=== PATIENT | male | born 1945 | race Caucasian/White ===

== ENCOUNTER 2016-11-28 08:15 | Inpatient (IN) | payer MEDICARE, OTHER ==
[~2016-11-28] VITALS: Ht 177.8 cm; Wt 75.0 kg
[2016-11-28] VITALS (9 sets, daily range): BP systolic 105–144; BP diastolic 64–75; PULSE 78–130; RESP 17–28; TEMP 96.9–98.8; O2SAT 93–98
[~2016-11-28 08:15] MED LIST: ALBU8I INH; DUONI NEB; GABA300C3 PO
[2016-11-28] MEDS ORDERED: SODIUM CHLOR 0.9% 1000 ML INJ 1,000 ML IV SCH (08:46)
--- NOTE | 2016-11-28 08:48 | PD ---
HPI Chief Complaint: Hematemasis, Black Stool, Abd Pain Time Seen by Provider: 08:42 Travel History International Travel<30 days: No Contact w/Intl Traveler<30days: No History of Present Illness HPI 71-year-old male complains of bright red hematemesis and black stool for about 4 days. He reports some lightheadedness as well as shortness of breath. He complains of epigastric abdominal pain. The patient had an endoscopy performed revealing a regular GE junction consistent with reflux esophagitis or early mucosal endoscopic changes consistent with a possible Cazares's esophagitis. Hiatal hernia was found at the GE junction. Active hemorrhagic gastritis was observed. Colonoscopy reveals moderately severe diverticulosis found in the sigmoid colon. Multiple polyps sent. Biopsy results pending. Study was performed by the [facility] in [place] about 3 weeks ago. He denies iron and Pepto-Bismol usage. PFSH Past Medical History Arthritis: No Autoimmune Disease: No Blood Disorders: No Anxiety: No Depression: No Heart Rhythm Problems: No Cancer: Yes (COLON SURGERY 2006) Cardiovascular Problems: Yes (Hypertension is resolved per patient) High Cholesterol: No Chemotherapy: No Chest Pain: No Congestive Heart Failure: Yes COPD: Yes (SMOKING) Cerebrovascular Accident: Yes (CVA "2006" PER PT) Coronary Artery Disease: No Diabetes: No Endocrine: No Gastrointestinal Disorders: Yes (HERNIA REPAIRS X 2 TODAT [phone]) GERD: Yes Genitourinary: Yes Hepatitis: No Hiatal Hernia: No Hypertension: Yes Kidney Stones: No Musculoskeletal: No Neurologic: Yes (TIA 2006, NO RESIDUAL) Psychiatric: No Reproductive: No Respiratory: Yes (copd) Migraines: No Radiation Therapy: No Renal Failure: Yes Seizures: No Sleep Apnea: No Thyroid Disease: No Ulcer: No Past Surgical History Abdominal Surgery: Yes (COLON CANCER SURGERY 2006) Appendectomy: No Body Medical Devices: rods and screws in lower back Cardiac Surgery: No Cholecystectomy: No Ear Surgery: No Endocrine Surgery: No Eye Surgery: No Genitourinary Surgery: Yes (CYST REMOVED OFF LEFT KIDNEY 2008) Gynecologic Surgery: No Oral Surgery: Yes (TEETH PULLED IN PAST) Pacemaker: No Thoracic Surgery: No Other Surgery: Yes Social History Alcohol Use: Yes (occassionally) Tobacco Use: Yes (one half pack per day) Substance Use: No Allergies-Medications (Allergen,Severity, Reaction): Coded Allergies: Penicillin (Verified Allergy, Severe, 04/01/16) Reported Meds & Prescriptions Reported Meds & Active Scripts Active Review of Systems Except as stated in HPI: all other systems reviewed are Neg Physical Exam Narrative GENERAL: 71 yo M, WNWD, speaking full sentences, pleasant SKIN: Warm and dry. HEAD: Atraumatic. Normocephalic. EYES: Pupils equal and round. No scleral icterus. No injection or drainage. ENT: No nasal bleeding or discharge. Mucous membranes pink and moist. NECK: Trachea midline. No JVD. CARDIOVASCULAR: Tachycardia. Regular. RESPIRATORY: Coarse breath sounds bilaterally. No accessory muscle use or tachypnea. GASTROINTESTINAL: Soft. Minimal tenderness palpation in the epigastrium. MUSCULOSKELETAL: Extremities without clubbing, cyanosis, or edema. No obvious deformities. NEUROLOGICAL: Awake and alert. No obvious cranial nerve deficits. Motor grossly within normal limits. Five out of 5 muscle strength in the arms and legs. Normal speech. PSYCHIATRIC: Appropriate mood and affect; insight and judgment normal. Data Data Last Documented VS Vital Signs Date Time Temp Pulse Resp B/P Pulse Ox O2 Delivery O2 Flow Rate FiO2 11/28/16 09:38 98.4 103 18 139/72 94 Nasal Cannula 2 Vital signs reviewed Orders Complete Blood Count With Diff (11/28/16 08:46) Comprehensive Metabolic Panel (11/28/16 08:46) Prothrombin Time / Inr (Pt) (11/28/16 08:46) Act Partial Throm Time (Ptt) (11/28/16 08:46) Alcohol (Ethanol) (11/28/16 08:46) Type And Screen (11/28/16 08:46) Ecg Monitoring (11/28/16 08:46) Iv Access Insert/Monitor (11/28/16 08:46) Oximetry (11/28/16 08:46) Ondansetron Inj (Zofran Inj) (11/28/16 09:00) Pantoprazole Inj (Protonix Inj) (11/28/16 09:00) Sodium Chlor 0.9% 1000 Ml Inj (Ns 1000 M (11/28/16 08:46) Sodium Chloride 0.9% Flush (Ns Flush) (11/28/16 09:00) Lactic Acid (11/28/16 08:46) Admit Order (Ed Use Only) (11/28/16 10:45) Labs Laboratory Tests Test 11/28/16 09:10 White Blood Count 5.0 TH/MM3 Red Blood Count 2.65 MIL/MM3 Hemoglobin 10.0 GM/DL Hematocrit 29.6 % Mean Corpuscular Volume 111.7 FL Mean Corpuscular Hemoglobin 37.7 PG Mean Corpuscular Hemoglobin 33.7 % Concent Red Cell Distribution Width 15.9 % Platelet Count 80 TH/MM3 Mean Platelet Volume 10.0 FL Neutrophils (%) (Auto) 82.6 % Lymphocytes (%) (Auto) 12.2 % Monocytes (%) (Auto) 3.5 % Eosinophils (%) (Auto) 1.1 % Basophils (%) (Auto) 0.6 % Neutrophils # (Auto) 4.1 TH/MM3 Lymphocytes # (Auto) 0.6 TH/MM3 Monocytes # (Auto) 0.2 TH/MM3 Eosinophils # (Auto) 0.1 TH/MM3 Basophils # (Auto) 0.0 TH/MM3 CBC Comment AUTO DIFF Differential Comment AUTO DIFF CONFIRMED Platelet Estimate LOW Platelet Morphology Comment NORMAL Prothrombin Time 13.3 SEC Prothromb Time International 1.2 RATIO Ratio Activated Partial 30.3 SEC Thromboplast Time Sodium Level 136 MEQ/L Potassium Level 3.6 MEQ/L Chloride Level 98 MEQ/L Carbon Dioxide Level 28.1 MEQ/L Anion Gap 10 MEQ/L Blood Urea Nitrogen 4 MG/DL Creatinine 1.36 MG/DL Estimat Glomerular Filtration 52 ML/MIN Rate Random Glucose 118 MG/DL Lactic Acid Level 2.7 mmol/L Calcium Level 7.9 MG/DL Total Bilirubin 1.8 MG/DL Aspartate Amino Transf 58 U/L (AST/SGOT) Alanine Aminotransferase 30 U/L (ALT/SGPT) Alkaline Phosphatase 214 U/L Total Protein 6.1 GM/DL Albumin 2.2 GM/DL Ethyl Alcohol Level LESS THAN 3 MG/DL Blood Type O POSITIVE Antibody Screen NEGATIVE MDM Medical Decision Making Medical Screen Exam Complete: Yes Emergency Medical Condition: Yes Medical Record Reviewed: Yes Differential Diagnosis Constipation, Gastritis, Acute Cholecystitis, Biliary Colic, Pancreatitis, MADRIGAL , Hepatitis, Bowel Obstruction, Cystitis, Mesenteric Ischemia, AAA, Appendicitis , Renal Stone/Hydronephrosis, GERD, perforated viscous Narrative Course CBC & BMP Diagram 11/28/16 09:10 Prior CBC reveal similar WBC/Hgb/PLTs LA 2.7 AST 58 Alk phos 214 Albumin 2.2 T protein 6.1 Patient received a liter of saline along with Protonix and Zofran. At 10:35 AM the pulse is 110. Given his mildly elevated lactic acid, tachycardia and reports of bright red hematemesis and black stool. Case d/w Dr Payan for Family Medicine Residency. Diagnosis Primary Impression: Hematemesis Qualified Code: K92.0 - Hematemesis with nausea Additional Impression: Black stool Admitting Information Admitting Physician Requests: Admit Charles Chamberlain MD November 28, 2016 08:48 Qualified Code: K92.0 - Hematemesis with nausea Additional Impression: Black stool Admitting Information Admitting Physician Requests: Observation Charles Chamberlain MD November 28, 2016 08:48
[2016-11-28] MEDS ORDERED: ONDANSETRON HCL 4 MG/2 ML VIAL IVP ONE (09:00)
[2016-11-28] MEDS ORDERED: SODIUM CHLORIDE 0.9% FLUSH 10 ML FLUSH IVF PRN (09:00)
[2016-11-28] MEDS ORDERED: PANTOPRAZOLE SODIUM 40 MG VIAL IVP ONE (09:00)
[2016-11-28 09:23] LABS: AUTOMATED NEUTROPHIL # 4.1 TH/MM3 (1.8-7.7); BASOPHIL % 0.6 % (0.0-2.0); EOSINOPHIL # 0.1 TH/MM3 (0-0.4); EOSINOPHIL % 1.1 % (0.0-4.0); HEMATOCRIT 29.6 % (39.0-51.0); LYMPH % 12.2 % (9.0-44.0); LYMPHOCYTE # 0.6 TH/MM3 (1.0-4.8); MEAN CELL VOLUME 111.7 FL (80.0-100.0); MEAN CORPUSCULAR HEMOGLOBIN 37.7 PG (27.0-34.0); MEAN CORPUSCULAR HGB CONC 33.7 % (32.0-36.0); MONO % 3.5 % (0.0-8.0); NEUT % 82.6 % (16.0-70.0); PLATELET COUNT 80 TH/MM3 (150-450); RED BLOOD COUNT 2.65 MIL/MM3 (4.50-5.90); RED CELL DISTRIBUTION WIDTH 15.9 % (11.6-17.2)
[2016-11-28 09:26] LABS: HEMO FLAGS AUTO DIFF
[2016-11-28 09:31] LABS: APTT (PATIENT) 30.3 SEC (24.3-30.1); INTERNATIONAL NORMALIZED RATIO 1.2 RATIO; PROTHROMBIN TIME - PATIENT 13.3 SEC (9.8-11.6)
[2016-11-28 09:49] LABS: ANION GAP 10 MEQ/L (5-15)
[2016-11-28 09:53] LABS: ALKALINE PHOSPHATASE 214 U/L (45-117); ALT (GPT) 30 U/L (12-78); AST (GOT) 58 U/L (15-37); BICARBONATE 28.1 MEQ/L (21.0-32.0); BLOOD UREA NITROGEN 4 MG/DL (7-18); CHLORIDE 98 MEQ/L (98-107); GLOMERULAR FILTRATION RATE 52 ML/MIN (>89); POTASSIUM 3.6 MEQ/L (3.5-5.1); SODIUM (NA) 136 MEQ/L (136-145); TOTAL BILIRUBIN ADULT 1.8 MG/DL (0.2-1.0)
[2016-11-28 09:56] LABS: PLATELET ESTIMATE SMEAR LOW (NORMAL); PLATELET MORPHOLOGY NORMAL (NORMAL); SCAN/DIFF AUTO DIFF CONFIRMED
[2016-11-28] MEDS ORDERED: SODIUM CHLORIDE 0.9% FLUSH 10 ML FLUSH IV FLUSH PRN ×2 (11:00)
[2016-11-28] MEDS ORDERED: LORazepam 1 MG TAB PO PRN (11:00)
[2016-11-28] MEDS ORDERED: cloNIDine HCL 0.1 MG TAB PO PRN (11:00)
[2016-11-28] MEDS ORDERED: LORazepam 2 MG TAB PO PRN (11:00)
[2016-11-28] MEDS ORDERED: LORazepam 2 MG/ML VIAL IV PUSH PRN ×4 (11:00)
[2016-11-28] MEDS ORDERED: FLUMAZENIL 0.5 MG/5 ML VIAL IV PUSH PRN (11:00)
[2016-11-28] MEDS ORDERED: ONDANSETRON HCL 4 MG/2 ML VIAL IV PRN (11:00)
--- NOTE | 2016-11-28 11:29 | HHI.HP ---
[facility] Service Family Medicine Primary Care Physician [facility] Admission Diagnosis Hematemasis, Black Stool Diagnoses: International Travel<30 Days: No Contact w/Intl Traveler<30days: No Known Affected Area: No History of Present Illness Mr. Wise is a 71 year old white male with a history of acid reflux and colon cancer presenting with stomach pain, diarrhea, and hematemesis. He is unable to keep down food for the past 3 weeks but can keep down water and ice tea. He has a constant cramping abdominal pain in the epigastric region with an occasional sharp pain that does not radiate. His vomit appears tea colored and had blood in it three times. His diarrhea is black. Eating increases his nausea. He also complains of feeling weak, out of breath, and dizzy. (Tori Haynes MD R1) Review of Systems Constitutional: COMPLAINS OF: Fatigue, Weight loss, Dizziness Eyes: DENIES: Blurred vision, Diplopia Respiratory: COMPLAINS OF: Cough, Shortness of breath Cardiovascular: COMPLAINS OF: Dyspnea on Exertion, Lower Extremity Edema, DENIES: Chest pain Gastrointestinal: COMPLAINS OF: Abdominal pain, Black stools, Diarrhea, Nausea , Vomiting Genitourinary: DENIES: Urinary frequency, Urgency Musculoskeletal: COMPLAINS OF: Back pain Integumentary: DENIES: Pruritus, Rash Hematologic/lymphatic: DENIES: Bruising, Lymphadenopathy Neurologic: DENIES: Headache, Seizures (Tori Haynes MD R1) Past Family Social History Past Medical History COPD GERD Prior HTN Colon Cancer treated with Right hemicolectomy 2009, [facility] Past Surgical History Hernia repair 2012 Right Hemicolectomy 2009 Fused vertebra 2006 Reported Medications Reported Meds & Active Scripts Active (Tori Haynes MD R1) Allergies: Coded Allergies: Penicillin (Verified Allergy, Severe, 04/01/16) Active Ordered Medications Inpatient Medications Albuterol Sulfate (Albuterol Neb) 2.5 mg Q6HR NEB PRN NEB SOB/WHEEZING; Start 11/28/16 at 11:00; Status UNV Albuterol/ Ipratropium (Duoneb Neb) 1 ampule Q4HR NEB PRN NEB SOB/WHEEZING; Start 11/28/16 at 11:00; Status UNV Ciprofloxacin/ Dextrose (Cipro 400 Mg Premix) 200 ml @ 200 mls/hr Q12H IV ; Start 11/28/16 at 11:00; Status UNV Clonidine (Catapres) 0.1 mg Q6H PRN PO SEE LABEL COMMENTS; Start 11/28/16 at 11 :00; Status UNV Flumazenil (Romazicon Inj) 0.2 mg Q1M PRN IV PUSH SEE LABEL COMMENTS; Start 07/05 at 11:00; Status UNV Lorazepam (Ativan Inj) 2 mg Q15M PRN IV PUSH CIWA > 20; Start 11/28/16 at 11:00 ; Status UNV Lorazepam (Ativan) 2 mg Q2H PRN PO CIWA 11-14; Start 11/28/16 at 11:00; Status UNV Multivitamins 10 ml/Folic Acid 1 mg/Sodium Chloride 510.2 ml @ 125 mls/hr Q24H IV ; Start 11/28/16 at 11:00; Stop 12/03/16 at 10:59; Status UNV Ondansetron HCl (Zofran Inj) 4 mg ONCE ONCE IVP Last administered on 09:15; Start 11/28/16 at 09:00; Stop 11/28/16 at 09:01; Status DC Ondansetron HCl 4 mg 4 mg Q6H PRN IV NAUSEA OR VOMITING; Start 11/28/16 at 11: 00; Status UNV Pantoprazole Sodium 40 mg 40 mg ONCE ONCE IVP Last administered on 11/28/16 09:15; Start 11/28/16 at 09:00; Stop 11/28/16 at 09:01; Status DC Pantoprazole Sodium 80 mg/ Sodium Chloride 35 ml @ 420 mls/hr ONCE ONCE IV ; Start 11/28/16 at 12:00; Stop 11/28/16 at 12:04; Status UNV Pantoprazole Sodium/Sodium Chloride (Protonix Inj/NS Inj) 100 ml @ 10 mls/hr Q10H IV ; Start 11/28/16 at 13:00; Status UNV Sodium Chloride (NS Flush) 2 ml UNSCH PRN IV FLUSH FLUSH AFTER USING IV ACCESS ; Start 11/28/16 at 11:00; Status UNV Sodium Chloride 2 ml 2 ml BID IV FLUSH ; Start 11/28/16 at 21:00; Status UNV Thiamine HCl/ Sodium Chloride (Thiamine Inj/NS Inj) 101 ml @ 100 mls/hr Q24H IV ; Start 11/28/16 at 11:00; Stop 12/01/16 at 10:59; Status UNV Family History Mother- CHF Father and Sister: healthy Social History 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 SKIN: No rashes, ecchymoses or lesions. Cool and dry. HEAD: Atraumatic. Normocephalic. No temporal or scalp tenderness. EYES: Pupils equal round and reactive. Extraocular motions intact. No scleral icterus. No injection or drainage. ENT: Nose without bleeding, purulent drainage or septal hematoma. Throat without erythema, tonsillar hypertrophy or exudate. Uvula midline. Airway patent. NECK: Trachea midline. No JVD or lymphadenopathy. Supple, nontender, no meningeal signs. CARDIOVASCULAR: tachycardia with regular rhythm without murmurs, gallops, or rubs. RESPIRATORY: Breath sounds equal bilaterally. wheezes bilateral bases GASTROINTESTINAL: Abdomen soft, nondistended. No palpable masses. No guarding. Epigastric tenderness MUSCULOSKELETAL: Extremities without clubbing, cyanosis, or edema. No joint tenderness, effusion, or edema noted. No calf tenderness. NEUROLOGICAL: Awake and alert. Cranial nerves II through XII intact. Motor and sensory grossly within normal limits. Normal speech. RECTAL: external hemorrhoid, FOBT negative Laboratory Laboratory Tests Test 11/28/16 09:10 White Blood Count 5.0 Red Blood Count 2.65 Hemoglobin 10.0 Hematocrit 29.6 Mean Corpuscular Volume 111.7 Mean Corpuscular Hemoglobin 37.7 Mean Corpuscular Hemoglobin 33.7 Concent Red Cell Distribution Width 15.9 Platelet Count 80 Mean Platelet Volume 10.0 Neutrophils (%) (Auto) 82.6 Lymphocytes (%) (Auto) 12.2 Monocytes (%) (Auto) 3.5 Eosinophils (%) (Auto) 1.1 Basophils (%) (Auto) 0.6 Neutrophils # (Auto) 4.1 Lymphocytes # (Auto) 0.6 Monocytes # (Auto) 0.2 Eosinophils # (Auto) 0.1 Basophils # (Auto) 0.0 CBC Comment AUTO DIFF Differential Comment AUTO DIFF CONFIRMED Platelet Estimate LOW Platelet Morphology Comment NORMAL Prothrombin Time 13.3 Prothromb Time International 1.2 Ratio Activated Partial 30.3 Thromboplast Time Sodium Level 136 Potassium Level 3.6 Chloride Level 98 Carbon Dioxide Level 28.1 Anion Gap 10 Blood Urea Nitrogen 4 Creatinine 1.36 Estimat Glomerular Filtration 52 Rate Random Glucose 118 Lactic Acid Level 2.7 Calcium Level 7.9 Total Bilirubin 1.8 Aspartate Amino Transf 58 (AST/SGOT) Alanine Aminotransferase 30 (ALT/SGPT) Alkaline Phosphatase 214 Total Protein 6.1 Albumin 2.2 Ethyl Alcohol Level LESS THAN 3 Blood Type O POSITIVE Antibody Screen NEGATIVE (Tori Haynes MD R1) Result Diagram: 11/28/16 0910 11/28/16 0910 Septic Shock Reassessment Heart: Regular rate and rhythm Lungs: Other (wheezing) Skin: Warm, Dry Capillary Refill: Brisk (Tori Haynes MD R1) Assessment and Plan Assessment and Plan Mr. Wise is a 71 year old white male with a history of acid reflux and colon cancer presenting with stomach pain, diarrhea, and vomiting. His workup shows a macrocytic anemia. He is being admitted for a possible upper GI bleed due to vomiting with blood and dark stools. Code Status Alternative Code:Do not intubate Discussed Condition With Patient was seen and discussed with Dr. Schuyler Way, MS4, collaborated in history taking, physical exam, and medical decision-making (Tori Haynes MD R1) Attending Attestation Patient seen and examined. Case reviewed and discussed with the resident team. Agree with plan of care as discussed with me and documented in the resident note. pt seen on admission (Zari Salter MD) Problem List: (1) GI bleed Status: Acute Plan: Consult GI Start Protonix Holding DVT prophylaxis due to suspected bleeding Trend H&H Impression: * Patient presents with colonoscopy/endoscopy 3 weeks ago that shows an irregular GE junction consistent with reflux esophagitis, hiatus hernia, diffuse acute active hemorrhagic gastritis, external and internal hemorrhoids, moderately severe diverticulosis, and a single large 20mm pedunculated polyp that was removed. * Hemoccult negative today. * He does also have an approximately 2:1 ratio of AST to AST with alcohol history (2) Hematemesis Status: Acute Plan: Management as above Treat nausea with Zofran IV when necessary (3) Lactic acidemia Status: Acute Plan: Noted to have a lactic acid of 2.7 on admission. Low suspicion that this is related to infection given vital signs stable aside from sinus tachycardia * Monitor vital signs * Recheck lactic acid * Blood cultures drawn (4) ROXY (acute kidney injury) Status: Acute Plan: Patient has creatinine of 1.36 on admission. Baseline creatinine appears to be around 1 Plan: * Status post 1 L bolus in ED * Continue isotonic IV fluids at 100 mL/hour * Monitor BMP (5) COPD (chronic obstructive pulmonary disease) Status: Chronic Plan: Continue Dounebs and albuterol inhaler as needed for wheezing On room air at admission (6) Alcohol use Status: Chronic Plan: Reported last use 3 days ago Plan: * CIWA protocol with rally pack * Monitor for signs of hallucinosis, delirium, treat seizures immediately with Ativan, escalate management as needed (7) Peripheral neuropathy Status: Chronic Plan: Patient denies a history of DM, but is on gabapentin 400mg PO TID * Continue gabapentin * Will check BMP in the morning, if elevated, will begin low-dose supplemental scale insulin with Accu-Cheks (8) Fluids/Electrolytes/Nutrition/Prophylaxis Status: Acute Plan: Fluids: tolerating PO/NS @ 100ml/hr Electrolytes: monitor and replete as needed Nutrition: Clear liquid diet DVT Prophylaxis: Holding pharmacological PPX given GI bleed/SCDs bilateral GI Prophylaxis: Protonix IV 80 mg every 10h (Tori Haynes MD R1) Problem Qualifiers (1) GI bleed: Qualified Code: K29.71 - Gastrointestinal hemorrhage associated with gastritis , unspecified gastritis type (2) Hematemesis: Qualified Code: K92.0 - Hematemesis with nausea (3) COPD (chronic obstructive pulmonary disease): Qualified Code: J44.9 - Chronic obstructive pulmonary disease, unspecified COPD type (4) Peripheral neuropathy: Qualified Code: G62.9 - Peripheral polyneuropathy Tori Haynes MD R1 November 28, 2016 11:29 Zari Salter MD November 29, 2016 13:34
[2016-11-28] MEDS: MULTIVITAMIN INJ 10 ML, FOLIC ACID INJ 1 MG in SODIUM CHLORID 0.9% 500 ML INJ 500 ML IV SCH ×2 (12:00→14:16)
[2016-11-28] MEDS ORDERED: PANTOPRAZOLE INJ 80 MG in SODIUM CHLORIDE 0.9% INJ 35 ML IV ONE (12:00)
--- NOTE | 2016-11-28 12:22 | PD.CONS ---
HPI History of Present Illness This is a 71 year old [gentleman] who came to the ER b/c he was feeling lousy and having black stools with red blood, epigastric pain, nausea, vomiting. The black stools started last week. He admits to having it before but not as bad. The abdominal pain started a week ago, in epgastric area and worsened. NO exacerbating, relieving, or associated factors. It is a dull pain with occasional sharp pain. Yesterday he vomited red blood. He says he knows he vomited blood prior but is unable to describe the appearance. He had a colonoscopy 3 weeks ago at [facility]. EGD --> irr GE junciton c/w reflux, esophagitis, and early mucosal endoscopic changes suggestive Monroy's, hiatal hernia, diffuse acute active hemorrhagic gastritis, mult small shallow ulcerations from bulb through second bulb w/o active bleeding; Colonoscopy ---> fair prep precluding good exam, moderately severe diverticulosis in sigmoid, single large pedunculated polyp in rectum removed by snare cautery, clips applied to edges, small sessile polyp snared. (Lolita Naidu) PFSH Past Medical History COPD left leg numbness hx colon ca Past Surgical History back surgery - 2007 hernia repair with mesh partial colectomy knee surgery 30 years ago (Lolita Naidu) Coded Allergies: Penicillin (Verified Allergy, Severe, 04/01/16) Medications Current Medications Medications (Trade) Dose Ordered Sig/Joanne Route PRN Reason Start Time Stop Time Status Last Admin Dose Admin Sodium Chloride 1,000 ml @ 100 mls/hr Q10H IV 11/28/16 12:00 Pantoprazole Sodium/Sodium Chloride (Protonix Inj/NS Inj) 100 ml @ 10 mls/hr Q10H IV 11/28/16 13:00 Ondansetron HCl 4 mg 4 mg Q6H PRN IV NAUSEA OR VOMITING 11/28/16 11:00 Ciprofloxacin/ Dextrose (Cipro 400 Mg Premix) 200 ml @ 200 mls/hr Q12H IV 11/28/16 13:00 Sodium Chloride (NS Flush) 2 ml UNSCH PRN IV FLUSH FLUSH AFTER USING IV ACCESS 11/28/16 11:00 Sodium Chloride 2 ml 2 ml BID IV FLUSH 11/28/16 21:00 Multivitamins 10 ml/Folic Acid 1 mg/Sodium Chloride 510.2 ml @ 125 mls/hr Q24H IV 11/28/16 12:00 12/03/16 11:59 Thiamine HCl/ Sodium Chloride (Thiamine Inj/NS Inj) 101 ml @ 100 mls/hr Q24H IV 11/28/16 11:00 12/01/16 10:59 Clonidine (Catapres) 0.1 mg Q6H PRN PO SEE LABEL COMMENTS 11/28/16 11:00 Flumazenil (Romazicon Inj) 0.2 mg Q1M PRN IV PUSH SEE LABEL COMMENTS 11/28/16 11:00 Lorazepam (Ativan) 1 mg Q4H PRN PO CIWA 8 - 10 11/28/16 11:00 Lorazepam (Ativan Inj) 1 mg Q4H PRN IV PUSH CIWA 8 - 10 11/28/16 11:00 Lorazepam (Ativan) 2 mg Q2H PRN PO CIWA 11-14 11/28/16 11:00 Lorazepam (Ativan Inj) 2 mg Q2H PRN IV PUSH CIWA 11-14 11/28/16 11:00 Lorazepam (Ativan Inj) 2 mg Q1H PRN IV PUSH CIWA 15-20 11/28/16 11:00 Lorazepam (Ativan Inj) 2 mg Q15M PRN IV PUSH CIWA > 20 11/28/16 11:00 Family History unk Social History drinks ETOH 2 x week, 1-2 drinks at a time <1ppd cigarettes no drugs (Lolita Naidu EMERGENCY MEDICAL TECHNICIAN/DRIVER) Review of Systems Constitutional: COMPLAINS OF: Fatigue, DENIES: Fever Eyes: DENIES: Blurred vision Ears, nose, mouth, throat: DENIES: Hearing loss Respiratory: COMPLAINS OF: Cough, Wheezing, DENIES: Hemoptysis Cardiovascular: DENIES: Chest pain Gastrointestinal: COMPLAINS OF: Abdominal pain, Black stools, Bloody stools, Diarrhea (since his colonoscopy), Nausea, Vomiting, Hematemesis, DENIES: Constipation Genitourinary: DENIES: Hematuria Musculoskeletal: DENIES: Muscle aches Integumentary: DENIES: Jaundice Hematologic/lymphatic: DENIES: Bruising Neurologic: COMPLAINS OF: Abnormal gait (left leg parasthesia) Psychiatric: DENIES: Confusion (Lolita Naidu) GI Exam Vitals I&O Vital Signs Date Time Temp Pulse Resp B/P Pulse Ox O2 Delivery O2 Flow Rate FiO2 11/28/16 11:30 102 18 139/72 98 Room Air 11/28/16 09:38 98.4 103 18 139/72 94 Nasal Cannula 2 11/28/16 09:23 78 18 144/69 11/28/16 08:18 97.9 130 28 105/71 98 Room Air Laboratory Test 11/28/16 09:10 White Blood Count 5.0 TH/MM3 Red Blood Count 2.65 MIL/MM3 Hemoglobin 10.0 GM/DL Hematocrit 29.6 % Mean Corpuscular Volume 111.7 FL Mean Corpuscular Hemoglobin 37.7 PG Mean Corpuscular Hemoglobin 33.7 % Concent Red Cell Distribution Width 15.9 % Platelet Count 80 TH/MM3 Mean Platelet Volume 10.0 FL Neutrophils (%) (Auto) 82.6 % Lymphocytes (%) (Auto) 12.2 % Monocytes (%) (Auto) 3.5 % Eosinophils (%) (Auto) 1.1 % Basophils (%) (Auto) 0.6 % Neutrophils # (Auto) 4.1 TH/MM3 Lymphocytes # (Auto) 0.6 TH/MM3 Monocytes # (Auto) 0.2 TH/MM3 Eosinophils # (Auto) 0.1 TH/MM3 Basophils # (Auto) 0.0 TH/MM3 CBC Comment AUTO DIFF Differential Comment AUTO DIFF CONFIRMED Platelet Estimate LOW Platelet Morphology Comment NORMAL Prothrombin Time 13.3 SEC Prothromb Time International 1.2 RATIO Ratio Activated Partial 30.3 SEC Thromboplast Time Sodium Level 136 MEQ/L Potassium Level 3.6 MEQ/L Chloride Level 98 MEQ/L Carbon Dioxide Level 28.1 MEQ/L Anion Gap 10 MEQ/L Blood Urea Nitrogen 4 MG/DL Creatinine 1.36 MG/DL Estimat Glomerular Filtration 52 ML/MIN Rate Random Glucose 118 MG/DL Lactic Acid Level 2.7 mmol/L Calcium Level 7.9 MG/DL Total Bilirubin 1.8 MG/DL Aspartate Amino Transf 58 U/L (AST/SGOT) Alanine Aminotransferase 30 U/L (ALT/SGPT) Alkaline Phosphatase 214 U/L Total Protein 6.1 GM/DL Albumin 2.2 GM/DL Ethyl Alcohol Level LESS THAN 3 MG/DL Blood Type O POSITIVE Antibody Screen NEGATIVE Physical Examination HEENT: EOMI; normocephalic; atraumatic; no jaundice. CHEST: wheezes, rhonchi, cough CARDIAC: tachy, regular rhythm with no murmur gallop or rubs. ABDOMEN: Soft, nondistended, epigastric TTB; bowel sounds are present in all four quadrants. EXTREMITIES: No clubbing, cyanosis, or edema. SKIN: no rash; no jaundice. TECHNICAL COORDINATOR: No focal deficits; alert and oriented times three. (Lolita Naidu) Assessment and Plan Plan ASSESSMENT - hematemesis, melena, epigastric pain - probable UGIB. For last week black stools, epigastric pain, and for last few days hematemesis. recent EGD showed irr GE junction c/w reflux, esophagitis, early mucosal endoscopy changes sugg of monroy's, hiatal hernia, diffuse acute active hemorrhagic gastritis, mult small shallow ulcerations from bulb through 2nd bulb w/o active bleeding. - hematochezia - could be bleeding from site of rectal polyp removal vs diverticular bleed. pt had recent colonoscopy --> fair prep precluding good exam, moderately severe diverticulosis in sigmoid, single large pedunculated polyp in rectum removed by snare cautery, clips applied to edges, small sessile polyp snared PLAN - EGD - NPO - monitor HH - transfuse prn - Further recommendations to follow based on results above This pt seen by myself and Dr Acevedo and this note is written on her behalf (Lolita Naidu) Lolita Naidu November 28, 2016 12:22 Kim Acevedo MD December 06, 2016 05:58
[2016-11-28] MEDS: SODIUM CHLOR 0.9% 1000 ML INJ 1,000 ML IV SCH ×2 (12:44→21:59)
[2016-11-28] MEDS: THIAMINE INJ 100 MG in SODIUM CHLORIDE 0.9% INJ 100 ML IV SCH (12:45)
[2016-11-28] MEDS: CIPROFLOXACIN 400 MG PREMIX 200 ML IV SCH ×2 (12:48→23:57)
[2016-11-28] MEDS: RESP: ALBUTEROL 2.5 MG/IPRATROPIUM 0.5 MG NEB (PRN) NEB (12:59)
[2016-11-28] MEDS: PANTOPRAZOLE INJ 80 MG in SODIUM CHLORIDE 0.9% INJ 100 ML IV SCH ×2 (13:34→21:59)
[2016-11-28] MEDS ORDERED: PROPOFOL 200 MG/20 ML AMP IV ONE (15:20)
[2016-11-28 16:57] LABS: HEMATOCRIT 27.4 % (39.0-51.0)
[2016-11-28] MEDS: GABAPENTIN 400 MG CAP PO SCH (18:12)
[2016-11-28] MEDS: SODIUM CHLORIDE 0.9% FLUSH 10 ML FLUSH IV FLUSH SCH (21:00)
[2016-11-28] MEDS ORDERED: SODIUM CHLORIDE 0.9% FLUSH 10 ML FLUSH IV FLUSH SCH (21:00)
[2016-11-28 21:42] LABS: LACTIC ACID GHOST NOT REPORTABLE
[2016-11-28 23:37] LABS: REVIEW FLAG FINAL
[2016-11-29] VITALS (10 sets, daily range): BP systolic 109–137; BP diastolic 59–73; PULSE 82–97; RESP 16–18; TEMP 96.3–98.3; O2SAT 89–100
[2016-11-29] MEDS ORDERED: SODIUM CHLOR 0.9% 250 ML INJ 250 ML IV ONE
[2016-11-29 03:54] LABS: AUTOMATED NEUTROPHIL # 1.7 TH/MM3 (1.8-7.7); EOSINOPHIL # 0.1 TH/MM3 (0-0.4); EOSINOPHIL % 3.3 % (0.0-4.0); LYMPH % 25.2 % (9.0-44.0); LYMPHOCYTE # 0.7 TH/MM3 (1.0-4.8); MEAN CELL VOLUME 112.8 FL (80.0-100.0); MEAN CORPUSCULAR HEMOGLOBIN 38.8 PG (27.0-34.0); MEAN CORPUSCULAR HGB CONC 34.4 % (32.0-36.0); MONO % 5.1 % (0.0-8.0); NEUT % 65.4 % (16.0-70.0); PLATELET COUNT 53 TH/MM3 (150-450); RED BLOOD COUNT 1.82 MIL/MM3 (4.50-5.90); RED CELL DISTRIBUTION WIDTH 15.8 % (11.6-17.2); WHITE BLOOD COUNT 2.6 TH/MM3 (4.0-11.0)
[2016-11-29 03:58] LABS: HEMO FLAGS AUTO DIFF
[2016-11-29 04:01] LABS: HEMATOCRIT 20.6 % (39.0-51.0)
[2016-11-29 04:37] LABS: CALCIUM-PROTEIN CORRECTED 8.5 MG/DL (8.5-10.1); POTASSIUM 3.4 MEQ/L (3.5-5.1); TOTAL BILIRUBIN ADULT 1.4 MG/DL (0.2-1.0)
[2016-11-29] MEDS: RESP: ALBUTEROL 2.5 MG/IPRATROPIUM 0.5 MG NEB (PRN) NEB ×2 (04:50→14:59)
[2016-11-29 06:36] LABS: SCAN/DIFF FINAL DIFF MANUAL; STOMATOCYTES 1+ (NORMAL)
[2016-11-29] MEDS: GABAPENTIN 400 MG CAP PO SCH ×3 (07:33→16:17)
[2016-11-29] MEDS: PANTOPRAZOLE INJ 80 MG in SODIUM CHLORIDE 0.9% INJ 100 ML IV SCH ×2 (07:34→20:11)
[2016-11-29] MEDS: SODIUM CHLORIDE 0.9% FLUSH 10 ML FLUSH IV FLUSH SCH ×2 (07:36→20:11)
[2016-11-29] MEDS: SODIUM CHLOR 0.9% 1000 ML INJ 1,000 ML IV SCH ×3 (07:36→20:10)
[2016-11-29] MEDS: THIAMINE INJ 100 MG in SODIUM CHLORIDE 0.9% INJ 100 ML IV SCH (10:17)
[2016-11-29 10:37] LABS: HEMATOCRIT 30.1 % (39.0-51.0)
[2016-11-29 10:41] LABS: REVIEW FLAG FINAL
[2016-11-29] MEDS: CIPROFLOXACIN 400 MG PREMIX 200 ML IV SCH (11:00)
[2016-11-29] MEDS: MULTIVITAMIN INJ 10 ML, FOLIC ACID INJ 1 MG in SODIUM CHLORID 0.9% 500 ML INJ 500 ML IV SCH (11:01)
--- NOTE | 2016-11-29 11:08 | PD.PN.STU ---
Subjective Remarks Patient seen and examined this morning. Vital signs over night showed some tachycardia, but resolved this morning. Currently on 1L of O2 at 94%. Patient transfused one unit of RBC overnight due to drop in Hgb from 10.0 to 7.1, now back to 10.1. EGD done yesterday showed duodenitis, gastritis, esophagitis and stricture. Patient denies any more vomiting. Last bowel movement was yesterday with unknown color or blood. Abdominal pain is improving. Still complaining of cough. Started liquid diet this morning. ROS: Positive: cough, abdominal pain Negative: fever, headache, vomiting, diarrhea Objective Vitals Vital Signs Date Time Temp Pulse Resp B/P Pulse Ox O2 Delivery O2 Flow Rate FiO2 11/29/16 08:00 97.9 88 17 110/73 94 11/29/16 07:37 Nasal Cannula 1.00 11/29/16 04:40 96.3 91 18 116/73 95 11/29/16 04:00 96.5 97 18 118/71 94 11/29/16 01:38 89 11/29/16 00:00 98.0 82 17 109/60 95 11/28/16 20:00 98.7 97 18 117/64 93 11/28/16 19:01 94 11/28/16 16:00 96.9 118 19 136/75 95 11/28/16 15:35 111 16 111/61 96 11/28/16 15:31 109 15 96/54 96 11/28/16 15:26 98.8 112 16 102/60 98 11/28/16 12:01 98 21 11/28/16 12:00 98.8 102 17 143/68 94 11/28/16 11:30 102 18 139/72 98 Room Air I/O 11/28/16 11/28/16 11/28/16 11/29/16 11/29/16 11/29/16 07:00 15:00 23:00 07:00 15:00 23:00 Intake Total 0 ml 1055 ml 1130 ml Output Total 0 ml 400 ml Balance 0 ml 1055 ml 730 ml Intake Oral 0 ml 240 ml 240 ml IV Total 815 ml 710 ml Packed Cells 180 ml Output Urine Total 0 ml 400 ml # Voids 1 # Bowel Movements 0 1 Result Diagram: 11/29/16 1020 11/29/16 0344 Objective Remarks GENERAL: This is a well-nourished, well-developed patient, in no apparent distress. SKIN: No rashes, ecchymoses or lesions. Cool and dry. HEAD: Atraumatic. Normocephalic. No temporal or scalp tenderness. EYES: Pupils equal round and reactive. Extraocular motions intact. No scleral icterus. No injection or drainage. NECK: Trachea midline. No JVD or lymphadenopathy. Supple, nontender, no meningeal signs. CARDIOVASCULAR: regular rate and regular rhythm without murmurs, gallops, or rubs. RESPIRATORY: Breath sounds equal bilaterally. lungs clear to auscultation bilaterally. GASTROINTESTINAL: Abdomen soft, nondistended. No palpable masses. No guarding. non tender MUSCULOSKELETAL: Extremities without clubbing, cyanosis, or edema. No joint tenderness, effusion, or edema noted. No calf tenderness. NEUROLOGICAL: Awake and alert. Cranial nerves II through XII intact. Motor and sensory grossly within normal limits. Normal speech. Medications and IVs Current Medications Medications (Trade) Dose Ordered Sig/Joanne Route Start Time Stop Time Status Last Admin Sodium Chloride 1,000 ml @ 100 mls/hr Q10H IV 11/28/16 12:00 11/29/16 07:36 (Protonix Inj/NS Inj) 100 ml @ 10 mls/hr Q10H IV 11/28/16 13:00 11/29/16 07:34 Ondansetron HCl 4 mg 4 mg Q6H PRN IV 11/28/16 11:00 (Cipro 400 Mg Premix) 200 ml @ 200 mls/hr Q12H IV 11/28/16 13:00 11/28/16 23:57 (NS Flush) 2 ml UNSCH PRN IV FLUSH 11/28/16 11:00 Sodium Chloride 2 ml 2 ml BID IV FLUSH 11/28/16 21:00 11/29/16 07:36 Multivitamins 10 ml/Folic Acid 1 mg/Sodium Chloride 510.2 ml @ 125 mls/hr Q24H IV 11/28/16 12:00 12/03/16 11:59 11/28/16 14:16 (Thiamine Inj/NS Inj) 101 ml @ 100 mls/hr Q24H IV 11/28/16 11:00 12/01/16 10:59 11/29/16 10:17 (Catapres) 0.1 mg Q6H PRN PO 11/28/16 11:00 (Romazicon Inj) 0.2 mg Q1M PRN IV PUSH 11/28/16 11:00 (Ativan) 1 mg Q4H PRN PO 11/28/16 11:00 (Ativan Inj) 1 mg Q4H PRN IV PUSH 11/28/16 11:00 (Ativan) 2 mg Q2H PRN PO 11/28/16 11:00 (Ativan Inj) 2 mg Q2H PRN IV PUSH 11/28/16 11:00 (Ativan Inj) 2 mg Q1H PRN IV PUSH 11/28/16 11:00 (Ativan Inj) 2 mg Q15M PRN IV PUSH 11/28/16 11:00 Gabapentin 400 mg 400 mg TID PO 11/28/16 18:00 11/29/16 07:33 (NS 250 ml Inj) 250 ml @ 15 mls/hr ONCE ONCE IV 11/29/16 00:00 11/29/16 16:39 11/29/16 04:11 A/P Assessment and Plan Possible Upper GI Bleed -Continue following Hgb -Continue Protonix prophylaxis -Holding pharmacological DVT prophylaxis given GI bleed COPD- Chronic -Continue Dounebs and albuterol inhaler as needed for wheezing Katie [address] November 29, 2016 11:07 Zari Salter MD November 29, 2016 12:01
--- NOTE | 2016-11-29 12:14 | HHI.HP ---
[facility] Service Family Medicine Primary Care Physician [facility] Admission Diagnosis Hematemasis, Black Stool Diagnoses: (1) GI bleed Diagnosis: Principal (2) Hematemesis Diagnosis: Principal (3) Lactic acidemia Diagnosis: Principal (4) ROXY (acute kidney injury) Diagnosis: Principal (5) COPD (chronic obstructive pulmonary disease) Diagnosis: Principal (6) Alcohol use Diagnosis: Principal (7) Peripheral neuropathy Diagnosis: Principal (8) Fluids/Electrolytes/Nutrition/Prophylaxis International Travel<30 Days: No Contact w/Intl Traveler<30days: No Known Affected Area: No History of Present Illness Mr. Wise is a 71 year old white male with a history of acid reflux and colon cancer presenting with stomach pain, diarrhea, and hematemesis. He was unable to keep down food for the past 3 weeks but can keep down water and ice tea. He has a constant cramping abdominal pain in the epigastric region with an occasional sharp pain that does not radiate. His vomit appears tea colored and had blood in it three times. His diarrhea is black. Eating increases his nausea. He also complains of feeling weak, out of breath, and dizzy. [facility] and brought his records with him. He had gastritis, esophagitis and multiple other problems at that time. He was admitted and had endoscopy and required one unit of blood to date. He is drinking clear liquids at this time. He does report a history of greater alcohol consumption in the past but still consumes multiple beverages at least 3 times per week. He denies any known history of hepatitis screening or liver problems but is a vague historian to some extent. He does admit to "slightly elevated liver tests" in the past though he is not sure why. Review of Systems Other Constitutional: COMPLAINS OF: Fatigue, Weight loss, Dizziness Eyes: DENIES: Blurred vision, Diplopia Respiratory: COMPLAINS OF: Cough, Shortness of breath Cardiovascular: COMPLAINS OF: Dyspnea on Exertion, Lower Extremity Edema, DENIES: Chest pain Gastrointestinal: COMPLAINS OF: Abdominal pain, Black stools, Diarrhea, Nausea , Vomiting Genitourinary: DENIES: Urinary frequency, Urgency Musculoskeletal: COMPLAINS OF: Back pain Integumentary: DENIES: Pruritus, Rash Hematologic/lymphatic: DENIES: Bruising, Lymphadenopathy Neurologic: DENIES: Headache, Seizures Past Family Social History Past Medical History COPD GERD Prior HTN Colon Cancer treated with Right hemicolectomy 2009, [facility] Past Surgical History Hernia repair 2012 Right Hemicolectomy 2009 Fused vertebra 2007 Allergies: Coded Allergies: Penicillin (Verified Allergy, Severe, 04/01/16) Family History Mother- CHF Father and Sister: healthy Social History 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,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 Smokes about 1 PPD for 55 years Drinks 2-3 vodka sodas 2-3x a week since adulthood, heavier use as a younger man Drug use: denies Lives with girlfriend and two dogs Physical Exam Vital Signs Vital Signs Date Time Temp Pulse Resp B/P Pulse Ox O2 Delivery O2 Flow Rate FiO2 11/29/16 12:00 96.9 85 16 115/61 95 11/29/16 08:00 97.9 88 17 110/73 94 11/29/16 07:37 Nasal Cannula 1.00 11/29/16 04:40 96.3 91 18 116/73 95 11/29/16 04:00 96.5 97 18 118/71 94 11/29/16 01:38 89 11/29/16 00:00 98.0 82 17 109/60 95 11/28/16 20:00 98.7 97 18 117/64 93 11/28/16 19:01 94 11/28/16 16:00 96.9 118 19 136/75 95 11/28/16 15:35 111 16 111/61 96 11/28/16 15:31 109 15 96/54 96 11/28/16 15:26 98.8 112 16 102/60 98 Physical Exam GENERAL: This is a well-nourished, well-developed patient, in no apparent distress. Starting to have his clear liquids this morning. SKIN: No rashes, ecchymoses or lesions. Cool and dry. HEAD: Atraumatic. Normocephalic. EYES: Pupils equal round and reactive. Extraocular motions intact. No scleral icterus. No injection or drainage. ENT: Nose without bleeding, purulent drainage or septal hematoma. Airway patent. NECK: Trachea midline. No JVD or lymphadenopathy. Supple, nontender, no meningeal signs. CARDIOVASCULAR: tachycardia initially but better now with regular rhythm without murmurs, gallops, or rubs. RESPIRATORY: Breath sounds equal bilaterally. wheezes bilateral bases yesterday but clear today GASTROINTESTINAL: Abdomen soft, nondistended. No palpable masses. No guarding. Epigastric tenderness MUSCULOSKELETAL: Extremities without clubbing, cyanosis, or edema. No joint tenderness, effusion, or edema noted. No calf tenderness. NEUROLOGICAL: Awake and alert. Cranial nerves II through XII intact. Motor and sensory grossly within normal limits. Normal speech. RECTAL: external hemorrhoid, FOBT negative in ED Laboratory Laboratory Tests Test 11/28/16 11/28/16 11/28/16 11/28/16 16:31 19:23 22:55 23:47 Hemoglobin 9.4 7.5 Hematocrit 27.4 22.0 Lactic Acid Level 3.4 2.6 Blood Type O POSITIVE Crossmatch Leukocyte-Reduced Red Blood Cells Blood Bank Comment Test 11/29/16 11/29/16 03:44 10:20 White Blood Count 2.6 Red Blood Count 1.82 Hemoglobin 7.1 10.0 Hematocrit 20.6 30.1 Mean Corpuscular Volume 112.8 Mean Corpuscular Hemoglobin 38.8 Mean Corpuscular Hemoglobin 34.4 Concent Red Cell Distribution Width 15.8 Platelet Count 53 Mean Platelet Volume 9.4 Neutrophils (%) (Auto) 65.4 Lymphocytes (%) (Auto) 25.2 Monocytes (%) (Auto) 5.1 Eosinophils (%) (Auto) 3.3 Basophils (%) (Auto) 1.0 Neutrophils # (Auto) 1.7 Lymphocytes # (Auto) 0.7 Monocytes # (Auto) 0.1 Eosinophils # (Auto) 0.1 Basophils # (Auto) 0.0 CBC Comment AUTO DIFF Differential Comment FINAL DIFF MANUAL Stomatocytes 1+ Sodium Level 140 Potassium Level 3.4 Chloride Level 105 Carbon Dioxide Level 28.0 Anion Gap 7 Blood Urea Nitrogen 5 Creatinine 1.21 Estimat Glomerular Filtration 59 Rate Random Glucose 81 Calcium Level 7.1 Protein Corrected Calcium 8.5 Total Bilirubin 1.4 Aspartate Amino Transf 45 (AST/SGOT) Alanine Aminotransferase 22 (ALT/SGPT) Alkaline Phosphatase 151 Total Protein 4.5 Albumin 1.7 Date/Time Procedure Status Source Growth 11/28/16 19:31 Aerobic Blood Culture - Preliminary Resulted Blood Peripheral NO GROWTH IN 1 DAY 11/28/16 19:31 Anaerobic Blood Culture - Preliminary Resulted Blood Peripheral NO GROWTH IN 1 DAY Result Diagram: 11/29/16 1020 11/29/16 0344 Assessment and Plan Assessment and Plan Mr. Wise is a 71 year old white male with a history of acid reflux and colon cancer presenting with stomach pain, diarrhea, and vomiting. His workup shows a macrocytic anemia. He is being admitted for a possible upper GI bleed due to vomiting with blood and dark stools. Problem List: (1) GI bleed Status: Acute Plan: Consulted GI, had endoscopy with inflammation virtually everywhere and stricture Started Protonix Holding DVT prophylaxis due to suspected bleeding Trend H&H, needed transfusion and feels better after that Impression: * Patient presents with colonoscopy/endoscopy 3 weeks ago that shows an irregular GE junction consistent with reflux esophagitis, hiatus hernia, diffuse acute active hemorrhagic gastritis, external and internal hemorrhoids, moderately severe diverticulosis, and a single large 20mm pedunculated polyp that was removed. * Hemoccult negative today. * He does also have an approximately 2:1 ratio of AST to AST with alcohol history * possibly some of his anemia could be production related from alcohol effecting his bone marrow other causes though with history of GI bleed that is most significant source of problems (2) Hematemesis Status: Acute Plan: Management as above Treat nausea with Zofran IV when necessary (3) Lactic acidemia Status: Acute Plan: Noted to have a lactic acid of 2.7 on admission. Low suspicion that this is related to infection given vital signs stable aside from sinus tachycardia * Monitor vital signs * Rechecked lactic acid * Blood cultures drawn * lactic acid can be increased with alcohol use and liver disease so will check his liver and evaluate for hepatitis * advised pt on wisdom of quitting alcohol as it can damage his liver and GI tract (4) ROXY (acute kidney injury) Status: Acute Plan: Patient has creatinine of 1.36 on admission. Baseline creatinine appears to be around 1 Plan: * Status post 1 L bolus in ED * Continue isotonic IV fluids at 100 mL/hour * Monitor BMP (5) COPD (chronic obstructive pulmonary disease) Status: Chronic Plan: Continue Dounebs and albuterol inhaler as needed for wheezing, he did well with this overnight On room air at admission (6) Alcohol use Status: Chronic Plan: Reported last use 3 days ago Plan: * CIWA protocol with rally pack * Monitor for signs of hallucinosis, delirium, treat seizures immediately with Ativan, escalate management as needed (7) Peripheral neuropathy Status: Chronic Plan: Patient denies a history of DM, but is on gabapentin 400mg PO TID * Continue gabapentin * Will check BMP in the morning, if elevated, will begin low-dose supplemental scale insulin with Accu-Cheks * he could have vitamin or alcohol related neuropathy, can continue to assess (8) Fluids/Electrolytes/Nutrition/Prophylaxis Status: Acute Plan: Fluids: tolerating PO/NS @ 100ml/hr, can heplock if taking good po Electrolytes: monitor and replete as needed Nutrition: Clear liquid diet, can advance if tolerated DVT Prophylaxis: Holding pharmacological PPX given GI bleed/SCDs bilateral GI Prophylaxis: Protonix IV 80 mg every 10h Problem Qualifiers (1) GI bleed: Qualified Code: K29.71 - Gastrointestinal hemorrhage associated with gastritis , unspecified gastritis type (2) Hematemesis: Qualified Code: K92.0 - Hematemesis with nausea (3) COPD (chronic obstructive pulmonary disease): Qualified Code: J44.9 - Chronic obstructive pulmonary disease, unspecified COPD type (4) Peripheral neuropathy: Qualified Code: G62.9 - Peripheral polyneuropathy Zari Salter MD November 29, 2016 12:14
[2016-11-29 12:45] LABS: REVIEW FLAG FINAL
[2016-11-29 12:54] LABS: HEMATOCRIT 23.8 % (39.0-51.0)
[2016-11-29 16:06] LABS: HEMATOCRIT 24.9 % (39.0-51.0)
[2016-11-29 16:16] LABS: REVIEW FLAG FINAL
[2016-11-29 22:06] LABS: HEMATOCRIT 23.7 % (39.0-51.0)
[2016-11-29 22:17] LABS: REVIEW FLAG FINAL
--- NOTE | 2016-11-29 22:19 | MR ---
cc: KIM PULIDO MD DATE 11/28/16 DATE OF [address] Javed PROCEDURE Upper endoscopy with biopsy. REASON FOR PROCEDURE Anemia and GI bleed, history of ulcers. CONSENT After the risks, benefits, alternatives, indications and limitations were explained to the patient, he signed informed consent. He was informed about the risks of bleeding, perforation, oversedation, allergic reaction to the medication, missed lesion or failed procedure. PROCEDURE IN DETAIL The patient was placed in the left lateral decubitus and after the patient was fully sedated by Anesthesia, upper endoscope was gently inserted into the oral cavity and, under direct visualization, esophagus was intubated. Then the scope was gently inserted into the stomach, advanced to the duodenum up to the second portion. Then the scope was slowly withdrawn and the mucosa was fully examined including color, texture, anatomy and motility. In the fundus retroflexion was performed. Then the scope was withdrawn and procedure terminated. He tolerated procedure well with no immediate complications. FINDINGS Gastritis in the antrum. A biopsy was performed. Duodenitis in the second portion. A biopsy was performed. Esophagitis in the distal esophagus. A biopsy was performed. Retroflexion revealed hiatal hernia. RECOMMENDATIONS Follow up biopsy. PPI, clear liquid diet. I would like to thank Dr. Javed for referring him to our office for consultation. Further recommendation will depend on the patient's clinical status and the above results. Kim Pulido MD BSB/SA /3:35 PM /10:11 PM
[2016-11-30] VITALS (10 sets, daily range): BP systolic 92–147; BP diastolic 53–70; PULSE 85–105; RESP 16–19; TEMP 96.9–98.7; O2SAT 93–100
[2016-11-30] MEDS: CIPROFLOXACIN 400 MG PREMIX 200 ML IV SCH ×2 (02:25→12:16)
[2016-11-30] MEDS: PANTOPRAZOLE INJ 80 MG in SODIUM CHLORIDE 0.9% INJ 100 ML IV SCH (06:19)
[2016-11-30] MEDS: RESP: ALBUTEROL 2.5 MG/3 ML NEB (PRN) NEB (06:37)
--- NOTE | 2016-11-30 07:36 | HHI.FPPN ---
Subjective Remarks Patient was seen and examined this morning. He has had no bloody stools or hematemesis. Eating and voiding without difficulty with clear liquid diet, requests diet advancement. Hemoglobin stable. No reported fevers, chills, nausea , vomiting, diarrhea, shortness of breath, chest pain, abdominal pain. He was made aware of the downtrending hemoglobin and denies any visible bleeding. ( Tori Haynes MD R1) Objective Vitals Vital Signs Date Time Temp Pulse Resp B/P Pulse Ox O2 Delivery O2 Flow Rate FiO2 11/30/16 06:39 98 Nasal Cannula 2.00 11/30/16 04:00 97.9 87 16 118/67 100 11/30/16 00:00 97.2 85 16 116/53 97 11/29/16 20:00 97.1 94 18 137/71 100 11/29/16 19:50 90 11/29/16 16:00 98.3 92 18 110/59 95 11/29/16 15:01 91 Nasal Cannula 1.00 11/29/16 12:00 96.9 85 16 115/61 95 11/29/16 08:00 97.9 88 17 110/73 94 11/29/16 07:37 Nasal Cannula 1.00 I/O 11/29/16 11/29/16 11/29/16 11/30/16 11/30/16 11/30/16 07:00 15:00 23:00 07:00 15:00 23:00 Intake Total 1130 ml 1828 ml 1488 ml 837 ml Output Total 400 ml 500 ml 450 ml 700 ml Balance 730 ml 1328 ml 1038 ml 137 ml Intake Oral 240 ml 1390 ml 480 ml 240 ml IV Total 710 ml 438 ml 1008 ml 597 ml Packed Cells 180 ml Output Urine Total 400 ml 500 ml 450 ml 700 ml # Bowel Movements 4 1 0 (Tori Haynes MD R1) Result Diagram: 11/29/16 2135 11/29/16 0344 Objective Remarks GENERAL: This is a well-nourished, well-developed patient sitting on the bed. He requests diet advancement SKIN: No rashes, ecchymoses or lesions. Cool and dry. HEAD: Atraumatic. Normocephalic. No temporal or scalp tenderness. EYES: Pupils equal round and reactive. Extraocular motions intact. No scleral icterus. No injection or drainage. ENT: Nose without bleeding, purulent drainage or septal hematoma. Throat without erythema, tonsillar hypertrophy or exudate. Uvula midline. Airway patent. NECK: Trachea midline. No JVD or lymphadenopathy. Supple, nontender, no meningeal signs. CARDIOVASCULAR: Regular rate and regular rhythm without murmurs, gallops, or rubs. RESPIRATORY: Breath sounds equal bilaterally. No wheezes today GASTROINTESTINAL: Abdomen soft, nondistended. No palpable masses. No guarding. No epigastric tenderness today MUSCULOSKELETAL: Extremities without clubbing, cyanosis, or edema. No joint tenderness, effusion, or edema noted. No calf tenderness. NEUROLOGICAL: Awake and alert. Cranial nerves II through XII intact. Motor and sensory grossly within normal limits. Normal speech. Procedures EGD 11/28 Medications and IVs Inpatient Medications Albuterol Sulfate (Albuterol Neb) 2.5 mg Q6HR NEB PRN NEB SOB/WHEEZING Last administered on 11/30/16 06:37; Start 11/28/16 at 11:00 Albuterol/ Ipratropium (Duoneb Neb) 1 ampule Q4HR NEB PRN NEB SOB/WHEEZING Last administered on 11/29/16 14:59; Start 11/28/16 at 11:00 Ciprofloxacin/ Dextrose (Cipro 400 Mg Premix) 200 ml @ 200 mls/hr Q12H IV Last administered on 11/30/16 12:16; Start 11/28/16 at 13:00 Clonidine (Catapres) 0.1 mg Q6H PRN PO SEE LABEL COMMENTS; Start 11/28/16 at 11 :00 Flumazenil (Romazicon Inj) 0.2 mg Q1M PRN IV PUSH SEE LABEL COMMENTS; Start 07/05 at 11:00 Gabapentin (Neurontin) 900 mg TID PO Last administered on 11/30/16 12:16; Start 11/30/16 at 09:00 Gabapentin 400 mg 400 mg TID PO Last administered on 11/30/16 07:56; Start 07/05 at 18:00; Stop 11/30/16 at 08:06; Status DC Lorazepam (Ativan Inj) 2 mg Q15M PRN IV PUSH CIWA > 20; Start 11/28/16 at 11:00 Lorazepam (Ativan) 2 mg Q2H PRN PO CIWA -14; Start 11/28/16 at 11:00 Multivitamins 10 ml/Folic Acid 1 mg/Sodium Chloride 510.2 ml @ 125 mls/hr Q24H IV Last administered on 11/30/16 11:12; Start 11/28/16 at 12:00; Stop at 11:59 Ondansetron HCl (Zofran Inj) 4 mg ONCE ONCE IVP Last administered on 09:15; Start 11/28/16 at 09:00; Stop 11/28/16 at 09:01; Status DC Ondansetron HCl 4 mg 4 mg Q6H PRN IV NAUSEA OR VOMITING; Start 11/28/16 at 11: 00 Pantoprazole Sodium 40 mg 40 mg ONCE ONCE IVP Last administered on 11/28/16 09:15; Start 11/28/16 at 09:00; Stop 11/28/16 at 09:01; Status DC Pantoprazole Sodium 80 mg/ Sodium Chloride 35 ml @ 420 mls/hr ONCE ONCE IV ; Start 11/28/16 at 12:00; Stop 11/28/16 at 12:00; Status DC Pantoprazole Sodium/Sodium Chloride (Protonix Inj/NS Inj) 100 ml @ 10 mls/hr Q10H IV Last administered on 11/30/16 06:19; Start 11/28/16 at 13:00 Sodium Chloride (NS 250 ml Inj) 250 ml @ 15 mls/hr ONCE ONCE IV Last administered on 11/29/16 04:11; Start 11/29/16 at 00:00; Stop 11/29/16 at 16:39 ; Status DC Sodium Chloride (NS Flush) 2 ml UNSCH PRN IV FLUSH FLUSH AFTER USING IV ACCESS ; Start 11/28/16 at 11:00 Sodium Chloride 2 ml 2 ml BID IV FLUSH Last administered on 11/30/16 07:58; Start 11/28/16 at 21:00 Thiamine HCl/ Sodium Chloride (Thiamine Inj/NS Inj) 101 ml @ 100 mls/hr Q24H IV Last administered on 11/30/16 11:12; Start 11/28/16 at 11:00; Stop at 10:59 (Tori Haynes MD R1) Urinary Catheter: No (Tori Haynes MD R1) Vascular Central Line Catheter: No (Tori Haynes MD R1) A/P Assessment and Plan Mr. Wise is a 71 year old white male with a history of acid reflux and colon cancer presenting with stomach pain, diarrhea, and vomiting. His workup shows a macrocytic anemia. He was admitted for a possible upper GI bleed due to vomiting with blood and dark stools. Repeat EGD stable. Hemoglobin continued to downtrend this hospital stay, status post Discharge Planning Unclear. Pending stabilization of blood counts. Further workup pending. ( Tori Haynes MD R1) Attending Attestation Patient seen and examined. Case reviewed and discussed with the resident team. Agree with plan of care as discussed with me and documented in the resident note. (Zari Salter MD) Problem List: (1) GI bleed Status: Acute Plan: Plan: * Stools are becoming more formed and did not have evidence of blood visually. Patient has not had hematemesis. * Continue to monitor H&H, this afternoon and every 6 hours overnight * Will transfuse for hemoglobin less than 7 * Status-post 1 unit PRBC on 11/28, 1 unit ready in blood bank * Continue Protonix IV 40mg PO BID * Repeat Hemoccult * Spoke with Dr. Acevedo 11/30 about downtrending hemoglobin, recommended hemolysis workup, consult hematology, abdominal imaging. Continuing downtrend may warrant imaging work-up of abdomen, which has not yet been performed. Given bump in creatinine today, will monitor creatinine and hold off on CT abdomen unless symptomatic. * Pending labs 11/30 PM: H&H trending, repeat Hemoccult, B12, folate, reticulocyte count, LDH, haptoglobin, ESR, CRP, direct Mary, peripheral blood smear Hospital course: * Patient presents with colonoscopy/endoscopy 3 weeks ago that shows an irregular GE junction consistent with reflux esophagitis, hiatus hernia, diffuse acute active hemorrhagic gastritis, external and internal hemorrhoids, moderately severe diverticulosis, and a single large 20mm pedunculated polyp that was removed. * Hemoccult negative on admission * He does also have an approximately 2:1 ratio of AST to AST with alcohol history * possibly some of his anemia could be production related from alcohol effecting his bone marrow other causes though with history of GI bleed that is most significant source of problems * Consulted GI, had endoscopy with inflammation virtually everywhere and stricture * needed transfusion 11/28 x 1 unit PRBC * Started Protonix gtt, transitioned to IV BID * Holding DVT prophylaxis due to suspected bleeding * Trend H&H * Hemolysis work-up and hematology consult initiated 11/30 * The patient was placed on ciprofloxacin at admission, DC'd 11/30 (2) Hematemesis Status: Resolved Plan: Resolved. Management as above Treat nausea with Zofran IV when necessary (3) Lactic acidemia Status: Acute Plan: Noted to have a lactic acid of 2.7 on admission. Low suspicion that this is related to infection given vital signs stable aside from sinus tachycardia * Monitor vital signs * Rechecked lactic acid * Blood cultures drawn, negative * Lactic acid can be increased with alcohol use and liver disease so will check his liver and evaluate for hepatitis * Advised pt on wisdom of quitting alcohol as it can damage his liver and GI tract (4) ROXY (acute kidney injury) Status: Resolved Plan: Patient has creatinine of 1.36 on admission. Baseline creatinine appears to be around 1. Increasing creatinine to 1.37 after normalization yesterday Plan: * Status post 1 L bolus in ED * Continue isotonic IV fluids at 100 mL/hour * Encouraged by mouth hydration * Monitor BMP (5) COPD (chronic obstructive pulmonary disease) Status: Chronic Plan: Continue Dounebs and albuterol inhaler as needed for wheezing, he did well with this overnight On room air at admission (6) Alcohol use Status: Chronic Plan: Reported last use 3 days prior to admission Plan: * CIWA protocol with rally pack * Monitor for signs of hallucinosis, delirium, treat seizures immediately with Ativan, escalate management as needed (7) Peripheral neuropathy Status: Chronic Plan: Patient denies a history of DM, but is on gabapentin 900mg PO TID * Continue gabapentin * he could have vitamin or alcohol related neuropathy, can continue to assess (8) Fluids/Electrolytes/Nutrition/Prophylaxis Status: Acute Plan: Fluids: tolerating PO/NS @ 100ml/hr, heplock after ROXY resolves or if patient refuses IVF Electrolytes: monitor and replete as needed Nutrition: Clear liquid diet, can advance if tolerated DVT Prophylaxis: Holding pharmacological PPX given GI bleed/SCDs bilateral GI Prophylaxis: Protonix IV 40 mg every 12hr (Tori Haynes MD R1) Problem Qualifiers (1) GI bleed: Qualified Code: K29.71 - Gastrointestinal hemorrhage associated with gastritis , unspecified gastritis type (2) Hematemesis: Qualified Code: K92.0 - Hematemesis with nausea (3) COPD (chronic obstructive pulmonary disease): Qualified Code: J44.9 - Chronic obstructive pulmonary disease, unspecified COPD type (4) Peripheral neuropathy: Qualified Code: G62.9 - Peripheral polyneuropathy Tori Haynes MD R1 November 30, 2016 07:36 Zari Salter MD December 04, 2016 13:00
[2016-11-30] MEDS: GABAPENTIN 400 MG CAP PO SCH (07:56)
[2016-11-30] MEDS: SODIUM CHLORIDE 0.9% FLUSH 10 ML FLUSH IV FLUSH SCH ×2 (07:58→19:52)
[2016-11-30] MEDS: GABAPENTIN 300 MG CAP PO SCH ×3 (08:13→16:45)
[2016-11-30 10:16] LABS: HEMATOCRIT 23.2 % (39.0-51.0); MEAN CELL VOLUME 110.6 FL (80.0-100.0); MEAN CORPUSCULAR HEMOGLOBIN 36.5 PG (27.0-34.0); PLATELET COUNT 63 TH/MM3 (150-450); RED CELL DISTRIBUTION WIDTH 20.4 % (11.6-17.2); WHITE BLOOD COUNT 4.3 TH/MM3 (4.0-11.0)
[2016-11-30 10:17] LABS: REVIEW FLAG FINAL
[2016-11-30 10:33] LABS: BICARBONATE 24.5 MEQ/L (21.0-32.0)
[2016-11-30 10:54] LABS: CALCIUM-PROTEIN CORRECTED 8.2 MG/DL (8.5-10.1)
[2016-11-30 11:00] LABS: POTASSIUM 2.8 MEQ/L (3.5-5.1)
[2016-11-30] MEDS: MULTIVITAMIN INJ 10 ML, FOLIC ACID INJ 1 MG in SODIUM CHLORID 0.9% 500 ML INJ 500 ML IV SCH (11:12)
[2016-11-30] MEDS: THIAMINE INJ 100 MG in SODIUM CHLORIDE 0.9% INJ 100 ML IV SCH (11:12)
[2016-11-30] MEDS: SODIUM CHLOR 0.9% 1000 ML INJ 1,000 ML IV SCH (12:17)
[2016-11-30] MEDS ORDERED: POTASSIUM CHLORIDE 10 MEQ CONTROLLED RELEASE TAB PO ONE ×2 (13:15→21:15)
[2016-11-30] MEDS: PANTOPRAZOLE SODIUM 40 MG VIAL IV PUSH SCH ×2 (13:15→19:52)
[2016-11-30 14:11] LABS: HEMATOCRIT 24.1 % (39.0-51.0)
[2016-11-30 14:12] LABS: RETIC % 1.5 % (0.4-3.0)
[2016-11-30 14:14] LABS: REVIEW FLAG FINAL
[2016-11-30 14:29] LABS: REVIEW FLAG FINAL
[2016-11-30 14:38] LABS: WESTERGREN SEDIMENTATION RATE 31 mm/hr (0-20)
[2016-11-30] MEDS: RESP: ALBUTEROL 2.5 MG/IPRATROPIUM 0.5 MG NEB (PRN) NEB (16:30)
[2016-11-30 20:29] LABS: HEMATOCRIT 25.5 % (39.0-51.0)
[2016-11-30 20:30] LABS: REVIEW FLAG FINAL
[2016-12-01] VITALS (10 sets, daily range): BP systolic 104–156; BP diastolic 55–80; PULSE 75–104; RESP 16–21; TEMP 97.2–99.1; O2SAT 92–100
[2016-12-01 02:36] LABS: AUTOMATED NEUTROPHIL # 3.5 TH/MM3 (1.8-7.7); BASOPHIL % 0.3 % (0.0-2.0); EOSINOPHIL # 0.2 TH/MM3 (0-0.4); EOSINOPHIL % 3.6 % (0.0-4.0); HEMATOCRIT 22.5 % (39.0-51.0); LYMPH % 12.6 % (9.0-44.0); LYMPHOCYTE # 0.6 TH/MM3 (1.0-4.8); MEAN CELL VOLUME 108.8 FL (80.0-100.0); MEAN CORPUSCULAR HEMOGLOBIN 37.9 PG (27.0-34.0); MEAN CORPUSCULAR HGB CONC 34.8 % (32.0-36.0); MONO % 6.6 % (0.0-8.0); NEUT % 76.9 % (16.0-70.0); PLATELET COUNT 68 TH/MM3 (150-450); RED BLOOD COUNT 2.07 MIL/MM3 (4.50-5.90); RED CELL DISTRIBUTION WIDTH 20.4 % (11.6-17.2); WHITE BLOOD COUNT 4.5 TH/MM3 (4.0-11.0)
[2016-12-01 02:37] LABS: HEMO FLAGS DIFF FINAL
[2016-12-01 02:46] LABS: INTERNATIONAL NORMALIZED RATIO 1.3 RATIO; PROTHROMBIN TIME - PATIENT 15.1 SEC (9.8-11.6)
[2016-12-01 02:53] LABS: BICARBONATE 25.5 MEQ/L (21.0-32.0); CALCIUM-PROTEIN CORRECTED 8.7 MG/DL (8.5-10.1); POTASSIUM 3.7 MEQ/L (3.5-5.1); TOTAL BILIRUBIN ADULT 0.9 MG/DL (0.2-1.0)
--- NOTE | 2016-12-01 05:23 | MB ---
cc: PARAS MADDEN DATE OF CONSULTATION 11/30/2016 REASON FOR CONSULTATION I am asked to see the patient because of anemia but he in fact has pancytopenia with his most recent CBC and platelet count dated 11/30/2016; hemoglobin 7.6, white count 4300 and platelet count 63,000. On 11/29 his white count was 2600. PATIENT PROFILE The patient is a 71-year white male. He is single. He was once and . 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 He has two daughters. He was born in [place] and has lived in [place] since 1951. He is retired. 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 He has smoked one pack of cigarettes per day for 55 years and continues to smoke in spite of the fact that he is short of breath, coughs and knows that he has emphysema. Alcohol intake consists of two drinks three days per week; he has very clear about this being a precise number. There has been no heavy alcohol intake since 2001. HISTORY OF PRESENT ILLNESS I am asked to see the patient because of his anemia. He presented to the emergency room on 11/29/2015 complaining of hematemesis and a black stool. He had upper endoscopy and colonoscopy within the past month at the [facility]; I believe the date was November 03. The colonoscopy showed diverticular disease and he had a 2-cm polyp which was removed; he is unaware of the path report. The endoscopy showed gastritis. He underwent upper endoscopy again on 11/29/[address] Acevedo showing gastritis in the antrum; a biopsy was performed. He has duodenum in the second portion; again a biopsy was performed. He has esophagitis in the distal esophagus and a biopsy was performed. The patient is unaware that he has had thrombocytopenia or low white count. In looking over his platelet count, it is been low since July of 2012 when it was 127,000 and therefore the thrombocytopenia is not new. He has had low white counts since 03/2016 when the white count was 3016. His hemoglobin prior to March of 2016 was robust. PAST SURGICAL HISTORY 1. Fusion of lumbosacral spine. 2. Removal of cyst of the kidney which was benign. 3. In approximately 2007 the patient states that he had a colon cancer resected at the [facility]. He did not require any adjuvant treatment. 4. Fracture of the left patella. 5. Repair of ligaments around the right knee. PAST MEDICAL HISTORY 1. COPD. 2. Gastritis. 3. Diverticular disease. 4. Osteoarthritis. 5. Radicular pain down left leg with what sounds like spinal stenosis. MEDICATIONS Prior to admission unclear. He tells me he is on about 10 medicines; he does not know the names. 1. He takes Neurontin 1200 mg three times a day. 3. He is very unclear as to what other medications he is taking. ALLERGIES PENICILLIN. FAMILY HISTORY Father at 67 of the lung problem. Mother at age 82 of congestive heart failure. The patient has a sister who is living. REVIEW OF SYSTEMS HEENT: Vision is fine. Hearing is fine. He is missing upper teeth. CARDIOVASCULAR: No chest pain, palpitations, orthopnea, or PND. RESPIRATORY: Short of breath with minimal activity. He has a cough. He denies any hemoptysis. GI: History of a gastritis, diverticular disease and possibly melena and a hematemesis within the past several weeks. : No dysuria or frequency. MUSCULOSKELETAL: No bone pain. NEUROLOGIC: No weakness. PSYCHIATRIC: He denies depression. MUSCULOSKELETAL: He does have problems with pain with radicular pain down the left leg for which he takes Neurontin. LABORATORY DATA Tests include a cmp notable for alk phos of 151, ALT 22, AST is 45, total albumin is low at 1.7 and LDH is 128. B12 is 1402, folic acid is 6.3, AST 45, ALT 22. Current hemoglobin 8.5, hematocrit 25. Sed rate 31, haptoglobin is 56, absolute retic count is 32. IMAGING STUDIES A gallbladder ultrasound on 04/02 - the liver shows increased echotexture suggesting fatty infiltration without focal lesion or ductal hyperplasia. There is some soft tissue within a slightly dilated common bile duct measuring 8 mm. The patient had a CAT scan of the abdomen and pelvis on 04/02/2016 showing a fatty liver previous abdominal hernia repair, infrarenal abdominal aortic aneurysm with a significant mural thrombus in the right posterior aorta. There were no masses identified. Chest x-ray on 04/01/2016 is normal. PHYSICAL EXAMINATION GENERAL: A gentleman appearing much older than his stated age. He is disheveled, unshaven. He is coughing with audible rhonchi. VITAL SIGNS: Blood pressure is 130/70, respiratory rate is 18, pulse 88 afebrile. O2 sat 93% on room air. HEENT: Head is normocephalic. Sclerae and conjunctivae are normal. Oropharynx - no upper teeth. LYMPHATICS: No adenopathy. HEART: Regular rhythm. LUNGS: Reveal diffuse rhonchi with slight wheezes. ABDOMEN: Soft. There is no enlargement of the liver or spleen. EXTREMITIES: Trace edema. MUSCULOSKELETAL: Slight lower back pain, tenderness. Neurologic: No weakness. Cognition and affect normal. SKIN: Unremarkable. ASSESSMENT The patient is a 71-year-old male who presented with pancytopenia with a hemoglobin of 7.1, white count 2600, platelets 53,000. The neutrophil count was slightly low at 1700, MCV is markedly elevated at 112 and today CBC and platelet count reveals an MCV of 110. The patient does not have B12 or folic acid deficiency. The B12 was 1402, folate is 6.3. His low albumin indicates he is not in good health. I do not see any evidence of hemolysis. The elevated MCV is not associated with B12 deficiency or folic acid deficiency with a B12 level being 1402 and the folic acid level being 6.3. There is no splenomegaly. The most likely explanations for the macrocytic anemia are (1) alcohol and (2) myelodysplasia. RECOMMENDATIONS I have strongly recommended that he have a bone marrow aspirate and biopsy. He has declined. He does not want to do this. He is worried about his back and the fact the test might be hurtful. I told him that it could be done with minimal discomfort or even if necessary could be done by the radiologist, although I would prefer doing it myself. I again offered him the opportunity of having a bone marrow explaining that the workup would not progress further without the bone marrow looking for myelodysplasia. He again declined. Under these circumstances I do not have anything further to offer him. I would recommend that he returned to the [facility] and if the problem continues, which I suspect it will, he should see a loan documents closer and again reconsider a bone marrow aspirate and biopsy. MD MARGOTH Jimenez/VICENTE /9:10 PM /5:03 AM THAD
[2016-12-01] MEDS: SODIUM CHLORIDE 0.9% FLUSH 10 ML FLUSH IV FLUSH SCH ×2 (08:07→20:43)
[2016-12-01] MEDS: GABAPENTIN 300 MG CAP PO SCH ×3 (08:10→18:02)
[2016-12-01] MEDS: POTASSIUM CHLORIDE 20 MEQ CONTROLLED RELEASE TAB PO SCH (08:10)
[2016-12-01] MEDS: PANTOPRAZOLE SODIUM 40 MG VIAL IV PUSH SCH ×2 (08:11→20:43)
[2016-12-01] MEDS: RESP: ALBUTEROL 2.5 MG/IPRATROPIUM 0.5 MG NEB (PRN) NEB (09:02)
[2016-12-01] MEDS: SODIUM CHLOR 0.9% 1000 ML INJ 1,000 ML IV SCH ×2 (10:00)
--- NOTE | 2016-12-01 10:23 | HHI.FPPN ---
Subjective Remarks Patient states he is feeling "good" today. He states he would like to go home if possible. He still remains short of breath and perhaps is a little more dyspneic than yesterday. Denies chest pain, nausea, vomiting, fever, chills. ( Romeo Boothe MD R2) Objective Vitals Vital Signs Date Time Temp Pulse Resp B/P Pulse Ox O2 Delivery O2 Flow Rate FiO2 12/01/16 09:20 92 Nasal Cannula 3.00 12/01/16 08:00 97.2 104 21 156/74 93 12/01/16 04:00 99.1 85 19 104/55 93 12/01/16 00:00 98.0 75 19 130/80 95 11/30/16 20:00 98.3 92 18 147/70 99 11/30/16 19:36 103 11/30/16 16:30 93 21 11/30/16 16:00 97.8 86 19 128/66 94 11/30/16 13:00 108/68 11/30/16 12:00 98.7 105 18 92/61 95 I/O 11/30/16 11/30/16 11/30/16 12/01/16 12/01/16 12/01/16 07:00 15:00 23:00 07:00 15:00 23:00 Intake Total 837 ml 860 ml 963 ml 1094 ml Output Total 700 ml 650 ml 300 ml 750 ml Balance 137 ml 210 ml 663 ml 344 ml Intake Oral 240 ml 240 ml 240 ml 240 ml IV Total 597 ml 620 ml 723 ml 854 ml Output Urine Total 700 ml 650 ml 300 ml 750 ml # Bowel Movements 0 2 1 1 (Romeo Boothe MD R2) Result Diagram: 12/01/16 0206 12/01/16 020 Objective Remarks GENERAL: This is a well-nourished, well-developed patient sitting on the bed. SKIN: No rashes, ecchymoses or lesions. Cool and dry. HEAD: Atraumatic. Normocephalic. No temporal or scalp tenderness. EYES: Pupils equal round and reactive. Extraocular motions intact. No scleral icterus. No injection or drainage. ENT: Nose without bleeding, purulent drainage or septal hematoma. Throat without erythema, tonsillar hypertrophy or exudate. Uvula midline. Airway patent. NECK: Trachea midline. No JVD or lymphadenopathy. Supple, nontender, no meningeal signs. CARDIOVASCULAR: Regular rate and regular rhythm without murmurs, gallops, or rubs. RESPIRATORY: Diffuse wheezes bilaterally. GASTROINTESTINAL: Abdomen soft, nondistended. No palpable masses. No guarding. No epigastric tenderness MUSCULOSKELETAL: Extremities without clubbing, cyanosis, or edema. No joint tenderness, effusion, or edema noted. No calf tenderness. NEUROLOGICAL: Awake and alert. Cranial nerves II through XII intact. Motor and sensory grossly within normal limits. Normal speech. Procedures EGD 11/28 (Romeo Boothe MD R2) A/P Assessment and Plan Mr. Wise is a 71 year old white male with a history of acid reflux and colon cancer presenting with stomach pain, diarrhea, and vomiting. His workup shows a macrocytic anemia. He was admitted for a possible upper GI bleed due to vomiting with blood and dark stools. Repeat EGD stable. Hemoglobin continued to downtrend this hospital stay. Found to be pancytopenic, hematology consulted and recommended bone marrow biopsy. Patient is refusing bone marrow biopsy. Discharge Planning Likely tomorrow pending stabilization of hemoglobin. Will require outpatient follow-up at the [facility] with a pacu rn. PT recommends home with no PT. (Romeo Boothe MD R2) Attending Attestation Patient seen and examined. Case reviewed and discussed with the resident team. Agree with plan of care as discussed with me and documented in the resident note. (Zari Salter MD) Problem List: (1) GI bleed Status: Acute Plan: GI consult Hematology consult Hemoglobin decreased to 7.8 this morning. Continues to downtrend. Transfuse 1 unit packed red blood cells. Case discussed with GI on 11/30. Recommended hematology consult. And possibly abdominal imaging. EGD 11/28: Stridorous, duodenitis, esophagitis. Awaiting biopsy results. Hematology plan: See below for pancytopenia Continue Protonix 40 mg by mouth twice a day Holding DVT prophylaxis due to suspected bleed. Lab work reviewed and in the EMR: B12, folate, reticulocyte count, LDH, haptoglobin, ESR, CRP, direct Mary, peripheral blood smear (2) Pancytopenia Status: Acute Plan: Hematology consult The most likely explanation for the macrocytic anemia is either 1.) alcohol and/ or 2.)myelodysplasia A bone marrow biopsy was strongly recommended, however the patient adamantly refused. Given refusal, hematology has signed off. It is recommended he follows with a pacu rn at the [facility]. (3) Lactic acidemia Status: Acute Plan: Noted to have a lactic acid of 2.7 on admission. Low suspicion that this is related to infection given vital signs stable aside from sinus tachycardia (4) COPD (chronic obstructive pulmonary disease) Status: Chronic Plan: Continue Dounebs and albuterol inhaler as needed for wheezing Oxygen walk test as the patient appears to be dyspneic on exam. (5) Alcohol use Status: Chronic Plan: CIWA protocol with rally pack Monitor for signs of hallucinosis, delirium, treat seizures immediately with Ativan, escalate management as needed Patient strongly encouraged to stop/decrease alcohol intake. (6) Peripheral neuropathy Status: Chronic Plan: Patient denies a history of DM, but is on gabapentin 900mg PO TID * Continue gabapentin * he could have vitamin or alcohol related neuropathy, can continue to assess (7) Fluids/Electrolytes/Nutrition/Prophylaxis Status: Acute Plan: Fluids: tolerating PO Electrolytes: monitor and replete as needed Nutrition: Clear liquid diet, can advance if tolerated DVT Prophylaxis: Holding pharmacological PPX given GI bleed/SCDs bilateral GI Prophylaxis: Protonix 40 mg every 12hr (8) Hematemesis Status: Resolved Plan: Resolved. Management as above Treat nausea with Zofran IV when necessary (9) ROXY (acute kidney injury) Status: Resolved Plan: Resolved. (Romeo Boothe MD R2) Problem Qualifiers (1) GI bleed: Qualified Code: K29.71 - Gastrointestinal hemorrhage associated with gastritis , unspecified gastritis type (2) COPD (chronic obstructive pulmonary disease): Qualified Code: J44.9 - Chronic obstructive pulmonary disease, unspecified COPD type (3) Peripheral neuropathy: Qualified Code: G62.9 - Peripheral polyneuropathy (4) Hematemesis: Qualified Code: K92.0 - Hematemesis with nausea Romeo Boothe MD R2 December 01, 2016 10:23 Zari Salter MD December 04, 2016 13:02 (8) Fluids/Electrolytes/Nutrition/Prophylaxis Status: Acute Plan: Fluids: tolerating PO/NS @ 100ml/hr, heplock after ROXY resolves or if patient refuses IVF Electrolytes: monitor and replete as needed Nutrition: Clear liquid diet, can advance if tolerated DVT Prophylaxis: Holding pharmacological PPX given GI bleed/SCDs bilateral GI Prophylaxis: Protonix IV 40 mg every 12hr Problem Qualifiers (1) GI bleed: Qualified Code: K29.71 - Gastrointestinal hemorrhage associated with gastritis , unspecified gastritis type (2) Hematemesis: Qualified Code: K92.0 - Hematemesis with nausea (3) COPD (chronic obstructive pulmonary disease): Qualified Code: J44.9 - Chronic obstructive pulmonary disease, unspecified COPD type (4) Peripheral neuropathy: Qualified Code: G62.9 - Peripheral polyneuropathy Romeo Boothe MD R2 December 01, 2016 10:23
--- NOTE | 2016-12-01 10:29 | PD.PN.STU ---
Subjective Remarks Patient seen and examined. Case reviewed and discussed with the resident team. Agree with plan of care as discussed with me and documented in the resident note. Patient seen and examined today. Vital signs HR 104, BP 156/74, Pulse Ox 92% on 3L. Denies any vomiting or diarrhea, no blood in stools, abdominal pain. Eating okay. Short of breath but otherwise feeling okay. Patient states this is baseline. Waiting for nebulizer treatment. Patient declined bone marrow biopsy offered by Hematology. Patient desires to go home. Objective Vitals Vital Signs Date Time Temp Pulse Resp B/P Pulse Ox O2 Delivery O2 Flow Rate FiO2 12/01/16 09:20 92 Nasal Cannula 3.00 12/01/16 08:00 97.2 104 21 156/74 93 12/01/16 04:00 99.1 85 19 104/55 93 12/01/16 00:00 98.0 75 19 130/80 95 11/30/16 20:00 98.3 92 18 147/70 99 11/30/16 19:36 103 11/30/16 16:30 93 21 11/30/16 16:00 97.8 86 19 128/66 94 11/30/16 13:00 108/68 11/30/16 12:00 98.7 105 18 92/61 95 I/O 11/30/16 11/30/16 11/30/16 12/01/16 12/01/16 12/01/16 07:00 15:00 23:00 07:00 15:00 23:00 Intake Total 837 ml 860 ml 963 ml 1094 ml Output Total 700 ml 650 ml 300 ml 750 ml Balance 137 ml 210 ml 663 ml 344 ml Intake Oral 240 ml 240 ml 240 ml 240 ml IV Total 597 ml 620 ml 723 ml 854 ml Output Urine Total 700 ml 650 ml 300 ml 750 ml # Bowel Movements 0 2 1 1 Result Diagram: 12/01/16 0206 12/01/16 0206 Objective Remarks GENERAL: This is a well-nourished, well-developed patient sitting on the bed. SKIN: No rashes, ecchymoses or lesions. Cool and dry. HEAD: Atraumatic. Normocephalic. No temporal or scalp tenderness. EYES: Pupils equal round and reactive. Extraocular motions intact. No scleral icterus. No injection or drainage. ENT: Nose without bleeding, purulent drainage or septal hematoma. Throat without erythema, tonsillar hypertrophy or exudate. Uvula midline. Airway patent. NECK: Trachea midline. No JVD or lymphadenopathy. Supple, nontender, no meningeal signs. CARDIOVASCULAR: tachycardic, regular rhythm without murmurs, gallops, or rubs. RESPIRATORY: Using accessory muscles, Breath sounds equal bilaterally. Wheezing at bilateral bases GASTROINTESTINAL: Abdomen soft, nondistended. No palpable masses. No guarding. No epigastric tenderness today MUSCULOSKELETAL: Extremities without clubbing, cyanosis, or edema. No joint tenderness, effusion, or edema noted. No calf tenderness. NEUROLOGICAL: Awake and alert. Cranial nerves II through XII intact. Motor and sensory grossly within normal limits. Normal speech. Medications and IVs Current Medications Medications (Trade) Dose Ordered Sig/Joanne Route Start Time Stop Time Status Last Admin (NS 1000 ml Inj) 1,000 ml @ 100 mls/hr Q10H IV 11/28/16 12:00 12/01/16 00:00 (Zofran Inj) 4 mg Q6H PRN IV 11/28/16 11:00 (NS Flush) 2 ml UNSCH PRN IV FLUSH 11/28/16 11:00 Sodium Chloride 2 ml 2 ml BID IV FLUSH 11/28/16 21:00 11/30/16 19:52 Multivitamins 10 ml/Folic Acid 1 mg/Sodium Chloride 510.2 ml @ 125 mls/hr Q24H IV 11/28/16 12:00 12/03/16 11:59 11/30/16 11:12 (Thiamine Inj/NS Inj) 101 ml @ 100 mls/hr Q24H IV 11/28/16 11:00 12/01/16 10:59 11/30/16 11:12 (Catapres) 0.1 mg Q6H PRN PO 11/28/16 11:00 (Romazicon Inj) 0.2 mg Q1M PRN IV PUSH 11/28/16 11:00 (Ativan) 1 mg Q4H PRN PO 11/28/16 11:00 (Ativan Inj) 1 mg Q4H PRN IV PUSH 11/28/16 11:00 (Ativan) 2 mg Q2H PRN PO 11/28/16 11:00 (Ativan Inj) 2 mg Q2H PRN IV PUSH 11/28/16 11:00 (Ativan Inj) 2 mg Q1H PRN IV PUSH 11/28/16 11:00 (Ativan Inj) 2 mg Q15M PRN IV PUSH 11/28/16 11:00 (Neurontin) 900 mg TID PO 11/30/16 09:00 12/01/16 08:10 (KCl) 20 meq DAILY PO 12/01/16 09:00 12/01/16 08:10 (Protonix Inj) 40 mg Q12HR IV PUSH 11/30/16 13:15 12/01/16 08:11 A/P Assessment and Plan Possible Upper GI Bleed -Recent Hbg 7.8, transfuse with 1 unit RBC -Continue Protonix prophylaxis 40mg PO BID -Holding pharmacological DVT prophylaxis given GI bleed -Possible discharge today with follow up at [facility] for outpatient work up with bone marrow biopsy -Recommended patient stop all alcohol use at this time COPD- Chronic -Continue Dounebs and albuterol inhaler as needed for wheezing Discharge Planning Possibly home today after 1 unit of RBCs [address] M3 December 01, 2016 10:29 Zari Salter MD December 04, 2016 13:01
[2016-12-01] MEDS ORDERED: FUROSEMIDE 20 MG/2 ML VIAL IV ONE (10:30)
[2016-12-01] MEDS ORDERED: diphenhydrAMINE HCL 25 MG CAP PO PRN (10:30)
[2016-12-01] MEDS ORDERED: SODIUM CHLOR 0.9% 250 ML INJ 250 ML IV ONE (10:30)
[2016-12-01] MEDS ORDERED: ACETAMINOPHEN 325 MG TAB PO PRN (10:30)
[2016-12-01] MEDS ORDERED: THIAMINE HCL 100 MG TAB PO ONE (10:45)
[2016-12-01] MEDS ORDERED: MULTIVITAMIN TAB PO ONE (10:45)
[2016-12-01] MEDS ORDERED: FOLIC ACID 1 MG TAB PO ONE (10:45)
--- NOTE | 2016-12-01 16:09 | HHI.GIFU ---
Subjective Remarks Resting in bed, receiving transfusion. No obvious GI bleeding today. Tolerating diet. No n/v. No abdominal pain. Objective Vitals I&O Vital Signs Date Time Temp Pulse Resp B/P Pulse Ox O2 Delivery O2 Flow Rate FiO2 12/01/16 14:28 98.4 80 16 123/62 100 12/01/16 14:04 98.2 85 16 137/72 97 12/01/16 12:00 97.4 87 18 137/64 96 12/01/16 09:26 Nasal Cannula 3.00 12/01/16 09:20 92 Nasal Cannula 3.00 12/01/16 08:30 Room Air 12/01/16 08:00 97.2 104 21 156/74 93 12/01/16 04:00 99.1 85 19 104/55 93 12/01/16 00:00 98.0 75 19 130/80 95 11/30/16 20:00 98.3 92 18 147/70 99 11/30/16 19:36 103 11/30/16 16:30 93 21 I/O 11/30/16 11/30/16 11/30/16 12/01/16 12/01/16 12/01/16 07:00 15:00 23:00 07:00 15:00 23:00 Intake Total 837 ml 860 ml 963 ml 1094 ml Output Total 700 ml 650 ml 300 ml 750 ml Balance 137 ml 210 ml 663 ml 344 ml Intake Oral 240 ml 240 ml 240 ml 240 ml IV Total 597 ml 620 ml 723 ml 854 ml Output Urine Total 700 ml 650 ml 300 ml 750 ml # Bowel Movements 0 2 1 1 Laboratory Laboratory Tests Test 11/30/16 12/01/16 12/01/16 19:26 02:06 11:36 Hemoglobin 8.5 7.8 Hematocrit 25.5 22.5 Potassium Level 3.1 3.7 White Blood Count 4.5 Red Blood Count 2.07 Mean Corpuscular Volume 108.8 Mean Corpuscular Hemoglobin 37.9 Mean Corpuscular Hemoglobin 34.8 Concent Red Cell Distribution Width 20.4 Platelet Count 68 Mean Platelet Volume 9.6 Neutrophils (%) (Auto) 76.9 Lymphocytes (%) (Auto) 12.6 Monocytes (%) (Auto) 6.6 Eosinophils (%) (Auto) 3.6 Basophils (%) (Auto) 0.3 Neutrophils # (Auto) 3.5 Lymphocytes # (Auto) 0.6 Monocytes # (Auto) 0.3 Eosinophils # (Auto) 0.2 Basophils # (Auto) 0.0 CBC Comment DIFF FINAL Differential Comment Prothrombin Time 15.1 Prothromb Time International 1.3 Ratio Sodium Level 141 Chloride Level 109 Carbon Dioxide Level 25.5 Anion Gap 7 Blood Urea Nitrogen 6 Creatinine 1.12 Estimat Glomerular Filtration 65 Rate Random Glucose 89 Calcium Level 7.1 Protein Corrected Calcium 8.7 Total Bilirubin 0.9 Aspartate Amino Transf 48 (AST/SGOT) Alanine Aminotransferase 26 (ALT/SGPT) Alkaline Phosphatase 139 Total Protein 4.3 Albumin 1.6 Blood Type O POSITIVE Antibody Screen NEGATIVE Crossmatch Leukocyte-Reduced Red Blood Cells Blood Bank Comment Date/Time Procedure Status Source Growth 11/30/16 13:25 Stool Occult Blood (AKIL) - Final Complete Stool Stool HEMOCCULT NEGATIVE 11/28/16 19:31 Aerobic Blood Culture - Preliminary Resulted Blood Peripheral NO GROWTH IN 3 DAYS 11/28/16 19:31 Anaerobic Blood Culture - Preliminary Resulted Blood Peripheral NO GROWTH IN 3 DAYS Physical Exam HEENT: Normocephalic; atraumatic; no jaundice. CHEST: Resp even/unlabored, 2L via n/c. Course breath sounds CARDIAC: RRR ABDOMEN: Soft, nondistended, nontender; no hepatosplenomegaly; bowel sounds are present in all four quadrants. EXTREMITIES: No clubbing, cyanosis, or edema. SKIN: Normal; no rash; no jaundice. 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 Assessment and Plan Plan ASSESSMENT - Upper GI Bleeding with hematemesis, melena. S/P EGD (11/28/16)---> gastritis antrum, duodenitis in 2nd portion of the duodenum, esophagitis in distal esophagus. Pathology pending. No further active bleeding, but H/H ---> 7.8/ 22.5 today. Getting 2 units of PRBC today. - Hematochezia. Pt had recent had colonoscopy 3 weeks ago at [facility]. EGD -- > irr [facility] c/w reflux, esophagitis, and early mucosal endoscopic changes suggestive Cazares's, hiatal hernia, diffuse acute active hemorrhagic gastritis, mult small shallow ulcerations from bulb through second bulb w/o active bleeding; Colonoscopy ---> fair prep precluding good exam, moderately severe diverticulosis in sigmoid, single large pedunculated polyp in rectum removed by snare cautery, clips applied to edges, small sessile polyp snared. No active lower gi bleeding. Had a regular bowel movement today, formed without any bleeding. - Epigastric pain. Improved. PLAN - CARLY - Await pathology - Cont. PPI - Monitor HH - Transfuse as necessary - Supportive care - Further recommendations to follow based on results of above - Pt seen and examined by Dr. Ibarra and myself and this note is written on his behalf Melonie Schreiber December 01, 2016 16:09
[2016-12-01 21:58] LABS: REVIEW FLAG FINAL
[2016-12-02] VITALS: BP 165/80; PULSE 95; RESP 18; TEMP 96.2; O2SAT 97
[2016-12-02 04:00] VITALS: BP 108/65; PULSE 85; RESP 20; TEMP 97.6; O2SAT 95
[2016-12-02 06:22] LABS: AUTOMATED NEUTROPHIL # 5.2 TH/MM3 (1.8-7.7); BASOPHIL % 0.4 % (0.0-2.0); EOSINOPHIL # 0.3 TH/MM3 (0-0.4); EOSINOPHIL % 4.1 % (0.0-4.0); HEMATOCRIT 27.2 % (39.0-51.0); LYMPH % 10.8 % (9.0-44.0); LYMPHOCYTE # 0.7 TH/MM3 (1.0-4.8); MEAN CELL VOLUME 105.6 FL (80.0-100.0); MEAN CORPUSCULAR HEMOGLOBIN 35.9 PG (27.0-34.0); MONO % 8.9 % (0.0-8.0); NEUT % 75.8 % (16.0-70.0); PLATELET COUNT 100 TH/MM3 (150-450); RED BLOOD COUNT 2.57 MIL/MM3 (4.50-5.90); WHITE BLOOD COUNT 6.9 TH/MM3 (4.0-11.0)
[2016-12-02 06:39] LABS: POTASSIUM 4.1 MEQ/L (3.5-5.1)
[2016-12-02 06:40] LABS: HEMO FLAGS AUTO DIFF
[2016-12-02 07:07] LABS: CALCIUM-PROTEIN CORRECTED 8.9 MG/DL (8.5-10.1); TOTAL BILIRUBIN ADULT 1.1 MG/DL (0.2-1.0)
[2016-12-02] MEDS: SODIUM CHLORIDE 0.9% FLUSH 10 ML FLUSH IV FLUSH SCH (07:53)
[2016-12-02] MEDS: POTASSIUM CHLORIDE 20 MEQ CONTROLLED RELEASE TAB PO SCH (07:53)
[2016-12-02] MEDS: GABAPENTIN 300 MG CAP PO SCH ×2 (07:53→11:56)
[2016-12-02] MEDS: PANTOPRAZOLE SODIUM 40 MG VIAL IV PUSH SCH (07:53)
[2016-12-02 08:00] VITALS: BP 120/71; PULSE 90; RESP 18; TEMP 98.3; O2SAT 94
--- NOTE | 2016-12-02 08:20 | PD.PN.STU ---
Subjective Remarks Patient seen and examined today. VS stable. Feeling good since blood transfusion. Patient desires to go home. Eating well. Denies abdominal pain, nausea/vomiting, diarrhea, chest pain, fever or chills. Reports some shortness of breath, currently at his baseline. Currently 95% on nasal canula. Objective Vitals Vital Signs Date Time Temp Pulse Resp B/P Pulse Ox O2 Delivery O2 Flow Rate FiO2 12/02/16 04:00 97.6 85 20 108/65 95 12/02/16 00:00 96.2 95 18 165/80 97 12/01/16 21:40 98 Nasal Cannula 12/01/16 20:00 98.0 77 19 141/73 98 12/01/16 16:00 98.6 83 17 133/70 96 12/01/16 14:28 98.4 80 16 123/62 100 12/01/16 14:04 98.2 85 16 137/72 97 12/01/16 12:00 97.4 87 18 137/64 96 12/01/16 09:26 Nasal Cannula 3.00 12/01/16 09:20 92 Nasal Cannula 3.00 12/01/16 08:30 Room Air I/O 12/01/16 12/01/16 12/01/16 12/02/16 12/02/16 12/02/16 06:59 14:59 22:59 06:59 14:59 22:59 Intake Total 1094 ml 2320 ml 240 ml 360 ml Output Total 750 ml 300 ml 400 ml 300 ml Balance 344 ml 2020 ml -160 ml 60 ml Intake Oral 240 ml 1320 ml 240 ml 360 ml IV Total 854 ml 700 ml 0 ml Packed Cells 300 ml Output Urine Total 750 ml 300 ml 400 ml 300 ml # Voids 2 # Bowel Movements 1 1 0 2 Result Diagram: 12/02/1622 12/02/16521 Objective Remarks GENERAL: This is a well-nourished, well-developed patient sitting on the bed in no acute distress SKIN: No rashes, ecchymoses or lesions. Cool and dry. HEAD: Atraumatic. Normocephalic. No temporal or scalp tenderness. EYES: Pupils equal round and reactive. Extraocular motions intact. No scleral icterus. No injection or drainage. ENT: Nose without bleeding, purulent drainage or septal hematoma. Throat without erythema, tonsillar hypertrophy or exudate. Uvula midline. Airway patent. NECK: Trachea midline. No JVD or lymphadenopathy. Supple, nontender, no meningeal signs. CARDIOVASCULAR: Regular rate and regular rhythm without murmurs, gallops, or rubs. RESPIRATORY:No accessory muscle use. Breath sounds equal bilaterally. No wheezes today GASTROINTESTINAL: Abdomen soft, nondistended. No palpable masses. No guarding. No epigastric tenderness today MUSCULOSKELETAL: Extremities without clubbing, cyanosis, or edema. No joint tenderness, effusion, or edema noted. No calf tenderness. NEUROLOGICAL: Awake and alert. Cranial nerves II through XII intact. Motor and sensory grossly within normal limits. Normal speech. Procedures EGD 11/28 Medications and IVs Current Medications Medications (Trade) Dose Ordered Sig/Joanne Route Start Time Stop Time Status Last Admin (Zofran Inj) 4 mg Q6H PRN IV 11/28/16 11:00 (NS Flush) 2 ml UNSCH PRN IV FLUSH 11/28/16 11:00 (NS Flush) 2 ml BID IV FLUSH 11/28/16 21:00 12/02/16 07:53 (Catapres) 0.1 mg Q6H PRN PO 11/28/16 11:00 (Romazicon Inj) 0.2 mg Q1M PRN IV PUSH 11/28/16 11:00 (Ativan) 1 mg Q4H PRN PO 11/28/16 11:00 (Ativan Inj) 1 mg Q4H PRN IV PUSH 11/28/16 11:00 (Ativan) 2 mg Q2H PRN PO 11/28/16 11:00 (Ativan Inj) 2 mg Q2H PRN IV PUSH 11/28/16 11:00 (Ativan Inj) 2 mg Q1H PRN IV PUSH 11/28/16 11:00 (Ativan Inj) 2 mg Q15M PRN IV PUSH 11/28/16 11:00 (Neurontin) 900 mg TID PO 11/30/16 09:00 12/02/16 07:53 (KCl) 20 meq DAILY PO 12/01/16 09:00 12/02/16 07:53 (Protonix Inj) 40 mg Q12HR IV PUSH 11/30/16 13:15 12/02/16 07:53 A/P Assessment and Plan Possible Upper GI Bleed -Yesterday Hbg 7.8, transfused with 1 unit RBC, Hgb 9.1 and 9.3 since transfusion -Continue Protonix prophylaxis 40mg PO BID -Holding pharmacological DVT prophylaxis given GI bleed -Possible discharge today with follow up as outpatient at [facility] with hematology -Recommended patient stop all alcohol use at this time COPD- Chronic -Walk test to assess need for home oxygen -Continue Dounebs and albuterol inhaler as needed for wheezing -Recommend patient quit smoking Discharge Planning Discharge to home today after walk test [address] M3 December 02, 2016 08:20
--- NOTE | 2016-12-02 08:36 | HHI.FPPN ---
Subjective Remarks Patient states he feels good this morning. Would like to go home. Denies chest pain, nausea, vomiting, fever, chills. He understands he is going for an oxygen walk test to determine if he needs oxygen at home. (Romeo Boothe MD R2) Objective Vitals Vital Signs Date Time Temp Pulse Resp B/P Pulse Ox O2 Delivery O2 Flow Rate FiO2 12/02/16 08:00 98.3 90 18 120/71 94 12/02/16 04:00 97.6 85 20 108/65 95 12/02/16 00:00 96.2 95 18 165/80 97 12/01/16 21:40 98 Nasal Cannula 12/01/16 20:00 98.0 77 19 141/73 98 12/01/16 16:00 98.6 83 17 133/70 96 12/01/16 14:28 98.4 80 16 123/62 100 12/01/16 14:04 98.2 85 16 137/72 97 12/01/16 12:00 97.4 87 18 137/64 96 12/01/16 09:26 Nasal Cannula 3.00 12/01/16 09:20 92 Nasal Cannula 3.00 I/O 12/01/16 12/01/16 12/01/16 12/02/16 12/02/16 12/02/16 07:00 15:00 23:00 07:00 15:00 23:00 Intake Total 1094 ml 2320 ml 240 ml 360 ml Output Total 750 ml 300 ml 400 ml 300 ml Balance 344 ml 2020 ml -160 ml 60 ml Intake Oral 240 ml 1320 ml 240 ml 360 ml IV Total 854 ml 700 ml 0 ml Packed Cells 300 ml Output Urine Total 750 ml 300 ml 400 ml 300 ml # Voids 2 # Bowel Movements 1 1 0 2 (Romeo Boothe MD R2) Result Diagram: 12/02/1652112/02/16521 Objective Remarks GENERAL: This is a well-nourished, well-developed patient sitting on the bed. SKIN: No rashes, ecchymoses or lesions. Cool and dry. HEAD: Atraumatic. Normocephalic. No temporal or scalp tenderness. EYES: Pupils equal round and reactive. Extraocular motions intact. No scleral icterus. No injection or drainage. ENT: Nose without bleeding, purulent drainage or septal hematoma. Throat without erythema, tonsillar hypertrophy or exudate. Uvula midline. Airway patent. NECK: Trachea midline. No JVD or lymphadenopathy. Supple, nontender, no meningeal signs. CARDIOVASCULAR: Regular rate and regular rhythm without murmurs, gallops, or rubs. RESPIRATORY: Diffuse wheezes bilaterally. GASTROINTESTINAL: Abdomen soft, nondistended. No palpable masses. No guarding. No epigastric tenderness MUSCULOSKELETAL: Extremities without clubbing, cyanosis, or edema. No joint tenderness, effusion, or edema noted. No calf tenderness. NEUROLOGICAL: Awake and alert. Cranial nerves II through XII intact. Motor and sensory grossly within normal limits. Normal speech. Procedures EGD 11/28 (Romeo Boothe MD R2) A/P Assessment and Plan Mr. Wise is a 71 year old white male with a history of acid reflux and colon cancer presenting with stomach pain, diarrhea, and vomiting. His workup shows a macrocytic anemia. He was admitted for a possible upper GI bleed due to vomiting with blood and dark stools. Repeat EGD stable. Hemoglobin continued to downtrend this hospital stay. Found to be pancytopenic, hematology consulted and recommended bone marrow biopsy. Patient is refusing bone marrow biopsy. Discharge Planning Today pending oxygen walk test. [facility] shaper. PT recommends home with no PT. (Romeo Boothe MD R2) Attending Attestation Patient seen and examined. Case reviewed and discussed with the resident team. Agree with plan of care as discussed with me and documented in the resident note. (Zari Salter MD) Problem List: (1) GI bleed Status: Acute Plan: GI consult Hematology consult Hemoglobin improved this morning status post blood transfusion. EGD 11/28: Stridorous, duodenitis, esophagitis. Awaiting biopsy results. Hematology plan: See below for pancytopenia Continue Protonix 40 mg by mouth twice a day Holding DVT prophylaxis due to suspected bleed. Lab work reviewed and in the EMR: B12, folate, reticulocyte count, LDH, haptoglobin, ESR, CRP, direct Mary, peripheral blood smear (2) Pancytopenia Status: Acute Plan: Hematology consult The most likely explanation for the macrocytic anemia is either 1.) alcohol and/ or 2.)myelodysplasia A bone marrow biopsy was strongly recommended, however the patient adamantly refused. Given refusal, hematology has signed off. It is recommended he follows with a fiber heel piece shaper at the [facility]. (3) Lactic acidemia Status: Acute Plan: Noted to have a lactic acid of 2.7 on admission. Low suspicion that this is related to infection given vital signs stable aside from sinus tachycardia (4) COPD (chronic obstructive pulmonary disease) Status: Chronic Plan: Continue Dounebs and albuterol inhaler as needed for wheezing Oxygen walk test as the patient appears to be dyspneic with diffuse wheezes on exam. (5) Alcohol use Status: Chronic Plan: CIWA protocol with rally pack Monitor for signs of hallucinosis, delirium, treat seizures immediately with Ativan, escalate management as needed Patient strongly encouraged to stop/decrease alcohol intake. (6) Peripheral neuropathy Status: Chronic Plan: Patient denies a history of DM, but is on gabapentin 900mg PO TID * Continue gabapentin * he could have vitamin or alcohol related neuropathy, can continue to assess (7) Fluids/Electrolytes/Nutrition/Prophylaxis Status: Acute Plan: Fluids: tolerating PO Electrolytes: monitor and replete as needed Nutrition: Clear liquid diet, can advance if tolerated DVT Prophylaxis: Holding pharmacological PPX given GI bleed/SCDs bilateral GI Prophylaxis: Protonix 40 mg every 12hr (8) Hematemesis Status: Resolved Plan: Resolved. Management as above Treat nausea with Zofran IV when necessary (9) ROXY (acute kidney injury) Status: Resolved Plan: Resolved. (Romeo Boothe MD R2) Problem Qualifiers (1) GI bleed: Qualified Code: K29.71 - Gastrointestinal hemorrhage associated with gastritis , unspecified gastritis type (2) COPD (chronic obstructive pulmonary disease): Qualified Code: J44.9 - Chronic obstructive pulmonary disease, unspecified COPD type (3) Peripheral neuropathy: Qualified Code: G62.9 - Peripheral polyneuropathy (4) Hematemesis: Qualified Code: K92.0 - Hematemesis with nausea Romeo Boothe MD R2 December 02, 2016 08:35 Zari Salter MD December 04, 2016 13:02
--- NOTE | 2016-12-02 08:38 | HHI.DCPOC ---
Discharge Care Plan Diagnosis: (1) GI bleed (2) Pancytopenia (3) COPD (chronic obstructive pulmonary disease) Goals to Promote Your Health * To prevent worsening of your condition and complications * To maintain your health at the optimal level Directions to Meet Your Goals Take your medications as prescribed Follow your dietary instruction Follow activity as directed Keep your appointments as scheduled Take your immunizations and boosters as scheduled If your symptoms worsen call your PCP, if no PCP go to Urgent Care Center or Emergency Room Smoking is Dangerous to Your Health. Avoid second hand smoke Call the 24-hour hour crisis hotline for domestic abuse at Romeo Boothe MD R2 December 02, 2016 08:38
[2016-12-02 08:43] LABS: PLATELET ESTIMATE SMEAR LOW (NORMAL); PLATELET MORPHOLOGY NORMAL (NORMAL); SCAN/DIFF AUTO DIFF CONFIRMED
[2016-12-02] MEDS ORDERED: IPRASOL NEB (08:43)
[2016-12-02 09:12] VITALS: O2SAT 93
[2016-12-02] MEDS: RESP: ALBUTEROL 2.5 MG/3 ML NEB (PRN) NEB (09:16)
[2016-12-02] MEDS ORDERED: OXYGENTANK NAS.CANULA (09:47)
[2016-12-02 12:00] VITALS: BP 129/67; PULSE 99; RESP 19; TEMP 96.7; O2SAT 92
--- NOTE | 2016-12-02 13:56 | HHI.GIFU ---
Subjective Remarks Resting in bed. States he is going home today. No n/v. No abdominal pain. No bleeding. Objective Vitals I&O Vital Signs Date Time Temp Pulse Resp B/P Pulse Ox O2 Delivery O2 Flow Rate FiO2 12/02/16 12:00 96.7 99 19 129/67 92 12/02/16 09:12 93 Nasal Cannula 3.00 12/02/16 08:00 98.3 90 18 120/71 94 12/02/16 08:00 3.00 12/02/16 04:00 97.6 85 20 108/65 95 12/02/16 00:00 96.2 95 18 165/80 97 12/01/16 21:40 98 Nasal Cannula 12/01/16 20:00 98.0 77 19 141/73 98 12/01/16 16:00 98.6 83 17 133/70 96 12/01/16 14:28 98.4 80 16 123/62 100 12/01/16 14:04 98.2 85 16 137/72 97 I/O 12/01/16 12/01/16 12/01/16 12/02/16 12/02/16 12/02/16 07:00 15:00 23:00 07:00 15:00 23:00 Intake Total 1094 ml 2320 ml 240 ml 360 ml Output Total 750 ml 300 ml 400 ml 300 ml Balance 344 ml 2020 ml -160 ml 60 ml Intake Oral 240 ml 1320 ml 240 ml 360 ml IV Total 854 ml 700 ml 0 ml Packed Cells 300 ml Output Urine Total 750 ml 300 ml 400 ml 300 ml # Voids 2 # Bowel Movements 1 1 0 2 Laboratory Laboratory Tests Test 12/01/16 12/02/16 21:08 05:22 Hemoglobin 9.1 9.3 Hematocrit 27.0 27.2 White Blood Count 6.9 Red Blood Count 2.57 Mean Corpuscular Volume 105.6 Mean Corpuscular Hemoglobin 35.9 Mean Corpuscular Hemoglobin 34.0 Concent Red Cell Distribution Width 23.0 Platelet Count 100 Mean Platelet Volume 9.0 Neutrophils (%) (Auto) 75.8 Lymphocytes (%) (Auto) 10.8 Monocytes (%) (Auto) 8.9 Eosinophils (%) (Auto) 4.1 Basophils (%) (Auto) 0.4 Neutrophils # (Auto) 5.2 Lymphocytes # (Auto) 0.7 Monocytes # (Auto) 0.6 Eosinophils # (Auto) 0.3 Basophils # (Auto) 0.0 CBC Comment AUTO DIFF Differential Comment AUTO DIFF CONFIRMED Platelet Estimate LOW Platelet Morphology Comment NORMAL Sodium Level 139 Potassium Level 4.1 Chloride Level 107 Carbon Dioxide Level 25.0 Anion Gap 7 Blood Urea Nitrogen 8 Creatinine 1.05 Estimat Glomerular Filtration 70 Rate Random Glucose 77 Calcium Level 7.4 Protein Corrected Calcium 8.9 Total Bilirubin 1.1 Aspartate Amino Transf 43 (AST/SGOT) Alanine Aminotransferase 26 (ALT/SGPT) Alkaline Phosphatase 147 Total Protein 4.5 Albumin 1.5 Date/Time Procedure Status Source Growth 11/30/16 13:25 Stool Occult Blood (AKIL) - Final Complete Stool Stool HEMOCCULT NEGATIVE 11/28/16 19:31 Aerobic Blood Culture - Preliminary Resulted Blood Peripheral NO GROWTH IN 4 DAYS 11/28/16 19:31 Anaerobic Blood Culture - Preliminary Resulted Blood Peripheral NO GROWTH IN 4 DAYS Physical Exam HEENT: Normocephalic; atraumatic; no jaundice. CHEST: Resp even/unlabored, 2L via n/c. CARDIAC: RRR ABDOMEN: Soft, nondistended, nontender; no hepatosplenomegaly; bowel sounds are present in all four quadrants. EXTREMITIES: No clubbing, cyanosis, or edema. SKIN: Normal; no rash; no jaundice. 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 Assessment and Plan Plan ASSESSMENT - Upper GI Bleeding with hematemesis, melena. S/P EGD (11/28/16)---> gastritis antrum, duodenitis in 2nd portion of the duodenum, esophagitis in distal esophagus. Pathology pending. No further active bleeding. S/P 2 units PRBC. HH 9.3/27.2. No further bleeding. - Hematochezia. Pt had recent had colonoscopy 3 weeks ago at [facility]. EGD -- > irr GE junciton c/w reflux, esophagitis, and early mucosal endoscopic changes suggestive Cazares's, hiatal hernia, diffuse acute active hemorrhagic gastritis, mult small shallow ulcerations from bulb through second bulb w/o active bleeding; Colonoscopy ---> fair prep precluding good exam, moderately severe diverticulosis in sigmoid, single large pedunculated polyp in rectum removed by snare cautery, clips applied to edges, small sessile polyp snared. No further episodes. - Epigastric pain. Improved. - Anemia, secondary to acute blood loss. S/P 2 units PRBC. HH stable. PLAN - CARLY - Await pathology - Cont. PPI - FU NERY 2 weeks - GI will sign off, please reconsult as needed - Pt seen and examined by Dr. Ibarra and myself and this note is written on his behalf Melonie Schreiber December 02, 2016 13:56
--- NOTE | 2016-12-02 20:37 | HHI.DS ---
Discharge Summary Admission Date November 28, 2016 at 10:47 Discharge Date: December 02, 2016 Admitting Diagnosis Hematemasis, Black Stool (1) GI bleed Diagnosis: Principal Plan: GI consult Hematology consult Hemoglobin improved this morning status post blood transfusion. EGD 11/28: Stridorous, duodenitis, esophagitis. Awaiting biopsy results. Hematology plan: See below for pancytopenia Continue Protonix 40 mg by mouth twice a day Holding DVT prophylaxis due to suspected bleed. Lab work reviewed and in the EMR: B12, folate, reticulocyte count, LDH, haptoglobin, ESR, CRP, direct Mary, peripheral blood smear (2) Pancytopenia Diagnosis: Principal Plan: Hematology consult The most likely explanation for the macrocytic anemia is either 1.) alcohol and/ or 2.)myelodysplasia A bone marrow biopsy was strongly recommended, however the patient adamantly refused. Given refusal, hematology has signed off. It is recommended he follows with a out of school hours care worker at the [facility]. (3) Lactic acidemia Diagnosis: Secondary Plan: Noted to have a lactic acid of 2.7 on admission. Low suspicion that this is related to infection given vital signs stable aside from sinus tachycardia (4) COPD (chronic obstructive pulmonary disease) Diagnosis: Secondary Plan: Continue Dounebs and albuterol inhaler as needed for wheezing Oxygen walk test as the patient appears to be dyspneic with diffuse wheezes on exam. (5) Alcohol use Diagnosis: Secondary Plan: [facility] protocol with rally pack Monitor for signs of hallucinosis, delirium, treat seizures immediately with Ativan, escalate management as needed Patient strongly encouraged to stop/decrease alcohol intake. (6) Peripheral neuropathy Diagnosis: Secondary Plan: Patient denies a history of DM, but is on gabapentin 900mg PO TID * Continue gabapentin * he could have vitamin or alcohol related neuropathy, can continue to assess (7) Fluids/Electrolytes/Nutrition/Prophylaxis Diagnosis: Secondary Plan: Fluids: tolerating PO Electrolytes: monitor and replete as needed Nutrition: Clear liquid diet, can advance if tolerated DVT Prophylaxis: Holding pharmacological PPX given GI bleed/SCDs bilateral GI Prophylaxis: Protonix 40 mg every 12hr (8) Hematemesis Diagnosis: Secondary Plan: Resolved. Management as above Treat nausea with Zofran IV when necessary (9) ROXY (acute kidney injury) Diagnosis: Secondary Plan: Resolved. Consultants Gastroenterology Hematology Procedures EGD 11/28 Brief History Mr. Wise is a 71 year old white male with a history of acid reflux and colon cancer presenting with stomach pain, diarrhea, and hematemesis. He was unable to keep down food for the past 3 weeks but can keep down water and ice tea. He has a constant cramping abdominal pain in the epigastric region with an occasional sharp pain that does not radiate. His vomit appears tea colored and had blood in it three times. His diarrhea is black. Eating increases his nausea. He also complains of feeling weak, out of breath, and dizzy. [facility] and brought his [facility] with him. He had gastritis, esophagitis and multiple other problems at that time. He was admitted and had endoscopy and required one unit of blood to date. He is drinking clear liquids at this time. He does report a history of greater alcohol consumption in the past but still consumes multiple beverages at least 3 times per week. He denies any known history of hepatitis screening or liver problems but is a vague historian to some extent. He does admit to "slightly elevated liver tests" in the past though he is not sure why. CBC/BMP: 12/02/16 0522 12/02/16 0522 Significant Findings Laboratory Tests Test 11/29/16 11/30/16 11/30/16 11/30/16 21:35 09:44 13:45 19:26 Hemoglobin 8.1 GM/DL 7.6 GM/DL 8.2 GM/DL 8.5 GM/DL (13.0-17.0) (13.0-17.0) (13.0-17.0) (13.0-17.0) Hematocrit 23.7 % 23.2 % 24.1 % 25.5 % (39.0-51.0) (39.0-51.0) (39.0-51.0) (39.0-51.0) Red Blood Count 2.10 MIL/MM3 (4.50-5.90) Mean Corpuscular Volume 110.6 FL (80.0-100.0) Mean Corpuscular Hemoglobin 36.5 PG (27.0-34.0) Red Cell Distribution Width 20.4 % (11.6-17.2) Platelet Count 63 TH/MM3 (150-450) Potassium Level 2.8 MEQ/L 3.1 MEQ/L (3.5-5.1) (3.5-5.1) Blood Urea Nitrogen 5 MG/DL (7-18) Creatinine 1.37 MG/DL (0.60-1.30) Estimat Glomerular Filtration 52 ML/MIN (>89) Rate Calcium Level 6.9 MG/DL (8.5-10.1) Protein Corrected Calcium 8.2 MG/DL (8.5-10.1) Total Protein 4.6 GM/DL (6.4-8.2) Erythrocyte Sedimentation Rate 31 mm/hr (0-20) C-Reactive Protein 3.90 MG/DL (0.00-0.30) Vitamin B12 Level 1402 PG/ML (193-986) Test 12/01/16 12/01/16 12/02/16 02:06 21:08 05:22 Red Blood Count 2.07 MIL/MM3 2.57 MIL/MM3 (4.50-5.90) (4.50-5.90) Hemoglobin 7.8 GM/DL 9.1 GM/DL 9.3 GM/DL (13.0-17.0) (13.0-17.0) (13.0-17.0) Hematocrit 22.5 % 27.0 % 27.2 % (39.0-51.0) (39.0-51.0) (39.0-51.0) Mean Corpuscular Volume 108.8 FL 105.6 FL (80.0-100.0) (80.0-100.0) Mean Corpuscular Hemoglobin 37.9 PG 35.9 PG (27.0-34.0) (27.0-34.0) Red Cell Distribution Width 20.4 % 23.0 % (11.6-17.2) (11.6-17.2) Platelet Count 68 TH/MM3 100 TH/MM3 (150-450) (150-450) Neutrophils (%) (Auto) 76.9 % 75.8 % (16.0-70.0) (16.0-70.0) Lymphocytes # (Auto) 0.6 TH/MM3 0.7 TH/MM3 (1.0-4.8) (1.0-4.8) Prothrombin Time 15.1 SEC (9.8-11.6) Chloride Level 109 MEQ/L (98-107) Blood Urea Nitrogen 6 MG/DL (7-18) Estimat Glomerular Filtration 65 ML/MIN (>89) 70 ML/MIN (>89) Rate Calcium Level 7.1 MG/DL 7.4 MG/DL (8.5-10.1) (8.5-10.1) Aspartate Amino Transf 48 U/L (15-37) 43 U/L (15-37) (AST/SGOT) Alkaline Phosphatase 139 U/L 147 U/L (45-117) (45-117) Total Protein 4.3 GM/DL 4.5 GM/DL (6.4-8.2) (6.4-8.2) Albumin 1.6 GM/DL 1.5 GM/DL (3.4-5.0) (3.4-5.0) Monocytes (%) (Auto) 8.9 % (0.0-8.0) Eosinophils (%) (Auto) 4.1 % (0.0-4.0) Platelet Estimate LOW (NORMAL) Total Bilirubin 1.1 MG/DL (0.2-1.0) PE at Discharge GENERAL: This is a well-nourished, well-developed patient sitting on the bed. SKIN: No rashes, ecchymoses or lesions. Cool and dry. HEAD: Atraumatic. Normocephalic. No temporal or scalp tenderness. EYES: Pupils equal round and reactive. Extraocular motions intact. No scleral icterus. No injection or drainage. ENT: Nose without bleeding, purulent drainage or septal hematoma. Throat without erythema, tonsillar hypertrophy or exudate. Uvula midline. Airway patent. NECK: Trachea midline. No JVD or lymphadenopathy. Supple, nontender, no meningeal signs. CARDIOVASCULAR: Regular rate and regular rhythm without murmurs, gallops, or rubs. RESPIRATORY: Diffuse wheezes bilaterally. GASTROINTESTINAL: Abdomen soft, nondistended. No palpable masses. No guarding. No epigastric tenderness MUSCULOSKELETAL: Extremities without clubbing, cyanosis, or edema. No joint tenderness, effusion, or edema noted. No calf tenderness. NEUROLOGICAL: Awake and alert. Cranial nerves II through XII intact. Motor and sensory grossly within normal limits. Normal speech. Hospital Course Patient to have pancytopenia. For his anemia, GI was consulted and performed an EGD on 11/28. Biopsies were taken. Hematology was consulted and recommended a bone marrow biopsy. The differential diagnosis for his pancytopenia was either alcohol or myelodysplasia. The patient refused a bone marrow biopsy. It was recommended he follow with a out of school hours care worker at the [facility]. He did require oxygen for COPD. He performed an oxygen walk test and he required oxygen for home. He was counseled extensively on the need to quit alcohol and tobacco. Pt Condition on Discharge: Stable Discharge Disposition: Discharge Home Discharge Instructions DIET: Follow Instructions for: As Tolerated, No Restrictions Activities you can perform: Regular-No Restrictions, See Additionl Instruction Other Activity Instructions: Per PT Follow up Referrals: Gastroenterology - 12/16/16 with Kim Acevedo MD Hematology - 12/09/16 with Jelani Arcos MD PCP Follow-up - 1 Week @ [facility] New Orders: CBC NO DIFF - 3-5 Days New Medications: Oxygen tank (Oxygen tank) 1 Ea Tank 2 LITER LYNETTE.CANULA CONTINUOUS Oxygen Concentrator Portable Gaseous 2 L/min via Nasal Cannula Continuous For 99 months HYPOXEMIA PREVENTION #3 CYLINDER Ipratropium-Albuterol Neb (Duoneb) 0.5-2.5 Mg/3 Ml Neb 1 AMPULE NEB Q4HR NEB PRN SOB/WHEEZING #1 Romeo Love MD R2 December 02, 2016 20:37
== END 2016-12-02 16:03 | disposition home or self-care (01) | DRG 378 ==
LOC: NEPC 08:15 → NEDA 10:47 → OBSVTOIN 10:47 → N07B 12:46
PROVIDERS: ADMIT Family Medicine; ATTEND Family Medicine
PROC: 0DB68ZX Excision of Stomach, Via Natural or Artificial Opening Endoscopic, Diagnostic (ICD-10-PCS; 2016-11-28)
PROC: 0DB38ZX Excision of Lower Esophagus, Via Natural or Artificial Opening Endoscopic, Diagnostic (ICD-10-PCS; 2016-11-28)
PROC: 0DB98ZX Excision of Duodenum, Via Natural or Artificial Opening Endoscopic, Diagnostic (ICD-10-PCS; principal; 2016-11-28 14:50)
PROC: 30233N1 Transfusion of Nonautologous Red Blood Cells into Peripheral Vein, Percutaneous Approach (ICD-10-PCS; 2016-11-29)
DX: K29.71 Gastritis, unspecified, with bleeding (principal); N17.9 Acute kidney failure, unspecified; E87.2 Acidosis; D61.818 Other pancytopenia; K20.9 Esophagitis, unspecified; K29.81 Duodenitis with bleeding; K57.90 Diverticulosis of intestine, part unspecified, without perforation or abscess without bleeding; G62.9 Polyneuropathy, unspecified; J44.9 Chronic obstructive pulmonary disease, unspecified; K21.9 Gastro-esophageal reflux disease without esophagitis; Z85.038 Personal history of other malignant neoplasm of large intestine; F17.210 Nicotine dependence, cigarettes, uncomplicated; K44.9 Diaphragmatic hernia without obstruction or gangrene; E11.9 Type 2 diabetes mellitus without complications; Z79.84 Long term (current) use of oral hypoglycemic drugs
CPT/HCPCS: 36430; 80048; 80053; 80307; 82272; 82607; 82746; 82948; 83010; 83605; 83615; 83690; 84132; 84155; 85007; 85014; 85018; 85025; 85027; 85044; 85060; 85610; 85652; 85730; 86140; 86850; 86880; 86900; 86901; 86920; 87040; 88305; 88312; 94620; 94640; 94664; 96374; 96375; C9113; J0744; J1940; J2405; J3411; J7030; J7040; J7050; J7613; P9016

== ENCOUNTER 2017-02-04 10:21 | Inpatient (IN) | payer MEDICARE, OTHER ==
[~2017-02-04] VITALS: Ht 177.8 cm; Wt 87.5 kg
[~2017-02-04 10:21] MED LIST changes: -ALBU8I INH; -DUONI NEB; -GABA300C3 PO; +IPRASOL NEB; +OXYGENTANK NAS.CANULA
[2017-02-04 10:30] VITALS: BP 158/70; PULSE 97; RESP 20; TEMP 98.2
[2017-02-04] MEDS ORDERED: GABA400C5 PO (10:39)
[2017-02-04] MEDS ORDERED: ALLE10TA PO (10:39)
[2017-02-04] MEDS ORDERED: PANT40TA3 PO (10:39)
[2017-02-04] MEDS ORDERED: METH500T3 PO (10:39)
[2017-02-04] MEDS ORDERED: RESP: BUDESONIDE 0.5 MG/2 ML NEB NEB ONE (11:30)
[2017-02-04] MEDS ORDERED: SODIUM CHLORIDE 0.9% FLUSH 10 ML FLUSH IVF PRN (11:30)
[2017-02-04] MEDS: RESP: ALBUTEROL 2.5 MG/IPRATROPIUM 0.5 MG NEB (SCH) INH ×2 (11:34→11:35)
[2017-02-04 11:35] VITALS: O2SAT 96
--- NOTE | 2017-02-04 11:42 | PD ---
HPI Chief Complaint: Abdominal Pain Time Seen by Provider: 11:00 Travel History International Travel<30 days: No Contact w/Intl Traveler<30days: No Traveled to known affect area: No History of Present Illness HPI Patient is a 9-year-old male presenting to emergency for evaluation of abdominal pain and black tar-like stools for the last 5 days. He also reports nausea and dry heaves. He denies any fever, chills, chest pain or shortness of breath. He states that he had a blood transfusion 5 weeks ago due to the same issue. He states the abdominal pain is diffuse, and rates it a 4 out of 10. He states that his bowel movements are runny. He has no other complaints at this time. 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) Coronary Artery Disease: No Diabetes: No Endocrine: No Gastrointestinal Disorders: Yes (GI bleed) GERD: Yes Hepatitis: No Hiatal Hernia: Yes Hypertension: Yes Immune Disorder: No Kidney Stones: No Musculoskeletal: Yes (NECK AND LEFT KNEE) Neurologic: Yes (TIA 2006, NO RESIDUAL) Psychiatric: No Reproductive: No Migraines: No Radiation Therapy: No Renal Failure: No Seizures: No Sickle Cell Disease: No Sleep Apnea: No Thyroid Disease: No Ulcer: Yes Past Surgical History Abdominal Surgery: Yes (HERNIA X2, ) AICD: No Appendectomy: No Arteriovenous Shunt: No Body Medical Devices: rods and screws in lower back Cardiac Surgery: No Cholecystectomy: No Ear Surgery: No Endocrine Surgery: No Eye Surgery: Yes (LEFT EYE CATARAX ) Genitourinary Surgery: No Gynecologic Surgery: No Insulin Pump: No Joint Replacement: No Oral Surgery: No Pacemaker: No Thoracic Surgery: No Other Surgery: Yes Social History Alcohol Use: Yes (occassionally) Tobacco Use: Yes (one half pack per day) Substance Use: No Allergies-Medications (Allergen,Severity, Reaction): Coded Allergies: Penicillin (Verified Allergy, Severe, 02/04/17) Reported Meds & Prescriptions Reported Meds & Active Scripts Active Oxygen tank (Oxygen) 1 Ea Tank 2 Liter LYNETTE.CANULA CONTINUOUS Oxygen Concentrator Portable Gaseous 2 L/min via Nasal Cannula Continuous For 99 months Duoneb (Ipratropium-Albuterol Neb) 0.5-2.5 Mg/3 Ml Neb 1 Ampule NEB Q4HR NEB PRN Reported Allergy Relief (Loratadine) 10 Mg Tab 10 Mg PO DAILY Pantoprazole (Pantoprazole Sodium) 40 Mg Tab 40 Mg PO DAILY Methocarbamol 500 Mg Tab 500 Mg PO QID Gabapentin 400 Mg Cap 400 Cap PO HS Review of Systems Except as stated in HPI: all other systems reviewed are Neg General / Constitutional: No: Fever, Chills Eyes: No: Blurred Vision HENT: No: Headaches Cardiovascular: No: Chest Pain or Discomfort Respiratory: No: Cough, Shortness of Breath Gastrointestinal: Positive: Nausea, Vomiting, Abdominal Pain, Changes in Bowel Habits Genitourinary: No: Dysuria Musculoskeletal: No: Myalgias Neurologic: Positive: Weakness, No: Dizziness, Syncope Physical Exam Narrative GENERAL: Well-developed, well-nourished, alert elderly gentleman. Resting comfortably in no acute distress. SKIN: Warm and dry. HEAD: Atraumatic. Normocephalic. EYES: Pupils equal and round. No scleral icterus. No injection or drainage. ENT: No nasal bleeding or discharge. Mucous membranes pink and moist. NECK: Trachea midline. No JVD. CARDIOVASCULAR: Regular rate and rhythm. RESPIRATORY: No accessory muscle use. Scattered Expiratory wheezing with coarse breath sounds in bases. GASTROINTESTINAL: Abdomen soft, mildly tender diffusely, mildly distended. Hepatic and splenic margins not palpable. Positive bowel sounds, no rebound, no guarding. MUSCULOSKELETAL: Extremities without clubbing, cyanosis, or edema. No obvious deformities. NEUROLOGICAL: Awake and alert. No obvious cranial nerve deficits. Motor grossly within normal limits. Five out of 5 muscle strength in the arms and legs. Normal speech. PSYCHIATRIC: Appropriate mood and affect; insight and judgment normal. Data Data Last Documented VS Vital Signs Date Time Temp Pulse Resp B/P Pulse Ox O2 Delivery O2 Flow Rate FiO2 02/04/17 14:05 100 Room Air 02/04/17 11:35 2.00 02/04/17 10:30 98.2 97 20 158/70 Orders Complete Blood Count With Diff (02/04/17 11:16) Comprehensive Metabolic Panel (02/04/17 11:16) Prothrombin Time / Inr (Pt) (02/04/17 11:16) Act Partial Throm Time (Ptt) (02/04/17 11:16) Type And Screen (02/04/17 11:16) Ecg Monitoring (02/04/17 11:16) Iv Access Insert/Monitor (02/04/17 11:16) Oximetry (02/04/17 11:16) Sodium Chloride 0.9% Flush (Ns Flush) (02/04/17 11:30) Electrocardiogram (02/04/17 11:16) Albuterol-Ipratropium Neb (Duoneb Neb) (02/04/17 11:30) Budesonide Neb (Pulmicort Respule Neb) (02/04/17 11:30) Chest, Single Ap (02/04/17 ) Ct Abd/Pel W Iv Contrast(Rout) (02/04/17 ) Iohexol 350 Inj (Omnipaque 350 Inj) (02/04/17 13:39) Diet Npo (02/04/17 Dinner) Admit Order (Ed Use Only) (02/04/17 14:37) Labs Laboratory Tests Test 02/04/17 11:20 White Blood Count 7.4 TH/MM3 Red Blood Count 3.48 MIL/MM3 Hemoglobin 11.3 GM/DL Hematocrit 34.1 % Mean Corpuscular Volume 97.8 FL Mean Corpuscular Hemoglobin 32.6 PG Mean Corpuscular Hemoglobin 33.3 % Concent Red Cell Distribution Width 21.7 % Platelet Count 197 TH/MM3 Mean Platelet Volume 8.8 FL Neutrophils (%) (Auto) 79.9 % Lymphocytes (%) (Auto) 10.8 % Monocytes (%) (Auto) 7.5 % Eosinophils (%) (Auto) 0.6 % Basophils (%) (Auto) 1.2 % Neutrophils # (Auto) 5.9 TH/MM3 Lymphocytes # (Auto) 0.8 TH/MM3 Monocytes # (Auto) 0.6 TH/MM3 Eosinophils # (Auto) 0.0 TH/MM3 Basophils # (Auto) 0.1 TH/MM3 CBC Comment DIFF FINAL Differential Comment Prothrombin Time 12.7 SEC Prothromb Time International 1.1 RATIO Ratio Activated Partial 30.2 SEC Thromboplast Time Sodium Level 129 MEQ/L Potassium Level 4.0 MEQ/L Chloride Level 93 MEQ/L Carbon Dioxide Level 29.5 MEQ/L Anion Gap 7 MEQ/L Blood Urea Nitrogen 6 MG/DL Creatinine 1.27 MG/DL Estimat Glomerular Filtration 56 ML/MIN Rate Random Glucose 95 MG/DL Calcium Level 8.1 MG/DL Total Bilirubin 2.1 MG/DL Aspartate Amino Transf 47 U/L (AST/SGOT) Alanine Aminotransferase 34 U/L (ALT/SGPT) Alkaline Phosphatase 235 U/L Total Protein 6.5 GM/DL Albumin 1.9 GM/DL Blood Type O POSITIVE Antibody Screen NEGATIVE MDM Medical Decision Making Medical Screen Exam Complete: Yes Emergency Medical Condition: Yes Interpretation(s) Vital Signs Date Time Temp Pulse Resp B/P Pulse Ox O2 Delivery O2 Flow Rate FiO2 02/04/17 10:30 98.2 97 20 158/70 Nasal Cannula 2 Differential Diagnosis GI bleed versus anemia versus metabolic abnormality versus COPD versus COPD exacerbation versus other Narrative Course Patient is a 72-year-old male presenting for evaluation for possible GI bleed. Patient has a history of the same requiring blood transfusion 5 weeks ago. Labs and imaging ordered and pending. Patient is resting comfortably. Vital signs are stable. Hemoccult is positive for occult blood. CBC is stable hemoglobin is improved from prior. 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 It extends posterior to the IVC where the hypodense collection measures 2.4 x 3 cm. Is exhibiting some mass effect from the IVC increased from the previous study. Could be a slow contained leak. This was discussed with Dr. Levin, cardiothoracic surgeon. Dr. Levin came to the emergency department to evaluate patient. Patient is going to the operating room. Patient was admitted to the resident's under Dr. Almanza. Orders placed. Patient remained hemodynamically stable in the emergency department. EKG shows sinus rhythm with a rate of 97. HemaPrompt Point of Care Fecal Specimen Occult Blood: Positive Diagnosis Primary Impression: AAA (abdominal aortic aneurysm) Qualified Code: I71.4 - Abdominal aortic aneurysm (AAA) without rupture Admitting Information Admitting Physician Requests: Admit Condition: Stable Carola Philip [facility] Feb 04, 2017 11:42
[2017-02-04 11:55] LABS: AUTOMATED NEUTROPHIL # 5.9 TH/MM3 (1.8-7.7); BASOPHIL # 0.1 TH/MM3 (0-0.2); BASOPHIL % 1.2 % (0.0-2.0); EOSINOPHIL % 0.6 % (0.0-4.0); HEMATOCRIT 34.1 % (39.0-51.0); HEMO FLAGS DIFF FINAL; LYMPH % 10.8 % (9.0-44.0); LYMPHOCYTE # 0.8 TH/MM3 (1.0-4.8); MEAN CELL VOLUME 97.8 FL (80.0-100.0); MEAN CORPUSCULAR HEMOGLOBIN 32.6 PG (27.0-34.0); MEAN CORPUSCULAR HGB CONC 33.3 % (32.0-36.0); MONO % 7.5 % (0.0-8.0); NEUT % 79.9 % (16.0-70.0); PLATELET COUNT 197 TH/MM3 (150-450); RED BLOOD COUNT 3.48 MIL/MM3 (4.50-5.90); RED CELL DISTRIBUTION WIDTH 21.7 % (11.6-17.2); WHITE BLOOD COUNT 7.4 TH/MM3 (4.0-11.0)
[2017-02-04 12:14] LABS: APTT (PATIENT) 30.2 SEC (24.3-30.1); INTERNATIONAL NORMALIZED RATIO 1.1 RATIO; PROTHROMBIN TIME - PATIENT 12.7 SEC (9.8-11.6)
[2017-02-04 12:19] LABS: ANION GAP 7 MEQ/L (5-15); AST (GOT) 47 U/L (15-37); BICARBONATE 29.5 MEQ/L (21.0-32.0); BLOOD UREA NITROGEN 6 MG/DL (7-18); CHLORIDE 93 MEQ/L (98-107); GLOMERULAR FILTRATION RATE 56 ML/MIN (>89); SODIUM (NA) 129 MEQ/L (136-145)
[2017-02-04 12:20] LABS: ALT (GPT) 34 U/L (12-78)
[2017-02-04 12:22] LABS: ALKALINE PHOSPHATASE 235 U/L (45-117); TOTAL BILIRUBIN ADULT 2.1 MG/DL (0.2-1.0)
--- NOTE | 2017-02-04 12:36 | RADRPT ---
EXAM DATE/TIME: 02/04/2017 11:22 [facility] COMPARISON: CHEST SINGLE AP, April 01, 2016, 23:18. INDICATIONS : Short of breath with wheezing. MEDICAL HISTORY : Asthma SURGICAL HISTORY : None. ENCOUNTER: Initial ACUITY: 1 day PAIN SCORE: 0/10 LOCATION: Left chest FINDINGS: A single view of the chest demonstrates the lungs to be symmetrically aerated without evidence of mas s, infiltrate or effusion. The cardiomediastinal contours are unremarkable. Osseous structures are intact. Old healed right-sided rib fractures CONCLUSION: Normal examination. Regis Hassan MD on February 04, 2017 at 12:32 Board Certified Radiologist. This report was verified electronically.
[2017-02-04] MEDS ORDERED: IOHEXOL 350 MG/ML 10 ML VIAL (for RAD DIAG) IV ONE (13:39)
[2017-02-04 14:05] VITALS: O2SAT 100
--- NOTE | 2017-02-04 14:06 | RADRPT ---
EXAM DATE/TIME: 02/04/2017 13:35 [facility] COMPARISON: March 2016, use for comparison. INDICATIONS : Abdominal pain. IV CONTRAST: 90 cc Omnipaque 350 (iohexol) IV ORAL CONTRAST: No oral contrast ingested. RADIATION DOSE: 9.96 CTDIvol (mGy) MEDICAL HISTORY : Cardiovascular disease. Hypertension. Chronic obstructive pulmonary disease. C olon cancer. SURGICAL HISTORY : Hernia repair x 2 ENCOUNTER: Initial ACUITY: 1 day PAIN SCALE: 5/10 LOCATION: Bilateral lower quadrant TECHNIQUE: Volumetric scanning of the abdomen and pelvis was performed. Using automated exposure control and adjustment of the mA and/or kV according to patient size, radiation dose was kept as low as reasonably achievable to obtain optimal diagnostic quality images. DICOM format image data is av ailable electronically for review and comparison. FINDINGS: CT scan of the abdomen and pelvis performed with IV and oral contrast. There is a hypodense collecti on posterior to the IVC originating near a possible contained pseudo aneurysm of the mid abdominal ao rta. It has been present since at least 2013 and is very similar to the March 2016 exam. There is slightly more mass effect on the IVC than it was in 2013 or 2015. There is no evidence of leak or extravasation. The patient has a very low density liver consistent with fatty infiltration. There is a large amount of free fluid throughout abdomen. The adrenals glands are unremarkable. The kidneys are unremarkable except for a small cyst in the le ft kidney and a stone in the right kidney. Spleen and pancreas are unremarkable. There is no eviden ce of bowel obstruction. Patient has had multiple previous hernia surgeries. Mild atelectasis both lung bases. 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 It extends posterior to the IVC where the hypodense collection measures 2.4 x 3.0 cm across. It does exhibit some mass effect from the IVC increased from the previous studies. Could be a slow contained leak. At only 72 year's old the patient is probably a candidate for sten ting of that area. Large amount of ascites throughout the abdomen with a very fatty liver. Portal vein is patent. Regis Hassan MD on February 04, 2017 at 13:53 Board Certified Radiologist. This report was verified electronically.
--- NOTE | 2017-02-04 14:48 | HHI.HP ---
[facility] Service Family Medicine Primary Care Physician [facility] Admission Diagnosis ABD PAIN Diagnoses: (1) Pseudoaneurysm of aorta Diagnosis: Principal International Travel<30 Days: No Contact w/Intl Traveler<30days: No Known Affected Area: No History of Present Illness Patient presents to ED complaining of gradually worsening abdominal pain x2 weeks; severe pain for past 4 days. He admits to black stool for the past "couple of weeks." He admits to nausea this morning but denies vomiting. He endorses a chronic cough but denies sputum production and blood. Patient has also experienced dizziness over the past few weeks. He admits to falls and loosing consciousness on multiple occasions. His most recent syncopal episode was one week ago. As per girlfriend, he was "out" for approximately 1 minute. Patient does not remember passing out. EMS was called but patient felt fine upon EMS arrival and refused evaluation. Of note, patient was hospitalized with abdominal pain, diarrhea and hematemesis in November 2016. As per discharge summary, patient was found to have pancytopenia. For his anemia, GI was consulted and performed an EGD on 11/28. Biopsies were taken, showing evidence of minimal acute duodenitis, mild chronic gastritis ( Helicobacter negative), and squamocolumnar mucosa with severe chronic, focally acute inflammation. Patient required blood transfusion during visit. Hematology was consulted and recommended a bone marrow biopsy, which patient refused. The differential diagnosis for his pancytopenia was either alcohol or myelodysplasia. It was recommended he follow with a rn hemo dialysis at the [place]. He did require oxygen for COPD. He performed an oxygen walk test and he required oxygen for home. He was counseled extensively on the need to quit alcohol and tobacco. (Minnie Gutierrez MD R1) Review of Systems ROS Limitations: Clinical Condition (Patient interview was brief because patient was taken to OR for emergency surgery.) Constitutional: COMPLAINS OF: Fatigue Respiratory: COMPLAINS OF: Cough, Shortness of breath, DENIES: Sputum production Cardiovascular: COMPLAINS OF: Syncope, DENIES: Chest pain Gastrointestinal: COMPLAINS OF: Abdominal pain, Black stools, Nausea, DENIES: Vomiting (Minnie Gutierrez MD R1) Past Family Social History Past Medical History As per H&P on 11/28/16: COPD GERD Prior HTN Colon Cancer treated with right hemicolectomy 2008, [facility] Past Surgical History As per H&P on 11/28/16: Hernia repair 2012 Right Hemicolectomy 2009 Fused vertebra 2006 Reported Medications Unable to obtain information at this time. (Minnie Gutierrez MD R1) Allergies: Coded Allergies: Penicillin (Verified Allergy, Severe, 02/04/17) Active Ordered Medications Current Medications Medications (Trade) Dose Ordered Sig/Joanne Route Start Time Stop Time Status Last Admin (NS 1000 ml Inj) 1,000 ml @ 120 mls/hr Q8H20M IV 02/04/17 16:00 (NS Flush) 2 ml UNSCH PRN IV FLUSH 02/04/17 15:15 (NS Flush) 2 ml BID IV FLUSH 02/04/17 21:00 (Tylenol) 650 mg Q4H PRN PO 02/04/17 15:15 (Zofran Inj) 4 mg Q6H PRN IVP 02/04/17 15:15 (Narcan Inj) 0.4 mg UNSCH PRN IV 02/04/17 15:15 (Lian-Colace) 1 tab BID PO 02/04/17 21:00 (Milk Of Magnesia Liq) 30 ml Q12H PRN PO 02/04/17 15:15 (Senokot) 17.2 mg Q12H PRN PO 02/04/17 15:15 (Dulcolax Supp) 10 mg DAILY PRN RECTAL 02/04/17 15:15 (Lactulose Liq) 30 ml DAILY PRN PO 02/04/17 15:15 Family History As per H&P on 11/28/16: Mother- CHF Father and Sister: Healthy Social History As per H&P on 11/28/16: 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,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 SKIN: No rashes, ecchymoses or lesions. Cool and dry. HEAD: Atraumatic. Normocephalic. No temporal or scalp tenderness. EYES: Pupils equal round. Extraocular motions intact. No scleral icterus. No injection or drainage. ENT: Nose without bleeding or purulent drainage. Airway patent. NECK: Trachea midline. No JVD. CARDIOVASCULAR: Regular rate and rhythm without murmurs, gallops, or rubs. RESPIRATORY: Diffuse wheezes in anterior lung montes. Breath sounds equal bilaterally. GASTROINTESTINAL: Abdomen soft, non-tender, nondistended. Abdominal hernia, midline, noted on Valsalva. No guarding. MUSCULOSKELETAL: Extremities without clubbing, cyanosis, or edema. No joint tenderness, effusion, or edema noted. No calf tenderness. NEUROLOGICAL: Awake and alert. Cranial nerves II through XII intact. Motor and sensory grossly within normal limits. Five out of 5 muscle strength in all muscle groups. Normal speech. Laboratory Laboratory Tests Test 02/04/17 11:20 White Blood Count 7.4 Red Blood Count 3.48 Hemoglobin 11.3 Hematocrit 34.1 Mean Corpuscular Volume 97.8 Mean Corpuscular Hemoglobin 32.6 Mean Corpuscular Hemoglobin 33.3 Concent Red Cell Distribution Width 21.7 Platelet Count 197 Mean Platelet Volume 8.8 Neutrophils (%) (Auto) 79.9 Lymphocytes (%) (Auto) 10.8 Monocytes (%) (Auto) 7.5 Eosinophils (%) (Auto) 0.6 Basophils (%) (Auto) 1.2 Neutrophils # (Auto) 5.9 Lymphocytes # (Auto) 0.8 Monocytes # (Auto) 0.6 Eosinophils # (Auto) 0.0 Basophils # (Auto) 0.1 CBC Comment DIFF FINAL Differential Comment Prothrombin Time 12.7 Prothromb Time International 1.1 Ratio Activated Partial 30.2 Thromboplast Time Sodium Level 129 Potassium Level 4.0 Chloride Level 93 Carbon Dioxide Level 29.5 Anion Gap 7 Blood Urea Nitrogen 6 Creatinine 1.27 Estimat Glomerular Filtration 56 Rate Random Glucose 95 Calcium Level 8.1 Total Bilirubin 2.1 Aspartate Amino Transf 47 (AST/SGOT) Alanine Aminotransferase 34 (ALT/SGPT) Alkaline Phosphatase 235 Total Protein 6.5 Albumin 1.9 Blood Type O POSITIVE Antibody Screen NEGATIVE (Minnie Gutierrez MD R1) Result Diagram: 02/04/17 1120 02/04/17 1120 Imaging Last Impressions Chest X-Ray 02/04/17 0000 Signed Impressions: Service Date/Time: Saturday, February 04, 2017 11:22 - CONCLUSION: Normal examination. Regis Hassan MD Abdomen/Pelvis CT 02/04/17 0000 Signed Impressions: Service Date/Time: Saturday, February 04, 2017 13:35 - CONCLUSION: Again there is a possible contained old pseudo aneurysm of the mid right side of the abdominal aorta below the renal vessels. It extends posterior to the IVC where the hypodense collection measures 2.4 x 3.0 cm across. It does exhibit some mass effect from the IVC increased from the previous studies. Could be a slow contained leak. At only 72 year's old the patient is probably a candidate for stenting of that area. Large amount of ascites throughout the abdomen with a very fatty liver. Portal vein is patent. Regis Hassan MD (Minnie Gutierrez MD R1) Assessment and Plan Assessment and Plan Patient presents to ED complaining of gradually worsening abdominal pain x2 weeks; severe pain for past 4 days. He admits to black stool for the past "couple of weeks." He also describes multiple syncopal episodes. 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 Vacular surgery was consulted and patient was taken for emergency surgery to OR. Code Status Full Code Discussed Condition With Dr. Elizabeth Duran, Attending Dr. Tori Haynes, PGY-2 (Minnie Gutierrez MD R1) Attending Attestation THIS CASE WAS DISCUSSED WITH THE RESIDENT PHYSICIANS. I HAVE REVIEWED THE RECORD AND AGREE WITH THE ABOVE NOTE AND PLAN OF CARE WAS DISCUSSED. I HAVE AUTHORIZED THE ORDER FOR ADMISSION TO AN IN-PATIENT STATUS. (Elizabeth Duran MD) Problem List: (1) Pseudoaneurysm of aorta Status: Acute Plan: Imaging with evidence of pseudoaneurysm of the distal abdominal aorta. Dr. Thompson, Vascular Surgery, was consulted. Patient was taken to OR for emergency surgery. As per Dr. Thompson, patient will be admitted to CVICU post- op. Patient anemic at admission (H/H 11.3/34.1). (2) Syncope Status: Acute Plan: Etiology: unclear; possibly associated with abdominal aortic aneurysm. Consider further work-up post-operatively. (3) COPD (chronic obstructive pulmonary disease) Status: Chronic Plan: At baseline, patient is on oxygen at home. Monitor respiratory status post-op. (4) Fluid, Electrolyte, Nutrition, and Prophylaxis Status: Acute Plan: Fluid: * Will start Sodium Chloride 1,000 ml at 120 mls/hr post-op. Electrolyte: * Will monitor and replete as necessary. * Na 129L at admission. Nutrition: * NPO DVT Prophylaxis: * SCDs * No chemical prophylaxis due to active bleeding GI Prophylaxis: * Consider adding post-op. (Minnie Gutierrez MD R1) Physician Certification 2 Midnight Certification Type: Admission for Inpatient Services Order for Inpatient Services The services are ordered in accordance with Medicare regulations or non- Medicare payer requirements, as applicable. In the case of services not specified as inpatient-only, they are appropriately provided as inpatient services in accordance with the 2-midnight benchmark. Estimated LOS (days): 7 days is the estimated time the patient will need to remain in the hospital, assuming treatment plan goals are met and no additional complications. Post-Hospital Plan: Not yet determined (Minnie Gutierrez MD R1) 2 Midnight Certification Type: Admission for Inpatient Services Post-Hospital Plan: Not yet determined (Elizabeth Duran MD) Minnie Gutierrez MD R1 Feb 04, 2017 14:48 Elizabeth Duran MD Feb 05, 2017 13:27
--- NOTE | 2017-02-04 14:54 | PD ---
Physical Exam Narrative Patient was seen and examined with my assistant front office manager. Data Data Last Documented VS Vital Signs Date Time Temp Pulse Resp B/P Pulse Ox O2 Delivery O2 Flow Rate FiO2 02/04/17 14:05 100 Room Air 02/04/17 11:35 2.00 02/04/17 10:30 98.2 97 20 158/70 Orders Complete Blood Count With Diff (02/04/17 11:16) Comprehensive Metabolic Panel (02/04/17 11:16) Prothrombin Time / Inr (Pt) (02/04/17 11:16) Act Partial Throm Time (Ptt) (02/04/17 11:16) Type And Screen (02/04/17 11:16) Ecg Monitoring (02/04/17 11:16) Iv Access Insert/Monitor (02/04/17 11:16) Oximetry (02/04/17 11:16) Sodium Chloride 0.9% Flush (Ns Flush) (02/04/17 11:30) Electrocardiogram (02/04/17 11:16) Albuterol-Ipratropium Neb (Duoneb Neb) (02/04/17 11:30) Budesonide Neb (Pulmicort Respule Neb) (02/04/17 11:30) Chest, Single Ap (02/04/17 ) Ct Abd/Pel W Iv Contrast(Rout) (02/04/17 ) Iohexol 350 Inj (Omnipaque 350 Inj) (02/04/17 13:39) Diet Npo (02/04/17 Dinner) Admit Order (Ed Use Only) (02/04/17 14:37) Labs Laboratory Tests Test 02/04/17 11:20 White Blood Count 7.4 TH/MM3 Red Blood Count 3.48 MIL/MM3 Hemoglobin 11.3 GM/DL Hematocrit 34.1 % Mean Corpuscular Volume 97.8 FL Mean Corpuscular Hemoglobin 32.6 PG Mean Corpuscular Hemoglobin 33.3 % Concent Red Cell Distribution Width 21.7 % Platelet Count 197 TH/MM3 Mean Platelet Volume 8.8 FL Neutrophils (%) (Auto) 79.9 % Lymphocytes (%) (Auto) 10.8 % Monocytes (%) (Auto) 7.5 % Eosinophils (%) (Auto) 0.6 % Basophils (%) (Auto) 1.2 % Neutrophils # (Auto) 5.9 TH/MM3 Lymphocytes # (Auto) 0.8 TH/MM3 Monocytes # (Auto) 0.6 TH/MM3 Eosinophils # (Auto) 0.0 TH/MM3 Basophils # (Auto) 0.1 TH/MM3 CBC Comment DIFF FINAL Differential Comment Prothrombin Time 12.7 SEC Prothromb Time International 1.1 RATIO Ratio Activated Partial 30.2 SEC Thromboplast Time Sodium Level 129 MEQ/L Potassium Level 4.0 MEQ/L Chloride Level 93 MEQ/L Carbon Dioxide Level 29.5 MEQ/L Anion Gap 7 MEQ/L Blood Urea Nitrogen 6 MG/DL Creatinine 1.27 MG/DL Estimat Glomerular Filtration 56 ML/MIN Rate Random Glucose 95 MG/DL Calcium Level 8.1 MG/DL Total Bilirubin 2.1 MG/DL Aspartate Amino Transf 47 U/L (AST/SGOT) Alanine Aminotransferase 34 U/L (ALT/SGPT) Alkaline Phosphatase 235 U/L Total Protein 6.5 GM/DL Albumin 1.9 GM/DL Blood Type O POSITIVE Antibody Screen NEGATIVE MDM Supervised Visit with OCTAVIO: Yes Lamont Hernandez MD Feb 04, 2017 14:54
[2017-02-04] MEDS ORDERED: PROTAMINE SULFATE 50 MG/5 ML VIAL ONE (14:56)
[2017-02-04] MEDS ORDERED: LACTULOSE SYRUP 20 GM/30 ML CUP PO PRN (15:15)
[2017-02-04] MEDS ORDERED: BISACODYL 10 MG SUPP RECTAL PRN ×2 (15:15→18:15)
[2017-02-04] MEDS ORDERED: MAGNESIUM HYDROXIDE SUSP 30 ML CUP PO PRN (15:15)
[2017-02-04] MEDS ORDERED: ACETAMINOPHEN 325 MG TAB PO PRN (15:15)
[2017-02-04] MEDS ORDERED: SODIUM CHLORIDE 0.9% FLUSH 10 ML FLUSH IV FLUSH PRN (15:15)
[2017-02-04] MEDS ORDERED: NALOXONE HCL 0.4 MG/ML AMP IV PRN (15:15)
[2017-02-04] MEDS ORDERED: ONDANSETRON HCL 4 MG/2 ML VIAL IVP PRN (15:15)
[2017-02-04] MEDS ORDERED: SENNOSIDES 8.6 MG TAB PO PRN (15:15)
[2017-02-04] MEDS ORDERED: SODIUM CHLOR 0.9% 1000 ML INJ 1,000 ML IV SCH (16:00)
--- NOTE | 2017-02-04 16:00 | PD.VS.CON ---
History of Present Illness Chief Complaint: periumbilical pain for about 5 days. Consult Requested by: ER History of Present Illness Pleasant 72 year old gentleman with hx of COPD on home O2 and smoking, claudication and CVA who presents with a hx of vague mid abdominal pain for about 5 days. Hx of some black tarry stools as well. otherwise no chest pain and normal amount of shortness of breath for him. Past/Family/Social History Past Medical History Allergies-Medications (Allergen,Severity, Reaction): Coded Allergies: Penicillin (Verified Allergy, Severe, 02/04/17) Reported Meds & Prescriptions Reported Meds & Active Scripts Active Oxygen tank (Oxygen) 1 Ea Tank 2 Liter LYNETTE.CANULA CONTINUOUS Oxygen Concentrator Portable Gaseous 2 L/min via Nasal Cannula Continuous For 99 months Duoneb (Ipratropium-Albuterol Neb) 0.5-2.5 Mg/3 Ml Neb 1 Ampule NEB Q4HR NEB PRN Reported Allergy Relief (Loratadine) 10 Mg Tab 10 Mg PO DAILY Pantoprazole (Pantoprazole Sodium) 40 Mg Tab 40 Mg PO DAILY Methocarbamol 500 Mg Tab 500 Mg PO QID Gabapentin 400 Mg Cap 400 Cap PO HS Home Medications Active Scripts Oxygen tank 1 Ea Tank #3 Liter Lynette.canula Continuous Oxygen Concentrator Portable Gaseous 2 L/min via Nasal Cannula Continuous For 99 months Prov:Romeo Boothe MD R2 12/02/16 Ipratropium-Albuterol Neb (Duoneb)0.5-2.5 Mg/3 Ml Neb1 Ampule NEB Q4HR NEB PRN ( SOB/WHEEZING) #1 BOX Prov:Romeo Boothe MD R2 12/02/16 Reported Medications Loratadine (Allergy Relief)10 Mg Tab10 Mg PO DAILY 02/04/17 Pantoprazole 40 Mg Tab40 Mg PO DAILY #30 TAB Ref 0 02/04/17 Methocarbamol 500 Mg [id number] Mg PO QID #120 TAB Ref 0 02/04/17 Gabapentin 400 Mg [id number] Cap PO HS #30 CAP Ref 0 02/04/17 Coded Allergies: Penicillin (Verified Allergy, Severe, 02/04/17) Review of Systems Respiratory: COMPLAINS OF: Apneas, Cough, Snoring, Wheezing, Hemoptysis, Sputum production, Shortness of breath Musculoskeletal: COMPLAINS OF: Joint pain, Muscle aches, Stiffness, Joint Swelling, Back pain (abdominal pain), Neck pain Physical Exam Vitals/I&O Date Time Temp Pulse Resp B/P Pulse Ox O2 Delivery O2 Flow Rate FiO2 02/04/17 14:05 100 Room Air 02/04/17 11:35 96 Nasal Cannula 2.00 02/04/17 10:30 98.2 97 20 158/70 Nasal Cannula 2 Neuro: A&Ox3 Neck: no carotid bruits Heart: regular rate Lungs: Decreased at the base. Abdomen: soft but tender to right of the umbilicus Vascular: palpable femoral pulses bilaterally signals of his PT bilaterally. Laboratory Tests Test 02/04/17 11:20 White Blood Count 7.4 Red Blood Count 3.48 Hemoglobin 11.3 Hematocrit 34.1 Mean Corpuscular Volume 97.8 Mean Corpuscular Hemoglobin 32.6 Mean Corpuscular Hemoglobin 33.3 Concent Red Cell Distribution Width 21.7 Platelet Count 197 Mean Platelet Volume 8.8 Neutrophils (%) (Auto) 79.9 Lymphocytes (%) (Auto) 10.8 Monocytes (%) (Auto) 7.5 Eosinophils (%) (Auto) 0.6 Basophils (%) (Auto) 1.2 Neutrophils # (Auto) 5.9 Lymphocytes # (Auto) 0.8 Monocytes # (Auto) 0.6 Eosinophils # (Auto) 0.0 Basophils # (Auto) 0.1 CBC Comment DIFF FINAL Differential Comment Prothrombin Time 12.7 Prothromb Time International 1.1 Ratio Activated Partial 30.2 Thromboplast Time Sodium Level 129 Potassium Level 4.0 Chloride Level 93 Carbon Dioxide Level 29.5 Anion Gap 7 Blood Urea Nitrogen 6 Creatinine 1.27 Estimat Glomerular Filtration 56 Rate Random Glucose 95 Calcium Level 8.1 Total Bilirubin 2.1 Aspartate Amino Transf 47 (AST/SGOT) Alanine Aminotransferase 34 (ALT/SGPT) Alkaline Phosphatase 235 Total Protein 6.5 Albumin 1.9 Blood Type O POSITIVE Antibody Screen NEGATIVE Last 48 hours Impressions Chest X-Ray 02/04/17 0000 Signed Impressions: Service Date/Time: Saturday, February 04, 2017 11:22 - CONCLUSION: Normal examination. Regis Hassan MD Abdomen/Pelvis CT 02/04/17 0000 Signed Impressions: Service Date/Time: Saturday, February 04, 2017 13:35 - CONCLUSION: Again there is a possible contained old pseudo aneurysm of the mid right side of the abdominal aorta below the renal vessels. It extends posterior to the IVC where the hypodense collection measures 2.4 x 3.0 cm across. It does exhibit some mass effect from the IVC increased from the previous studies. Could be a slow contained leak. At only 72 year's old the patient is probably a candidate for stenting of that area. Large amount of ascites throughout the abdomen with a very fatty liver. Portal vein is patent. Regis Hassan MD Assessment and Plan Assessment: (1) Pseudoaneurysm of aorta Status: Acute Plan 72 year old male with contained 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 Plan for endovascular repair. Post op will be admitted to CVICU. Patient and girlfriend at bedside to go over risk and benefits of the procedure. Jarad Thompson DO, FACS Research Professor Of Biostatistics of Vascular Surgery MACO/Jarad Martin DO Feb 04, 2017 16:00
[2017-02-04] MEDS ORDERED: VANCOMYCIN HCL 1000 MG VIAL ONE (16:04)
[2017-02-04] MEDS: HEPARIN SODIUM - IV 10,000 UNITS/10 ML VIAL ONE ×2 (16:07→16:22)
[2017-02-04] MEDS ORDERED: *morphine SULFATE 8 MG/ML PERIprocedure ONLY ONE (18:01)
[2017-02-04] MEDS ORDERED: fentaNYL CITRATE 250 MCG/5 ML AMP ONE (18:03)
--- NOTE | 2017-02-04 18:07 | HHI.PR ---
Immediate Post Op Note Procedure Date: Feb 04, 2017 Pre Op Diagnosis: (1) Pseudoaneurysm of aorta Post Op Diagnosis: (1) Pseudoaneurysm of aorta Surgeon: Jarad Thompson Floor Scraper(s): Gerson Naidu Procedure: Endovascular stent graft repair Findings: Ruptured Pseduoaneurysm Additional Information: NA Complications: none Specimen(s) removed: NA Estimated blood loss: 1500 cc Anesthesia: General Drains: None Fluids: 1500cc IVF Tourniquet time (min at mmHg) NA Patient to: PACU Patient Condition: Good Implant/Devices: Other Date/Time of Procedure: Other Jarad Thompson DO Feb 04, 2017 18:07
--- NOTE | 2017-02-04 18:12 | PD.VS.PN ---
Subjective POD #: 0 Procedure(s): EVAR Subjective/Hospital Course without complaints Objective Vascular: Strong pedal signals bilaterally. bilateral groins with dressings intact Laboratory Laboratory Tests Test 02/04/17 11:20 White Blood Count 7.4 Red Blood Count 3.48 Hemoglobin 11.3 Hematocrit 34.1 Mean Corpuscular Volume 97.8 Mean Corpuscular Hemoglobin 32.6 Mean Corpuscular Hemoglobin 33.3 Concent Red Cell Distribution Width 21.7 Platelet Count 197 Mean Platelet Volume 8.8 Neutrophils (%) (Auto) 79.9 Lymphocytes (%) (Auto) 10.8 Monocytes (%) (Auto) 7.5 Eosinophils (%) (Auto) 0.6 Basophils (%) (Auto) 1.2 Neutrophils # (Auto) 5.9 Lymphocytes # (Auto) 0.8 Monocytes # (Auto) 0.6 Eosinophils # (Auto) 0.0 Basophils # (Auto) 0.1 CBC Comment DIFF FINAL Differential Comment Prothrombin Time 12.7 Prothromb Time International 1.1 Ratio Activated Partial 30.2 Thromboplast Time Sodium Level 129 Potassium Level 4.0 Chloride Level 93 Carbon Dioxide Level 29.5 Anion Gap 7 Blood Urea Nitrogen 6 Creatinine 1.27 Estimat Glomerular Filtration 56 Rate Random Glucose 95 Calcium Level 8.1 Total Bilirubin 2.1 Aspartate Amino Transf 47 (AST/SGOT) Alanine Aminotransferase 34 (ALT/SGPT) Alkaline Phosphatase 235 Total Protein 6.5 Albumin 1.9 Blood Type O POSITIVE Antibody Screen NEGATIVE Imaging Last 48 hours Impressions Chest X-Ray 02/04/17 0000 Signed Impressions: Service Date/Time: Saturday, February 04, 2017 11:22 - CONCLUSION: Normal examination. Regis Hassan MD Abdomen/Pelvis CT 02/04/17 0000 Signed Impressions: Service Date/Time: Saturday, February 04, 2017 13:35 - CONCLUSION: Again there is a possible contained old pseudo aneurysm of the mid right side of the abdominal aorta below the renal vessels. It extends posterior to the IVC where the hypodense collection measures 2.4 x 3.0 cm across. It does exhibit some mass effect from the IVC increased from the previous studies. Could be a slow contained leak. At only 72 year's old the patient is probably a candidate for stenting of that area. Large amount of ascites throughout the abdomen with a very fatty liver. Portal vein is patent. Regis Hassan MD Assessment and Plan Assessment: (1) Pseudoaneurysm of aorta Status: Acute Plan 72 year old male with contained 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 Status post EVAR. plan to go to ICU mainly for pulmonary support. Chronometer Repairer consulted. Jarad Thompson DO, FACS Scientist Propagator of Vascular Surgery MACO/Jarad Martin DO Feb 04, 2017 18:12
[2017-02-04] MEDS ORDERED: RESP: ALBUTEROL 2.5 MG/3 ML NEB (PRN) NEB ×2 (18:15→20:15)
[2017-02-04] MEDS ORDERED: DEXTROSE 50% IN WATER 50 ML VIAL(D50) IV PUSH PRN (18:15)
[2017-02-04] MEDS ORDERED: ONDANSETRON HCL 4 MG/2 ML VIAL IV PUSH PRN (18:15)
[2017-02-04] MEDS ORDERED: Post-op Orders (for Pharmacy) MISC OTHER ONE (18:15)
[2017-02-04] MEDS ORDERED: GLUCAGON 1 MG/ML VIAL OTHER PRN ×2 (18:15→19:45)
[2017-02-04] MEDS ORDERED: POTASSIUM CHLOR 20 MEQ PREMIX 100 ML IV PRN (18:15)
[2017-02-04] MEDS ORDERED: HYDROmorphone HCL PF 1 MG/ML VIAL IV PUSH PRN (18:15)
[2017-02-04] MEDS ORDERED: oxyCODONE/ACETAMINOPHEN 10 MG/325 MG TAB PO PRN (18:15)
[2017-02-04] MEDS ORDERED: ACETAMINOPHEN 650 MG SUPP RECTAL PRN (18:15)
[2017-02-04] MEDS ORDERED: DO NOT ADM ANY ANTICOAGULANT DRUGS PRN (18:45)
--- NOTE | 2017-02-04 18:59 | PD.CONS ---
[facility] Service Critical Care Medicine Consult Requested By Dr. Thompson Reason for Consult Critical care management following endovascular repair of ruptured aortic pseudoaneurysm Primary Care Physician [facility] History of Present Illness Patient is very groggy status post anesthesia so not able to provide complete history. History was obtained through discussion with Dr. Levin, FABIO, and the information and patient was able to provide. 72-year-old male with past medical history of COPD on 2 L home oxygen , hypertension, TIA in 2005, colorectal cancer, GERD, CKD stage III, ongoing tobacco abuse who presented to [facility] emergency department earlier today with a 5 day history of gradually worsening diffuse abdominal pain for 2 weeks. He has also had melena stools for a couple of weeks. He denied vomiting. CT abdomen and pelvis was obtained which demonstrated pseudoaneurysm from the right abdominal aorta, infrarenal, with mass effect on the IVC. It was felt that this represented a slow contained leak. Vascular surgery was consulted and he has now undergone endovascular aortic repair per Dr. Thompson. He received 1500 of crystalloid intraoperatively. EBL was 200. Urine output was 125. He has had 45 mls of urine in the last 30 minutes. He has dopplerable DP and posterior tibial artery pulses. Critical care medicine is consulted to follow patient post procedure given his multiple medical comorbidities. Review of Systems ROS Limitations: Clinical Condition Gastrointestinal: COMPLAINS OF: Abdominal pain ("sore") Past Family Social History Allergies: Coded Allergies: Penicillin (Verified Allergy, Severe, 02/04/17) Past Medical History Allergic rhinitis GERD Gastritis Duodenitis Esophagitis COPD on 2 L home O2 Hyperlipidemia CKD stage III TIA in 2006 History of hypertension Colorectal cancer Peripheral neuropathy Diverticulosis Past Surgical History Multiple ventral hernia repair 08/02/12 ([facility]io C[facility] Wilson) Lumbar fusion 2006 Right hemicolectomy 2009 Left cataract surgery EGD 11/28/16 - gastritis antrum, duodenitis in 2nd portion of the duodenum, esophagitis in distal esophagus. Colonoscopy [facility]. fair prep precluding good exam, moderately severe diverticulosis in sigmoid, single large pedunculated polyp in rectum removed by snare cautery, clips applied to edges, small sessile polyp snared. Reported Medications Gabapentin 400 mg by mouth daily at bedtime DuoNeb every 4 hours Methocarbamol 500 mg 4 times a day Protonix 40 mg by mouth daily Loratadine 10 mg by mouth daily Family History Father of emphysema at age 68 Mother of CHF at age 82 Social History He smoked a pack of cigarettes per day for over 55 years. 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 SKIN: Warm and dry. HEAD: Atraumatic. Normocephalic. EYES: Pupils equal and round, 2 mm reactive. No scleral icterus. No injection or drainage. ENT: No nasal bleeding or discharge. Mucous membranes pink and moist. NECK: Trachea midline. No JVD. CARDIOVASCULAR: Regular rate and rhythm, sinus rhythm on the monitor. No murmurs rubs or gallops. RESPIRATORY: Breathing comfortably with no accessory muscle use. Clear to auscultation. Breath sounds equal bilaterally. GASTROINTESTINAL: Abdomen soft, very mildly distended. He states it feels "sore ". Bowel sounds are present. Dressing in place bilateral groin with no hematoma. MUSCULOSKELETAL: Extremities without clubbing, cyanosis, or edema. Feet are warm. 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 NEUROLOGICAL: Awakens to voice, oriented, answers questions appropriately. Speech is slightly slurred nurse states this started after receiving morphine 4 mg IV. He follows commands with all extremities without apparent focal deficit.. No obvious cranial nerve deficits. Laboratory Laboratory Tests Test 02/04/17 11:20 White Blood Count 7.4 Red Blood Count 3.48 Hemoglobin 11.3 Hematocrit 34.1 Mean Corpuscular Volume 97.8 Mean Corpuscular Hemoglobin 32.6 Mean Corpuscular Hemoglobin 33.3 Concent Red Cell Distribution Width 21.7 Platelet Count 197 Mean Platelet Volume 8.8 Neutrophils (%) (Auto) 79.9 Lymphocytes (%) (Auto) 10.8 Monocytes (%) (Auto) 7.5 Eosinophils (%) (Auto) 0.6 Basophils (%) (Auto) 1.2 Neutrophils # (Auto) 5.9 Lymphocytes # (Auto) 0.8 Monocytes # (Auto) 0.6 Eosinophils # (Auto) 0.0 Basophils # (Auto) 0.1 CBC Comment DIFF FINAL Differential Comment Prothrombin Time 12.7 Prothromb Time International 1.1 Ratio Activated Partial 30.2 Thromboplast Time Sodium Level 129 Potassium Level 4.0 Chloride Level 93 Carbon Dioxide Level 29.5 Anion Gap 7 Blood Urea Nitrogen 6 Creatinine 1.27 Estimat Glomerular Filtration 56 Rate Random Glucose 95 Calcium Level 8.1 Total Bilirubin 2.1 Aspartate Amino Transf 47 (AST/SGOT) Alanine Aminotransferase 34 (ALT/SGPT) Alkaline Phosphatase 235 Total Protein 6.5 Albumin 1.9 Blood Type O POSITIVE Antibody Screen NEGATIVE Result Diagram: 02/04/17 1120 02/04/17 1120 Assessment and Plan Assessment and Plan NEURO: History of TIA in 2005 Oxycodone as needed for pain. Dilaudid as needed for breakthrough pain. RESP: COPD with chronic hypoxemia Tobacco abuse Nasal cannula wean as tolerated DuoNeb every 6 hours. Albuterol every 2 hours as needed CV: Hypertension (not on meds) Hyperlipidemia (not on meds) Ruptured aortic pseudoaneurysm, infrarenal, now status post endovascular aortic repair on 02/04 (Dr. Levin) Check lipid panel GI: Esophagitis Gastritis Duodenitis Ascites on CT abd/pelvis Nothing by mouth. Cancel NG tube per discussion with Dr. Thompson FEN/RENAL: Chronic kidney disease stage III Silva in place. Monitor postoperative urine output closely. Monitor creatinine. Replace electrolytes as indicated per vascular surgery electrolyte replacement protocol. 0.9 NaCl@150 mL per hour was ordered postoperatively by Dr. Levin. Will monitor and back off as appropriate. ID: Perioperative vancomycin per Dr. Thompson HEME: Chronic anemia Follow-up CBC ENDO: No history of diabetes. We'll use low-dose insulin sliding scale with bedside glucose every 6 hours as indicated. . PROPH: Pharmacologic DVT prophylaxis when appropriate per Dr. Levin. Protonix 40 g IV daily for stress ulcer prophylaxis and history of GERD ACCESS: Right radial art line in place 02/04 #1. Discussed [address] Dr. Levin. Level III consult Patricia López MD Feb 04, 2017 18:59
[2017-02-04] MEDS: SODIUM CHLOR 0.9% 1000 ML INJ 1,000 ML IV SCH (19:00)
--- NOTE | 2017-02-04 19:08 | RADRPT ---
EXAM DATE/TIME: 02/04/2017 18:44 [place] COMPARISON: CHEST SINGLE AP, February 04, 2017, 11:22. INDICATIONS : Status post AAA. MEDICAL HISTORY : Asthma. SURGICAL HISTORY : Abdominal aortic aneurysm repair. ENCOUNTER: Subsequent ACUITY: 1 day PAIN SCORE: Non-responsive. LOCATION: Bilateral chest FINDINGS: A single view of the chest demonstrates the lungs to be symmetrically aerated without evidence of mas s, infiltrate or effusion. The cardiomediastinal contours are unremarkable. Osseous structures are intact. CONCLUSION: No acute disease. Nestor Cooley MD on February 04, 2017 at 19:06 Board Certified Radiologist. This report was verified electronically.
[2017-02-04] MEDS: INSULIN ASPART SUPPLEMENTAL SCALE SQ SCH (19:30)
[2017-02-04] MEDS ORDERED: DEXTROSE 50% IN WATER 50 ML VIAL(D50) IV PRN (19:45)
[2017-02-04 20:00] VITALS: BP_SYST 101; BP_SYST 128; BP_DIAS 60; BP_DIAS 73; PULSE 88; PULSE 94; RESP 18; TEMP 96.1; O2SAT 97
[2017-02-04] MEDS: SODIUM CHLORIDE 0.9% FLUSH 10 ML FLUSH IV FLUSH SCH (21:00)
[2017-02-04] MEDS: PANTOPRAZOLE SOD 40 MG DELAYED RELEASE TAB PO SCH (21:00)
[2017-02-04] MEDS: DOCUSATE SODIUM 50 MG/SENNA 8.6 MG TAB PO SCH (21:00)
[2017-02-04 21:14] LABS: AUTOMATED NEUTROPHIL # 3.5 TH/MM3 (1.8-7.7); BASOPHIL % 0.8 % (0.0-2.0); HEMATOCRIT 25.6 % (39.0-51.0); HEMO FLAGS DIFF FINAL; LYMPH % 16.8 % (9.0-44.0); LYMPHOCYTE # 0.8 TH/MM3 (1.0-4.8); MEAN CELL VOLUME 97.9 FL (80.0-100.0); MEAN CORPUSCULAR HEMOGLOBIN 32.6 PG (27.0-34.0); MEAN CORPUSCULAR HGB CONC 33.2 % (32.0-36.0); MONO % 7.1 % (0.0-8.0); NEUT % 74.3 % (16.0-70.0); PLATELET COUNT 124 TH/MM3 (150-450); RED BLOOD COUNT 2.61 MIL/MM3 (4.50-5.90); RED CELL DISTRIBUTION WIDTH 21.6 % (11.6-17.2); WHITE BLOOD COUNT 4.7 TH/MM3 (4.0-11.0)
[2017-02-04 21:29] LABS: BICARBONATE 26.1 MEQ/L (21.0-32.0); MAGNESIUM 1.4 MG/DL (1.5-2.5)
[2017-02-04 21:54] LABS: CALCIUM-PROTEIN CORRECTED 8.1 MG/DL (8.5-10.1)
[2017-02-04 22:12] VITALS: O2SAT 96
[2017-02-04] MEDS: RESP: ALBUTEROL 2.5 MG/IPRATROPIUM 0.5 MG NEB (SCH) NEB (22:12)
[2017-02-04] MEDS: PANTOPRAZOLE SODIUM 40 MG VIAL IV PUSH SCH (22:15)
[2017-02-04 23:20] VITALS: PULSE 86
[2017-02-05] VITALS (16 sets, daily range): BP systolic 115–164; BP diastolic 22–97; PULSE 83–98; RESP 16–24; TEMP 97.6–98.2; O2SAT 95–98
[2017-02-05] MEDS ORDERED: INSULIN NovoLIN REGULAR SUPPLEMENTAL SCALE SQ SCH
[2017-02-05 00:03] LABS: BLOOD GAS BASE EXCESS -0.2 mmol/L (-2-2); BLOOD GAS CARBOXYHEMOGLOBIN 2.5 % (0-4); BLOOD GAS HCO3 24 mmol/L (22-26); BLOOD GAS O2 HGB SATURATION 94 % (90-100); BLOOD GAS PCO2 39 mmHg (38-42); BLOOD GAS PO2 89 mmHg (61-120); BLOOD GAS TOTAL HGB 8.3 G/DL (12.0-16.0); TEMP CORR TO 98.6
[2017-02-05 00:04] LABS: CRITICAL VALUE NO; DRAW SITE ART LINE; LITER FLOW 2 L/M; OXYGEN DEVICE NASAL CANNULA; STAT NO
[2017-02-05] MEDS ORDERED: SODIUM CHLOR 0.9% 250 ML INJ 250 ML IV ONE ×2 (00:30→05:00)
[2017-02-05] MEDS ORDERED: MAGNESIUM SULFATE 1 GM PREMIX 100 ML IV ONE (00:30)
[2017-02-05] MEDS: SODIUM CHLOR 0.9% 1000 ML INJ 1,000 ML IV SCH ×4 (02:45→20:09)
[2017-02-05] MEDS: RESP: ALBUTEROL 2.5 MG/IPRATROPIUM 0.5 MG NEB (SCH) NEB ×3 (03:18→18:54)
[2017-02-05] MEDS ORDERED: ALBUMIN HUMAN 25% 25 GM/100 ML BAGP IV ONE ×2 (04:00→09:00)
[2017-02-05] MEDS: VANCOMYCIN INJ 1,000 MG in SODIUM CHLOR 0.9% 250 ML INJ 250 ML IV SCH ×2 (04:00→15:52)
[2017-02-05 05:44] LABS: AUTOMATED NEUTROPHIL # 4.3 TH/MM3 (1.8-7.7); BASOPHIL % 0.9 % (0.0-2.0); EOSINOPHIL # 0.1 TH/MM3 (0-0.4); HEMATOCRIT 23.8 % (39.0-51.0); HEMO FLAGS DIFF FINAL; LYMPHOCYTE # 0.5 TH/MM3 (1.0-4.8); MEAN CELL VOLUME 97.5 FL (80.0-100.0); MEAN CORPUSCULAR HEMOGLOBIN 32.5 PG (27.0-34.0); MEAN CORPUSCULAR HGB CONC 33.3 % (32.0-36.0); NEUT % 82.1 % (16.0-70.0); PLATELET COUNT 114 TH/MM3 (150-450); RED BLOOD COUNT 2.44 MIL/MM3 (4.50-5.90); RED CELL DISTRIBUTION WIDTH 21.2 % (11.6-17.2); WHITE BLOOD COUNT 5.2 TH/MM3 (4.0-11.0)
[2017-02-05] MEDS: INSULIN ASPART SUPPLEMENTAL SCALE SQ SCH ×4 (06:00→18:00)
[2017-02-05 06:58] LABS: BICARBONATE 23.8 MEQ/L (21.0-32.0); CALCIUM-PROTEIN CORRECTED 8.4 MG/DL (8.5-10.1); POTASSIUM 3.8 MEQ/L (3.5-5.1); TOTAL BILIRUBIN ADULT 1.5 MG/DL (0.2-1.0)
--- NOTE | 2017-02-05 07:13 | HHI.CCPN ---
Subjective Remarks/Hospital Course Patient is very groggy status post anesthesia so not able to provide complete history. History was obtained through discussion with Dr. Levin, FABIO, and the information and patient was able to provide. 72-year-old male with past medical history of COPD on 2 L home oxygen , hypertension, TIA in 2005, colorectal cancer, GERD, CKD stage III, ongoing tobacco abuse who presented to [facility] emergency department earlier today with a 5 day history of gradually worsening diffuse abdominal pain for 2 weeks. He has also had melena stools for a couple of weeks. He denied vomiting. CT abdomen and pelvis was obtained which demonstrated pseudoaneurysm from the right abdominal aorta, infrarenal, with mass effect on the IVC. It was felt that this represented a slow contained leak. Vascular surgery was consulted and he has now undergone endovascular aortic repair per Dr. Thompson. He received 1500 of crystalloid intraoperatively. EBL was 200. Urine output was 125. He has had 45 mls of urine in the last 30 minutes. He has dopplerable DP and posterior tibial artery pulses. Critical care medicine is consulted to follow patient post procedure given his multiple medical comorbidities. Subjective 02/05: Received approximate 500 cc normal saline boluses overnight. Remains nothing by mouth. Currently hypertensive. Pain somewhat controlled with Dilaudid. Some upper chest congestion with positive nonproductive cough noted. Objective Vital Signs Date Time Temp Pulse Resp B/P Pulse Ox O2 Delivery O2 Flow Rate FiO2 02/05/17 04:00 97.7 87 18 118/76 96 123/87 02/05/17 03:18 Nasal Cannula 2.00 Intake and Output 02/04/17 02/04/17 02/04/17 07:59 15:59 23:59 Intake Total 300 ml Balance 300 ml Result Diagram: 02/05/17 0525 02/05/17 0525 Other Results Laboratory Tests Test 02/04/17 23:49 Blood Gas Puncture Site ART LINE Blood Gas Patient Temperature 98.6 Blood Gas HCO3 24 mmol/L (22-26) Blood Gas Base Excess -0.2 mmol/L (-2-2) Blood Gas Oxygen Saturation 94 % (90-100) Arterial Blood pH 7.41 (7.380-7.420) Arterial Blood Partial 39 mmHg (38-42) Pressure CO2 Arterial Blood Partial 89 mmHg Pressure O2 (61-120) Arterial Blood Oxygen Content 11.0 Vol % (12.0-20.0) Arterial Blood 2.5 % (0-4) Carboxyhemoglobin Arterial Blood Methemoglobin 1.0 % (0-2) Blood Gas Hemoglobin 8.3 G/DL (12.0-16.0) Oxygen Delivery Device NASAL CANNULA Blood Gas Liter Flow 2 L/M Imaging Last Impressions Chest X-Ray 02/04/17 1813 Signed Impressions: Service Date/Time: Saturday, February 04, 2017 18:44 - CONCLUSION: No acute disease. Nestor Cooley MD Abdomen/Pelvis CT 02/04/17 0000 Signed Impressions: Service Date/Time: Saturday, February 04, 2017 13:35 - CONCLUSION: Again there is a possible contained old pseudo aneurysm of the mid right side of the abdominal aorta below the renal vessels. It extends posterior to the IVC where the hypodense collection measures 2.4 x 3.0 cm across. It does exhibit some mass effect from the IVC increased from the previous studies. Could be a slow contained leak. At only 72 year's old the patient is probably a candidate for stenting of that area. Large amount of ascites throughout the abdomen with a very fatty liver. Portal vein is patent. Regis Hassan MD Objective Remarks GENERAL: 72-year-old male, resting in bed head of bed at 30 nasal cannula in no acute distress SKIN: Warm and dry. No rash HEAD: Atraumatic. Normocephalic. EYES: Pupils equal and round, 2- 3mm reactive. No scleral icterus. No injection or drainage. ENT: No nasal bleeding or discharge. Mucous membranes pink and moist. Oropharynx without erythema NECK: Trachea midline. No JVD. CARDIOVASCULAR: RRR. S1, S2. No S4. Without murmur RESPIRATORY: Transmitted upper airway sounds that clear with cough. Essentially clear to auscultation bilaterally without wheezes, rales or rhonchi GASTROINTESTINAL: Abdomen soft, as a distention. No guarding or rigidity Bowel sounds are very hypoactive but present. Clean dressings in place bilateral inguinal region with no hematoma. MUSCULOSKELETAL: Extremities with trace woody bilateral edema appreciated under SCDs. Well perfused. Dorsalis pedis, persistent postoperative bilaterally NEUROLOGICAL: Awake and alert. Cranial nerves II through XII grossly intact. Strength equal and symmetric. Normal sensation. A/P Assessment and Plan NEURO/PSYCH: History of TIA in 2006 with left upper extremity paresthesias resolved History of lumbosacral fusion with persistent left lower extremity paresthesias below the knee EtOH use Allergic rhinitis Currently on oxycodone/acetaminophen 5/325 -10/325 mg 1 tablet by mouth every 4 hours when necessary pain 1 through 10 Dilaudid 1 mg IV every hour as needed for breakthrough pain. Currently holding gabapentin 400 mg by mouth at bedtime for underlying peripheral neuropathy. Resume when clinically indicated Holding Methocarbamol 500 mg by mouth 4 times a day for muscle spasms Holding loratadine 10 mg by mouth daily for allergic rhinitis. Resume when clinically indicated RESP: COPD with chronic hypoxemia Tobaccoism - 55 pack years 3 L nasal oxygen home dependence Nasal cannula to maintain saturations greater than equal to 92% Incentive spirometry while awake Ipratropium/albuterol 0.5/2.5 mg/3 mL one ventilation every 6 hours. Albuterol nebulizers every 2 hours as needed A.m. chest x-ray ordered CV: Hypertension (not on meds) Hyperlipidemia (not on meds) Ruptured aortic pseudoaneurysm, infrarenal, now status post endovascular aortic repair on 02/04 (Dr. Ceballos) Postoperative management per vascular surgery Blood pressure management will initiate labetalol Cholesterol 93. HDL greater than LDL. BNP 297 GI: History of esophagitis History of hemorrhagic Gastritis History of Duodenitis Ascites with steatosis on CT abd/pelvis Diverticulosis History of colon cancer status post right hemicolectomy History of rectal polyps Hypoalbuminemia Elevated total bilirubin Hiatal hernia Nothing by mouth. On pantoprazole 40 mg by mouth daily at home. Currently on IV one by mouth Docusate sodium/senna 1 tablet by mouth twice a day for bowel regimen CT abdomen/pelvis also revealed moderate ascites with steatosis. FEN/RENAL: Chronic kidney disease stage II Hypo-magnesium Hyponatremia Hypocalcemia Silva in place. Monitor postoperative urine output closely. FeNa 0.3 Replace electrolytes as indicated per vascular surgery electrolyte replacement protocol. 0.9 NaCl@150 mL per hour was ordered postoperatively by Dr. Flores. Will give 2 additional grams of magnesium. Recheck this afternoon. ID: Perioperative vancomycin 1 g IV every 12 hours [address] Gorman HEME: Chronic normocytic anemia Follow-up CBC. Hemoglobin currently 7.9. 11.5 on admission Transfused towards goals per vascular surgery ENDO: No history of diabetes. Continue low-dose not be log insulin sliding scale with bedside glucose every 6 hours as indicated/low regimen. . TSH/cortisol ordered overnight. Follow up results PROPH: GI - pantoprazole 40 mg IV daily DVT - pharmacological prophylaxis when okay with vascular surgery ACCESS: Right radial arterial line placed 02/04 #2. Level II follow-up Tani Molina MD Feb 05, 2017 07:13
[2017-02-05] MEDS ORDERED: LABETALOL HCL 100 MG/20 ML VIAL IV PUSH PRN (07:30)
[2017-02-05] MEDS ORDERED: SODIUM CHLORID 0.9% 500 ML INJ 500 ML IV ONE ×2 (09:00→18:00)
[2017-02-05] MEDS: oxyCODONE/ACETAMINOPHEN 5 MG/325 MG TAB PO PRN ×2 (09:38→20:42)
[2017-02-05] MEDS: DOCUSATE SODIUM 50 MG/SENNA 8.6 MG TAB PO SCH ×2 (09:38→20:41)
[2017-02-05] MEDS: SODIUM CHLORIDE 0.9% FLUSH 10 ML FLUSH IV FLUSH SCH ×2 (09:38→20:48)
[2017-02-05] MEDS: MAGNESIUM SULFATE 1 GM PREMIX 100 ML IV SCH ×2 (09:43→12:00)
--- NOTE | 2017-02-05 11:39 | MP ---
cc: NICOLAS THOMPSON DATE OF SURGERY 02/04/[address] Nicolas Thompson DO PREOPERATIVE DIAGNOSIS History of ruptured pseudoaneurysm of abdominal aorta. POSTOPERATIVE DIAGNOSIS History of ruptured pseudoaneurysm of abdominal aorta. PROCEDURE Placement of an Endologix aortic stent graft. The main body was 2590. The iliacs were 16 diameter x 30 length. We used an aortic extension of 9.5 cm infrarenal. It was a 28 mm. SURGEON Nicolas Thompson DO MUD ANALYSIS WELL LOGGING OPERATOR Gerson Naidu IV FLUIDS 1500 cc of Crystalloid ESTIMATED BLOOD LOSS About 200 cc URINE OUTPUT 125 cc COMPLICATIONS None DISPOSITION To CVICU PROCEDURE This is a 72-year-old a gentleman who has had a history of diffuse abdominal pain that had been worsening with the findings of a ruptured infrarenal aortic pseudoaneurysm. After informed consent, we did give the patient perioperative IV antibiotics in the way of vancomycin. The patient was placed under general endotracheal anesthesia and was prepped from the nipples to the knees. I used ultrasound for access for the bilateral groins. In the left groin, I got access with a micropuncture catheter and I exchanged for a 6-[place]atorial [place] sheath. On the right, I got access with micropuncture in the right common femoral artery and exchanged for two Angio-Seal devices over a Connor wire. I then exchanged the main body of the device which I believe was a 16-Equatorial [place] sheath on the right. Once I got my main body sheath in, I then advanced a snare into the distal abdominal aorta. I then advanced my main body device with the snare wire medially. Once I advanced the snare wire medially, I snared it with a 6-Equatorial [place] snare from the left side. I then pulled my snare down through the left groin and then exchanged for an Omni flush catheter. Before doing that, I did advanced my main body and then pulled both limbs of the main body and then deployed it over the bifurcation of the distal abdominal aorta. Once I fully deployed the device, the Omni flush catheter into the abdominal aorta and shot an aortogram, there still appeared to be either dulling or blush after placement of the main body and as the patient had a history of propensity for an aorta, I did a come up to the level of the renals with a 28 mm extension device. It should be noted, at the end, there was no dulling or blush and the aneurysm was indeed excluded. There was good blood flow of red blood through both iliac arteries with hypogastrics maintained in the external iliacs. It should be noted, I did heparinized the patient before deploying any sheaths to an ACT of greater than 300. At the end of the case, I exchanged for a 6-[place]atorial [place] Angio-Seal on the left and had one additional Perclose on the right for some oozing at my entry sites. It should be noted at the end, there was no bleeding. I did reverse the patient with 40 of protamine. The patient a good signals in the pedal distribution before the case started. We placed two dressings over the groins and the patient was taken to the ICU at the end of the case. DO SARA Akins/MIGUEL ÁNGEL /5:34 PM /11:21 AM
[2017-02-05] MEDS: THIAMINE INJ 100 MG in SODIUM CHLORIDE 0.9% INJ 100 ML IV SCH (11:59)
--- NOTE | 2017-02-05 12:54 | PD.VS.PN ---
Subjective Procedure(s): EVAR Subjective/Hospital Course without complaints Objective Vascular: Signals bilateral DP and PT with soft groins with dressings. Laboratory Laboratory Tests Test 02/04/17 02/04/17 02/05/17 02/05/17 20:52 23:49 05:25 06:00 White Blood Count 4.7 5.2 Red Blood Count 2.61 2.44 Hemoglobin 8.5 7.9 Hematocrit 25.6 23.8 Mean Corpuscular Volume 97.9 97.5 Mean Corpuscular Hemoglobin 32.6 32.5 Mean Corpuscular Hemoglobin 33.2 33.3 Concent Red Cell Distribution Width 21.6 21.2 Platelet Count 124 114 Mean Platelet Volume 8.6 8.2 Neutrophils (%) (Auto) 74.3 82.1 Lymphocytes (%) (Auto) 16.8 10.0 Monocytes (%) (Auto) 7.1 6.0 Eosinophils (%) (Auto) 1.0 1.0 Basophils (%) (Auto) 0.8 0.9 Neutrophils # (Auto) 3.5 4.3 Lymphocytes # (Auto) 0.8 0.5 Monocytes # (Auto) 0.3 0.3 Eosinophils # (Auto) 0.0 0.1 Basophils # (Auto) 0.0 0.0 CBC Comment DIFF FINAL DIFF FINAL Differential Comment Sodium Level 134 133 Potassium Level 4.0 3.8 Chloride Level 99 99 Carbon Dioxide Level 26.1 23.8 Anion Gap 9 10 Blood Urea Nitrogen 7 7 Creatinine 1.03 1.18 Estimat Glomerular Filtration 71 61 Rate Random Glucose 110 114 Calcium Level 6.8 7.2 Protein Corrected Calcium 8.1 8.4 Phosphorus Level 3.4 Magnesium Level 1.4 1.7 Total Protein 4.6 4.9 Blood Gas Puncture Site ART LINE Blood Gas Patient Temperature 98.6 Blood Gas HCO3 24 Blood Gas Base Excess -0.2 Blood Gas Oxygen Saturation 94 Arterial Blood pH 7.41 Arterial Blood Partial 39 Pressure CO2 Arterial Blood Partial 89 Pressure O2 Arterial Blood Oxygen Content 11.0 Arterial Blood 2.5 Carboxyhemoglobin Arterial Blood Methemoglobin 1.0 Blood Gas Hemoglobin 8.3 Oxygen Delivery Device NASAL CANNULA Blood Gas Liter Flow 2 Total Bilirubin 1.5 Aspartate Amino Transf 36 (AST/SGOT) Alanine Aminotransferase 23 (ALT/SGPT) Alkaline Phosphatase 154 Total Creatine Kinase 31 B-Type Natriuretic Peptide 297 Albumin 1.9 Triglycerides Level 50 Cholesterol Level 93 LDL Cholesterol 40 HDL Cholesterol 43.0 Cholesterol/HDL Ratio 2.16 Thyroid Stimulating Hormone 4.330 3rd Gen Urine Eosinophils RARE Urine Osmolality 440 Urine Random Creatinine 109.1 Urine Random Sodium 35 Random Cortisol 12.1 Test 02/05/17 12:13 Blood Type O POSITIVE Crossmatch Leukocyte-Reduced Red Blood Cells Blood Bank Comment Imaging Last 48 hours Impressions Chest X-Ray 02/04/17 1813 Signed Impressions: Service Date/Time: Saturday, February 04, 2017 18:44 - CONCLUSION: No acute disease. Nestor Cooley MD Chest X-Ray 02/04/17 0000 Signed Impressions: Service Date/Time: Saturday, February 04, 2017 11:22 - CONCLUSION: Normal examination. Regis Hassan MD Abdomen/Pelvis CT 02/04/17 0000 Signed Impressions: Service Date/Time: Saturday, February 04, 2017 13:35 - CONCLUSION: Again there is a possible contained old pseudo aneurysm of the mid right side of the abdominal aorta below the renal vessels. It extends posterior to the IVC where the hypodense collection measures 2.4 x 3.0 cm across. It does exhibit some mass effect from the IVC increased from the previous studies. Could be a slow contained leak. At only 72 year's old the patient is probably a candidate for stenting of that area. Large amount of ascites throughout the abdomen with a very fatty liver. Portal vein is patent. Regis Hassan MD Assessment and Plan Assessment: (1) Pseudoaneurysm of aorta Status: Acute Plan 72 year old male with contained 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 Status post EVAR. Will give clears, may have ileus. Otherwise, will continue gentle hydration with pulmonary status. Jarad Thompson DO, FACS Supervisor [facility] MACO/Jarad Martin DO Feb 05, 2017 12:54
--- NOTE | 2017-02-05 14:11 | ECHRPT ---
Indication: SHORTNESS OF BREATH CONCLUSIONS Technically difficult echocardiogram Normal left ventricular size. The left ventricular systolic function is grossly normal on limited imaging, estimated ejection frac tion in the range of 55-60%. The pericardium is bright and thickened. There is a small to moderate pericardial effusion present anteriorly. The measurements on the anter ior side were up to 10-15mm. There may be clot with the pericardial effusion. Minor respiratory variation on tricuspid inflows, with more prominent respiratory variation on kisha l inflows. No diastolic collapse of the RV is noted. Not felt to be hemodynamic compromise at this time, although does have some respiratory variation on inflows, clinical correlation necessary. Discussed with critical care team BP: 129 / 75 HR: 89 Rhythm: Sinus MEASUREMENTS (Male / Female) Normal Values Technical Quality:Technically difficult study 2D ECHO LV Diastolic Diameter PLAX 3.4 cm 4.2 - 5.9 / 3.9 - 5.3 cm LV Systolic Diameter PLAX 2.6 cm IVS Diastolic Thickness 1.0 cm 0.6 - 1.0 / 0.6 - 0.9 cm LVPW Diastolic Thickness 0.8 cm 0.6 - 1.0 / 0.6 - 0.9 cm LV Relative Wall Thickness 0.5 LVOT Diameter 2.4 cm Aortic Root Diameter 3.2 cm LA Systolic Diameter LX 2.6 cm 3.0 - 4.0 / 2.7 - 3.8 cm M-MODE AV Cusp Separation MM 1.7 cm DOPPLER AV Peak Velocity 163.0 cm/s AV Peak Gradient 10.6 mmHg AV Mean Gradient 6.0 mmHg AV Velocity Time Integral 32.8 cm LVOT Peak Velocity 83.5 cm/s LVOT Peak Gradient 2.8 mmHg LVOT Velocity Time Integral 21.7 cm LVOT Cardiac Index 4729.3 cm/minm AV Area Cont Eq vti 3.0 cm AV Area Cont Eq pk 2.3 cm Mitral E Point Velocity 63.4 cm/s Mitral A Point Velocity 108.0 cm/s Mitral E to A Ratio 0.6 LV E' Lateral Velocity 10.2 cm/s Mitral E to LV E' Lateral Ratio 6.2 TR Peak Velocity 337.0 cm/s TR Peak Gradient 45.4 mmHg FINDINGS LEFT VENTRICLE Normal left ventricular size. The left ventricular systolic function is grossly normal on limited imaging. The left ventricular systolic function is normal with an estimated ejection fraction in the range of 55-60%. RIGHT VENTRICLE Normal right ventricular size and systolic function. No diastolic collapse of the RV is noted. LEFT ATRIUM The left atrial size is normal. RIGHT ATRIUM The right atrium is not well visualized. ATRIAL SEPTUM The interatrial septum not well visualized. AORTA The aortic root and proximal ascending aorta are not well visualized. MITRAL VALVE Grossly normal. No significant mitral regurgitation or stenosis noted. There is some respiratory variation on inflows. AORTIC VALVE Grossly normal. No aortic stenosis. No aortic regurgitation. TRICUSPID VALVE Grossly normal. Mild TR noted. Minor respiratory variation on inflows. PULMONARY VALVE The pulmonary valve is not well visualized. PERICARDIUM There is a small to moderate pericardial effusion present anteriorly. The measurements on the anter ior side were up to 15-20 mm. There may be clot with the pericardial effusion. The pericardium is bright and thickened. Ankur Chamberlain DO (Electronically Signed) Final Date:05 February 2017 14:09
--- NOTE | 2017-02-05 16:08 | HHI.FPPN ---
Problem Problem List: (1) Pseudoaneurysm of aorta (2) COPD (chronic obstructive pulmonary disease) (3) Syncope (4) Black stool (5) Fluid, Electrolyte, Nutrition, and Prophylaxis Subjective Subjective 72-year-old male with past medical history of COPD on 2 L home oxygen, hypertension, TIA in 2005, colorectal cancer, GERD, CKD stage III, ongoing tobacco abuse with a 5 day history of gradually worsening diffuse abdominal pain for 2 weeks. He has also had melena stools for a couple of weeks. He denied vomiting. CT abdomen and pelvis was obtained which demonstrated pseudoaneurysm from the right abdominal aorta, infrarenal, with mass effect on the IVC. It was felt that this represented a slow contained leak. He has endovascular aortic repair per Dr. Thompson. He reports that he is pain free at this time and that he wants to eat some food. He is passing flatus but no BM at the time of exam. He denies CP and denies worsening of his baseline SOB. He denies fevers/chills and just reports feeling better. 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 Nestor Cooley MD Laboratory Tests - Abnormals Test 02/04/17 02/04/17 02/05/17 02/05/17 20:52 23:49 05:25 06:00 Red Blood Count 2.61 MIL/MM3 2.44 MIL/MM3 Hemoglobin 8.5 GM/DL 7.9 GM/DL Hematocrit 25.6 % 23.8 % Red Cell Distribution Width 21.6 % 21.2 % Platelet Count 124 TH/MM3 114 TH/MM3 Neutrophils (%) (Auto) 74.3 % 82.1 % Lymphocytes # (Auto) 0.8 TH/MM3 0.5 TH/MM3 Sodium Level 134 MEQ/L 133 MEQ/L Estimat Glomerular Filtration 71 ML/MIN 61 ML/MIN Rate Random Glucose 110 MG/DL 114 MG/DL Calcium Level 6.8 MG/DL 7.2 MG/DL Protein Corrected Calcium 8.1 MG/DL 8.4 MG/DL Magnesium Level 1.4 MG/DL Total Protein 4.6 GM/DL 4.9 GM/DL Arterial Blood Oxygen Content 11.0 Vol % Blood Gas Hemoglobin 8.3 G/DL Total Bilirubin 1.5 MG/DL Alkaline Phosphatase 154 U/L Total Creatine Kinase 31 U/L B-Type Natriuretic Peptide 297 PG/ML Albumin 1.9 GM/DL Cholesterol Level 93 MG/DL Thyroid Stimulating Hormone 4.330 uIU/ML 3rd Gen Urine Eosinophils RARE /HPF Vital Signs 02/04/17 02/04/17 02/04/17 02/04/17 17:54 18:00 18:30 19:00 Temp 97.3 98.2 Pulse 88 90 90 91 Resp 16 16 16 16 B/P 108/62 112/62 104/60 123/69 Pulse Ox 99 98 98 98 O2 Delivery Nasal Cannula Nasal Cannula Nasal Cannula Nasal Cannula O2 Flow Rate 2 2 2 2 02/04/17 02/04/17 02/04/17 02/04/17 19:15 19:30 20:00 20:00 Temp 96.1 Pulse 90 90 88 94 Resp 16 16 18 B/P 104/65 118/64 101/73 128/60 Pulse Ox 99 99 97 O2 Delivery Nasal Cannula Nasal Cannula O2 Flow Rate 2 2 02/04/17 02/04/17 02/05/17 02/05/17 22:12 23:20 00:00 03:18 Temp 97.6 Pulse 86 86 Resp 18 B/P 115/69 139/59 Pulse Ox 96 97 98 O2 Delivery Nasal Cannula Nasal Cannula O2 Flow Rate 2.00 2.00 02/05/17 02/05/17 02/05/17 02/05/17 03:20 04:00 07:00 07:04 Temp 97.7 97.8 Pulse 83 87 93 93 Resp 18 16 B/P 118/76 133/79 123/87 158/65 Pulse Ox 96 02/05/17 02/05/17 02/05/17 02/05/17 09:09 10:38 11:00 11:00 Temp 97.8 Pulse 95 90 Resp 16 16 B/P 127/77 146/97 Pulse Ox 95 O2 Delivery Nasal Cannula O2 Flow Rate 2.00 02/05/17 02/05/17 02/05/17 02/05/17 11:04 13:45 14:00 15:00 Temp 97.8 97.7 98.0 Pulse 95 93 84 93 Resp 16 16 16 B/P 127/77 129/79 118/22 146/97 125/51 142/52 Pulse Ox 97 97 02/05/17 15:04 Temp 98.0 Pulse 98 Resp 18 B/P 125/79 164/66 INTAKE & OUTPUT 02/05/17 07:00 Intake Total 2205 ml Output Total 300 ml Balance 1905 ml Physical exam O. CONSTITUTIONAL/GEN: normally nourished, in NAD. EYES: conjunctiva normal, PERRLA, EOMI. ENT: Mouth and pharynx normal. NECK: thyroid midline, carotids symmetrical. LUNGS: clear A-P, respiratory effort is normal. CARDIOVASCULAR: RR without murmur or gallop. No significant edema. GI/ABD: soft without masses, without organomegaly, good bowel sounds througout : no CVA tenderness NEURO: No focal deficits. SKIN: color normal, no rashes noted. HEME/LYMPH: no bruising, petechia or significant adenopathy PSYCH/MENTAL STATUS: Alert and oriented x 3. Assessment Assessment: (1) Pseudoaneurysm of aorta Plan: s/p endovascular repair and patients symptom of abdominal pain has improved. He is noted to have post op Hemoglobin of 7.9 and is being transfused 2 UNITS PRBCs. He is doing well post-op and will be closely monitored. (2) COPD (chronic obstructive pulmonary disease) Plan: This appears to be stable - CXR reviewed and patient requiring only his home NC oxygen to maintain sats. (3) Syncope Plan: This is possible related to the pseudoaneurysm of the aorta but with his risk factors we need to continue to consider that his syncopal episodes might be related to another underlying medical issue. For now he appears to be stable and is being closely monitored in the CVICU. (4) Black stool Plan: This is really unclear -- on last admission patient had EGD but not a colonoscopy -- last colonoscopy was a few months ago and he is not certain the black stools were present then. Workup from last admission reviewed. Assessment 72 year old male s/p EVAR and doing well. Routine post-op care with caution on hydration due to his underlying pulmonary disease. Consider re-eval for syncope if symptoms return and monitor closely for signs of bleeding with the report of black melena stools and drop in hemoglobin today. The reported blood loss on the op note is fairly low so I am a little suspicious there may be another source of bleeding from the gut. PLAN PLAN As above Elizabeth Duran MD Feb 05, 2017 16:08
--- NOTE | 2017-02-05 19:11 | EKG ---
Date Performed: 02/04/2017 Time Performed: 14:51:04 PTAGE: 72 years EKG: Sinus rhythm LOW QRS VOLTAGE IN PRECORDIAL LEADS BORDERLINE ECG PREVIOUS TRACING : 04/01/2016 22.25 Compared to prior tracing no significant change DOCTOR: Yamileth Bedner Interpretating Date/Time 02/05/2017 19:09:42
[2017-02-05 19:37] LABS: HEMATOCRIT 29.8 % (39.0-51.0); MEAN CELL VOLUME 93.8 FL (80.0-100.0); MEAN CORPUSCULAR HEMOGLOBIN 32.2 PG (27.0-34.0); MEAN CORPUSCULAR HGB CONC 34.4 % (32.0-36.0); PLATELET COUNT 107 TH/MM3 (150-450); RED BLOOD COUNT 3.18 MIL/MM3 (4.50-5.90); RED CELL DISTRIBUTION WIDTH 21.3 % (11.6-17.2); REVIEW FLAG FINAL; WHITE BLOOD COUNT 5.2 TH/MM3 (4.0-11.0)
[2017-02-05] MEDS: PANTOPRAZOLE SOD 40 MG DELAYED RELEASE TAB PO SCH (20:41)
[2017-02-05] MEDS: PANTOPRAZOLE SODIUM 40 MG VIAL IV PUSH SCH (20:48)
[2017-02-06] VITALS (13 sets, daily range): BP systolic 127–151; BP diastolic 69–88; PULSE 83–108; RESP 16–20; TEMP 97.9–98.7; O2SAT 94–99
[2017-02-06] MEDS: INSULIN ASPART SUPPLEMENTAL SCALE SQ SCH ×4 (00:20→20:57)
[2017-02-06] MEDS: RESP: ALBUTEROL 2.5 MG/IPRATROPIUM 0.5 MG NEB (SCH) NEB ×3 (00:59→12:37)
[2017-02-06] MEDS: SODIUM CHLOR 0.9% 1000 ML INJ 1,000 ML IV SCH ×4 (02:54→16:30)
[2017-02-06 06:19] LABS: AUTOMATED NEUTROPHIL # 3.8 TH/MM3 (1.8-7.7); BASOPHIL % 0.7 % (0.0-2.0); EOSINOPHIL # 0.1 TH/MM3 (0-0.4); EOSINOPHIL % 2.8 % (0.0-4.0); HEMATOCRIT 30.1 % (39.0-51.0); HEMO FLAGS DIFF FINAL; LYMPH % 10.9 % (9.0-44.0); LYMPHOCYTE # 0.5 TH/MM3 (1.0-4.8); MEAN CELL VOLUME 94.7 FL (80.0-100.0); MEAN CORPUSCULAR HEMOGLOBIN 31.4 PG (27.0-34.0); MEAN CORPUSCULAR HGB CONC 33.2 % (32.0-36.0); MONO % 7.8 % (0.0-8.0); NEUT % 77.8 % (16.0-70.0); PLATELET COUNT 107 TH/MM3 (150-450); RED BLOOD COUNT 3.18 MIL/MM3 (4.50-5.90); RED CELL DISTRIBUTION WIDTH 21.3 % (11.6-17.2); WHITE BLOOD COUNT 4.8 TH/MM3 (4.0-11.0)
--- NOTE | 2017-02-06 06:32 | RADRPT ---
EXAM DATE/TIME: 02/06/2017 04:25 [place] COMPARISON: CHEST SINGLE AP, February 04, 2017, 18:44. INDICATIONS : Post AAA, COPD MEDICAL HISTORY : Asthma SURGICAL HISTORY : Abdominal aortic aneurysm repair. ENCOUNTER: Subsequent ACUITY: 2 days PAIN SCORE: 9/10 LOCATION: Bilateral chest FINDINGS: The cardiac silhouette is enlarged in transverse diameter. There is subsegmental atelectasis in the both bases. A small right sided effusion is present. This is new when compared with the prior exam. CONCLUSION: 1. Bibasilar atelectasis and small right 8effusion new when compared to the prior study Alfredo Spivey MD on February 06, 2017 at 6:30 Board Certified Radiologist. This report was verified electronically.
[2017-02-06 06:38] LABS: ALT (GPT) 40 U/L (12-78); ANION GAP 8 MEQ/L (5-15); AST (GOT) 64 U/L (15-37); BICARBONATE 24.3 MEQ/L (21.0-32.0); BLOOD UREA NITROGEN 6 MG/DL (7-18); CHLORIDE 104 MEQ/L (98-107); GLOMERULAR FILTRATION RATE 71 ML/MIN (>89); MAGNESIUM 1.8 MG/DL (1.5-2.5); POTASSIUM 3.6 MEQ/L (3.5-5.1); SODIUM (NA) 136 MEQ/L (136-145)
[2017-02-06 06:41] LABS: ALKALINE PHOSPHATASE 141 U/L (45-117); TOTAL BILIRUBIN ADULT 2.1 MG/DL (0.2-1.0)
--- NOTE | 2017-02-06 08:10 | HHI.CCPN ---
Subjective Remarks/Hospital Course Patient is very groggy status post anesthesia so not able to provide complete history. History was obtained through discussion with Dr. Levin, [facility], and the information and patient was able to provide. 72-year-old male with past medical history of COPD on 2 L home oxygen , hypertension, TIA in 2006, colorectal cancer, GERD, CKD stage III, ongoing tobacco abuse who presented to [facility] emergency department earlier today with a 5 day history of gradually worsening diffuse abdominal pain for 2 weeks. He has also had melena stools for a couple of weeks. He denied vomiting. CT abdomen and pelvis was obtained which demonstrated pseudoaneurysm from the right abdominal aorta, infrarenal, with mass effect on the IVC. It was felt that this represented a slow contained leak. Vascular surgery was consulted and he has now undergone endovascular aortic repair per Dr. Thompson. He received 1500 of crystalloid intraoperatively. EBL was 200. Urine output was 125. He has had 45 mls of urine in the last 30 minutes. He has dopplerable DP and posterior tibial artery pulses. Critical care medicine is consulted to follow patient post procedure given his multiple medical comorbidities. 02/05: Received approximate 500 cc normal saline boluses overnight. Remains nothing by mouth. Currently hypertensive. Pain somewhat controlled with Dilaudid. Some upper chest congestion with positive nonproductive cough noted. Subjective 02/06: Urine output 275 cc overnight. Creatinine within normal limits. Noted echocardiogram revealed EF 5560%. [id number] pericardial effusion 10-15 mm anteriorly with no RV diastolic collapse. Pericardium is bright on echocardiogram. Currently on 2-3 L nasal cannula. Pain controlled with oral medications Objective Vital Signs Date Time Temp Pulse Resp B/P Pulse Ox O2 Delivery O2 Flow Rate FiO2 02/06/17 07:00 98.3 85 16 128/69 98 02/05/17 19:00 Nasal Cannula 2.00 Intake and Output 02/05/17 02/05/17 02/05/17 07:59 15:59 23:59 Intake Total 1905 ml 3576 ml Output Total 300 ml 255 ml Balance 1605 ml 3321 ml Result Diagram: 02/06/17 0557 02/06/17 0557 Imaging Last Impressions Chest X-Ray 02/06/17 0600 Signed Impressions: Service Date/Time: Monday, February 06, 2017 04:25 - CONCLUSION: 1. 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 It extends posterior to the IVC where the hypodense collection measures 2.4 x 3.0 cm across. It does exhibit some mass effect from the IVC increased from the previous studies. Could be a slow contained leak. At only 72 year's old the patient is probably a candidate for stenting of that area. Large amount of ascites throughout the abdomen with a very fatty liver. Portal vein is patent. Regis Hassan MD Objective Remarks GENERAL: 72-year-old male, resting in bed head of bed at 30 currently on nasal cannula in no acute distress SKIN: Warm and dry. No rash HEAD: Atraumatic. Normocephalic. EYES: Pupils equal and round, 2- 3mm reactive. No scleral icterus. No injection or drainage. ENT: No nasal bleeding or discharge. Mucous membranes pink and moist. Oropharynx without erythema NECK: Trachea midline. No JVD. CARDIOVASCULAR: RRR. S1, S2. No S4. Without murmur RESPIRATORY: Transmitted upper airway sounds that clear with cough. Essentially clear to auscultation bilaterally without wheezes, rales or rhonchi GASTROINTESTINAL: Abdomen soft, as a distention. No guarding or rigidity Bowel sounds are very hypoactive but present. Clean dressings in place bilateral inguinal region with no hematoma. MUSCULOSKELETAL: Extremities with trace woody bilateral edema appreciated under SCDs. Well perfused. Dorsalis pedis, persistent postoperative bilaterally NEUROLOGICAL: Awake and alert. Cranial nerves II through XII grossly intact. Strength equal and symmetric. Decreased sensation lower extremity/baseline secondary to sciatica A/P Assessment and Plan NEURO/PSYCH: History of TIA in 2006 with left upper extremity paresthesias resolved History of lumbosacral fusion with persistent left lower extremity paresthesias below the knee EtOH use Allergic rhinitis Currently on oxycodone/acetaminophen 5/325 -10/325 mg 1 tablet by mouth every 4 hours when necessary pain 1 through 10 Dilaudid 1 mg IV every hour as needed for breakthrough pain. Currently holding gabapentin 400 mg by mouth at bedtime for underlying peripheral neuropathy. Resume when clinically indicated Holding Methocarbamol 500 mg by mouth 4 times a day for muscle spasms Holding loratadine 10 mg by mouth daily for allergic rhinitis. Resume when clinically indicated RESP: COPD with chronic hypoxemia Tobaccoism - 55 pack years 3 L nasal oxygen home dependence Nasal cannula to maintain saturations greater than equal to 92% Incentive spirometry while awake Ipratropium/albuterol 0.5/2.5 mg/3 mL one ventilation every 6 hours. Albuterol nebulizers every 2 hours as needed A.m. chest x-ray revealed right lower lobe effusion, bilateral lower lobe atelectasis CV: Hypertension (not on meds) Hyperlipidemia (not on meds) Ruptured aortic pseudoaneurysm, infrarenal, now status post endovascular aortic repair on 02/04 (Dr. Thompson) Postoperative management per vascular surgery Blood pressure management will initiate labetalol 10 mg nightly hours as needed Cholesterol 93. HDL greater than LDL. BNP 297 GI: History of esophagitis History of hemorrhagic Gastritis History of Duodenitis Ascites with steatosis on CT abd/pelvis Diverticulosis History of colon cancer status post right hemicolectomy History of rectal polyps Hypoalbuminemia Elevated total bilirubin Hiatal hernia Clear liquid diet On pantoprazole 40 mg by mouth daily at home. Currently on IV one by mouth Docusate sodium/senna 1 tablet by mouth twice a day for bowel regimen CT abdomen/pelvis also revealed moderate ascites likely not heme products with hepatic steatosis. FEN/RENAL: Chronic kidney disease stage II Hypo-magnesium Hyponatremia Hypocalcemia Silva in place. Monitor postoperative urine output closely. FeNa 0.3 Replace electrolytes as indicated per vascular surgery electrolyte replacement protocol. 0.9 NaCl@150 mL per hour was ordered postoperatively by Dr. Flores. Will give 2 additional grams of magnesium. And 30 mEq KCl 1 Recheck laboratories in AM ID: Perioperative vancomycin 1 g IV every 12 hours [address] Gorman HEME: Chronic normocytic anemia Follow-up CBC. Transfused towards goals per vascular surgery should 1 unit PRBCs yesterday ENDO: Elevated TSH No history of diabetes. Continue low-dose not be log insulin sliding scale with bedside glucose every 6 hours as indicated/low regimen. . TSH 4.33. Cortisol nondescript PROPH: GI - pantoprazole 40 mg IV daily DVT - pharmacological prophylaxis when okay with vascular surgery ACCESS: Right radial arterial line placed 02/04 -02/05 Level II follow-up Tani Molina MD Feb 06, 2017 08:10
[2017-02-06] MEDS ORDERED: POTASSIUM CHLORIDE 10 MEQ CONTROLLED RELEASE TAB PO ONE (08:15)
[2017-02-06] MEDS ORDERED: ALBUMIN HUMAN 25% 25 GM/100 ML BAGP IV ONE (08:15)
[2017-02-06] MEDS: THIAMINE INJ 100 MG in SODIUM CHLORIDE 0.9% INJ 100 ML IV SCH (09:04)
[2017-02-06] MEDS: MAGNESIUM SULFATE 1 GM PREMIX 100 ML IV SCH ×2 (09:05→10:59)
[2017-02-06] MEDS: DOCUSATE SODIUM 50 MG/SENNA 8.6 MG TAB PO SCH ×2 (09:05→20:48)
[2017-02-06] MEDS: SODIUM CHLORIDE 0.9% FLUSH 10 ML FLUSH IV FLUSH SCH ×2 (09:06→20:50)
--- NOTE | 2017-02-06 10:49 | HHI.FPPN ---
Subjective Remarks Patient was seen and examined this morning. He is s/p 2 units PRBCs yesterday and reportedly feels "great" since administration. He denies fevers, chills, N/ V. No chest pain or SOB. He tolerated clear liquids yesterday and this morning. He had a bowel movement this morning. He has some discomfort at surgical incision skin sites. (Tori Haynes MD R1) Objective Vitals Vital Signs Date Time Temp Pulse Resp B/P Pulse Ox O2 Delivery O2 Flow Rate FiO2 02/06/17 07:00 98.3 85 16 128/69 98 02/06/17 07:00 92 02/06/17 03:00 83 02/06/17 03:00 98.5 86 20 137/71 95 02/06/17 00:00 98.1 86 18 139/77 95 02/05/17 23:44 84 02/05/17 21:45 18 02/05/17 20:00 98.2 94 24 136/75 98 Arterial Line 02/05/17 19:00 Nasal Cannula 2.00 02/05/17 19:00 94 02/05/17 15:04 98.0 98 18 125/79 164/66 02/05/17 15:00 93 02/05/17 14:00 98.0 84 16 118/22 97 142/52 02/05/17 13:45 97.7 93 16 129/79 97 125/51 02/05/17 11:04 97.8 95 16 127/77 146/97 02/05/17 11:00 90 02/05/17 11:00 97.8 95 16 127/77 146/97 I/O 02/05/17 02/05/17 02/05/17 02/06/17 02/06/17 02/06/17 07:00 15:00 23:00 07:00 15:00 23:00 Intake Total 1905 ml 3576 ml 2208 ml Output Total 300 ml 255 ml 270 ml Balance 1605 ml 3321 ml 1938 ml Intake Oral 0 ml 250 ml 480 ml IV Total 1905 ml 2076 ml 1728 ml Albumin 250 ml Packed Cells 1000 ml Output Urine Total 300 ml 255 ml 270 ml # Bowel Movements 0 0 (Tori Haynes MD R1) Result Diagram: 02/06/17 0557 02/06/17 0557 Imaging Last Impressions Chest X-Ray 02/06/17 0600 Signed Impressions: Service Date/Time: Monday, February 06, 2017 04:25 - CONCLUSION: 1. 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 It extends posterior to the IVC where the hypodense collection measures 2.4 x 3.0 cm across. It does exhibit some mass effect from the IVC increased from the previous studies. Could be a slow contained leak. At only 72 year's old the patient is probably a candidate for stenting of that area. Large amount of ascites throughout the abdomen with a very fatty liver. Portal vein is patent. Regis Hassan MD Objective Remarks GENERAL: well nourished male in no apparent distress. SKIN: Warm and dry. Incision sites at bilateral groin with clear dressings, with sites showing no erythema, discharge or bleeding. HEAD: Atraumatic. Normocephalic. EYES: Pupils equal and round. No scleral icterus. No injection or drainage. ENT: No nasal bleeding or discharge. Mucous membranes pink and moist. NECK: Trachea midline. CARDIOVASCULAR: Regular rate and rhythm. No JVD. Pulses 2+ bilaterally in extremities. Brisk cap refill. RESPIRATORY: No accessory muscle use. Rhonchi noted in upper montes. Breath sounds equal bilaterally. GASTROINTESTINAL: Abdomen soft, non-tender, nondistended. Normal bowel sounds. Hepatic and splenic margins not palpable. MUSCULOSKELETAL: Extremities without clubbing, cyanosis, or edema. No obvious deformities. NEUROLOGICAL: Awake and alert. No obvious cranial nerve deficits. Motor grossly within normal limits. Normal speech. PSYCHIATRIC: Appropriate mood and affect; insight and judgment normal Medications and IVs Inpatient Medications Acetaminophen (Tylenol Supp) 650 mg Q6H PRN RECTAL TEMPERATURE > 101 F; Start 02/04/17 at 18:15 Acetaminophen (Tylenol) 650 mg Q4H PRN PO TEMP > 100.4; Start 02/04/17 at 15:15 Albumin Human (Albumin 25% Inj) 25 gm ONCE ONCE IV Last administered on 09:04; Start 02/06/17 at 08:15; Stop 02/06/17 at 08:24; Status DC Albumin Human 25 gm 25 gm ONCE ONCE IV Last administered on 02/05/17 09:39; Start 02/05/17 at 09:00; Stop 02/05/17 at 09:35; Status DC Albuterol Sulfate (Albuterol Neb) 2.5 mg Q2HR NEB PRN NEB WHEEZING; Start 02/04 at 20:15 Albuterol Sulfate 2.5 mg 2.5 mg Q6HR NEB PRN NEB WHEEZING; Start 02/04/17 at 18 :15; Stop 02/04/17 at 19:37; Status DC Albuterol/ Ipratropium (Duoneb Neb) 1 ampule Q15M INH Last administered on 02/04 11:35; Start 02/04/17 at 11:30; Stop 02/04/17 at 12:01; Status DC Albuterol/ Ipratropium 1 ampule 1 ampule Q6HR NEB NEB Last administered on 05:14; Start 02/04/17 at 22:00 Bisacodyl (Dulcolax Supp) 10 mg DAILY PRN RECTAL CONSTIPATION; Start 02/04/17 at 18:15 Budesonide (Pulmicort Respule Neb) 0.5 mg ONCE ONCE NEB ; Start 02/04/17 at 11: 30; Stop 02/04/17 at 11:35; Status DC Dextrose (D50w (Vial) Inj) 50 ml UNSCH PRN IV HYPOGLYCEMIA-SEE COMMENTS; Start 02/04/17 at 19:45 Glucagon (Glucagon Inj) 1 mg UNSCH PRN OTHER HYPOGLYCEMIA-SEE COMMENTS; Start 02/04/17 at 19:45 Hydromorphone HCl (Dilaudid Pf Inj) 0.5 mg Q1H PRN IV PUSH Pain 1-4; if unable to take PO; Start 02/04/17 at 18:15 Insulin Aspart (NovoLOG SUPPLEMENTAL SCALE) 1 ACHS SQ ; Start 02/06/17 at 11:00 Insulin Human Regular (NovoLIN R SUPPLEMENTAL SCALE) 1 Q6HR SQ ; Start 02/05/17 at 00:00; Stop 02/05/17 at 00:00; Status DC Labetalol HCl 10 mg 10 mg Q1HR PRN IV PUSH SBP>150, DBP>90, HR>65; Start at 07:30 Lactulose 30 ml 30 ml DAILY PRN PO SEVERE CONSITIPATION; Start 02/04/17 at 15: 15 Magnesium Hydroxide (Milk Of Magngianni Liq) 30 ml Q12H PRN PO MILD - MODERATE CONSTIPATION; Start 02/04/17 at 15:15 Magnesium Sulfate/ Dextrose (Magnesium Sulfate 1 Gm Premix) 100 ml @ 100 mls/ hr Q1H IV Last administered on 02/06/17 09:05; Start 02/06/17 at 08:15; Stop 02/06/17 at 10:14; Status DC Miscellaneous Information ALL NURSING DEPARTME... UNSCH PRN .XX SEE LABEL COMMENTS; Start 02/04/17 at 18:45; Stop 02/05/17 at 18:44; Status DC Miscellaneous Information (Post-op Orders (for Pharmacy)) STAT ONCE OTHER ; Start 02/04/17 at 18:15; Stop 02/04/17 at 18:49; Status DC Naloxone HCl (Narcan Inj) 0.4 mg UNSCH PRN IV SEE LABEL COMMENTS; Start at 15:15 Ondansetron HCl (Zofran Inj) 4 mg Q6H PRN IVP NAUSEA OR VOMITING; Start at 15:15; Stop 02/04/17 at 18:50; Status DC Ondansetron HCl 4 mg 4 mg Q6H PRN IV PUSH SEVERE NAUSEA AND/OR VOMITING; Start 02/04/17 at 18:15 Oxycodone/ Acetaminophen (Percocet 5-325 Mg) 1 tab Q4H PRN PO PAIN SCALE 1 TO 5 Last administered on 02/05/17 20:42; Start 02/04/17 at 18:15 Oxycodone/ Acetaminophen (Percocet 10-325 Mg) 1 tab Q4H PRN PO PAIN SCALE 6 TO 10; Start 02/04/17 at 18:15 Pantoprazole Sodium (Protonix Inj) 40 mg HS IV PUSH Last administered on 22:15; Start 02/04/17 at 21:00 Pantoprazole Sodium (Protonix) 40 mg HS PO Last administered on 02/05/17 20:41 ; Start 02/04/17 at 21:00 Potassium Chloride 30 meq 30 meq ONCE ONCE PO Last administered on 02/06/17 09:05; Start 02/06/17 at 08:15; Stop 02/06/17 at 08:24; Status DC Potassium Chloride (KCl 20 Meq Premix Inj) 100 ml @ 50 mls/hr Q2H PRN IV POTASSIUM LESS THAN 4; Start 02/04/17 at 18:15 Senna/Docusate Sodium (Lian-Colace) 1 tab BID PO Last administered on 09:05; Start 02/04/17 at 21:00 Sennosides (Senokot) 17.2 mg Q12H PRN PO MODERATE - SEVERE CONSTIPATION; Start 02/04/17 at 15:15 Sodium Chloride (NS 1000 ml Inj) 1,000 ml @ 150 mls/hr Q6H40M IV Last administered on 02/06/17 09:09; Start 02/04/17 at 18:13; Stop 02/07/17 at 07:00 Sodium Chloride (NS 250 ml Inj) 250 ml @ 250 mls/hr BOLUS ONCE IV Last administered on 02/05/17 06:54; Start 02/05/17 at 05:00; Stop 02/05/17 at 05:59 ; Status DC Sodium Chloride (NS 500 ml Inj) 500 ml @ 500 mls/hr BOLUS ONCE IV Last administered on 02/05/17 18:36; Start 02/05/17 at 18:00; Stop 02/05/17 at 18:59 ; Status DC Sodium Chloride (NS Flush) 2 ml BID IV FLUSH Last administered on 02/06/17 09: 06; Start 02/04/17 at 21:00 Thiamine HCl/ Sodium Chloride (Thiamine Inj/NS Inj) 101 ml @ 101 mls/hr DAILY IV Last administered on 02/06/17 09:04; Start 02/05/17 at 09:00 Vancomycin HCl/ Sodium Chloride (Vancomycin Inj/ NS 250 ml Inj) 250 ml @ 250 mls/hr Q12H IV Last administered on 02/05/17 15:52; Start 02/05/17 at 04:00; Stop 02/05/17 at 16:59; Status DC (Tori Haynes MD R1) Urinary Catheter: No (Tori Haynes MD R1) Vascular Central Line Catheter: No (Tori Haynes MD R1) A/P Assessment and Plan 72-year-old male with hypertension and COPD who presented with gradually worsening abdominal pain for 2 weeks with acute worsening over 4 days prior to admission with multiple syncopal episodes. 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 He was taken for endovascular procedure AAA repair from the ED on 02/04. Discharge Planning Possibly in 2-3 days to home, pending clearance from vascular surgery (Tori Haynes MD R1) Attending Attestation The exam, history, and the medical decision-making described in the above note were completed with the assistance of the resident physician. I reviewed and agree with the findings presented. I attest that I had a [id number] encounter with the patient on the same day, and personally performed an assessment and exam of the patient. Patient doing well post-op and states all his symptoms seem to have resolved with the surgery. He has not been very mobile as of yet so will see how he does with PT getting up and out of bed and assess to see if any of the syncopal symptoms return. Close monitoring for signs of GI bleed and H/H. (Elizabeth Duran MD) Problem List: (1) Pseudoaneurysm of aorta Status: Acute Plan: Patient presented with severe abdominal pain and was noted to have possible pseudoaneurysm on CT of the distal aorta. He was taken to the OR and noted to have a leaking aneurysm which was repaired on 02/04. He is POD #2. He has been stable aside from gradually decreasing H/H which was corrected on . * Continue close cardiovascular monitoring * Monitor H/H, recheck this afternoon * Monitor for new symptoms * Transfer to [facility] today Hospital course: * Imaging with evidence of pseudoaneurysm of the distal abdominal aorta. * Dr. Thompson, Vascular Surgery, was consulted. Patient was taken to OR 02/04 for endovascular repair. * Admitted to CVICU postoperatively, transfer to [facility] plan for 02/06 * Patient anemic at admission (H/H 11.3/34.1). Serial H&H's postoperatively with H/H 7.9/23.8 on 02/05, with 2 unit PRBC administered per vascular surgery. Post infusion H&H 10.3/29.8 with stable recheck (2) GI bleed Status: Acute Plan: Patient reported black stools on admission and is noted to have a history of colon cancer. He was admitted November 2016 for hematemesis and black stools with GI workup at that time including EGD on 11/28 showing esophagitis, gastritis and duodenitis. It also showed evidence of Cazares's esophagus and diffuse acute active bleeding. He did receive 2 units PRBCs at that time. Per reports, he had colonoscopy 3 weeks prior to that admission which showed moderately severe diverticulosis in the sigmoid colon with large pedunculated polyp and small sessile polyp which were both removed. He has had no active bleeding this admission * Hemoccult is pending once patient has a bowel movement * Will monitor H&H as above (3) Syncope Status: Acute Plan: Etiology: unclear; possibly associated with abdominal aortic aneurysm. Consider further work-up post-operatively. (4) COPD (chronic obstructive pulmonary disease) Status: Chronic Plan: At baseline, patient is on oxygen at home. Monitor respiratory status post-op. * We'll start duo nebs every 4 hours when necessary * Consider nicotine patch this hospital stay though will hold at this time given recent endovascular procedure and risks of vasoconstriction (5) Fluid, Electrolyte, Nutrition, and Prophylaxis Status: Acute Plan: Fluid: * Will start NS at 120 cc/hr post-op. Electrolyte: * Will monitor and replete as necessary. * Na 129L at admission. which has normalized Nutrition: * Regular diet today DVT Prophylaxis: * SCDs * Hold chemical prophylaxis due to recent endovascular procedure GI Prophylaxis: * Will restart Protonix 40 mg daily Restart home dose gabapentin 400 mg at bedtime. Patient does not appear to be a diabetic and blood sugars have been within normal limits (Tori Haynes MD R1) Tori Haynes MD R1 Feb 06, 2017 10:49 Elizabeth Duran MD Feb 06, 2017 11:52
[2017-02-06] MEDS ORDERED: PANTOPRAZOLE SOD 40 MG DELAYED RELEASE TAB PO SCH (11:00)
[2017-02-06 14:25] LABS: HEMATOCRIT 29.8 % (39.0-51.0); REVIEW FLAG FINAL
--- NOTE | 2017-02-06 14:48 | PD.VS.PN ---
Subjective POD #: 2 Procedure(s): EVAR Subjective/Hospital Course without complaints Objective Neuro: A&Ox3 Vascular: strong signals DP and PT bilateral. Bilateral groins soft without ecchymosis. Laboratory Laboratory Tests Test 02/05/17 02/06/17 02/06/17 18:00 05:57 14:08 White Blood Count 5.2 4.8 Red Blood Count 3.18 3.18 Hemoglobin 10.3 10.0 10.2 Hematocrit 29.8 30.1 29.8 Mean Corpuscular Volume 93.8 94.7 Mean Corpuscular Hemoglobin 32.2 31.4 Mean Corpuscular Hemoglobin 34.4 33.2 Concent Red Cell Distribution Width 21.3 21.3 Platelet Count 107 107 Mean Platelet Volume 9.2 8.5 Neutrophils (%) (Auto) 77.8 Lymphocytes (%) (Auto) 10.9 Monocytes (%) (Auto) 7.8 Eosinophils (%) (Auto) 2.8 Basophils (%) (Auto) 0.7 Neutrophils # (Auto) 3.8 Lymphocytes # (Auto) 0.5 Monocytes # (Auto) 0.4 Eosinophils # (Auto) 0.1 Basophils # (Auto) 0.0 CBC Comment DIFF FINAL Differential Comment Sodium Level 136 Potassium Level 3.6 Chloride Level 104 Carbon Dioxide Level 24.3 Anion Gap 8 Blood Urea Nitrogen 6 Creatinine 1.03 Estimat Glomerular Filtration 71 Rate Random Glucose 83 Calcium Level 7.5 Phosphorus Level 3.0 Magnesium Level 1.8 Total Bilirubin 2.1 Aspartate Amino Transf 64 (AST/SGOT) Alanine Aminotransferase 40 (ALT/SGPT) Alkaline Phosphatase 141 Total Protein 5.0 Albumin 1.9 Imaging Last 48 hours Impressions Chest X-Ray 02/06/17 0600 Signed Impressions: Service Date/Time: Monday, February 06, 2017 04:25 - CONCLUSION: 1. Bibasilar atelectasis and small right 8effusion new when compared to the prior study Alfredo Spivey MD Chest X-Ray 02/04/17 1813 Signed Impressions: Service Date/Time: Saturday, February 04, 2017 18:44 - CONCLUSION: No acute disease. Nestor Cooley MD Assessment and Plan Assessment: (1) Pseudoaneurysm of aorta Status: Acute Plan 72 year old male with contained 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 Status post EVAR. Tolerated clears, will advance diet. Swating UO status post calzada removal. Otherwise, Creatinine improved. Can downgrade. Jarad Thompson DO, FACS [employer] Setter Supervisor of Vascular Surgery /Jarad Martin DO Feb 06, 2017 14:48
[2017-02-06] MEDS: GABAPENTIN 400 MG CAP PO SCH (20:48)
[2017-02-06] MEDS: oxyCODONE/ACETAMINOPHEN 5 MG/325 MG TAB PO PRN (20:49)
[2017-02-06] MEDS: PANTOPRAZOLE SOD 40 MG DELAYED RELEASE TAB PO SCH (20:49)
[2017-02-06] MEDS: PANTOPRAZOLE SODIUM 40 MG VIAL IV PUSH SCH (20:50)
[2017-02-06] MEDS ORDERED: SODIUM CHLORID 0.9% 500 ML INJ 500 ML IV ONE (23:15)
[2017-02-07] VITALS (28 sets, daily range): BP systolic 129–158; BP diastolic 74–88; PULSE 69–116; RESP 14–20; TEMP 98.1–98.5; O2SAT 95–99
[2017-02-07] MEDS: SODIUM CHLOR 0.9% 1000 ML INJ 1,000 ML IV SCH ×2 (00:08→06:48)
[2017-02-07] MEDS: RESP: ALBUTEROL 2.5 MG/IPRATROPIUM 0.5 MG NEB (SCH) NEB ×5 (00:22→20:57)
[2017-02-07 05:34] LABS: BASOPHIL % 0.6 % (0.0-2.0); EOSINOPHIL # 0.1 TH/MM3 (0-0.4); EOSINOPHIL % 2.1 % (0.0-4.0); HEMATOCRIT 28.6 % (39.0-51.0); HEMO FLAGS DIFF FINAL; LYMPH % 9.9 % (9.0-44.0); LYMPHOCYTE # 0.6 TH/MM3 (1.0-4.8); MEAN CELL VOLUME 95.8 FL (80.0-100.0); MEAN CORPUSCULAR HEMOGLOBIN 31.6 PG (27.0-34.0); MONO % 7.4 % (0.0-8.0); PLATELET COUNT 112 TH/MM3 (150-450); RED BLOOD COUNT 2.99 MIL/MM3 (4.50-5.90); RED CELL DISTRIBUTION WIDTH 21.2 % (11.6-17.2); WHITE BLOOD COUNT 6.2 TH/MM3 (4.0-11.0)
[2017-02-07 05:54] LABS: ANION GAP 8 MEQ/L (5-15); AST (GOT) 39 U/L (15-37); BICARBONATE 21.9 MEQ/L (21.0-32.0); BLOOD UREA NITROGEN 5 MG/DL (7-18); CHLORIDE 106 MEQ/L (98-107); GLOMERULAR FILTRATION RATE 67 ML/MIN (>89); POTASSIUM 4.1 MEQ/L (3.5-5.1); SODIUM (NA) 136 MEQ/L (136-145)
[2017-02-07 05:55] LABS: ALT (GPT) 34 U/L (12-78)
[2017-02-07 05:57] LABS: ALKALINE PHOSPHATASE 134 U/L (45-117); TOTAL BILIRUBIN ADULT 1.8 MG/DL (0.2-1.0)
[2017-02-07] MEDS: INSULIN ASPART SUPPLEMENTAL SCALE SQ SCH ×4 (07:00→21:00)
[2017-02-07] MEDS: DOCUSATE SODIUM 50 MG/SENNA 8.6 MG TAB PO SCH ×2 (08:04→21:43)
[2017-02-07] MEDS: PANTOPRAZOLE SOD 40 MG DELAYED RELEASE TAB PO SCH (08:04)
[2017-02-07] MEDS: THIAMINE INJ 100 MG in SODIUM CHLORIDE 0.9% INJ 100 ML IV SCH (08:05)
[2017-02-07] MEDS: SODIUM CHLORIDE 0.9% FLUSH 10 ML FLUSH IV FLUSH SCH ×2 (08:05→21:53)
--- NOTE | 2017-02-07 10:43 | HHI.FPPN ---
Subjective Remarks Patient was seen and examined this morning. He denies fevers, chills, chest pain , headache, n/v. He slept better last night due to fewer interruptions. He notes shortness of breath at baseline and states he uses Symbicort at home which keeps wheezing controlled. He has not had a bowel movement since the surgery but is passing flatus. He is tolerating diet without any problems. He denies abdominal pain or discomfort and states his abdomen is always tense due to his abdominal mesh. He has no pain at surgical sites. He has not gotten out of bed yet this morning but was moved from bed to chair yesterday. (Tori Haynes MD R1) Objective Vitals Vital Signs Date Time Temp Pulse Resp B/P Pulse Ox O2 Delivery O2 Flow Rate FiO2 02/07/17 10:20 100 02/07/17 10:03 97 Nasal Cannula 3.00 02/07/17 09:00 102 02/07/17 08:16 98.1 92 16 158/88 95 02/07/17 08:00 104 02/07/17 07:00 92 02/07/17 06:00 88 02/07/17 05:00 98 02/07/17 04:00 92 02/07/17 03:00 98.1 92 14 129/74 97 02/07/17 03:00 93 02/07/17 02:00 90 02/07/17 01:00 92 02/07/17 00:00 94 02/06/17 23:00 98.3 95 18 127/73 98 02/06/17 23:00 89 02/06/17 22:00 94 02/06/17 21:00 100 02/06/17 20:00 108 02/06/17 19:00 95 02/06/17 19:00 98.7 100 20 148/87 99 02/06/17 15:27 97.9 90 18 139/87 96 02/06/17 15:13 96 02/06/17 11:44 87 02/06/17 11:00 98.3 87 16 151/88 95 I/O 02/06/17 02/06/17 02/06/17 02/07/17 02/07/17 02/07/17 06:59 14:59 22:59 06:59 14:59 22:59 Intake Total 2208 ml 1530 ml 2230 ml Output Total 270 ml 100 ml 225 ml Balance 1938 ml 1430 ml 2005 ml Intake Oral 480 ml 240 ml 480 ml IV Total 1728 ml 1290 ml 1750 ml Output Urine Total 270 ml 100 ml 225 ml Bladder Scan Volume Amount 711 ml # Bowel Movements 0 0 ([place]Tori Kenyon DUMONT R1) Result Diagram: 02/07/17 0450 02/07/17 0450 Imaging Last Impressions Chest X-Ray 02/06/17 0600 Signed Impressions: Service Date/Time: Monday, February 06, 2017 04:25 - CONCLUSION: 1. 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 It extends posterior to the IVC where the hypodense collection measures 2.4 x 3.0 cm across. It does exhibit some mass effect from the IVC increased from the previous studies. Could be a slow contained leak. At only 72 year's old the patient is probably a candidate for stenting of that area. Large amount of ascites throughout the abdomen with a very fatty liver. Portal vein is patent. Regis Hassan MD Objective Remarks GENERAL: well nourished male in no apparent distress. Wearing nasal cannula. SKIN: Warm and dry. Incision sites at bilateral groin with gauze dressings, with sites showing no erythema, discharge or bleeding. HEAD: Atraumatic. Normocephalic. EYES: Pupils equal and round. No scleral icterus. No injection or drainage. ENT: No nasal bleeding or discharge. Mucous membranes pink and moist. NECK: Trachea midline. CARDIOVASCULAR: Regular rate and rhythm. No JVD. Pulses 2+ bilaterally in extremities. Brisk cap refill. RESPIRATORY: No accessory muscle use. Diffuse expiratory wheezing noted without stethoscope. Breath sounds equal bilaterally including at lung bases. GASTROINTESTINAL: Abdomen is tense, nontender. Mass is palpated through abdominal wall. Bladder is not obviously palpable. Normal bowel sounds. Hepatic and splenic margins not palpable. MUSCULOSKELETAL: Extremities without clubbing, cyanosis, or edema. No obvious deformities. No calf tenderness. NEUROLOGICAL: Awake and alert. No obvious cranial nerve deficits. Motor grossly within normal limits. Normal speech. PSYCHIATRIC: Appropriate mood and affect; insight and judgment normal Medications and IVs Inpatient Medications Acetaminophen (Tylenol Supp) 650 mg Q6H PRN RECTAL TEMPERATURE > 101 F; Start 02/04/17 at 18:15 Acetaminophen (Tylenol) 650 mg Q4H PRN PO TEMP > 100.4; Start 02/04/17 at 15:15 Albumin Human (Albumin 25% Inj) 25 gm ONCE ONCE IV Last administered on 09:04; Start 02/06/17 at 08:15; Stop 02/06/17 at 08:24; Status DC Albumin Human 25 gm 25 gm ONCE ONCE IV Last administered on 02/05/17 04:40; Start 02/05/17 at 04:00; Stop 02/05/17 at 04:01; Status DC Albuterol Sulfate (Albuterol Neb) 2.5 mg Q2HR NEB PRN NEB WHEEZING; Start 02/04 at 20:15; Stop 02/06/17 at 10:54; Status DC Albuterol Sulfate 2.5 mg 2.5 mg Q6HR NEB PRN NEB WHEEZING; Start 02/04/17 at 18 :15; Stop 02/04/17 at 19:37; Status DC Albuterol/ Ipratropium (Duoneb Neb) 1 ampule Q6HR NEB NEB Last administered on 02/07/17 10:03; Start 02/04/17 at 22:00 Albuterol/ Ipratropium 1 ampule 1 ampule Q4HR NEB PRN NEB SOB/WHEEZING; Start 02/06/17 at 11:00 Bisacodyl (Dulcolax Supp) 10 mg DAILY PRN RECTAL CONSTIPATION; Start 02/04/17 at 18:15 Budesonide (Pulmicort Respule Neb) 0.5 mg ONCE ONCE NEB ; Start 02/04/17 at 11: 30; Stop 02/04/17 at 11:35; Status DC Dextrose (D50w (Vial) Inj) 50 ml UNSCH PRN IV HYPOGLYCEMIA-SEE COMMENTS; Start 02/04/17 at 19:45 Gabapentin (Neurontin) 400 mg HS PO Last administered on 02/06/17 20:48; Start 02/06/17 at 21:00 Glucagon (Glucagon Inj) 1 mg UNSCH PRN OTHER HYPOGLYCEMIA-SEE COMMENTS; Start 02/04/17 at 19:45 Hydromorphone HCl (Dilaudid Pf Inj) 0.5 mg Q1H PRN IV PUSH Pain 1-4; if unable to take PO; Start 02/04/17 at 18:15 Insulin Aspart (NovoLOG SUPPLEMENTAL SCALE) 1 ACHS SQ ; Start 02/06/17 at 11:00 Insulin Human Regular (NovoLIN R SUPPLEMENTAL SCALE) 1 Q6HR SQ ; Start 02/05/17 at 00:00; Stop 02/05/17 at 00:00; Status DC Labetalol HCl 10 mg 10 mg Q1HR PRN IV PUSH SBP>150, DBP>90, HR>65; Start at 07:30 Lactulose 30 ml 30 ml DAILY PRN PO SEVERE CONSITIPATION; Start 02/04/17 at 15: 15 Magnesium Hydroxide (Milk Of Magnesia Liq) 30 ml Q12H PRN PO MILD - MODERATE CONSTIPATION; Start 02/04/17 at 15:15 Magnesium Sulfate/ Dextrose (Magnesium Sulfate 1 Gm Premix) 100 ml @ 100 mls/ hr Q1H IV Last administered on 02/06/17t 10:59; Start 02/06/17 at 08:15; Stop 02/06/17 at 10:14; Status DC Miscellaneous Information ALL NURSING DEPARTME... UNSCH PRN .XX SEE LABEL COMMENTS; Start 02/04/17 at 18:45; Stop 02/05/17 at 18:44; Status DC Miscellaneous Information (Post-op Orders (for Pharmacy)) STAT ONCE OTHER ; Start 02/04/17 at 18:15; Stop 02/04/17 at 18:49; Status DC Naloxone HCl (Narcan Inj) 0.4 mg UNSCH PRN IV SEE LABEL COMMENTS; Start at 15:15 Ondansetron HCl (Zofran Inj) 4 mg Q6H PRN IVP NAUSEA OR VOMITING; Start at 15:15; Stop 02/04/17 at 18:50; Status DC Ondansetron HCl 4 mg 4 mg Q6H PRN IV PUSH SEVERE NAUSEA AND/OR VOMITING; Start 02/04/17 at 18:15 Oxycodone/ Acetaminophen (Percocet 5-325 Mg) 1 tab Q4H PRN PO PAIN SCALE 1 TO 5 Last administered on 02/06/17 20:49; Start 02/04/17 at 18:15 Oxycodone/ Acetaminophen (Percocet 10-325 Mg) 1 tab Q4H PRN PO PAIN SCALE 6 TO 10; Start 02/04/17 at 18:15 Pantoprazole Sodium (Protonix Inj) 40 mg HS IV PUSH Last administered on 22:15; Start 02/04/17 at 21:00 Pantoprazole Sodium (Protonix) 40 mg DAILY PO Last administered on 02/06/17 10 :59; Start 02/06/17 at 11:00; Stop 02/07/17 at 07:17; Status DC Potassium Chloride 30 meq 30 meq ONCE ONCE PO Last administered on 02/06/17 09:05; Start 02/06/17 at 08:15; Stop 02/06/17 at 08:24; Status DC Potassium Chloride (KCl 20 Meq Premix Inj) 100 ml @ 50 mls/hr Q2H PRN IV POTASSIUM LESS THAN 4; Start 02/04/17 at 18:15 Senna/Docusate Sodium (Lian-Colace) 1 tab BID PO Last administered on 08:04; Start 02/04/17 at 21:00 Sennosides (Senokot) 17.2 mg Q12H PRN PO MODERATE - SEVERE CONSTIPATION; Start 02/04/17 at 15:15 Sodium Chloride (NS 1000 ml Inj) 1,000 ml @ 150 mls/hr Q6H40M IV Last administered on 02/06/17 11:00; Start 02/04/17 at 18:13; Stop 02/07/17 at 07:00 ; Status DC Sodium Chloride (NS 250 ml Inj) 250 ml @ 250 mls/hr BOLUS ONCE IV Last administered on 02/05/17 06:54; Start 02/05/17 at 05:00; Stop 02/05/17 at 05:59 ; Status DC Sodium Chloride (NS 500 ml Inj) 500 ml @ 500 mls/hr BOLUS ONCE IV Last administered on 02/06/17 23:30; Start 02/06/17 at 23:15; Stop 02/07/17 at 00:14 ; Status DC Sodium Chloride (NS Flush) 2 ml BID IV FLUSH Last administered on 02/07/17 08: 05; Start 02/04/17 at 21:00 Thiamine HCl/ Sodium Chloride (Thiamine Inj/NS Inj) 101 ml @ 101 mls/hr DAILY IV Last administered on 02/07/17 08:05; Start 02/05/17 at 09:00 Vancomycin HCl/ Sodium Chloride (Vancomycin Inj/ NS 250 ml Inj) 250 ml @ 250 mls/hr Q12H IV Last administered on 02/05/17 15:52; Start 02/05/17 at 04:00; Stop 02/05/17 at 16:59; Status DC (Tori Haynes MD R1) Urinary Catheter: Yes Assessment to: Continue Silva insert reason: Measure Accurate Output Date of Insertion: Feb 06, 2017 (Tori Haynes MD R1) Vascular Central Line Catheter: No (Tori Haynes MD R1) A/P Assessment and Plan 72-year-old male with hypertension and COPD who presented with gradually worsening abdominal pain for 2 weeks with acute worsening over 4 days prior to admission with multiple syncopal episodes. 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 He was taken for endovascular procedure AAA repair from the ED on 02/04. Discharge Planning Unclear. Patient is postoperative from endovascular procedure on 02/04/17. Pending clearance from vascular surgery, critical care. He is currently having low urine output postoperatively. (Tori Haynes MD R1) Attending Attestation Patient seen and examined. Case reviewed and discussed with the resident team. Agree with plan of care as discussed with me and documented in the resident note. (Elizabeth Duran MD) Problem List: (1) Pseudoaneurysm of aorta Status: Acute Plan: Patient presented with severe abdominal pain and was noted to have possible pseudoaneurysm on CT of the distal aorta. He was taken to the OR and noted to have a leaking aneurysm which was repaired on 02/04. He is POD #3. He has been stable aside from decreasing H/H which was corrected on 02/05. * Continue close cardiovascular monitoring * Monitor H/H, recheck at 1pm today * Monitor for new symptoms of hemodynamic compromise Hospital course: * Imaging with evidence of pseudoaneurysm of the distal abdominal aorta. * Dr. Thompson, Vascular Surgery, was consulted. Patient was taken to OR 02/04 for endovascular repair. * Admitted to CVICU postoperatively, transferred to [facility] 02/06 * Patient anemic at admission (H/H 11.3/34.1). Serial H&H's postoperatively with H/H 7.9/23.8 on 02/05, with 2 unit PRBC administered per vascular surgery. Post infusion H&H 10.3/29.8 with stable recheck. Was 9.5 on 02/07/17 (2) Low urine output Status: Acute Plan: Bladder scan showing greater than 700 mL urine last night. Silva was placed with less than 200 mL output. Total urine output since yesterday around 7 PM is approximately 400 mL. This is not at goal. Labs showing no evidence of a ROXY bur GFR is mildly reduced. Urine is dark in color today. Ddx includes pre-renal (dehydration/hypovolemia, sepsis) vs renal (ATN 2/2 meds ) vs post renal (less likely). Goal urine output would be approximately 93 mL per hour based on patient's weight (goal UOP 1ml/kg/hr) Plan: * Obtain UA * BNP repeat (on admission was 297) * Patient is getting NS @ 100cc/hr but will hold this given he may be fluid overloaded * Avoid nephrotoxic medications * Consider Lasix 40mg IVP if BNP elevated. Consider Renal US and nephrology consult if low UOP persists today (3) GI bleed Status: Acute Plan: Patient reported black stools on admission and is noted to have a history of colon cancer. He was admitted November 2016 for hematemesis and black stools with GI workup at that time including EGD on 11/28 showing esophagitis, gastritis and duodenitis. It also showed evidence of Cazares's esophagus and diffuse acute active bleeding. He did receive 2 units PRBCs at that time. Per reports, he had colonoscopy 3 weeks prior to that admission which showed moderately severe diverticulosis in the sigmoid colon with large pedunculated polyp and small sessile polyp which were both removed. He has had no active bleeding this admission * Hemoccult is pending once patient has a bowel movement * Will monitor H&H as above (4) Pericardial effusion Status: Acute Plan: 2-D echo was performed and read 02/05 notable for EF 55-60%, small to moderate pericardial effusion with possible clot, and also noted right and thickened pericardium. He is also noted to have minor respiratory variation on tricuspid inflows and more prominent respiratory variation on mitral inflows. Patient has not had any new episodes of dizziness and shortness of breath at baseline due to oxygen dependent COPD but notes syncopal episodes prior to admission * Consider cardiology consultation for recommendations on abnormal echo findings * BNP pending (5) Syncope Status: Acute Plan: Etiology: unclear; possibly associated with abdominal aortic aneurysm. (6) COPD (chronic obstructive pulmonary disease) Status: Chronic Plan: At baseline, patient is on oxygen at home. Monitor respiratory status post-op. * Duonebs q4hr when necessary * Symbicort restarted 02/06/17 * Consider nicotine patch this hospital stay though will hold at this time given recent endovascular procedure and risks of vasoconstriction (7) Fluid, Electrolyte, Nutrition, and Prophylaxis Status: Acute Plan: Fluid: * Hold fluids at this time given lung exam suggestive of fluid overload, BNP pending Electrolyte: * Will monitor and replete as necessary. Nutrition: * Regular diet today DVT Prophylaxis: * SCDs * Hold chemical prophylaxis due to recent endovascular procedure GI Prophylaxis: * Protonix 40 mg PO daily Restarted home dose gabapentin 400 mg at bedtime. Patient does not appear to be a diabetic and blood sugars have been within normal limits (Tori Haynes MD R1) Tori Haynes MD R1 Feb 07, 2017 10:43 Elizabeth Duran MD Feb 07, 2017 14:44
[2017-02-07] MEDS ORDERED: FUROSEMIDE 40 MG/4 ML VIAL IV PUSH ONE (11:30)
--- NOTE | 2017-02-07 11:31 | PD.VS.PN ---
Subjective Procedure(s): EVAR Subjective/Hospital Course without complaints Objective Vitals/I&O Date Time Temp Pulse Resp B/P Pulse Ox O2 Delivery O2 Flow Rate FiO2 02/07/17 10:20 100 02/07/17 10:03 97 Nasal Cannula 3.00 02/07/17 09:00 102 02/07/17 08:16 98.1 92 16 158/88 95 02/07/17 08:00 104 02/07/17 07:00 92 02/07/17 06:00 88 02/07/17 05:00 98 02/07/17 04:00 92 02/07/17 03:00 98.1 92 14 129/74 97 02/07/17 03:00 93 02/07/17 02:00 90 02/07/17 01:00 92 02/07/17 00:00 94 02/06/17 23:00 98.3 95 18 127/73 98 02/06/17 23:00 89 02/06/17 22:00 94 02/06/17 21:00 100 02/06/17 20:00 108 02/06/17 19:00 95 02/06/17 19:00 98.7 100 20 148/87 99 02/06/17 15:27 97.9 90 18 139/87 96 02/06/17 15:13 96 02/06/17 11:44 87 02/07/17 02/07/17 02/07/17 07:00 15:00 23:00 Intake Total 2230 ml Output Total 225 ml Balance 2005 ml Pulses: bilateral groins are soft with dry dressings. feet are warm. Laboratory Laboratory Tests Test 02/06/17 02/07/17 14:08 04:50 Hemoglobin 10.2 9.5 Hematocrit 29.8 28.6 White Blood Count 6.2 Red Blood Count 2.99 Mean Corpuscular Volume 95.8 Mean Corpuscular Hemoglobin 31.6 Mean Corpuscular Hemoglobin 33.0 Concent Red Cell Distribution Width 21.2 Platelet Count 112 Mean Platelet Volume 8.5 Neutrophils (%) (Auto) 80.0 Lymphocytes (%) (Auto) 9.9 Monocytes (%) (Auto) 7.4 Eosinophils (%) (Auto) 2.1 Basophils (%) (Auto) 0.6 Neutrophils # (Auto) 5.0 Lymphocytes # (Auto) 0.6 Monocytes # (Auto) 0.5 Eosinophils # (Auto) 0.1 Basophils # (Auto) 0.0 CBC Comment DIFF FINAL Differential Comment Sodium Level 136 Potassium Level 4.1 Chloride Level 106 Carbon Dioxide Level 21.9 Anion Gap 8 Blood Urea Nitrogen 5 Creatinine 1.09 Estimat Glomerular Filtration 67 Rate Random Glucose 85 Calcium Level 7.5 Total Bilirubin 1.8 Aspartate Amino Transf 39 (AST/SGOT) Alanine Aminotransferase 34 (ALT/SGPT) Alkaline Phosphatase 134 B-Type Natriuretic Peptide 644 Total Protein 4.6 Albumin 1.8 Assessment and Plan Assessment: (1) Pseudoaneurysm of aorta Status: Acute Plan 72 year old male with contained 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 Status post EVAR. Can remove calzada even if marginal UO. Otherwise, patient should be ambulating and possible discharge early next week. Jarad Thompson DO, FACS [facility] Attendant of Vascular Surgery MACO/Jarad Martin DO Feb 07, 2017 11:31
[2017-02-07] MEDS: BUDESONIDE-FORMOTEROL 160/4.5 MCG INHALER INH SCH (13:00)
[2017-02-07 13:37] LABS: HEMATOCRIT 26.5 % (39.0-51.0); REVIEW FLAG FINAL
--- NOTE | 2017-02-07 14:08 | MB ---
cc: LUIS RESENDIZ MD DATE OF CONSULTATION: 02/07/2017. REASON FOR CONSULTATION: Elevated BNP suggestive of heart failure. HISTORY OF PRESENT ILLNESS: Mr. Wise is a 72-year-old man who does have a history of end-stage COPD on home oxygen and TIA who presented with abdominal pain. He is status post EVAR by Dr. Thompson and was noted to have some wheezing and an elevated BNP. Cardiology was subsequently requested for assistance with his care. The patient does report some shortness of breath. He denies any prior cardiac problems. He notes he did have a history of hypertension but as of late his blood pressure was good and thus he has not been on any blood pressure medications PAST MEDICAL HISTORY: His past medical history is significant for: 1. Colon cancer status post right hemicolectomy. 2. Gastroesophageal reflux disease (GERD). 3. COPD. 4. Hypertension. PAST SURGICAL HISTORY: His surgical history includes: 1. The hemicolectomy. 2. Hernia repair. 3. Back fusion. SOCIAL HISTORY: The patient does smoke and was a prior heavy drinker. REVIEW OF SYSTEMS: Except for what is mentioned in the history of present illness, all twelve systems are negative. PHYSICAL EXAMINATION: VITAL SIGNS: On examination the vital signs are 98.1, 97, 18, 147/80. GENERAL: In general, he is an overweight man who is in no apparent distress. NECK: His neck is free from jugular venous distention. LUNGS: The lungs have bilateral wheezing throughout. CARDIOVASCULAR: On cardiovascular examination, he has a normal S1-S2. I do not appreciate any murmurs or rubs. ABDOMEN: The abdomen is soft. EXTREMITIES: The extremities are free from edema. LAB VALUES: His lab values are significant for: Hemoglobin of 9.5. His creatinine is 1.09. His BNP is 644. IMAGING STUDIES: Echocardiogram from 02/05/17 shows an ejection fraction of 55%. There is a small pericardial effusion. IMPRESSIONS: 1. Elevated BNP - the patient has had a weight gain from 85 kg to 94 kg over the last couple of days. He is now wheezing. I do agree that this likely represents some fluid overload and I also agree with the Lasix. His blood pressure is also a bit high. Given his prior history and in light of the new heart failure, I am going to place him on some beta blockade as well. 2. Hypertension - as above. 3. Smoking - the patient was counselled to quit. 4. Status post EVAR - the patient had a contained ruptured pseudoaneurysm of the distal abdominal aorta and is now status post EVAR and being managed by Dr. Thompson. Farheen Lam/NICHOLAS /1:17 PM /1:58 PM
[2017-02-07 16:00] LABS: BLOOD, URINE SMALL (NEG); GLUCOSE,URINE NEG (NEG); KETONE, URINE NEG (NEG); MUCUS URINE FEW /lpf (OCC); NITRITE,URINE NEG (NEG); SQUAMOUS EPITHELIAL CELL URINE <1 /hpf (0-5); URINE COLOR LIGHT-YELLOW (YELLW/STRAW)
[2017-02-07 16:01] LABS: COMMENT (UR) CATH-CULT NOT IND; CULTURE IF INDICATED CATH CULTURE NOT IND
[2017-02-07] MEDS: FUROSEMIDE 40 MG TAB PO SCH (17:17)
[2017-02-07] MEDS: POTASSIUM CHLORIDE 20 MEQ CONTROLLED RELEASE TAB PO SCH ×2 (17:24→21:42)
[2017-02-07 19:52] LABS: HEMATOCRIT 34.5 % (39.0-51.0); REVIEW FLAG FINAL
[2017-02-07] MEDS: METOPROLOL TARTRATE 25 MG TAB PO SCH (21:43)
[2017-02-07] MEDS: GABAPENTIN 400 MG CAP PO SCH (21:43)
[2017-02-08] VITALS (26 sets, daily range): BP systolic 121–141; BP diastolic 73–83; PULSE 66–82; RESP 18–20; TEMP 98.2–99; O2SAT 93–100
[2017-02-08] MEDS: RESP: ALBUTEROL 2.5 MG/IPRATROPIUM 0.5 MG NEB (PRN) NEB
[2017-02-08 01:04] LABS: AUTOMATED NEUTROPHIL # 5.3 TH/MM3 (1.8-7.7); BASOPHIL % 0.7 % (0.0-2.0); EOSINOPHIL # 0.2 TH/MM3 (0-0.4); EOSINOPHIL % 2.9 % (0.0-4.0); HEMATOCRIT 29.8 % (39.0-51.0); HEMO FLAGS DIFF FINAL; LYMPH % 9.5 % (9.0-44.0); LYMPHOCYTE # 0.6 TH/MM3 (1.0-4.8); MEAN CELL VOLUME 95.3 FL (80.0-100.0); MEAN CORPUSCULAR HEMOGLOBIN 32.3 PG (27.0-34.0); MEAN CORPUSCULAR HGB CONC 33.8 % (32.0-36.0); MONO % 7.9 % (0.0-8.0); PLATELET COUNT 113 TH/MM3 (150-450); RED BLOOD COUNT 3.13 MIL/MM3 (4.50-5.90); RED CELL DISTRIBUTION WIDTH 21.3 % (11.6-17.2); WHITE BLOOD COUNT 6.7 TH/MM3 (4.0-11.0)
[2017-02-08 01:18] LABS: ALT (GPT) 32 U/L (12-78); ANION GAP 8 MEQ/L (5-15); AST (GOT) 37 U/L (15-37); BICARBONATE 25.9 MEQ/L (21.0-32.0); BLOOD UREA NITROGEN 5 MG/DL (7-18); CHLORIDE 103 MEQ/L (98-107); GLOMERULAR FILTRATION RATE 57 ML/MIN (>89); SODIUM (NA) 137 MEQ/L (136-145)
[2017-02-08 01:20] LABS: ALKALINE PHOSPHATASE 141 U/L (45-117); TOTAL BILIRUBIN ADULT 1.8 MG/DL (0.2-1.0)
[2017-02-08] MEDS: RESP: ALBUTEROL 2.5 MG/IPRATROPIUM 0.5 MG NEB (SCH) NEB ×3 (03:39→15:14)
[2017-02-08] MEDS: oxyCODONE/ACETAMINOPHEN 5 MG/325 MG TAB PO PRN ×4 (03:52→20:48)
[2017-02-08] MEDS: INSULIN ASPART SUPPLEMENTAL SCALE SQ SCH ×4 (06:05→21:00)
[2017-02-08] MEDS: FUROSEMIDE 40 MG TAB PO SCH ×2 (07:44→16:56)
[2017-02-08] MEDS: POTASSIUM CHLORIDE 20 MEQ CONTROLLED RELEASE TAB PO SCH ×2 (07:44→20:48)
[2017-02-08] MEDS: SODIUM CHLORIDE 0.9% FLUSH 10 ML FLUSH IV FLUSH SCH ×2 (07:45→20:49)
[2017-02-08] MEDS: BUDESONIDE-FORMOTEROL 160/4.5 MCG INHALER INH SCH (07:45)
[2017-02-08] MEDS: DOCUSATE SODIUM 50 MG/SENNA 8.6 MG TAB PO SCH ×2 (07:45→20:49)
[2017-02-08] MEDS: THIAMINE INJ 100 MG in SODIUM CHLORIDE 0.9% INJ 100 ML IV SCH (07:45)
[2017-02-08] MEDS: METOPROLOL TARTRATE 25 MG TAB PO SCH ×2 (07:45→20:48)
--- NOTE | 2017-02-08 09:16 | HHI.FPPN ---
Subjective Remarks Patient was seen and examined this morning. He denies fevers, chills, chest pain , headache, n/v. He notes shortness of breath at baseline and states he uses Symbicort at home which typically keeps wheezing controlled. He had a bowel movement this morning which was reported by the nurse as liquid and green without any black specks or red streaks.. He is tolerating diet without any problems. He denies abdominal pain or discomfort and states his abdomen is always tense due to his abdominal mesh. He has no pain at surgical sites. Patient states that he continues to have some difficulty sleeping at night. Patient also reports new onset scrotal swelling this morning. Swelling is not painful, warm to touch or throbbing in nature. Swelling is reported as contained to the scrotum, no surrounding tissues. Objective Vitals Vital Signs Date Time Temp Pulse Resp B/P Pulse Ox O2 Delivery O2 Flow Rate FiO2 02/08/17 08:00 82 02/08/17 08:00 98.6 78 18 138/75 96 02/08/17 07:51 99 Nasal Cannula 2.00 02/08/17 06:56 20 02/08/17 06:00 74 02/08/17 05:00 74 02/08/17 04:00 76 02/08/17 03:00 73 02/08/17 03:00 99.0 77 20 141/82 93 02/08/17 02:00 72 02/08/17 01:00 76 02/08/17 00:00 72 02/07/17 23:00 69 02/07/17 23:00 98.5 74 20 147/84 99 02/07/17 22:00 88 02/07/17 21:00 90 02/07/17 20:00 98 02/07/17 19:00 98.4 88 16 157/82 96 02/07/17 19:00 116 02/07/17 18:20 98 02/07/17 17:00 104 02/07/17 16:06 104 02/07/17 15:54 98.1 96 18 150/80 96 02/07/17 15:53 97 02/07/17 15:05 98 Nasal Cannula 3.00 02/07/17 14:17 94 02/07/17 13:18 99 02/07/17 12:00 97 02/07/17 11:00 90 02/07/17 11:00 98.1 97 18 147/80 97 02/07/17 10:20 100 02/07/17 10:03 97 Nasal Cannula 3.00 I/O 02/07/17 02/07/17 02/07/17 02/08/17 02/08/17 02/08/17 07:00 15:00 23:00 07:00 15:00 23:00 Intake Total 2230 ml 2720 ml 682 ml Output Total 225 ml 700 ml 1765 ml Balance 2005 ml 2020 ml -1083 ml Intake Oral 480 ml 720 ml 682 ml IV Total 1750 ml 1750 ml TPN/PPN 250 ml Output Urine Total 225 ml 700 ml 1765 ml Bladder Scan Volume Amount 711 ml # Bowel Movements 0 1 Result Diagram: 02/08/17 0053 02/08/17 0053 Imaging Last Impressions Chest X-Ray 02/06/17 0600 Signed Impressions: Service Date/Time: Monday, February 06, 2017 04:25 - CONCLUSION: 1. 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 It extends posterior to the IVC where the hypodense collection measures 2.4 x 3.0 cm across. It does exhibit some mass effect from the IVC increased from the previous studies. Could be a slow contained leak. At only 72 year's old the patient is probably a candidate for stenting of that area. Large amount of ascites throughout the abdomen with a very fatty liver. Portal vein is patent. Regis Hassan MD Objective Remarks GENERAL: well nourished male in no apparent distress. Wearing nasal cannula. SKIN: Warm and dry. Incision sites at bilateral groin with gauze dressings, with sites showing no erythema, discharge or bleeding. HEAD: Atraumatic. Normocephalic. EYES: Pupils equal and round. No scleral icterus. No injection or drainage. ENT: No nasal bleeding or discharge. Mucous membranes pink and moist. NECK: Trachea midline. CARDIOVASCULAR: Regular rate and rhythm. No JVD. Pulses 2+ bilaterally in extremities. Brisk cap refill. RESPIRATORY: No accessory muscle use. Diffuse expiratory wheezing noted without stethoscope. Breath sounds equal bilaterally including at lung bases. GASTROINTESTINAL: Abdomen is tense, nontender. Mass is palpated through abdominal wall. Bladder is not obviously palpable. Normal bowel sounds. Hepatic and splenic margins not palpable. MUSCULOSKELETAL: Extremities without clubbing, cyanosis, or edema. No obvious deformities. No calf tenderness. GENITALIA: Scrotum has diffuse edema. Nontender. Not warm to touch. No infiltration into penis or inguinal region. NEUROLOGICAL: Awake and alert. No obvious cranial nerve deficits. Motor grossly within normal limits. Normal speech. PSYCHIATRIC: Appropriate mood and affect; insight and judgment normal Medications and IVs Current Medications Medications (Trade) Dose Ordered Sig/Joanne Route Start Time Stop Time Status Last Admin (NS Flush) 2 ml UNSCH PRN IV FLUSH 02/04/17 15:15 (NS Flush) 2 ml BID IV FLUSH 02/04/17 21:00 02/08/17 07:45 (Tylenol) 650 mg Q4H PRN PO 02/04/17 15:15 (Narcan Inj) 0.4 mg UNSCH PRN IV 02/04/17 15:15 (Lian-Colace) 1 tab BID PO 02/04/17 21:00 02/07/17 21:43 (Milk Of Magnesia Liq) 30 ml Q12H PRN PO 02/04/17 15:15 (Senokot) 17.2 mg Q12H PRN PO 02/04/17 15:15 (Lactulose Liq) 30 ml DAILY PRN PO 02/04/17 15:15 Ondansetron HCl 4 mg 4 mg Q6H PRN IV PUSH 02/04/17 18:15 (KCl 20 Meq Premix Inj) 100 ml @ 50 mls/hr Q2H PRN IV 02/04/17 18:15 (Dulcolax Supp) 10 mg DAILY PRN RECTAL 02/04/17 18:15 (Tylenol Supp) 650 mg Q6H PRN RECTAL 02/04/17 18:15 (Protonix) 40 mg HS PO 02/04/17 21:00 02/07/17 08:04 (Dilaudid Pf Inj) 0.5 mg Q1H PRN IV PUSH 02/04/17 18:15 (Percocet 5-325 Mg) 1 tab Q4H PRN PO 02/04/17 18:15 02/08/17 03:52 (Percocet 10-325 Mg) 1 tab Q4H PRN PO 02/04/17 18:15 (D50w (Vial) Inj) 50 ml UNSCH PRN IV 02/04/17 19:45 (Glucagon Inj) 1 mg UNSCH PRN OTHER 02/04/17 19:45 Labetalol HCl 10 mg 10 mg Q1HR PRN IV PUSH 02/05/17 07:30 (Thiamine Inj/NS Inj) 101 ml @ 101 mls/hr DAILY IV 02/05/17 09:00 02/08/17 07:45 (NovoLOG SUPPLEMENTAL SCALE) 1 ACHS SQ 02/06/17 11:00 (Neurontin) 400 mg HS PO 02/06/17 21:00 02/07/17 21:43 (Symbicort 160-4.5 Inh) 2 puff DAILY INH 02/07/17 10:30 02/08/17 07:45 (Lopressor) 25 mg Q12HR PO 02/07/17 21:00 02/08/17 07:45 (Lasix) 40 mg BID@09,18 PO 02/07/17 18:00 02/08/17 07:44 (KCl) 20 meq Q12HR PO 02/07/17 13:30 02/08/17 07:44 Date of Insertion: Feb 06, 2017 A/P Assessment and Plan 72-year-old male with hypertension and COPD who presented with gradually worsening abdominal pain for 2 weeks with acute worsening over 4 days prior to admission with multiple syncopal episodes. 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 He was taken for endovascular procedure AAA repair from the ED on 02/04. Discharge Planning Patient is postoperative from endovascular procedure on 02/04/17. Anticipate discharge once cleared by vascular surgery once urine output within normal range and BNP downtrending. Problem List: (1) Pseudoaneurysm of aorta Status: Acute Plan: Patient presented with severe abdominal pain and was noted to have possible pseudoaneurysm on CT of the distal aorta. He was taken to the OR and noted to have a leaking aneurysm which was repaired on 02/04. He is POD #4. He has been stable aside from decreasing H/H which was corrected on 02/05. * Continue close cardiovascular monitoring * Monitor H/H * Monitor for new symptoms of hemodynamic compromise Hospital course: * Imaging with evidence of pseudoaneurysm of the distal abdominal aorta. * Dr. Thompson, Vascular Surgery, was consulted. Patient was taken to OR 02/04 for endovascular repair. * Admitted to CVICU postoperatively, transferred to [facility] 02/06 * Patient anemic at admission (H/H 11.3/34.1). Serial H&H's postoperatively with H/H 7.9/23.8 on 02/05, with 2 unit PRBC administered per vascular surgery. Post infusion H&H 10.3/29.8 with stable recheck. Was 9.5 on 02/07/17 (2) Low urine output Status: Acute Plan: Bladder scan showing greater than 700 mL urine 02/06. Silva was placed with less than 200 mL output. Silva has been discontinued and urine output has greatly improved over night. Following lasix. Reported 2465 urine output since yesterday. Urine is dark in color today. Ddx includes pre-renal (dehydration/hypovolemia, sepsis) vs renal (ATN 2/2 meds ) vs post renal (less likely). Goal urine output would be approximately 93 mL per hour based on patient's weight (goal UOP 1ml/kg/hr), curently 102 ml/hr, surpassed goal Plan: * Resolved * UA negative * Avoid nephrotoxic medications * On lasix 40 mg BID (3) GI bleed Status: Acute Plan: Patient reported black stools on admission and is noted to have a history of colon cancer. He was admitted November 2016 for hematemesis and black stools with GI workup at that time including EGD on 11/28 showing esophagitis, gastritis and duodenitis. It also showed evidence of Cazares's esophagus and diffuse acute active bleeding. He did receive 2 units PRBCs at that time. Per reports, he had colonoscopy 3 weeks prior to that admission which showed moderately severe diverticulosis in the sigmoid colon with large pedunculated polyp and small sessile polyp which were both removed. He has had no active bleeding this admission * Last BM this morning described as loose and green, no red streaks/black specks * Hemoccult is negative * Will continue to monitor H&H (4) Pericardial effusion Status: Acute Plan: 2-D echo was performed and read 02/05 notable for EF 55-60%, small to moderate pericardial effusion with possible clot, and also noted right and thickened pericardium. He is also noted to have minor respiratory variation on tricuspid inflows and more prominent respiratory variation on mitral inflows. Patient has not had any new episodes of dizziness and shortness of breath at baseline due to oxygen dependent COPD but notes syncopal episodes prior to admission * Cardiology consulted, awaiting recommendations * BNP 644 (02/07) (5) Syncope Status: Acute Plan: Etiology: unclear; possibly associated with abdominal aortic aneurysm. (6) COPD (chronic obstructive pulmonary disease) Status: Chronic Plan: At baseline, patient is on oxygen at home. Monitor respiratory status post-op. * Duonebs q4hr when necessary * Symbicort restarted 02/06/17 * Consider nicotine patch this hospital stay though will hold at this time given recent endovascular procedure and risks of vasoconstriction (7) Scrotal swelling Status: Acute Plan: Scrotal swelling noted this morning. Nontender, no sign of infection, relegated to scrotal tissues. * Likely 2/2 fluid overload * Will continue to monitor for change (8) Fluid, Electrolyte, Nutrition, and Prophylaxis Status: Acute Plan: Fluid: * Hold fluids at this time given lung exam suggestive of fluid overload Electrolyte: * Will monitor and replete as necessary. Nutrition: * Regular diet today DVT Prophylaxis: * SCDs * Hold chemical prophylaxis due to recent endovascular procedure GI Prophylaxis: * Protonix 40 mg PO daily Restarted home dose gabapentin 400 mg at bedtime. Patient does not appear to be a diabetic and blood sugars have been within normal limits Denis Payton MD R1 Feb 08, 2017 09:16 Denis Payton MD R1 Feb 08, 2017 09:16
--- NOTE | 2017-02-08 10:00 | PD.VS.PN ---
Subjective Procedure(s): EVAR Subjective/Hospital Course wants more salt in his food. Objective Vitals/I&O Date Time Temp Pulse Resp B/P Pulse Ox O2 Delivery O2 Flow Rate FiO2 02/08/17 08:00 82 02/08/17 08:00 98.6 78 18 138/75 96 02/08/17 07:51 99 Nasal Cannula 2.00 02/08/17 06:56 20 02/08/17 06:00 74 02/08/17 05:00 74 02/08/17 04:00 76 02/08/17 03:00 73 02/08/17 03:00 99.0 77 20 141/82 93 02/08/17 02:00 72 02/08/17 01:00 76 02/08/17 00:00 72 02/07/17 23:00 69 02/07/17 23:00 98.5 74 20 147/84 99 02/07/17 22:00 88 02/07/17 21:00 90 02/07/17 20:00 98 02/07/17 19:00 98.4 88 16 157/82 96 02/07/17 19:00 116 02/07/17 18:20 98 02/07/17 17:00 104 02/07/17 16:06 104 02/07/17 15:54 98.1 96 18 150/80 96 02/07/17 15:53 97 02/07/17 15:05 98 Nasal Cannula 3.00 02/07/17 14:17 94 02/07/17 13:18 99 02/07/17 12:00 97 02/07/17 11:00 90 02/07/17 11:00 98.1 97 18 147/80 97 02/07/17 10:20 100 02/07/17 10:03 97 Nasal Cannula 3.00 02/08/17 02/08/17 02/08/17 07:00 15:00 23:00 Intake Total 682 ml Output Total 1765 ml Balance -1083 ml Pulses: feet warm. groins with dry dressings. Laboratory Laboratory Tests Test 02/07/17 02/07/17 02/07/17 02/08/17 13:00 15:30 19:24 00:53 Hemoglobin 9.2 11.4 10.1 Hematocrit 26.5 34.5 29.8 Urine Color LIGHT-YELLOW Urine Turbidity CLEAR Urine pH 5.0 Urine Specific Criders 1.005 Urine Protein NEG Urine Glucose (UA) NEG Urine Ketones NEG Urine Occult Blood SMALL Urine Nitrite NEG Urine Bilirubin NEG Urine Urobilinogen LESS THAN 2.0 Urine Leukocyte Esterase NEG Urine RBC 7 Urine WBC 5 Urine Squamous Epithelial <1 Cells Urine Mucus FEW Microscopic Urinalysis Comment CATH-CULT NOT IND White Blood Count 6.7 Red Blood Count 3.13 Mean Corpuscular Volume 95.3 Mean Corpuscular Hemoglobin 32.3 Mean Corpuscular Hemoglobin 33.8 Concent Red Cell Distribution Width 21.3 Platelet Count 113 Mean Platelet Volume 8.7 Neutrophils (%) (Auto) 79.0 Lymphocytes (%) (Auto) 9.5 Monocytes (%) (Auto) 7.9 Eosinophils (%) (Auto) 2.9 Basophils (%) (Auto) 0.7 Neutrophils # (Auto) 5.3 Lymphocytes # (Auto) 0.6 Monocytes # (Auto) 0.5 Eosinophils # (Auto) 0.2 Basophils # (Auto) 0.0 CBC Comment DIFF FINAL Differential Comment Sodium Level 137 Potassium Level 4.0 Chloride Level 103 Carbon Dioxide Level 25.9 Anion Gap 8 Blood Urea Nitrogen 5 Creatinine 1.26 Estimat Glomerular Filtration 57 Rate Random Glucose 82 Calcium Level 7.5 Total Bilirubin 1.8 Aspartate Amino Transf 37 (AST/SGOT) Alanine Aminotransferase 32 (ALT/SGPT) Alkaline Phosphatase 141 Total Protein 5.0 Albumin 1.8 Date/Time Procedure Status Source Growth 02/08/17 04:15 Stool Occult Blood (AKIL) - Final Complete Stool Stool HEMOCCULT NEGATIVE Assessment and Plan Assessment: (1) Pseudoaneurysm of aorta Status: Acute Plan 72 year old male with contained 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 Status post EVAR with percutaneous access. Plan for discharge from my standpoint once pre-existing conditions are medically stable. Jarad Thompson DO, FACS [employer] V[employer] MACO/Jarad Martin DO Feb 08, 2017 10:00
--- NOTE | 2017-02-08 11:43 | PD.CARD.PN ---
Subjective Subjective Remarks breathing better, not at baseline Objective Medications Current Medications Medications (Trade) Dose Ordered Sig/Joanne Route Start Time Stop Time Status Last Admin (NS Flush) 2 ml UNSCH PRN IV FLUSH 02/04/17 15:15 (NS Flush) 2 ml BID IV FLUSH 02/04/17 21:00 02/08/17 07:45 (Tylenol) 650 mg Q4H PRN PO 02/04/17 15:15 (Narcan Inj) 0.4 mg UNSCH PRN IV 02/04/17 15:15 (Lian-Colace) 1 tab BID PO 02/04/17 21:00 02/07/17 21:43 (Milk Of Magnesia Liq) 30 ml Q12H PRN PO 02/04/17 15:15 (Senokot) 17.2 mg Q12H PRN PO 02/04/17 15:15 (Lactulose Liq) 30 ml DAILY PRN PO 02/04/17 15:15 Ondansetron HCl 4 mg 4 mg Q6H PRN IV PUSH 02/04/17 18:15 (KCl 20 Meq Premix Inj) 100 ml @ 50 mls/hr Q2H PRN IV 02/04/17 18:15 (Dulcolax Supp) 10 mg DAILY PRN RECTAL 02/04/17 18:15 (Tylenol Supp) 650 mg Q6H PRN RECTAL 02/04/17 18:15 (Protonix) 40 mg HS PO 02/04/17 21:00 02/07/17 08:04 (Dilaudid Pf Inj) 0.5 mg Q1H PRN IV PUSH 02/04/17 18:15 (Percocet 5-325 Mg) 1 tab Q4H PRN PO 02/04/17 18:15 02/08/17 10:34 (Percocet 10-325 Mg) 1 tab Q4H PRN PO 02/04/17 18:15 (D50w (Vial) Inj) 50 ml UNSCH PRN IV 02/04/17 19:45 (Glucagon Inj) 1 mg UNSCH PRN OTHER 02/04/17 19:45 Labetalol HCl 10 mg 10 mg Q1HR PRN IV PUSH 02/05/17 07:30 (Thiamine Inj/NS Inj) 101 ml @ 101 mls/hr DAILY IV 02/05/17 09:00 02/08/17 07:45 (NovoLOG SUPPLEMENTAL SCALE) 1 ACHS SQ 02/06/17 11:00 (Neurontin) 400 mg HS PO 02/06/17 21:00 02/07/17 21:43 (Symbicort 160-4.5 Inh) 2 puff DAILY INH 02/07/17 10:30 02/08/17 07:45 (Lopressor) 25 mg Q12HR PO 02/07/17 21:00 02/08/17 07:45 (Lasix) 40 mg BID@09,18 PO 02/07/17 18:00 02/08/17 07:44 (KCl) 20 meq Q12HR PO 02/07/17 13:30 02/08/17 07:44 Vital Signs / I&O Vital Signs Date Time Temp Pulse Resp B/P Pulse Ox O2 Delivery O2 Flow Rate FiO2 02/08/17 11:08 16 02/08/17 11:00 70 02/08/17 10:00 68 02/08/17 09:00 78 02/08/17 08:00 82 02/08/17 08:00 98.6 78 18 138/75 96 02/08/17 07:51 99 Nasal Cannula 2.00 02/08/17 07:00 76 02/08/17 06:00 74 02/08/17 05:00 74 02/08/17 04:00 76 02/08/17 03:00 73 02/08/17 03:00 99.0 77 20 141/82 93 02/08/17 02:00 72 02/08/17 01:00 76 02/08/17 00:00 72 02/07/17 23:00 69 02/07/17 23:00 98.5 74 20 147/84 99 02/07/17 22:00 88 02/07/17 21:00 90 02/07/17 20:00 98 02/07/17 19:00 98.4 88 16 157/82 96 02/07/17 19:00 116 02/07/17 18:20 98 02/07/17 17:00 104 02/07/17 16:06 104 02/07/17 15:54 98.1 96 18 150/80 96 02/07/17 15:53 97 02/07/17 15:05 98 Nasal Cannula 3.00 02/07/17 14:17 94 02/07/17 13:18 99 02/07/17 12:00 97 I/O 02/07/17 02/07/17 02/07/17 02/08/17 02/08/17 02/08/17 07:00 15:00 23:00 07:00 15:00 23:00 Intake Total 2230 ml 2720 ml 682 ml Output Total 225 ml 700 ml 1765 ml Balance 2005 ml 2020 ml -1083 ml Intake Oral 480 ml 720 ml 682 ml IV Total 1750 ml 1750 ml TPN/PPN 250 ml Output Urine Total 225 ml 700 ml 1765 ml Bladder Scan Volume Amount 711 ml # Bowel Movements 0 1 Physical Exam GENERAL: Well developed, well nourished. No acute distress. HEENT: Jugular venous pressure is normal. CHEST: Lungs wheeze to auscultation bilaterally. Unlabored respiratory effort. CARDIAC: Regular rate and rhythm without S3, S4, or murmur. ABDOMEN: Soft, nontender, no hepatosplenomegaly. Bowel sounds present. EXTREMITIES: No clubbing, cyanosis, or edema. Laboratory Laboratory Tests Test 02/07/17 02/07/17 02/07/17 02/08/17 13:00 15:30 19:24 00:53 Hemoglobin 9.2 GM/DL 11.4 GM/DL 10.1 GM/DL Hematocrit 26.5 % 34.5 % 29.8 % Urine Color LIGHT-YELLOW Urine Turbidity CLEAR Urine pH 5.0 Urine Specific [place] 1.005 Urine Protein NEG mg/dL Urine Glucose (UA) NEG mg/dL Urine Ketones NEG mg/dL Urine Occult Blood SMALL Urine Nitrite NEG Urine Bilirubin NEG Urine Urobilinogen LESS THAN 2.0 MG/DL Urine Leukocyte Esterase NEG Urine RBC 7 /hpf Urine WBC 5 /hpf Urine Squamous Epithelial <1 /hpf Cells Urine Mucus FEW /lpf Microscopic Urinalysis Comment CATH-CULT NOT IND White Blood Count 6.7 TH/MM3 Red Blood Count 3.13 MIL/MM3 Mean Corpuscular Volume 95.3 FL Mean Corpuscular Hemoglobin 32.3 PG Mean Corpuscular Hemoglobin 33.8 % Concent Red Cell Distribution Width 21.3 % Platelet Count 113 TH/MM3 Mean Platelet Volume 8.7 FL Neutrophils (%) (Auto) 79.0 % Lymphocytes (%) (Auto) 9.5 % Monocytes (%) (Auto) 7.9 % Eosinophils (%) (Auto) 2.9 % Basophils (%) (Auto) 0.7 % Neutrophils # (Auto) 5.3 TH/MM3 Lymphocytes # (Auto) 0.6 TH/MM3 Monocytes # (Auto) 0.5 TH/MM3 Eosinophils # (Auto) 0.2 TH/MM3 Basophils # (Auto) 0.0 TH/MM3 CBC Comment DIFF FINAL Differential Comment Sodium Level 137 MEQ/L Potassium Level 4.0 MEQ/L Chloride Level 103 MEQ/L Carbon Dioxide Level 25.9 MEQ/L Anion Gap 8 MEQ/L Blood Urea Nitrogen 5 MG/DL Creatinine 1.26 MG/DL Estimat Glomerular Filtration 57 ML/MIN Rate Random Glucose 82 MG/DL Calcium Level 7.5 MG/DL Total Bilirubin 1.8 MG/DL Aspartate Amino Transf 37 U/L (AST/SGOT) Alanine Aminotransferase 32 U/L (ALT/SGPT) Alkaline Phosphatase 141 U/L Total Protein 5.0 GM/DL Albumin 1.8 GM/DL Assessment and Plan Assessment and Plan 1. Acute diastolic CHF- -continue fluid and sodium restriction -back to IV lasix, potassium and BB 2. Hypertension - as above. 3. Smoking - the patient was counselled to quit. 4. Status post EVAR - the patient had a contained ruptured pseudoaneurysm of the distal abdominal aorta and is now status post EVAR and being managed by Dr. Thompson. 5> COPD- per primary team Yamileth Bender MD Feb 08, 2017 11:43
[2017-02-08] MEDS: PANTOPRAZOLE SOD 40 MG DELAYED RELEASE TAB PO SCH (20:48)
[2017-02-08] MEDS: GABAPENTIN 400 MG CAP PO SCH (20:48)
[2017-02-09] VITALS (23 sets, daily range): BP systolic 129–145; BP diastolic 73–98; PULSE 60–84; RESP 16–20; TEMP 97.5–98.4; O2SAT 92–99
[2017-02-09] MEDS: TEMAZEPAM 15 MG CAP PO PRN ×2 (01:03→20:56)
[2017-02-09] MEDS: RESP: ALBUTEROL 2.5 MG/IPRATROPIUM 0.5 MG NEB (PRN) NEB (01:06)
[2017-02-09] MEDS: oxyCODONE/ACETAMINOPHEN 5 MG/325 MG TAB PO PRN (03:36)
[2017-02-09 05:02] LABS: AUTOMATED NEUTROPHIL # 3.9 TH/MM3 (1.8-7.7); BASOPHIL # 0.1 TH/MM3 (0-0.2); BASOPHIL % 1.2 % (0.0-2.0); EOSINOPHIL # 0.4 TH/MM3 (0-0.4); EOSINOPHIL % 6.8 % (0.0-4.0); HEMATOCRIT 31.4 % (39.0-51.0); HEMO FLAGS DIFF FINAL; LYMPH % 12.8 % (9.0-44.0); LYMPHOCYTE # 0.7 TH/MM3 (1.0-4.8); MEAN CELL VOLUME 97.1 FL (80.0-100.0); MEAN CORPUSCULAR HEMOGLOBIN 32.1 PG (27.0-34.0); MONO % 9.5 % (0.0-8.0); NEUT % 69.7 % (16.0-70.0); PLATELET COUNT 133 TH/MM3 (150-450); RED BLOOD COUNT 3.24 MIL/MM3 (4.50-5.90); RED CELL DISTRIBUTION WIDTH 20.8 % (11.6-17.2); WHITE BLOOD COUNT 5.6 TH/MM3 (4.0-11.0)
[2017-02-09 05:27] LABS: ANION GAP 8 MEQ/L (5-15); AST (GOT) 31 U/L (15-37); BICARBONATE 25.7 MEQ/L (21.0-32.0); BLOOD UREA NITROGEN 7 MG/DL (7-18); CHLORIDE 101 MEQ/L (98-107); GLOMERULAR FILTRATION RATE 53 ML/MIN (>89); POTASSIUM 3.7 MEQ/L (3.5-5.1); SODIUM (NA) 135 MEQ/L (136-145)
[2017-02-09 05:30] LABS: ALKALINE PHOSPHATASE 148 U/L (45-117); ALT (GPT) 29 U/L (12-78); TOTAL BILIRUBIN ADULT 1.5 MG/DL (0.2-1.0)
[2017-02-09] MEDS: INSULIN ASPART SUPPLEMENTAL SCALE SQ SCH ×4 (07:00→19:47)
[2017-02-09] MEDS ORDERED: predniSONE 20 MG TAB PO ONE (09:15)
[2017-02-09] MEDS: SODIUM CHLORIDE 0.9% FLUSH 10 ML FLUSH IV FLUSH SCH ×2 (09:20→20:56)
[2017-02-09] MEDS: POTASSIUM CHLORIDE 20 MEQ CONTROLLED RELEASE TAB PO SCH ×2 (09:20→20:55)
[2017-02-09] MEDS: METOPROLOL TARTRATE 25 MG TAB PO SCH ×2 (09:20→20:56)
[2017-02-09] MEDS: DOCUSATE SODIUM 50 MG/SENNA 8.6 MG TAB PO SCH ×2 (09:21→20:56)
[2017-02-09] MEDS: FUROSEMIDE 40 MG/4 ML VIAL IV PUSH SCH ×2 (09:21→18:02)
[2017-02-09] MEDS: THIAMINE INJ 100 MG in SODIUM CHLORIDE 0.9% INJ 100 ML IV SCH (09:22)
[2017-02-09] MEDS ORDERED: RESP: ALBUTEROL 2.5 MG/3 ML NEB (PRN) INH (10:00)
[2017-02-09] MEDS: BUDESONIDE-FORMOTEROL 160/4.5 MCG INHALER INH SCH (11:48)
--- NOTE | 2017-02-09 11:59 | PD.VS.PN ---
Subjective POD #: 5 Procedure(s): EVAR Subjective/Hospital Course Pt w/o complaints sitting up in bed (Sarahi Dye) Objective Vitals/I&O Date Time Temp Pulse Resp B/P Pulse Ox O2 Delivery O2 Flow Rate FiO2 02/09/17 11:00 65 02/09/17 11:00 97.7 66 20 144/79 96 02/09/17 10:00 67 02/09/17 09:00 74 02/09/17 08:00 97.5 79 20 134/94 99 02/09/17 08:00 64 02/09/17 07:32 92 Nasal Cannula 2.00 02/09/17 06:00 62 02/09/17 05:00 60 02/09/17 04:00 62 02/09/17 04:00 98.1 67 18 129/81 97 02/09/17 03:00 66 02/09/17 02:00 84 02/09/17 01:07 98 Nasal Cannula 2.00 02/09/17 01:00 66 02/09/17 00:00 68 02/09/17 00:00 98.1 68 16 130/79 98 02/08/17 23:00 68 02/08/17 22:00 66 02/08/17 21:00 68 02/08/17 20:00 98.2 70 20 122/73 99 02/08/17 20:00 68 02/08/17 19:00 68 02/08/17 18:00 82 02/08/17 17:00 70 02/08/17 16:06 20 02/08/17 16:00 72 02/08/17 16:00 98.4 69 19 121/83 99 02/08/17 15:16 96 Nasal Cannula 2.00 02/08/17 15:00 70 02/08/17 14:00 74 02/08/17 13:00 66 02/08/17 12:00 68 02/08/17 12:00 98.6 66 19 138/83 100 02/09/17 02/09/17 02/09/17 07:00 15:00 23:00 Intake Total 1181 ml Output Total 1100 ml Balance 81 ml Exam: GENERAL: A&OX3,NAD SKIN: Warm and dry bilat groin wounds intact c/d w/o R/D/S GASTROINTESTINAL: S/NT MUSCULOSKELETAL: No cyanosis, or edema. - back/abdominal pain Laboratory Laboratory Tests Test 02/09/17 04:34 White Blood Count 5.6 Red Blood Count 3.24 Hemoglobin 10.4 Hematocrit 31.4 Mean Corpuscular Volume 97.1 Mean Corpuscular Hemoglobin 32.1 Mean Corpuscular Hemoglobin 33.0 Concent Red Cell Distribution Width 20.8 Platelet Count 133 Mean Platelet Volume 8.1 Neutrophils (%) (Auto) 69.7 Lymphocytes (%) (Auto) 12.8 Monocytes (%) (Auto) 9.5 Eosinophils (%) (Auto) 6.8 Basophils (%) (Auto) 1.2 Neutrophils # (Auto) 3.9 Lymphocytes # (Auto) 0.7 Monocytes # (Auto) 0.5 Eosinophils # (Auto) 0.4 Basophils # (Auto) 0.1 CBC Comment DIFF FINAL Differential Comment Sodium Level 135 Potassium Level 3.7 Chloride Level 101 Carbon Dioxide Level 25.7 Anion Gap 8 Blood Urea Nitrogen 7 Creatinine 1.33 Estimat Glomerular Filtration 53 Rate Random Glucose 71 Calcium Level 7.8 Total Bilirubin 1.5 Aspartate Amino Transf 31 (AST/SGOT) Alanine Aminotransferase 29 (ALT/SGPT) Alkaline Phosphatase 148 B-Type Natriuretic Peptide 403 Total Protein 5.2 Albumin 1.8 Date/Time Procedure Status Source Growth 02/08/17 04:15 Stool Occult Blood (AKIL) - Final Complete Stool Stool HEMOCCULT NEGATIVE (Sarahi Dye) Assessment and Plan Assessment: (1) Pseudoaneurysm of aorta Status: Acute Plan 72 year old male with 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 Status post EVAR with percutaneous access. Plan Arranged for post op follow up Appointment time/date was given to patient Will repeat CTA (post EVAR) in 1m for surveillance Sarahi HANDY [facility]/PostedIn [phone] Discharge Planning Pt clear for D/C from a vascular standpoint Will see patient in our OPC for follow up (Sarahi Dye) Plan I agree with above A/P. Jarad Thompson DO, FACS (Jarad Thompson DO) Sarahi Dye Feb 09, 2017 11:59 Jarad Thompson DO Feb 09, 2017 13:27
--- NOTE | 2017-02-09 14:57 | HHI.FPPN ---
Subjective Remarks Patient was seen and examined this morning. He denies fevers, chills, chest pain , headache, n/v. He notes shortness of breath at baseline. No bowel movement since yesterday, was expecting to have one soon. He is tolerating diet without any problems. He denies abdominal pain or discomfort. He has limited pain at surgical sites, notes it is in fact unchanged since yesterday although yesterday he said he had no pain. Patient states that he slept well last night after receiving Restoril. Patient reports scrotal swelling is now showing some bruising. Swelling is not painful, warm to touch or throbbing in nature. Swelling is reported as contained to the scrotum, no surrounding tissues. ( Denis Payton MD R1) Objective Vitals Vital Signs Date Time Temp Pulse Resp B/P Pulse Ox O2 Delivery O2 Flow Rate FiO2 02/09/17 14:00 72 02/09/17 13:00 66 02/09/17 12:00 64 02/09/17 11:00 65 02/09/17 11:00 97.7 66 20 144/79 96 02/09/17 10:00 67 02/09/17 09:00 74 02/09/17 08:00 97.5 79 20 134/94 99 02/09/17 08:00 64 02/09/17 07:32 92 Nasal Cannula 2.00 02/09/17 06:00 62 02/09/17 05:00 60 02/09/17 04:00 62 02/09/17 04:00 98.1 67 18 129/81 97 02/09/17 03:00 66 02/09/17 02:00 84 02/09/17 01:07 98 Nasal Cannula 2.00 02/09/17 01:00 66 02/09/17 00:00 68 02/09/17 00:00 98.1 68 16 130/79 98 02/08/17 23:00 68 02/08/17 22:00 66 02/08/17 21:00 68 02/08/17 20:00 98.2 70 20 122/73 99 02/08/17 20:00 68 02/08/17 19:00 68 02/08/17 18:00 82 02/08/17 17:00 70 02/08/17 16:06 20 02/08/17 16:00 72 02/08/17 16:00 98.4 69 19 121/83 99 02/08/17 15:16 96 Nasal Cannula 2.00 02/08/17 15:00 70 I/O 02/08/17 02/08/17 02/08/17 02/09/17 02/09/17 02/09/17 06:59 14:59 22:59 06:59 14:59 22:59 Intake Total 682 ml 1000 ml 1181 ml Output Total 1765 ml 1050 ml 1100 ml Balance -1083 ml -50 ml 81 ml Intake Oral 682 ml 880 ml 1181 ml IV Total 120 ml Output Urine Total 1765 ml 1050 ml 1100 ml # Bowel Movements 1 0 (Denis Payton MD R1) Result Diagram: 02/09/1743302/09/17433 Objective Remarks GENERAL: well nourished male in no apparent distress. Wearing nasal cannula. SKIN: Warm and dry. Incision sites at bilateral groin with gauze dressings, with sites showing no erythema, discharge or bleeding. HEAD: Atraumatic. Normocephalic. EYES: Pupils equal and round. No scleral icterus. No injection or drainage. ENT: No nasal bleeding or discharge. Mucous membranes pink and moist. NECK: Trachea midline. CARDIOVASCULAR: Regular rate and rhythm. No JVD. Pulses 2+ bilaterally in extremities. Brisk cap refill. RESPIRATORY: No accessory muscle use. Diffuse expiratory wheezing noted without stethoscope. Breath sounds equal bilaterally including at lung bases. GASTROINTESTINAL: Abdomen is tense, nontender. Mass is palpated through abdominal wall. Bladder is not obviously palpable. Normal bowel sounds. Hepatic and splenic margins not palpable. MUSCULOSKELETAL: Extremities without clubbing, cyanosis, or edema. No obvious deformities. No calf tenderness. GENITALIA: Scrotum diffusely swollen. Bruising at the base. Nontender. Not warm to touch. No infiltration into penis or inguinal region. NEUROLOGICAL: Awake and alert. No obvious cranial nerve deficits. Motor grossly within normal limits. Normal speech. PSYCHIATRIC: Appropriate mood and affect; insight and judgment normal Medications and IVs Current Medications Medications (Trade) Dose Ordered Sig/Joanne Route Start Time Stop Time Status Last Admin (NS Flush) 2 ml UNSCH PRN IV FLUSH 02/04/17 15:15 (NS Flush) 2 ml BID IV FLUSH 02/04/17 21:00 02/09/17 09:20 (Tylenol) 650 mg Q4H PRN PO 02/04/17 15:15 (Narcan Inj) 0.4 mg UNSCH PRN IV 02/04/17 15:15 (Lian-Colace) 1 tab BID PO 02/04/17 21:00 02/09/17 09:21 (Milk Of Magnesia Liq) 30 ml Q12H PRN PO 02/04/17 15:15 (Senokot) 17.2 mg Q12H PRN PO 02/04/17 15:15 (Lactulose Liq) 30 ml DAILY PRN PO 02/04/17 15:15 Ondansetron HCl 4 mg 4 mg Q6H PRN IV PUSH 02/04/17 18:15 (KCl 20 Meq Premix Inj) 100 ml @ 50 mls/hr Q2H PRN IV 02/04/17 18:15 (Dulcolax Supp) 10 mg DAILY PRN RECTAL 02/04/17 18:15 (Tylenol Supp) 650 mg Q6H PRN RECTAL 02/04/17 18:15 (Protonix) 40 mg HS PO 02/04/17 21:00 02/08/17 20:48 (Dilaudid Pf Inj) 0.5 mg Q1H PRN IV PUSH 02/04/17 18:15 (Percocet 5-325 Mg) 1 tab Q4H PRN PO 02/04/17 18:15 02/09/17 03:36 (Percocet 10-325 Mg) 1 tab Q4H PRN PO 02/04/17 18:15 (D50w (Vial) Inj) 50 ml UNSCH PRN IV 02/04/17 19:45 (Glucagon Inj) 1 mg UNSCH PRN OTHER 02/04/17 19:45 Labetalol HCl 10 mg 10 mg Q1HR PRN IV PUSH 02/05/17 07:30 (Thiamine Inj/NS Inj) 101 ml @ 101 mls/hr DAILY IV 02/05/17 09:00 02/09/17 09:22 (NovoLOG SUPPLEMENTAL SCALE) 1 ACHS SQ 02/06/17 11:00 (Neurontin) 400 mg HS PO 02/06/17 21:00 02/08/17 20:48 (Symbicort 160-4.5 Inh) 2 puff DAILY INH 02/07/17 10:30 02/09/17 11:48 (Lopressor) 25 mg Q12HR PO 02/07/17 21:00 02/09/17 09:20 (KCl) 20 meq Q12HR PO 02/07/17 13:30 02/09/17 09:20 (Restoril) 15 mg HS PRN PO 02/09/17 00:45 02/09/17 01:03 (Lasix Inj) 40 mg BID@,18 IV PUSH 02/09/17 09:00 02/09/17 09:21 (Deltasone) 40 mg DAILY PO 02/10/17 09:00 (Denis Payton MD R1) Date of Insertion: Feb 06, 2017 (Denis Payton MD R1) A/P Assessment and Plan 72-year-old male with hypertension and COPD who presented with gradually worsening abdominal pain for 2 weeks with acute worsening over 4 days prior to admission with multiple syncopal episodes. 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 He was taken for endovascular procedure AAA repair from the ED on 02/04. Discharge Planning Patient is postoperative from endovascular procedure on 02/04/17. Anticipate discharge once chronic problems returned to baseline. (Denis Payton MD R1) Attending Attestation Patients case was dicussed in detail with resident medical team,examination performed, EMR reviewed, agree with Admission, Assessment and Plan, See Orders. (Danilo Gordon MD) Problem List: (1) Pseudoaneurysm of aorta Status: Acute Plan: Patient presented with severe abdominal pain and was noted to have possible pseudoaneurysm on CT of the distal aorta. He was taken to the OR and noted to have a leaking aneurysm which was repaired on 02/04. He is POD #4. He has been stable aside from decreasing H/H which was corrected on 02/05. * Continue wound monitoring * H/H 10.4/31.4 today (02/09), improved from yesterday * Monitor H/H * Monitor for new symptoms of hemodynamic compromise (2) Low urine output Status: Acute Plan: Bladder scan showing greater than 700 mL urine 02/06. Silva was placed with less than 200 mL output. Silva has been discontinued and urine output has greatly improved over night. Following lasix. Reported 2465 urine output since yesterday. Urine is dark in color today. Ddx includes pre-renal (dehydration/hypovolemia, sepsis) vs renal (ATN 2/2 meds ) vs post renal (less likely). Goal urine output would be approximately 93 mL per hour based on patient's weight (goal UOP 1ml/kg/hr), curently 102 ml/hr, surpassed goal Plan: * Resolved * UA negative * Fluid overloaded * Avoid nephrotoxic medications * On lasix 40 mg BID (3) GI bleed Status: Acute Plan: Patient reported black stools on admission and is noted to have a history of colon cancer. He was admitted November 2016 for hematemesis and black stools with GI workup at that time including EGD on 11/28 showing esophagitis, gastritis and duodenitis. It also showed evidence of Cazares's esophagus and diffuse acute active bleeding. He did receive 2 units PRBCs at that time. Per reports, he had colonoscopy 3 weeks prior to that admission which showed moderately severe diverticulosis in the sigmoid colon with large pedunculated polyp and small sessile polyp which were both removed. He has had no active bleeding this admission * Last BM yesterday described as loose and green, no red streaks/black specks * Hemoccult is negative * Will continue to monitor H&H, currently treading up (4) Pericardial effusion Status: Acute Plan: 2-D echo was performed and read 02/05 notable for EF 55-60%, small to moderate pericardial effusion with possible clot, and also noted right and thickened pericardium. He is also noted to have minor respiratory variation on tricuspid inflows and more prominent respiratory variation on mitral inflows. Patient has not had any new episodes of dizziness and shortness of breath at baseline due to oxygen dependent COPD but notes syncopal episodes prior to admission * To be followed up outpatient (5) Syncope Status: Acute Plan: Etiology: unclear; possibly associated with abdominal aortic aneurysm. (6) COPD (chronic obstructive pulmonary disease) Status: Chronic Plan: Close to baseline, patient is on oxygen at home. Monitor respiratory status. * Duonebs q4hr when necessary * Symbicort restarted 02/06/17 * Currently on fluid and sodium restriction * Prednisone 40 mg daily (7) Scrotal swelling Status: Acute Plan: Scrotal swelling noted this morning. Nontender, no sign of infection, relegated to scrotal tissues. * Likely minor blood pooling 2/2 aorta repair * Will continue to monitor for change (8) Fluid, Electrolyte, Nutrition, and Prophylaxis Status: Acute Plan: Fluid: * Hold fluids at this time given lung exam suggestive of fluid overload Electrolyte: * Will monitor and replete as necessary. Nutrition: * Regular diet today DVT Prophylaxis: * SCDs * Hold chemical prophylaxis due to recent endovascular procedure GI Prophylaxis: * Protonix 40 mg PO daily Restarted home dose gabapentin 400 mg at bedtime. Patient does not appear to be a diabetic and blood sugars have been within normal limits (Denis Payton MD R1) Denis Payton MD R1 Feb 09, 2017 14:57 Danilo Gordon MD Feb 09, 2017 18:43
[2017-02-09] MEDS: GABAPENTIN 400 MG CAP PO SCH (20:55)
[2017-02-09] MEDS: PANTOPRAZOLE SOD 40 MG DELAYED RELEASE TAB PO SCH (20:56)
[2017-02-10] VITALS: BP 118/63; PULSE 65; RESP 18; TEMP 97.5; O2SAT 95
[2017-02-10 04:00] VITALS: BP 127/82; PULSE 69; RESP 16; TEMP 97.8; O2SAT 99
[2017-02-10] MEDS: INSULIN ASPART SUPPLEMENTAL SCALE SQ SCH ×2 (05:25→11:00)
[2017-02-10 08:00] VITALS: BP 132/77; PULSE 73; RESP 18; TEMP 97.4; O2SAT 95
--- NOTE | 2017-02-10 08:12 | PD.CARD.PN ---
Subjective Subjective Remarks Pt reports feeling a little better Objective Medications Current Medications Medications (Trade) Dose Ordered Sig/Joanne Route Start Time Stop Time Status Last Admin (NS Flush) 2 ml UNSCH PRN IV FLUSH 02/04/17 15:15 (NS Flush) 2 ml BID IV FLUSH 02/04/17 21:00 02/09/17 20:56 (Tylenol) 650 mg Q4H PRN PO 02/04/17 15:15 (Narcan Inj) 0.4 mg UNSCH PRN IV 02/04/17 15:15 (Lian-Colace) 1 tab BID PO 02/04/17 21:00 02/09/17 09:21 (Milk Of Magnesia Liq) 30 ml Q12H PRN PO 02/04/17 15:15 (Senokot) 17.2 mg Q12H PRN PO 02/04/17 15:15 (Lactulose Liq) 30 ml DAILY PRN PO 02/04/17 15:15 Ondansetron HCl 4 mg 4 mg Q6H PRN IV PUSH 02/04/17 18:15 (KCl 20 Meq Premix Inj) 100 ml @ 50 mls/hr Q2H PRN IV 02/04/17 18:15 (Dulcolax Supp) 10 mg DAILY PRN RECTAL 02/04/17 18:15 (Tylenol Supp) 650 mg Q6H PRN RECTAL 02/04/17 18:15 (Protonix) 40 mg HS PO 02/04/17 21:00 02/09/17 20:56 (Dilaudid Pf Inj) 0.5 mg Q1H PRN IV PUSH 02/04/17 18:15 (Percocet 5-325 Mg) 1 tab Q4H PRN PO 02/04/17 18:15 02/09/17 03:36 (Percocet 10-325 Mg) 1 tab Q4H PRN PO 02/04/17 18:15 (D50w (Vial) Inj) 50 ml UNSCH PRN IV 02/04/17 19:45 (Glucagon Inj) 1 mg UNSCH PRN OTHER 02/04/17 19:45 Labetalol HCl 10 mg 10 mg Q1HR PRN IV PUSH 02/05/17 07:30 (Thiamine Inj/NS Inj) 101 ml @ 101 mls/hr DAILY IV 02/05/17 09:00 02/09/17 09:22 (NovoLOG SUPPLEMENTAL SCALE) 1 ACHS SQ 02/06/17 11:00 02/09/17 16:00 (Neurontin) 400 mg HS PO 02/06/17 21:00 02/09/17 20:55 (Symbicort 160-4.5 Inh) 2 puff DAILY INH 02/07/17 10:30 02/09/17 11:48 (Lopressor) 25 mg Q12HR PO 02/07/17 21:00 02/09/17 20:56 (KCl) 20 meq Q12HR PO 02/07/17 13:30 02/09/17 20:55 (Restoril) 15 mg HS PRN PO 02/09/17 00:45 02/09/17 20:56 (Lasix Inj) 40 mg BID@,18 IV PUSH 02/09/17 09:00 02/09/17 18:02 (Deltasone) 40 mg DAILY PO 02/10/17 09:00 Vital Signs / I&O Vital Signs Date Time Temp Pulse Resp B/P Pulse Ox O2 Delivery O2 Flow Rate FiO2 02/10/17 04:00 97.8 69 16 127/82 99 02/10/17 04:00 Nasal Cannula 2.00 02/10/17 00:29 Nasal Cannula 2.00 02/10/17 00:00 97.5 65 18 118/63 95 02/09/17 20:13 67 02/09/17 20:00 Nasal Cannula 2.00 02/09/17 20:00 98.1 65 16 138/73 98 02/09/17 18:00 84 02/09/17 17:00 65 02/09/17 16:35 97 Nasal Cannula 2.00 02/09/17 16:00 65 02/09/17 15:00 98.4 76 18 145/98 99 02/09/17 15:00 81 02/09/17 14:00 72 02/09/17 13:00 66 02/09/17 12:00 64 02/09/17 11:00 65 02/09/17 11:00 97.7 66 20 144/79 96 02/09/17 10:00 67 02/09/17 09:00 74 I/O 02/09/17 02/09/17 02/09/17 02/10/1717 7/25/17 07:00 15:00 23:00 07:00 15:00 23:00 Intake Total 1181 ml 962 ml 420 ml Output Total 1100 ml 1230 ml 740 ml Balance 81 ml -268 ml -320 ml Intake Oral 1181 ml 960 ml 420 ml IV Total 2 ml Output Urine Total 1100 ml 1230 ml 740 ml # Bowel Movements 1 0 Physical Exam GENERAL: Well developed, well nourished. No acute distress. HEENT: Jugular venous pressure is normal. CHEST: Lungs wheeze to auscultation bilaterally. Unlabored respiratory effort. CARDIAC: Regular rate and rhythm without S3, S4, or murmur. ABDOMEN: Soft, nontender, no hepatosplenomegaly. Bowel sounds present. EXTREMITIES: No clubbing, cyanosis, or edema. Assessment and Plan Assessment and Plan 1. Acute diastolic CHF- better, good weight loss -continue fluid and sodium restriction -change to PO 2. Hypertension - 3. Smoking - 4. Status post EVAR - the patient had a contained ruptured pseudoaneurysm of the distal abdominal aorta and is now status post EVAR and being managed by Dr. Thompson. 5. COPD- per primary team 6. Dispo- reasonable for d/c this afternoon if resp status stable/improved Yamileth Bender MD Feb 10, 2017 08:12
[2017-02-10] MEDS: RESP: ALBUTEROL 2.5 MG/IPRATROPIUM 0.5 MG NEB (PRN) NEB ×2 (08:18→11:46)
[2017-02-10 08:22] VITALS: O2SAT 96
[2017-02-10 08:28] LABS: HEMATOCRIT 33.6 % (39.0-51.0); MEAN CELL VOLUME 96.7 FL (80.0-100.0); MEAN CORPUSCULAR HEMOGLOBIN 31.8 PG (27.0-34.0); MEAN CORPUSCULAR HGB CONC 32.9 % (32.0-36.0); PLATELET COUNT 166 TH/MM3 (150-450); RED BLOOD COUNT 3.47 MIL/MM3 (4.50-5.90); RED CELL DISTRIBUTION WIDTH 20.7 % (11.6-17.2); REVIEW FLAG FINAL
[2017-02-10 08:51] LABS: BICARBONATE 24.7 MEQ/L (21.0-32.0); POTASSIUM 4.1 MEQ/L (3.5-5.1)
[2017-02-10] MEDS: DOCUSATE SODIUM 50 MG/SENNA 8.6 MG TAB PO SCH (09:00)
[2017-02-10] MEDS ORDERED: FUROSEMIDE 40 MG TAB PO SCH (09:00)
[2017-02-10] MEDS ORDERED: predniSONE 20 MG TAB PO SCH (09:00)
[2017-02-10] MEDS: THIAMINE INJ 100 MG in SODIUM CHLORIDE 0.9% INJ 100 ML IV SCH (09:35)
[2017-02-10] MEDS: BUDESONIDE-FORMOTEROL 160/4.5 MCG INHALER INH SCH (09:35)
[2017-02-10] MEDS: POTASSIUM CHLORIDE 20 MEQ CONTROLLED RELEASE TAB PO SCH (09:36)
[2017-02-10] MEDS: SODIUM CHLORIDE 0.9% FLUSH 10 ML FLUSH IV FLUSH SCH (09:36)
[2017-02-10] MEDS: METOPROLOL TARTRATE 25 MG TAB PO SCH (09:36)
[2017-02-10 10:08] VITALS: PULSE 75
[2017-02-10 12:00] VITALS: BP 120/72; PULSE 68; RESP 18; TEMP 98.4; O2SAT 97
--- NOTE | 2017-02-10 12:18 | HHI.FF ---
Face to Face Verification Diagnosis: (1) COPD (chronic obstructive pulmonary disease) (2) AAA (abdominal aortic aneurysm) (3) Fluid, Electrolyte, Nutrition, and Prophylaxis (4) GI bleed (5) Low urine output (6) Pericardial effusion (7) Scrotal swelling (8) Pseudoaneurysm of aorta Physical Therapy Order: Evaluate and Treat Instructions: Please evaluate and treat patient Home Health Nursing Order: Medical education Oxygen administration education Nursing assessment with vital signs Instructions: Please evaluate patient I have seen patient Vaibhav Lozadajudah Wise Jr on 02/10/17. My clinical findings support the need for the requested home health care services because: Ltd mobility - disease progression Patient has SOB Deconditioned w/ increased weakness I certify that my clinical findings support that this patient is homebound because: Post-op weakness Hx COPD- exertion dyspnea/weakness Khurram Haynes MD R2 Feb 10, 2017 12:17
[2017-02-10] MEDS ORDERED: PRED10 PO (12:30)
[2017-02-10] MEDS ORDERED: ALBU0.08 INH (12:30)
[2017-02-10] MEDS ORDERED: POTA20TA5 PO (12:30)
[2017-02-10] MEDS ORDERED: PANT40TA3 PO (12:30)
[2017-02-10] MEDS ORDERED: FURO40TA PO (12:30)
[2017-02-10] MEDS ORDERED: NEUR400C PO (12:30)
[2017-02-10] MEDS ORDERED: METO25TA3 PO (12:30)
[2017-02-10] MEDS ORDERED: SENN1TAB PO (12:30)
[2017-02-10] MEDS ORDERED: IPRASOL NEB (12:30)
[2017-02-10] MEDS ORDERED: SYMB160A INH (12:30)
[2017-02-10] MEDS ORDERED: OXYC1TAB63 PO (12:30)
--- NOTE | 2017-02-10 18:08 | HHI.FPPN ---
Subjective Remarks Pt seen and examined this morning. No acute events overnight. Pt reports that his breathing is better than his baseline. His pain has been well controlled. He denies chest pain, nausea, vomiting. No issues voiding, pt is having regular bowel movements. He has no acute concerns this morning. Objective Vitals Vital Signs Date Time Temp Pulse Resp B/P Pulse Ox O2 Delivery O2 Flow Rate FiO2 02/10/17 12:00 98.4 68 18 120/72 97 02/10/17 10:08 Nasal Cannula 2.00 02/10/17 10:08 75 02/10/17 08:22 96 Nasal Cannula 2.00 02/10/17 08:00 97.4 73 18 132/77 95 02/10/17 04:00 97.8 69 16 127/82 99 02/10/17 04:00 Nasal Cannula 2.00 02/10/17 00:29 Nasal Cannula 2.00 02/10/17 00:00 97.5 65 18 118/63 95 02/09/17 20:13 67 02/09/17 20:00 Nasal Cannula 2.00 02/09/17 20:00 98.1 65 16 138/73 98 02/09/17 18:00 84 I/O 02/09/17 02/09/17 02/09/17 02/10/17 02/10/17 02/10/17 07:00 15:00 23:00 07:00 15:00 23:00 Intake Total 1181 ml 962 ml 420 ml 720 ml Output Total 1100 ml 1230 ml 740 ml Balance 81 ml -268 ml -320 ml 720 ml Intake Oral 1181 ml 960 ml 420 ml 720 ml IV Total 2 ml Output Urine Total 1100 ml 1230 ml 740 ml # Voids 2 # Bowel Movements 1 0 0 Result Diagram: 02/10/17 0753 02/10/17 0753 Objective Remarks GENERAL: well nourished male in no apparent distress. Wearing nasal cannula, 2L. SKIN: Warm and dry. Incision sites at bilateral groin with gauze dressings, with sites showing no erythema, discharge or bleeding. HEAD: Atraumatic. Normocephalic. EYES: Pupils equal and round. No scleral icterus. No injection or drainage. ENT: No nasal bleeding or discharge. Mucous membranes pink and moist. NECK: Trachea midline. CARDIOVASCULAR: Regular rate and rhythm. No JVD. Pulses 2+ bilaterally in extremities. Brisk cap refill. RESPIRATORY: No accessory muscle use. Diffuse expiratory wheezing. Breath sounds equal bilaterally including at lung bases. GASTROINTESTINAL: Abdomen is soft, nontender. Normal bowel sounds. Hepatic and splenic margins not palpable. MUSCULOSKELETAL: Extremities without clubbing, cyanosis, or edema. No obvious deformities. No calf tenderness. GENITALIA: Scrotum mildly edematous. Bruising at the base. Nontender. Not warm to touch. NEUROLOGICAL: Awake and alert. No obvious cranial nerve deficits. Normal speech. PSYCHIATRIC: Appropriate mood and affect; insight and judgment normal Date of Insertion: Feb 06, 2017 A/P Assessment and Plan 72-year-old male with hypertension and COPD who presented with gradually worsening abdominal pain for 2 weeks with acute worsening over 4 days prior to admission with multiple syncopal episodes. 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 He was taken for endovascular procedure AAA repair from the ED on 02/04. Discharge Planning Patient is postoperative from endovascular procedure on 02/04/17. Anticipate discharge today. Problem List: (1) COPD (chronic obstructive pulmonary disease) Status: Chronic Plan: Breathing better than his baseline, patient is on oxygen at home. Monitor respiratory status. * Duonebs q4hr when necessary * Symbicort * Currently on fluid and sodium restriction * Prednisone 40 mg daily, to be tapered after discharge (2) Pseudoaneurysm of aorta Status: Acute Plan: Patient presented with severe abdominal pain and was noted to have possible pseudoaneurysm on CT of the distal aorta. He was taken to the OR and noted to have a leaking aneurysm which was repaired on 02/04. He has been stable aside from decreasing H/H which was corrected on 02/05. * Continue wound monitoring * H/H stable * Vitals have been stable (3) GI bleed Status: Acute Plan: Patient reported black stools on admission and is noted to have a history of colon cancer. He was admitted November 2016 for hematemesis and black stools with GI workup at that time including EGD on 11/28 showing esophagitis, gastritis and duodenitis. It also showed evidence of Cazares's esophagus and diffuse acute active bleeding. He did receive 2 units PRBCs at that time. Per reports, he had colonoscopy 3 weeks prior to that admission which showed moderately severe diverticulosis in the sigmoid colon with large pedunculated polyp and small sessile polyp which were both removed. He has had no active bleeding this admission * Pt denies bloody/black stools * Hemoccult is negative * Will continue to monitor H&H (4) Pericardial effusion Status: Acute Plan: 2-D echo was performed and read 02/05 notable for EF 55-60%, small to moderate pericardial effusion with possible clot, and also noted right and thickened pericardium. * Cardiology consulted, appreciate recommendations * No additional management (5) Scrotal swelling Status: Acute Plan: Pt with improved scrotal swelling. * likely due to fluid overload (6) Fluid, Electrolyte, Nutrition, and Prophylaxis Status: Acute Plan: Fluid: * None, pt tolerating PO Electrolyte: * Will monitor and replete as necessary. Nutrition: * Regular diet today DVT Prophylaxis: * SCDs * Hold chemical prophylaxis due to recent endovascular procedure GI Prophylaxis: * Protonix 40 mg PO daily Restarted home dose gabapentin 400 mg at bedtime. Khurram Haynes MD R2 Feb 10, 2017 18:08
== END 2017-02-10 14:41 | disposition home health service (06) | DRG 268 ==
LOC: NEPC 10:21 → NEDA 14:41 → HSDI 18:26 → HCVR 19:30 → HCIS 02-06 13:19 → N04A 02-09 18:50
PROVIDERS: ADMIT Family Medicine; ATTEND Family Medicine
PROC: 04V03DZ Restriction of Abdominal Aorta with Intraluminal Device, Percutaneous Approach (ICD-10-PCS; principal; 2017-02-04 15:00)
PROC: 30233N1 Transfusion of Nonautologous Red Blood Cells into Peripheral Vein, Percutaneous Approach (ICD-10-PCS; 2017-02-05)
DX: I71.3 Abdominal aortic aneurysm, ruptured (principal); I50.31 Acute diastolic (congestive) heart failure; I31.3 Pericardial effusion (noninflammatory); E88.09 Other disorders of plasma-protein metabolism, not elsewhere classified; E87.1 Hypo-osmolality and hyponatremia; E83.42 Hypomagnesemia; I13.0 Hypertensive heart and chronic kidney disease with heart failure and stage 1 through stage 4 chronic kidney disease, or unspecified chronic kidney disease; E87.70 Fluid overload, unspecified; E83.51 Hypocalcemia; J44.9 Chronic obstructive pulmonary disease, unspecified; N18.3 Chronic kidney disease, stage 3 (moderate); K21.0 Gastro-esophageal reflux disease with esophagitis; R55 Syncope and collapse; R09.02 Hypoxemia; F17.210 Nicotine dependence, cigarettes, uncomplicated; N50.89 Other specified disorders of the male genital organs; Z86.73 Personal history of transient ischemic attack (TIA), and cerebral infarction without residual deficits; Z85.038 Personal history of other malignant neoplasm of large intestine
CPT/HCPCS: 36430; 71010; 74177; 80048; 80053; 80061; 81001; 82272; 82533; 82550; 82570; 82805; 82948; 83735; 83880; 83935; 84100; 84155; 84300; 84443; 85014; 85018; 85025; 85027; 85610; 85730; 86850; 86900; 86901; 86920; 87205; 93005; 93306; 94150; 94640; 94664; 94667; 94668; C9113; J1644; J1815; J1940; J2270; J2720; J3010; J3370; J3411; J3475; J7030; J7040; J7050; J7512; P9016; P9047; Q9967

== ENCOUNTER 2017-03-02 11:19 | Inpatient (IN) | payer OTHER ==
[~2017-03-02] VITALS: Ht 177.8 cm; Wt 97.5 kg
[~2017-03-02 11:19] MED LIST changes: +ALBU0.08 INH; +ALLE10TA PO; +FURO40TA PO; +GABA400C5 PO; +METH500T3 PO; +METO25TA3 PO; +NEUR400C PO; +OXYC1TAB63 PO; +PANT40TA3 PO; +POTA20TA5 PO; +PRED10 PO; +SENN1TAB PO; +SYMB160A INH
[2017-03-02 11:21] VITALS: BP 120/70; PULSE 99; RESP 20; TEMP 98.2; O2SAT 98
--- NOTE | 2017-03-02 11:31 | PD ---
Physical Exam Time Seen by Provider: 11:28 Narrative 72yo M c/o R foot pain and black great toe x 1 week with worsening after falling down a step. Has "a little bit" of feeling in the great toe. Denies fever, vomiting. Denies anticoagulants or being diabetic. Patient seen in triage. VS reviewed. Awaiting bed placement. MDM Supervised Visit with OCTAVIO: Steff Meza Mar 02, 2017 11:31
[2017-03-02] MEDS ORDERED: GABA300C5 PO ×2 (12:52→16:01)
--- NOTE | 2017-03-02 12:59 | RADRPT ---
EXAM DATE/TIME: 03/02/2017 12:24 [facility] COMPARISON: No previous studies available for comparison. INDICATIONS : Right foot pain, fall. MEDICAL HISTORY : None. SURGICAL HISTORY : None. ENCOUNTER: Initial ACUITY: 1 week PAIN SCORE: 6/10 LOCATION: Right dorsal foot and great toe. FINDINGS: 3 views of the right foot demonstrate no acute fracture or dislocation. There is likely an old healed fracture of the first digit distal phalanx through the proximal metaphysis. Through this area there is increased density and bony callus. Lisfranc joint appears intact. There is joint space narrowing a nd osteophyte at the first metatarsophalangeal joint. No soft tissue abnormality or radiopaque foreig n body is identified. CONCLUSION: 1. No acute fracture is identified. There are findings at the first digit distal phalanx likely relat ed to a subacute or chronic fracture. 2. 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 Vaibhav Galindo MD on March 02, 2017 at 12:55 Board Certified Radiologist. This report was verified electronically.
[2017-03-02 13:01] VITALS: BP 196/93; PULSE 91; RESP 12; O2SAT 99
[2017-03-02 13:32] LABS: AUTOMATED NEUTROPHIL # 4.1 TH/MM3 (1.8-7.7); BASOPHIL % 0.8 % (0.0-2.0); EOSINOPHIL # 0.2 TH/MM3 (0-0.4); EOSINOPHIL % 2.8 % (0.0-4.0); HEMATOCRIT 31.9 % (39.0-51.0); HEMO FLAGS DIFF FINAL; LYMPH % 15.8 % (9.0-44.0); LYMPHOCYTE # 0.9 TH/MM3 (1.0-4.8); MEAN CELL VOLUME 96.2 FL (80.0-100.0); MEAN CORPUSCULAR HGB CONC 33.2 % (32.0-36.0); MONO % 10.7 % (0.0-8.0); NEUT % 69.9 % (16.0-70.0); PLATELET COUNT 116 TH/MM3 (150-450); RED BLOOD COUNT 3.31 MIL/MM3 (4.50-5.90); RED CELL DISTRIBUTION WIDTH 18.5 % (11.6-17.2); WHITE BLOOD COUNT 5.8 TH/MM3 (4.0-11.0)
[2017-03-02 13:45] LABS: ANION GAP 7 MEQ/L (5-15); AST (GOT) 18 U/L (15-37); BICARBONATE 29.9 MEQ/L (21.0-32.0); BLOOD UREA NITROGEN 9 MG/DL (7-18); CHLORIDE 99 MEQ/L (98-107); GLOMERULAR FILTRATION RATE 56 ML/MIN (>89); SODIUM (NA) 136 MEQ/L (136-145)
[2017-03-02 13:49] LABS: ALKALINE PHOSPHATASE 129 U/L (45-117); ALT (GPT) 18 U/L (12-78); TOTAL BILIRUBIN ADULT 0.9 MG/DL (0.2-1.0)
[2017-03-02] MEDS ORDERED: VANCOMYCIN INJ 1,200 MG in SODIUM CHLOR 0.9% 250 ML INJ 250 ML IV ONE (14:15)
[2017-03-02] MEDS ORDERED: SODIUM CHLOR 0.9% 1000 ML INJ 1,000 ML IV SCH ×2 (14:30)
[2017-03-02] MEDS ORDERED: IOHEXOL 350 MG/ML 10 ML VIAL (for RAD DIAG) IV ONE (15:21)
[2017-03-02 15:23] LABS: LACTIC ACID GHOST NOT REPORTABLE
[2017-03-02] MEDS: RESP: ALBUTEROL 2.5 MG/IPRATROPIUM 0.5 MG NEB (SCH) INH (15:34)
[2017-03-02 15:48] VITALS: BP 170/83; PULSE 98; O2SAT 100
--- NOTE | 2017-03-02 15:52 | PD ---
HPI Chief Complaint: Skin Problem Time Seen by Provider: 12:17 Travel History International Travel<30 days: No Contact w/Intl Traveler<30days: No Traveled to known affect area: No History of Present Illness HPI This is a 72-year-old male who presents to the emergency department having had an endovascular aortic aneurysm repair performed in late January by Dr. Thompson who presents to the emergency department with pain in his right great toe. He says one week ago he hit his toe and injured it during a fall and ever since then it's been increasingly red, painful, swollen, moderate severity. He says over the past 2 days with gotten increasingly black. He denies any fevers or chills. His home health care nurse told him to come to the emergency department several days ago but he delayed coming in because he thought he was doing okay. PFSH Past Medical History Arthritis: No Asthma: No Autoimmune Disease: No Blood Disorders: No Anxiety: No Depression: No Heart Rhythm Problems: No Cancer: Yes (COLON CANCER REMOVED) Cardiovascular Problems: Yes (AORTIC SX ) High Cholesterol: Yes Chemotherapy: No Chest Pain: No Congestive Heart Failure: No COPD: Yes Cerebrovascular Accident: Yes (MINI STROKE NO RESIDUAL EFFECTS 2005) Coronary Artery Disease: No Diabetes: No Diminished Hearing: No Endocrine: No Gastrointestinal Disorders: Yes (GI BLEED) GERD: No Genitourinary: No Headaches: Yes Hepatitis: No Hiatal Hernia: Yes Hypertension: Yes Immune Disorder: No Kidney Stones: No Medical other: Yes (HX GERD(RESOLVED), STROKE 2006, LOWER BACK PROBLEMS) Musculoskeletal: Yes (NECK AND LEFT KNEE) Neurologic: Yes (TIA 2006, NO RESIDUAL) Psychiatric: No Reproductive: No Respiratory: No Migraines: No Radiation Therapy: No Renal Failure: No Seizures: Yes Sickle Cell Disease: No Sleep Apnea: No Thyroid Disease: No Ulcer: Yes Past Surgical History Abdominal Surgery: Yes (HERNIA REPAIR AND MESH. COLON CANCER REMOVED.) AICD: No Appendectomy: No Arteriovenous Shunt: No Body Medical Devices: rods and screws in lower back Cardiac Surgery: No Cholecystectomy: No Ear Surgery: No Endocrine Surgery: No Eye Surgery: Yes (LEFT EYE CATARACT REMOVAL) Genitourinary Surgery: Yes (CYST ON KIDNEY REMOVED) Gynecologic Surgery: No Insulin Pump: No Joint Replacement: No Oral Surgery: Yes (TONSILS REMOVED AND TEETH REMOVED) Pacemaker: No Thoracic Surgery: No Other Surgery: Yes Social History Alcohol Use: Yes (occassionally) Tobacco Use: Yes (one half pack per day) Substance Use: No Allergies-Medications (Allergen,Severity, Reaction): Coded Allergies: Penicillin (Verified Allergy, Severe, 03/02/17) Reported Meds & Prescriptions Reported Meds & Active Scripts Active Potassium Chloride Microencaps 20 Meq Tab 20 Meq PO Q12HR Symbicort Inh (Budesonide/Formoterol Fumarate) 160-4.5 Mcg/Act Aero 2 Puff INH DAILY 30 Days Albuterol Neb (Albuterol Sulfate) 2.5 Mg/3 Ml Neb 2.5 Mg INH Q2HR NEB PRN Oxygen tank (Oxygen) 1 Ea Tank 2 Liter [employer] CONTINUOUS Oxygen Concentrator Portable Gaseous 2 L/min via Nasal Cannula Continuous For 99 months Reported Gabapentin 300 Mg Cap 400 Mg PO TID Allergy Relief (Loratadine) 10 Mg Tab 10 Mg PO DAILY Methocarbamol 500 Mg Tab 500 Mg PO QID Review of Systems Except as stated in HPI: all other systems reviewed are Neg Physical Exam Narrative GENERAL:Well appearing, no acute distress SKIN: Black discoloration of the right great toe with blistering and surrounding erythema that extends into the dorsal aspect of the foot is warm. HEAD: Atraumatic. Normocephalic. EYES: Pupils equal and round. No injection or drainage. ENT: Moist mucous membranes NECK: Trachea midline. CARDIOVASCULAR: Regular rate and rhythm. No murmur appreciated. Right great toe is cool with poor capillary refill. RESPIRATORY: Diffuse wheezing, breath sounds are equal bilaterally. GASTROINTESTINAL: Abdomen soft, non-tender, nondistended. MUSCULOSKELETAL: No obvious deformities. NEUROLOGICAL: Awake and alert. No obvious cranial nerve deficits. Moving all extremities. PSYCHIATRIC: Appropriate mood and affect; insight and judgment normal. Data Data Last Documented VS Vital Signs Date Time Temp Pulse Resp B/P Pulse Ox O2 Delivery O2 Flow Rate FiO2 03/02/17 13:01 91 12 196/93 99 Room Air 03/02/17 11:21 98.2 Orders Foot, Complete ([id number]) (03/02/17 11:31) Complete Blood Count With Diff (03/02/17 12:43) Comprehensive Metabolic Panel (03/02/17 12:43) ^ Insert Iv (03/02/17 12:43) Westergren Sedimentation Rate (03/02/17 12:43) C-Reactive Protein (Crp) (03/02/17 12:43) Blood Culture (03/02/17 12:43) Lactic Acid Sepsis Protocol (03/02/17 12:43) Cta Runoff W Iv Contrast W 3d (03/02/17 ) Vancomycin Inj (Vancomycin Inj) (03/02/17 14:15) Sodium Chlor 0.9% 1000 Ml Inj (Ns 1000 M (03/02/17 14:30) Sodium Chlor 0.9% 1000 Ml Inj (Ns 1000 M (03/02/17 14:30) Arterial Segmt Dopp Ltd Minal (03/02/17 ) Admit Order (Ed Use Only) (03/02/17 14:46) Admit To Inpatient (03/02/17 ) Inpatient Certification (03/02/17 ) Diet Heart Healthy (03/02/17 Dinner) Activity Bed Rest With Brp (03/02/17 14:47) Vital Signs (Adult) PHIL.Q4H (03/02/17 14:47) Labs Laboratory Tests Test 03/02/17 12:59 White Blood Count 5.8 TH/MM3 Red Blood Count 3.31 MIL/MM3 Hemoglobin 10.6 GM/DL Hematocrit 31.9 % Mean Corpuscular Volume 96.2 FL Mean Corpuscular Hemoglobin 32.0 PG Mean Corpuscular Hemoglobin 33.2 % Concent Red Cell Distribution Width 18.5 % Platelet Count 116 TH/MM3 Mean Platelet Volume 8.2 FL Neutrophils (%) (Auto) 69.9 % Lymphocytes (%) (Auto) 15.8 % Monocytes (%) (Auto) 10.7 % Eosinophils (%) (Auto) 2.8 % Basophils (%) (Auto) 0.8 % Neutrophils # (Auto) 4.1 TH/MM3 Lymphocytes # (Auto) 0.9 TH/MM3 Monocytes # (Auto) 0.6 TH/MM3 Eosinophils # (Auto) 0.2 TH/MM3 Basophils # (Auto) 0.0 TH/MM3 CBC Comment DIFF FINAL Differential Comment Erythrocyte Sedimentation Rate 29 mm/hr Sodium Level 136 MEQ/L Potassium Level 4.0 MEQ/L Chloride Level 99 MEQ/L Carbon Dioxide Level 29.9 MEQ/L Anion Gap 7 MEQ/L Blood Urea Nitrogen 9 MG/DL Creatinine 1.27 MG/DL Estimat Glomerular Filtration 56 ML/MIN Rate Random Glucose 95 MG/DL Lactic Acid Level 2.1 mmol/L Calcium Level 7.9 MG/DL Total Bilirubin 0.9 MG/DL Aspartate Amino Transf 18 U/L (AST/SGOT) Alanine Aminotransferase 18 U/L (ALT/SGPT) Alkaline Phosphatase 129 U/L C-Reactive Protein 6.82 MG/DL Total Protein 5.7 GM/DL Albumin 1.9 GM/DL MDM Medical Decision Making Medical Screen Exam Complete: Yes Emergency Medical Condition: Yes Medical Record Reviewed: Yes (patient was admitted and had endovascular repair of an aortic aneurysm, discharge February 10) Interpretation(s) Afebrile, mild tachycardia, normotensive No leukocytosis Sedimentation rate is 29 CRP is 6.8 Lactic acid is 2.1 Differential Diagnosis Embolic lesion, cellulitis, fracture, wound infection, osteomyelitis, peripheral arterial disease Narrative Course This is a 72-year-old male who presents to the emergency department with an infection of the right great toe with necrosis on the tip of the toe, black, cool with no capillary refill suggesting an arterial occlusion. Labs are obtained which demonstrate elevated inflammatory markers. An x-ray demonstrates no osteomyelitis or acute fracture. I spoke to Dr. Thompson who performed the patient's aortic surgery and he recommended CTA and arterial studies which were ordered. I suspect this is an embolic lesion and the foot is subsequently infected. He was given a dose of vancomycin as he has a penicillin allergy. Patient will be admitted under the hospitalist service for further management. He'll require intervention by podiatry. Physician Communication Physician Communication Discussed with Dr. Hinton and Dr. Thompson Diagnosis Primary Impression: Toe infection Admitting Information Admitting Physician Requests: Admit Aishwarya Garza MD Mar 02, 2017 15:52
--- NOTE | 2017-03-02 15:56 | RADRPT ---
EXAM DATE/TIME: 03/02/2017 15:22 [facility] COMPARISON: CHEST SINGLE AP, February 06, 2017, 4:25. INDICATIONS : Shortness of breath. MEDICAL HISTORY : Chronic obstructive pulmonary disease. Asthma. SURGICAL HISTORY : Abdominal aortic aneurysm repair. ENCOUNTER: Initial ACUITY: 1 day PAIN SCORE: 0/10 LOCATION: Bilateral chest FINDINGS: A single view of the chest demonstrates the lungs to be symmetrically aerated without evidence of mas s, infiltrate or effusion. The cardiomediastinal contours are unremarkable. Osseous structures are intact. CONCLUSION: No acute disease. Pascual Pepe MD FACR on March 02, 2017 at 15:54 Board Certified Radiologist. This report was verified electronically.
[2017-03-02 16:00] VITALS: O2SAT 98
[2017-03-02] MEDS ORDERED: Vancomycin Consult Pharmacy 1 EA OTHER SCH (16:00)
[2017-03-02] MEDS ORDERED: ACETAMINOPHEN/HYDROcodone 325 MG/5 MG TAB PO PRN (16:00)
[2017-03-02] MEDS ORDERED: SENNOSIDES 8.6 MG TAB PO PRN (16:00)
[2017-03-02] MEDS ORDERED: ACETAMINOPHEN 325 MG TAB PO PRN ×2 (16:00)
[2017-03-02] MEDS ORDERED: NALOXONE HCL 0.4 MG/ML AMP IV PRN (16:00)
[2017-03-02] MEDS ORDERED: LACTULOSE SYRUP 20 GM/30 ML CUP PO PRN (16:00)
[2017-03-02] MEDS ORDERED: MAGNESIUM HYDROXIDE SUSP 30 ML CUP PO PRN (16:00)
[2017-03-02] MEDS ORDERED: ONDANSETRON HCL 4 MG/2 ML VIAL IVP PRN (16:00)
[2017-03-02] MEDS ORDERED: RESP: ALBUTEROL 2.5 MG/3 ML NEB (PRN) INH (16:15)
--- NOTE | 2017-03-02 16:26 | HHI.HP ---
[facility] Admission Diagnosis infection great toe Diagnoses: Chief Complaint: Right great toe pain Travel History International Travel<30 Days: No Contact w/Intl Traveler <30 Da: No Traveled to Known Affected Are: No History of Present Illness This is a 72-year-old male recently admitted for pseudoaneurysm repair, COPD exacerbation, GI bleed and diastolic heart failure exacerbation. He has been doing well until a week ago when he fell down a step and hurt his right great toe. Since then he has constant pain and increasing swelling of the right great toe. In the past few days he noted black discoloration with bloody discharge from the injured digit. No fever, chills, chest pain, shortness of breath, palpitations, nausea, vomiting and abdominal pain. He has nonproductive cough. He is on chronic oxygen. All other systems reviewed negative. ER workup shows subacute or chronic fracture involving the distal phalanx of the right great toe. CTA has been ordered as recommended by vascular surgery. He received fluid bolus and IV vancomycin. Telemetry shows sinus rhythm. EKG is pending. Review of Systems Except as stated in HPI: all other systems reviewed are Neg Past Family Social History Past Medical History Previously mentioned Past Surgical History As previously mentioned, hemicolectomy secondary to colon cancer and back surgery Reported Medications Potassium Chloride Microencaps 20 Meq Tab 20 Meq PO Q12HR Symbicort Inh (Budesonide/Formoterol Fumarate) 160-4.5 Mcg/Act Aero 2 Puff INH DAILY 30 Days Albuterol Neb (Albuterol Sulfate) 2.5 Mg/3 Ml Neb 2.5 Mg INH Q2HR NEB PRN Oxygen tank (Oxygen) 1 Ea Tank 2 Liter LYNETTE[employer] CONTINUOUS Oxygen Concentrator Portable Gaseous 2 L/min via Nasal Cannula Continuous For 99 months Reported Gabapentin 300 Mg Cap 300 Mg PO TID Allergy Relief (Loratadine) 10 Mg Tab 10 Mg PO DAILY Methocarbamol 500 Mg Tab 500 Mg PO QID Allergies: Coded Allergies: Penicillin (Verified Allergy, Severe, 03/02/17) Family History Heart failure Social History Continues to smoke a pack per day. Occasional alcohol use Physical Exam Vital Signs Vital Signs Date Time Temp Pulse Resp B/P Pulse Ox O2 Delivery O2 Flow Rate FiO2 03/02/17 15:48 98 170/83 100 Room Air 03/02/17 13:01 91 12 196/93 99 Room Air 03/02/17 11:21 98.2 99 20 120/70 98 Room Air Physical Exam GENERAL: This is a well-nourished, well-developed patient, in no apparent distress. SKIN: No rashes, ecchymoses or lesions. Cool and dry. HEAD: Atraumatic. Normocephalic. No temporal or scalp tenderness. EYES: Pupils equal round and reactive. Extraocular motions intact. No scleral icterus. No injection or drainage. ENT: Nose without bleeding, purulent drainage or septal hematoma. Throat without erythema, tonsillar hypertrophy or exudate. Uvula midline. Airway patent. NECK: Trachea midline. No JVD or lymphadenopathy. Supple, nontender, no meningeal signs. CARDIOVASCULAR: Regular rate and rhythm without murmurs, gallops, or rubs. RESPIRATORY: Breath sounds equal bilaterally. No wheezes, rales, but with scattered rhonchi. GASTROINTESTINAL: Abdomen soft, non-tender, nondistended. No guarding. MUSCULOSKELETAL: Extremities without clubbing, cyanosis but with bilateral lower extremity pitting edema. No joint tenderness, effusion, or edema noted. No calf tenderness. Negative Homans sign bilaterally. Right great toe is cool with black discoloration with blistering. Dorsal right foot over the first and second metatarsal is warm, tender with patches of erythema as well as right second toe NEUROLOGICAL: Awake and alert. Cranial nerves II through XII intact. Motor and sensory grossly within normal limits. Five out of 5 muscle strength in all muscle groups. Normal speech. Laboratory Laboratory Tests Test 03/02/17 12:59 White Blood Count 5.8 Red Blood Count 3.31 Hemoglobin 10.6 Hematocrit 31.9 Mean Corpuscular Volume 96.2 Mean Corpuscular Hemoglobin 32.0 Mean Corpuscular Hemoglobin 33.2 Concent Red Cell Distribution Width 18.5 Platelet Count 116 Mean Platelet Volume 8.2 Neutrophils (%) (Auto) 69.9 Lymphocytes (%) (Auto) 15.8 Monocytes (%) (Auto) 10.7 Eosinophils (%) (Auto) 2.8 Basophils (%) (Auto) 0.8 Neutrophils # (Auto) 4.1 Lymphocytes # (Auto) 0.9 Monocytes # (Auto) 0.6 Eosinophils # (Auto) 0.2 Basophils # (Auto) 0.0 CBC Comment DIFF FINAL Differential Comment Erythrocyte Sedimentation Rate 29 Sodium Level 136 Potassium Level 4.0 Chloride Level 99 Carbon Dioxide Level 29.9 Anion Gap 7 Blood Urea Nitrogen 9 Creatinine 1.27 Estimat Glomerular Filtration 56 Rate Random Glucose 95 Lactic Acid Level 2.1 Calcium Level 7.9 Total Bilirubin 0.9 Aspartate Amino Transf 18 (AST/SGOT) Alanine Aminotransferase 18 (ALT/SGPT) Alkaline Phosphatase 129 C-Reactive Protein 6.82 Total Protein 5.7 Albumin 1.9 Date/Time Procedure Status Source Growth 03/02/17 12:59 Aerobic Blood Culture Received Blood Peripheral Pending 03/02/17 12:59 Anaerobic Blood Culture Received Blood Peripheral Pending Result Diagram: 03/02/17 1259 03/02/17 1259 Imaging Chest x-ray image interpreted by me with no acute cardiopulmonary disease Last Impressions Foot X-Ray 03/02/17 1131 Signed Impressions: Service Date/Time: Thursday, March 02, 2017 12:24 - CONCLUSION: 1. No acute fracture is identified. There are findings at the first digit distal phalanx likely related to a subacute or chronic fracture. 2. 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 Vaibhav Galindo MD Chest X-Ray 03/02/17 0000 Signed Impressions: Service Date/Time: Thursday, March 02, 2017 15:22 - CONCLUSION: No acute disease. Pascual Pepe MD FACR Assessment and Plan Problem List: (1) Toe infection ICD Code: L08.9 Status: Acute Assessment and Plan This is a 72-year-old male resenting with right great toe pain, swelling and black discoloration status post fall. X-ray shows subacute or chronic fracture of the distal phalanx. Patient has a necrotic right great toe status post endovascular repair of pseudoaneurysm. Patient will be admitted for further evaluation and treatment. Obtain CTA and consult vascular surgery. Consider echocardiogram. Obtain EKG and monitor patient on telemetry. Pain management with Lortab and IV morphine. He also has right great toe infection and cellulitis with elevated inflammatory markers. Patient received IV vancomycin which will be continued and will add Levaquin patient allergic to penicillin. Follow-up blood cultures. COPD with chronic respiratory failure. Has chronic but no acute exacerbation. Chest x-ray without acute cardiopulmonary disease. Oxygen and nebulizations Recent GI bleed with history of colon cancer status post colectomy status post EGD showing esophagitis, and gastritis, duodenitis and Cazares's esophagus. Colonoscopy with diverticulosis. Continue Prilosec and monitor for GI bleed. Diastolic heart failure. Not in exacerbation. Continue Lasix with potassium supplementation monitor electrolytes and renal function DVT prophylaxis with early ambulation. Hold mechanical and from oncology prophylaxis pending vascular surgery evaluation Code Status Full code Discussed Condition With Patient Physician Certification 2 Midnight Certification Type: Admission for Inpatient Services Order for Inpatient Services The services are ordered in accordance with Medicare regulations or non- Medicare payer requirements, as applicable. In the case of services not specified as inpatient-only, they are appropriately provided as inpatient services in accordance with the 2-midnight benchmark. Estimated LOS (days): 2 days is the estimated time the patient will need to remain in the hospital, assuming treatment plan goals are met and no additional complications. Post-Hospital Plan: Not yet determined Brando Hinton MD Mar 02, 2017 16:26
[2017-03-02] MEDS: POTASSIUM CHLORIDE 20 MEQ CONTROLLED RELEASE TAB PO SCH (17:06)
[2017-03-02] MEDS: FUROSEMIDE 20 MG/2 ML VIAL IV PUSH SCH (17:06)
[2017-03-02] MEDS: PANTOPRAZOLE SOD 40 MG DELAYED RELEASE TAB PO SCH (17:06)
--- NOTE | 2017-03-02 17:19 | RADRPT ---
EXAM DATE/TIME: 03/02/2017 14:48 [facility] COMPARISON: CT ABDOMEN & PELVIS W CONTRAST, February 04, 2017, 13:35. INDICATIONS : Fell,injured right foot,right toe is black and swollen IV CONTRAST: 85 cc Omnipaque 350 (iohexol) IV RADIATION DOSE: 10.75 CTDIvol (mGy) MEDICAL HISTORY : Cardiovascular disease. Hypertension. Chronic obstructive pulmonary disease.Col on ca SURGICAL HISTORY : Inguinal hernia repair. Colon resection.ORTHOPEDIC ENCOUNTER: Initial ACUITY: 3 days PAIN SCALE: 7/10 LOCATION: RUN OFF TECHNIQUE: Volumetric scanning was performed using a multi-row detector CT scanner. The data was post processed with a variety of visualization algorithms including full volume maximum intensity pr ojection, multi-planar sliding thin slab reformation, curved planar reformation, and surface renderin g techniques. Using automated exposure control and adjustment of the mA and/or kV according to patie nt size, radiation dose was kept as low as reasonably achievable to obtain optimal diagnostic quality images. DICOM format image data is available electronically for review and comparison. FINDINGS: Abdominal aorta: The celiac and SMA origins are widely patent. There are single renal arteries b ilaterally. The renal arteries are patent. The ostia are not well visualized due to metallic artifact . The patient is post endograft repair of an infrarenal abdominal aortic aneurysm. The graft appears well-positioned. I believe the graft is widely patent however the distal portion of the graft and the iliac bifurcation is very difficult to visualize due to artifact from the graft itself as well as th e patient's spinal fusion hardware. Patient should be assessed to determine if there are adequate fem oral pulses. Pelvis: The distal portion of the iliac limbs the graft are widely patent. The left hypogastric circulation is quite small in size. The right hypogastric circulation is widely patent. The external iliac circulation is widely patent. There is diffuse atherosclerotic plaquing. Right leg: The common femoral is disease but adequate in caliber. The profunda femoral is patent . The superficial femoral demonstrates mild atherosclerotic plaquing is widely patent throughout its course. The popliteal is widely patent. Distally, there is moderate stenosis of the tibioperoneal jv nk. All 3 trifurcation vessels are patent down into the foot. Left leg: The common femoral is disease but adequate in caliber. The profunda femoral is patent. The superficial femoral is patent throughout its course with only mild atherosclerotic plaquing. The popliteal is widely patent. Distally, there is moderate disease in the tibioperoneal trunk. All 3 tr ifurcation vessels are patent. CT source data: There is diffuse abdominal ascites. The liver is cirrhotic appearing. The spleen is enlarged. The patient is post ventral hernia repair. No free air is seen. There are postsurgical changes in the lower lumbar spine. There is ascitic fluid throughout the pelvis. Note is made of diff use anasarca involving both lower extremities. CONCLUSION: 1. There is artifact which limits the assessment of the distal portion of the graft and a portion of the graft within the common iliac arteries. I believe this is widely patent however patient should be assessed to determine that there are bilateral femoral pulses. 2. Right leg: There is adequate runoff to the right lower chummy. 3. Left leg: There is adequate runoff to the left large remedy. 4. Ascites. 5. Anasarca. Charles Pepe MD on March 02, 2017 at 17:10 Board Certified Radiologist. This report was verified electronically.
[2017-03-02] MEDS: LEVOFLOXACIN 750 MG PREMIX INJ 150 ML IV SCH (17:54)
[2017-03-02] MEDS: METHOCARBAMOL 500 MG TAB PO SCH ×2 (17:54→19:38)
[2017-03-02] MEDS: GABAPENTIN 300 MG CAP PO SCH (17:54)
[2017-03-02 18:08] VITALS: BP 149/86; PULSE 94; RESP 18; TEMP 97; O2SAT 97
--- NOTE | 2017-03-02 18:10 | EKG ---
Date Performed: 03/02/2017 Time Performed: 17:31:09 PTAGE: 72 years EKG: Sinus rhythm WITH Premature atrial contractions BORDERLINE ECG Compared to prior tracing no significant change PREVIOUS TRACING : 02/04/2017 14.51 DOCTOR: Brad Bautista Interpretating Date/Time 03/02/2017 18:08:50
[2017-03-02] MEDS: DOCUSATE SODIUM 50 MG/SENNA 8.6 MG TAB PO SCH (19:38)
[2017-03-02 20:00] VITALS: BP 125/74; PULSE 85; RESP 18; TEMP 97.2; O2SAT 95
[2017-03-03] VITALS (7 sets, daily range): BP systolic 93–118; BP diastolic 52–66; PULSE 76–90; RESP 17–19; TEMP 96–97.8; O2SAT 91–100
[2017-03-03] MEDS: ACETAMINOPHEN/HYDROcodone 325 MG/10 MG TAB PO PRN ×4 (03:14→17:09)
[2017-03-03 06:06] LABS: AUTOMATED NEUTROPHIL # 2.4 TH/MM3 (1.8-7.7); BASOPHIL % 0.9 % (0.0-2.0); EOSINOPHIL # 0.2 TH/MM3 (0-0.4); EOSINOPHIL % 4.5 % (0.0-4.0); HEMATOCRIT 25.9 % (39.0-51.0); LYMPH % 20.6 % (9.0-44.0); LYMPHOCYTE # 0.7 TH/MM3 (1.0-4.8); MEAN CELL VOLUME 95.6 FL (80.0-100.0); MEAN CORPUSCULAR HEMOGLOBIN 32.5 PG (27.0-34.0); MONO % 8.8 % (0.0-8.0); NEUT % 65.2 % (16.0-70.0); PLATELET COUNT 91 TH/MM3 (150-450); RED BLOOD COUNT 2.71 MIL/MM3 (4.50-5.90); RED CELL DISTRIBUTION WIDTH 18.2 % (11.6-17.2); WHITE BLOOD COUNT 3.6 TH/MM3 (4.0-11.0)
[2017-03-03 06:12] LABS: HEMO FLAGS AUTO DIFF
[2017-03-03 06:28] LABS: BICARBONATE 28.7 MEQ/L (21.0-32.0)
[2017-03-03 06:40] LABS: CALCIUM-PROTEIN CORRECTED 8.7 MG/DL (8.5-10.1)
[2017-03-03 07:43] LABS: PLATELET ESTIMATE SMEAR LOW (NORMAL); PLATELET MORPHOLOGY ENLARGED (NORMAL); ROULEAUX PRESENT (NORMAL)
[2017-03-03 07:44] LABS: SCAN/DIFF AUTO DIFF CONFIRMED
[2017-03-03] MEDS: LORATADINE 10 MG TAB PO SCH (08:45)
[2017-03-03] MEDS: GABAPENTIN 300 MG CAP PO SCH ×3 (08:45→17:50)
[2017-03-03] MEDS: FUROSEMIDE 20 MG/2 ML VIAL IV PUSH SCH ×2 (08:46→19:20)
[2017-03-03] MEDS: POTASSIUM CHLORIDE 20 MEQ CONTROLLED RELEASE TAB PO SCH ×2 (08:46→19:20)
[2017-03-03] MEDS: DOCUSATE SODIUM 50 MG/SENNA 8.6 MG TAB PO SCH ×2 (08:46→19:20)
[2017-03-03] MEDS: METHOCARBAMOL 500 MG TAB PO SCH ×4 (08:46→19:20)
[2017-03-03] MEDS: PANTOPRAZOLE SOD 40 MG DELAYED RELEASE TAB PO SCH (08:46)
[2017-03-03] MEDS: RESP: ALBUTEROL 2.5 MG/IPRATROPIUM 0.5 MG NEB (SCH) INH ×4 (08:47→19:39)
--- NOTE | 2017-03-03 09:39 | HHI.PR ---
Subjective Remarks Follow-up right great toe pain and COPD. Pain under control. Denies shortness of breath despite audible wheezing oxygen down to 1 L nasal cannula uses 2 L at home. Discussed with RN and RT. Objective Vitals Vital Signs Date Time Temp Pulse Resp B/P Pulse Ox O2 Delivery O2 Flow Rate FiO2 03/03/17 08:48 100 Nasal Cannula 2.00 03/03/17 04:14 18 03/03/17 00:00 97.8 81 18 93/52 96 03/02/17 20:42 18 03/02/17 20:00 97.2 85 18 125/74 95 03/02/17 19:40 Nasal Cannula 2.00 03/02/17 18:08 97.0 94 18 149/86 97 03/02/17 16:00 98 21 03/02/17 15:48 98 170/83 100 Room Air 03/02/17 13:01 91 12 196/93 99 Room Air 03/02/17 11:21 98.2 99 20 120/70 98 Room Air I/O 03/02/17 03/02/17 03/02/17 03/03/17 03/03/17 03/03/17 07:00 15:00 23:00 07:00 15:00 23:00 Output Total 700 ml 150 ml Balance -700 ml -150 ml Output Urine Total 700 ml 150 ml # Voids 1 Result Diagram: 03/03/17 0500 03/03/17 0500 Imaging Last Impressions Foot X-Ray 03/02/17 1131 Signed Impressions: Service Date/Time: Thursday, March 02, 2017 12:24 - CONCLUSION: 1. No acute fracture is identified. There are findings at the first digit distal phalanx likely related to a subacute or chronic fracture. 2. 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 Vaibhav Galindo MD Chest X-Ray 03/02/17 0000 Signed Impressions: Service Date/Time: Thursday, March 02, 2017 15:22 - CONCLUSION: No acute disease. Pascual Pepe MD FACR Aorta w/Runoff CTA 03/02/17 0000 Signed Impressions: Service Date/Time: Thursday, March 02, 2017 14:48 - CONCLUSION: 1. There is artifact which limits the assessment of the distal portion of the graft and a portion of the graft within the common iliac arteries. I believe this is widely patent however patient should be assessed to determine that there are bilateral femoral pulses. 2. Right leg: There is adequate runoff to the right lower chummy. 3. Left leg: There is adequate runoff to the left large remedy. 4. Ascites. 5. Anasarca. Charles Pepe MD Objective Remarks GENERAL: This is a well-nourished, well-developed patient, in no apparent distress on nasal cannula. SKIN: No rashes, ecchymoses or lesions. Cool and dry. CARDIOVASCULAR: Regular rate and rhythm without murmurs, gallops, or rubs. RESPIRATORY: Breath sounds equal bilaterally. Scattered rhonchi and expiratory wheezes GASTROINTESTINAL: Abdomen soft, non-tender, nondistended. No guarding. Ascites MUSCULOSKELETAL: Extremities without clubbing, cyanosis but with bilateral lower extremity pitting edema, he has anasarca. No calf tenderness. Negative Homans sign bilaterally. Right great toe is cool with black discoloration with blistering. Dorsal right foot over the first and second metatarsal is warm, tender with patches of improving erythema as well as right second toe NEUROLOGICAL: Awake and alert. Cranial nerves II through XII intact. Motor and sensory grossly within normal limits. Five out of 5 muscle strength in all muscle groups. Normal speech. A/P Problem List: (1) Toe infection ICD Code: L08.9 Status: Acute Assessment and Plan This is a 72-year-old male resenting with right great toe pain, swelling and black discoloration status post fall. X-ray shows subacute or chronic fracture of the distal phalanx. Patient has a ischemic/necrotic right great toe with foot cellulitis status post endovascular repair of pseudoaneurysm. Unremarkable CTA. EKG without A. fib. I'm concerned of possible embolization causing arterial occlusion. Continue Pain management with Lortab and IV morphine. He also has right great toe infection and cellulitis with elevated inflammatory markers. Patient will continue IV vancomycin and Levaquin patient allergic to penicillin. Follow-up blood cultures. Follow-up [place] and vascular surgery and podiatry consultations. Check echocardiogram and monitor on telemetry COPD exacerbation with chronic respiratory failure. Chest x-ray without acute cardiopulmonary disease. Start prednisone and continue Oxygen and nebulizations. Patient already on antibiotics Recent GI bleed with history of colon cancer status post colectomy status post EGD showing esophagitis, and gastritis, duodenitis and Cazares's esophagus. Colonoscopy with diverticulosis. Continue Prilosec and monitor for GI bleed. Mild pancytopenia. No gross bleeding. We'll monitor and repeat CBC in the morning Diastolic heart failure with anasarca. Increase Lasix to 20 mg IV twice a day with potassium supplementation monitor electrolytes and renal function DVT prophylaxis with early ambulation. Hold mechanical and pharmacological prophylaxis pending vascular surgery evaluation. Physical therapy eval Discharge Planning Not ready for discharge Brando Hinton MD Mar 03, 2017 09:39
[2017-03-03] MEDS: MORPHINE SULFATE 4 MG/ML INJ IV PRN ×3 (09:44→19:21)
[2017-03-03] MEDS: BUDESONIDE-FORMOTEROL 160/4.5 MCG INHALER INH SCH (09:52)
[2017-03-03] MEDS: predniSONE 20 MG TAB PO SCH (09:57)
--- NOTE | 2017-03-03 10:28 | RADRPT ---
EXAM DATE/TIME: 03/02/2017 00:00 [place] COMPARISON: FOOT RIGHT COMPLETE ([id number]), March 02, 2017, 12:24. CTA RUNOFF W 3D RECON, March 02, 2017, 14:48 . INDICATIONS : Necrotic right great toe, right toe cellulitis TECHNIQUE: Four-cuff ankle and brachial pressures were obtained. Pulse cuff waveform tracings of the ankles were recorded, and ankle-brachial indices were calculated. PRESSURES (mmHg): Brachial (arm): Right IV site Left 96 Ankle: Right 128 Left 130 [place]: Right 1.33 Left 1.35 TBI: Right 0.00 left 0.85 PULSED CUFF WAVEFORMS: Demonstrate normal amplitude bilaterally. CONCLUSION: Unremarkable ankle brachial indices. The waveform is fairly normal appearance throughout. The pressur e in the right toe was not performed due to the patient's necrotic toe. Charles Pepe MD on March 03, 2017 at 10:23 Board Certified Radiologist. This report was verified electronically.
[2017-03-03] MEDS ORDERED: VANCOMYCIN INJ 1,500 MG in SODIUM CHLORID 0.9% 500 ML INJ 500 ML IV SCH (12:00)
--- NOTE | 2017-03-03 12:50 | PD.POD.CON ---
Patient Intake Chief Complaint Gangrenous toe right hallux Consult Requested by Dr. Hinton Reason for Consult Evaluation and possible treatment of gangrenous toe, right hallux Primary Care Physician [facility] History of Present Illness Patient is a 72-year-old male who smokes 1 pack proceeding grits per day. He recently had a pseudoaneurysm repaired. Patient fell last week and jammed his big toe. Radiographs show a fracture of the distal phalanx of the right hallux. After the fall the toe began to turn black. More than likely the patient has thrown a thrombus. Coded Allergies: Penicillin (Verified Allergy, Severe, 03/02/17) Preferred Language to Discuss: Liberian Barriers to Learning: None Teaching Method: Discussion Vital Signs Date Time Temp Pulse Resp B/P Pulse Ox O2 Delivery O2 Flow Rate FiO2 03/03/17 09:49 18 03/03/17 08:48 100 Nasal Cannula 2.00 03/03/17 08:14 18 03/03/17 08:00 96.0 90 19 101/62 91 03/03/17 00:00 97.8 81 18 93/52 96 03/02/17 20:42 18 03/02/17 20:00 97.2 85 18 125/74 95 03/02/17 19:40 Nasal Cannula 2.00 03/02/17 18:08 97.0 94 18 149/86 97 03/02/17 16:00 98 21 03/02/17 15:48 98 170/83 100 Room Air 03/02/17 13:01 91 12 196/93 99 Room Air Pain scale used: 0-10 numeric scale Pain score: 2 Medications Current Medications Vancomycin HCl 1200 mg/Sodium Chloride 262 ml @ 250 mls/hr ONCE ONCE IV Last administered on 03/02/17 15:46; Start 03/02/17 at 14:15; Stop 03/02/17 at 15:17 ; Status DC Sodium Chloride 1,000 ml @ 999 mls/hr Q1H1M IV Last administered on 03/02/17 14:28; Start 03/02/17 at 14:30; Stop 03/02/17 at 15:30; Status DC Sodium Chloride (NS 1000 ml Inj) 1,000 ml @ 999 mls/hr Q1H1M IV ; Start at 14:30; Stop 03/02/17 at 15:30; Status DC Iohexol (Omnipaque 350 Inj) 85 ml STK-MED ONCE IV Last administered on 15:21; Start 03/02/17 at 15:21; Stop 03/02/17 at 15:22; Status DC Albuterol/ Ipratropium 1 ampule 1 ampule Q15M INH Last administered on 15:34; Start 03/02/17 at 15:30; Stop 03/02/17 at 15:46; Status DC Pharmacy Profile Note 0 ml @ 0 mls/hr UNSCH OTHER ; Start 03/02/17 at 16:00 Levofloxacin/ Dextrose (Levaquin 750 Mg Premix Inj) 150 ml @ 100 mls/hr Q24H IV Last administered on 03/02/17 17:54; Start 03/02/17 at 18:00 Acetaminophen (Tylenol) 650 mg Q4H PRN PO TEMP > 100.4; Start 03/02/17 at 16:00 Ondansetron HCl (Zofran Inj) 4 mg Q6H PRN IVP NAUSEA OR VOMITING; Start at 16:00 Acetaminophen (Tylenol) 650 mg Q6H PRN PO PAIN SCALE 1 TO 2; Start 03/02/17 at 16:00 Acetaminophen/ Hydrocodone Bitart (Tye 5-325 Mg) 1 tab Q4H PRN PO PAIN SCALE 3 TO 5 Last administered on 03/02/17 19:42; Start 03/02/17 at 16:00 Acetaminophen/ Hydrocodone Bitart (Tye 10-325 Mg) 1 tab Q4H PRN PO PAIN SCALE 6 TO 10 Last administered on 03/03/17 07:14; Start 03/02/17 at 16:00 Morphine Sulfate (Morphine Inj) 2 mg Q3H PRN IV BREAKTHROUGH PAIN Last administered on 03/03/17 09:44; Start 03/02/17 at 16:00 Naloxone HCl (Narcan Inj) 0.4 mg UNSCH PRN IV SEE LABEL COMMENTS; Start at 16:00 Senna/Docusate Sodium (Lian-Colace) 1 tab BID PO Last administered on 08:46; Start 03/02/17 at 21:00 Magnesium Hydroxide (Milk Of Magnesia Liq) 30 ml Q12H PRN PO MILD - MODERATE CONSTIPATION; Start 03/02/17 at 16:00 Sennosides (Senokot) 17.2 mg Q12H PRN PO MODERATE - SEVERE CONSTIPATION; Start 03/02/17 at 16:00 Lactulose (Lactulose Liq) 30 ml DAILY PRN PO SEVERE CONSITIPATION; Start at 16:00 Albuterol/ Ipratropium (Duoneb Neb) 1 ampule QID NEB INH Last administered on 03/03/17 11:11; Start 03/02/17 at 20:00 Albuterol Sulfate (Albuterol Neb) 2.5 mg Q2HR NEB PRN INH SHORTNESS OF BREATH; Start 03/02/17 at 16:15 Budesonide/ Formoterol Fumarate (Symbicort 160-4.5 Inh) 2 puff DAILY INH Last administered on 03/03/17 09:52; Start 03/03/17 at 09:00 Gabapentin (Neurontin) 300 mg TID PO Last administered on 03/03/17 08:45; Start 03/02/17 at 18:00 Loratadine (Claritin) 10 mg DAILY PO Last administered on 03/03/17 08:45; Start 03/03/17 at 09:00 Methocarbamol (Robaxin) 500 mg QID PO Last administered on 03/03/17 08:46; Start 03/02/17 at 18:00 Pantoprazole Sodium (Protonix) 40 mg DAILY PO Last administered on 03/03/17 08 :46; Start 03/02/17 at 17:00 Furosemide (Lasix Inj) 20 mg DAILY IV PUSH Last administered on 03/03/17 08:46 ; Start 03/02/17 at 17:00; Stop 03/03/17 at 09:30; Status DC Potassium Chloride 20 meq 20 meq DAILY PO Last administered on 03/03/17 08:46 ; Start 03/02/17 at 17:00; Stop 03/03/17 at 09:30; Status DC Vancomycin HCl/ Sodium Chloride (Vancomycin Inj/ NS 500 ml Inj) 515 ml @ 257.5 mls/ hr Q24H IV ; Start 03/03/17 at 12:00 Miscellaneous Information SPECIFIC LAB TO BE ... ONCE ONCE .XX ; Start 03/05 at 11:45; Stop 03/05/17 at 11:46 Furosemide (Lasix Inj) 20 mg BID IV PUSH ; Start 03/03/17 at 21:00 Potassium Chloride (KCl) 20 meq BID PO ; Start 03/03/17 at 21:00 Prednisone (Deltasone) 40 mg DAILY PO Last administered on 03/03/17t 09:57; Start 03/03/17 at 09:30; Stop 03/06/17 at 09:29 Benzonatate (Tessalon) 200 mg Q8H PRN PO COUGH; Start 03/03/17 at 09:30 Guaifenesin (Mucinex Er) 600 mg BID PO ; Start 03/03/17 at 21:00 Past, Family & Social History Past Medical History Respiratory: REPORTS HX OF: COPD Cardiovascular: REPORTS HX OF: Abdominal aortic aneurysm, Heart failure Gastrointestinal: REPORTS HX OF: Other GI history Cancer/Hematology: REPORTS HX OF: Colorectal cancer Review of Systems Constitutional: DENIES: Good general health Cardiovascular: COMPLAINS OF: Heart Disease, Uses O2 use at home Respiratory: COMPLAINS OF: Difficulty breathing Musculoskeletal: COMPLAINS OF: Leg pain (rest or walk) Integumentary: COMPLAINS OF: Bleeding/bruising tendncy Exam-Podiatry Constitutional General appearance: comfortable Nutritional status: overweight Orientation: alert and oriented x3 Dermatological Exam Details Right hallux is blackened and gangrenous. Skin is fragile. Skin Temp - Right: Within Normal Limits Skin Texture - Right: Within Normal Limits Skin Elasticity - Right: Within Normal Limits Skin Tugor - Right: Within Normal Limits Hair Growth - Right: Within Normal Limits Pigmentation - Right: Within Normal Limits Skin Temp - Left: Within Normal Limits Skin Texture - Left: Within Normal Limits Skin Elasticity - Left: Within Normal Limits Skin Tugor - Left: Within Normal Limits Hair Growth - Left: Within Normal Limits Pigmentation - Left: Within Normal Limits Vascular/Lymphatic Exam R Dorsails Pedis: Palpable L Dorsails Pedis: Palpable R Posterior Tibial: Palpable L Posterior Tibial: Palpable Present on right: Cyanosis (right hallux) Neurologic Exam Details Deferred Muscle Strength Dorsiflexion (Right): Normal Plantarflexion (Right): Normal Inversion (Right): Normal Eversion (Right): Normal Digital (Right): Normal Dorsiflexion (Left): Normal Plantarflexion (Left): Normal Inversion (Left): Normal Eversion (Left): Normal Digital (Left): Normal Foot Range of Motion Dorsiflexion (Right): Normal Plantarflexion (Right): Normal Inversion (Right): Normal Eversion (Right): Normal Digital (Right): Normal Dorsiflexion (Left): Normal Plantarflexion (Left): Normal Inversion (Left): Normal Eversion (Left): Normal Digital (Left): Normal Lab and Radiology Results Laboratory Laboratory Tests Test 03/02/17 03/03/17 12:59 05:00 White Blood Count 5.8 TH/MM3 3.6 TH/MM3 Red Blood Count 3.31 MIL/MM3 2.71 MIL/MM3 Hemoglobin 10.6 GM/DL 8.8 GM/DL Hematocrit 31.9 % 25.9 % Mean Corpuscular Volume 96.2 FL 95.6 FL Mean Corpuscular Hemoglobin 32.0 PG 32.5 PG Mean Corpuscular Hemoglobin 33.2 % 34.0 % Concent Red Cell Distribution Width 18.5 % 18.2 % Platelet Count 116 TH/MM3 91 TH/MM3 Mean Platelet Volume 8.2 FL 9.3 FL Neutrophils (%) (Auto) 69.9 % 65.2 % Lymphocytes (%) (Auto) 15.8 % 20.6 % Monocytes (%) (Auto) 10.7 % 8.8 % Eosinophils (%) (Auto) 2.8 % 4.5 % Basophils (%) (Auto) 0.8 % 0.9 % Neutrophils # (Auto) 4.1 TH/MM3 2.4 TH/MM3 Lymphocytes # (Auto) 0.9 TH/MM3 0.7 TH/MM3 Monocytes # (Auto) 0.6 TH/MM3 0.3 TH/MM3 Eosinophils # (Auto) 0.2 TH/MM3 0.2 TH/MM3 Basophils # (Auto) 0.0 TH/MM3 0.0 TH/MM3 CBC Comment DIFF FINAL AUTO DIFF Differential Comment AUTO DIFF CONFIRMED Erythrocyte Sedimentation Rate 29 mm/hr Platelet Estimate LOW Platelet Morphology Comment ENLARGED Rouleau PRESENT Laboratory Tests Test 03/02/17 03/02/17 03/03/17 12:59 22:00 05:00 Sodium Level 136 MEQ/L 134 MEQ/L Potassium Level 4.0 MEQ/L 4.0 MEQ/L Chloride Level 99 MEQ/L 100 MEQ/L Carbon Dioxide Level 29.9 MEQ/L 28.7 MEQ/L Anion Gap 7 MEQ/L 5 MEQ/L Blood Urea Nitrogen 9 MG/DL 9 MG/DL Creatinine 1.27 MG/DL 1.25 MG/DL Estimat Glomerular Filtration 56 ML/MIN 57 ML/MIN Rate Random Glucose 95 MG/DL 80 MG/DL Lactic Acid Level 2.1 mmol/L 1.7 mmol/L Calcium Level 7.9 MG/DL 7.1 MG/DL Total Bilirubin 0.9 MG/DL Aspartate Amino Transf 18 U/L (AST/SGOT) Alanine Aminotransferase 18 U/L (ALT/SGPT) Alkaline Phosphatase 129 U/L C-Reactive Protein 6.82 MG/DL Total Protein 5.7 GM/DL 4.3 GM/DL Albumin 1.9 GM/DL Protein Corrected Calcium 8.7 MG/DL Microbiology Date/Time Procedure Status Source Growth 03/02/17 12:59 Aerobic Blood Culture - Preliminary Resulted Blood Peripheral NO GROWTH IN 1 DAY 03/02/17 12:59 Anaerobic Blood Culture - Preliminary Resulted Blood Peripheral NO GROWTH IN 1 DAY 03/02/17 12:59 Aerobic Blood Culture - Preliminary Resulted Blood Peripheral NO GROWTH IN 1 DAY 03/02/17 12:59 Anaerobic Blood Culture - Preliminary Resulted Blood Peripheral NO GROWTH IN 1 DAY Radiology Last Impressions Foot X-Ray 03/02/17 1131 Signed Impressions: Service Date/Time: Thursday, March 02, 2017 12:24 - CONCLUSION: 1. No acute fracture is identified. There are findings at the first digit distal phalanx likely related to a subacute or chronic fracture. 2. 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 Vaibhav Galindo MD Chest X-Ray 03/02/17 0000 Signed Impressions: Service Date/Time: Thursday, March 02, 2017 15:22 - CONCLUSION: No acute disease. Pascual Pepe MD FACR Aorta w/Runoff CTA 03/02/17 0000 Signed Impressions: Service Date/Time: Thursday, March 02, 2017 14:48 - CONCLUSION: 1. There is artifact which limits the assessment of the distal portion of the graft and a portion of the graft within the common iliac arteries. I believe this is widely patent however patient should be assessed to determine that there are bilateral femoral pulses. 2. Right leg: There is adequate runoff to the right lower chummy. 3. Left leg: There is adequate runoff to the left large remedy. 4. Ascites. 5. Anasarca. Charles Pepe MD Assessment/Plan Problem List: (1) Gangrene of toe of right foot Status: Acute Additional Plans & Procedures PLAN: Patient will probably need an amputation of the hallux but I will not consider this until we get a better idea of his vascular status. Patient to be evaluated by vascular surgery. Patient will undergo an angiogram with possible bypass. Discussed with Dr. Levin. Will follow. Oral Nieves DPM Mar 03, 2017 12:50
--- NOTE | 2017-03-03 13:09 | PD.VS.CON ---
History of Present Illness Chief Complaint: Worsening Discolored Right Great Toe post fall 10 days ago Consult Requested by: Dr. Hinton History of Present Illness Mr. Wise is a 72/M patient who tripped and fell down 3 stairs. Pt presents with black discolored right great toe with erythema to 2nd digit ( toe) Pt s/p contained ruptured pseudoaneurysm of the distal abdominal aorta/post EVAR with percutaneous access on 02/04/17 (Sarahi Dye) Past/Family/Social History Past Medical History COPD GERD HTN Colon Cancer treated with right hemicolectomy 2009, [facility] Past Surgical History Hernia repair 2011 Right Hemicolectomy 2008 Fused vertebra 2006 Social History Smokes 1/2 pack of cigarettes daily ETOH- "socially on weekends" Denied illicit drug usage Lives w/ girlfriend (17 years) (Sarahi Dye) Home Medications Active Scripts Potassium Chloride Microencaps 20 Meq Tab20 Meq PO Q12HR #60 TAB Prov:Khurram Haynes MD R3 02/10/17 Budesonide-Formoterol Inh (Symbicort Inh)160-4.5 Mcg/Act Aero2 Puff INH DAILY 30 Days Prov:Khurram Haynes MD R3 02/10/17 Albuterol Neb 2.5 Mg/3 Ml Neb2.5 Mg INH Q2HR NEB PRN (SHORTNESS OF BREATH) #30 NEBULE Prov:Khurram Haynes MD R3 02/10/17 Oxygen tank 1 Ea Tank #3 Liter Munir.canula Continuous Oxygen Concentrator Portable Gaseous 2 L/min via Nasal Cannula Continuous For 99 months Prov:Romeo Boothe MD, R3 12/02/16 Reported Medications Gabapentin 300 Mg [id number] Mg PO TID #90 CAP Ref 0 03/02/17 Loratadine (Allergy Relief)10 Mg Tab10 Mg PO DAILY 02/04/17 Methocarbamol 500 Mg [id number] Mg PO QID #120 TAB Ref 0 02/04/17 Discontinued Reported Medications Gabapentin 300 Mg [id number] Mg PO TID #0 CAP Ref 0 03/02/17 Pantoprazole 40 Mg Tab40 Mg PO DAILY #30 TAB Ref 0 02/04/17 Gabapentin 400 Mg [id number] Cap PO HS #30 CAP Ref 0 02/04/17 Discontinued Scripts Prednisone 10 Mg Tab10 Mg PO DAILY #33 TAB Ref 0 Take 40mg x 2 days, take 20mg x2 days, take 10mg for 2 days, take 5mg for 2 days. Prov:Khurram Haynes MD R3 02/10/17 Sennosides-Docusate Sodium (Senna Plus 8.6-50 mg)1 Tab Tab1 Tab PO BID #60 TAB Prov:Khurram Haynes MD R3 02/10/17 Pantoprazole 40 Mg Tab40 Mg PO HS #30 TAB Prov:Khurram Haynes MD R3 02/10/17 Oxycodone-Acetaminophen 5-325 mg Tab1 Tab PO Q4H PRN (PAIN SCALE 1 TO 5) #20 TAB Prov:Khurram Haynes MD R3 02/10/17 Metoprolol Tartrate 25 Mg Tab25 Mg PO Q12HR #60 TAB Prov:Khurram Haynes MD R3 02/10/17 Ipratropium-Albuterol Neb (Duoneb)0.5-2.5 Mg/3 Ml Neb1 Ampule NEB Q4HR NEB PRN ( SOB/WHEEZING) 30 Days Prov:Khurram Haynes MD R3 02/10/17 Gabapentin (Neurontin)400 Mg [id number] Mg PO HS #30 CAP Prov:Khurram Haynes MD R3 02/10/17 Furosemide 40 Mg Tab40 Mg PO BID@,18 #10 TAB Prov:Khurram Haynes MD R3 02/10/17 Ipratropium-Albuterol Neb (Duoneb)0.5-2.5 Mg/3 Ml Neb1 Ampule NEB Q4HR NEB PRN ( SOB/WHEEZING) #1 BOX Prov:Romeo Boothe MD, R3 12/02/16 Coded Allergies: penicillin G (Unverified Allergy, Severe, 03/03/17) Review of Systems Integumentary: COMPLAINS OF: Abnormal pigmentation (Black discolored Right great toe ), Nail changes, Pruritus, Rash (Sarahi Dye) Physical Exam Vitals/I&O Date Time Temp Pulse Resp B/P Pulse Ox O2 Delivery O2 Flow Rate FiO2 03/03/17 12:00 96.5 76 18 118/57 96 03/03/17 09:49 18 03/03/17 08:48 100 Nasal Cannula 2.00 03/03/17 08:14 18 03/03/17 08:00 96.0 90 19 101/62 91 03/03/17 00:00 97.8 81 18 93/52 96 03/02/17 20:42 18 03/02/17 20:00 97.2 85 18 125/74 95 03/02/17 19:40 Nasal Cannula 2.00 03/02/17 18:08 97.0 94 18 149/86 97 03/02/17 16:00 98 21 03/02/17 15:48 98 170/83 100 Room Air 03/02/17 13:01 91 12 196/93 99 Room Air Neuro: A&OX3 GCS15 Heart: +S1,S2 Lungs: CTA Upper lobes Diminished Lower lobes Abdomen: S/NT Pt denies abdominal pain Vascular: + palpable R/L femoral Biphasic R DP/PT faint palpable R DP Strong palpable R PT BLE warm with motor intact Black discolored R great toe/erythema present 2nd toe (Sarahi Dye) Laboratory Tests Test 03/02/17 03/02/17 03/03/17 12:59 22:00 05:00 White Blood Count 5.8 3.6 Red Blood Count 3.31 2.71 Hemoglobin 10.6 8.8 Hematocrit 31.9 25.9 Mean Corpuscular Volume 96.2 95.6 Mean Corpuscular Hemoglobin 32.0 32.5 Mean Corpuscular Hemoglobin 33.2 34.0 Concent Red Cell Distribution Width 18.5 18.2 Platelet Count 116 91 Mean Platelet Volume 8.2 9.3 Neutrophils (%) (Auto) 69.9 65.2 Lymphocytes (%) (Auto) 15.8 20.6 Monocytes (%) (Auto) 10.7 8.8 Eosinophils (%) (Auto) 2.8 4.5 Basophils (%) (Auto) 0.8 0.9 Neutrophils # (Auto) 4.1 2.4 Lymphocytes # (Auto) 0.9 0.7 Monocytes # (Auto) 0.6 0.3 Eosinophils # (Auto) 0.2 0.2 Basophils # (Auto) 0.0 0.0 CBC Comment DIFF FINAL AUTO DIFF Differential Comment AUTO DIFF CONFIRMED Erythrocyte Sedimentation Rate 29 Sodium Level 136 134 Potassium Level 4.0 4.0 Chloride Level 99 100 Carbon Dioxide Level 29.9 28.7 Anion Gap 7 5 Blood Urea Nitrogen 9 9 Creatinine 1.27 1.25 Estimat Glomerular Filtration 56 57 Rate Random Glucose 95 80 Lactic Acid Level 2.1 1.7 Calcium Level 7.9 7.1 Total Bilirubin 0.9 Aspartate Amino Transf 18 (AST/SGOT) Alanine Aminotransferase 18 (ALT/SGPT) Alkaline Phosphatase 129 C-Reactive Protein 6.82 Total Protein 5.7 4.3 Albumin 1.9 Platelet Estimate LOW Platelet Morphology Comment ENLARGED Rouleau PRESENT Protein Corrected Calcium 8.7 Date/Time Procedure Status Source Growth 03/02/17 12:59 Aerobic Blood Culture - Preliminary Resulted Blood Peripheral NO GROWTH IN 1 DAY 03/02/17 12:59 Anaerobic Blood Culture - Preliminary Resulted Blood Peripheral NO GROWTH IN 1 DAY Last 48 hours Impressions Foot X-Ray 03/02/17 1131 Signed Impressions: Service Date/Time: Thursday, March 02, 2017 12:24 - CONCLUSION: 1. No acute fracture is identified. There are findings at the first digit distal phalanx likely related to a subacute or chronic fracture. 2. 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 Vaibhav Galindo MD Chest X-Ray 03/02/17 0000 Signed Impressions: Service Date/Time: Thursday, March 02, 2017 15:22 - CONCLUSION: No acute disease. Pascual Pepe MD FACR Aorta w/Runoff CTA 03/02/17 0000 Signed Impressions: Service Date/Time: Thursday, March 02, 2017 14:48 - CONCLUSION: 1. There is artifact which limits the assessment of the distal portion of the graft and a portion of the graft within the common iliac arteries. I believe this is widely patent however patient should be assessed to determine that there are bilateral femoral pulses. 2. Right leg: There is adequate runoff to the right lower chummy. 3. Left leg: There is adequate runoff to the left large remedy. 4. Ascites. 5. Anasarca. Charles Pepe MD (Sarahi Dye [facility]) Assessment and Plan Assessment: (1) Discoloration of skin of foot Status: Acute Plan Pt with worsening wounds and discolored Right great toe post trip and fall ( 3stairs) 10 days ago Pt s/p EVAR w/o abdominal/ back pain Plan [place]/CTA reviewed Continue wound care to Right great toe Discussed potential Angiogram w/ Dr. Thompson Consent signed and placed in the chart Sarahi Dye [facility] [phone] (Sarahi Dye) Plan I agree with above after exam of the patient. He had a recent Aortic endograft. This appears to be patent. Right PT palpable but DP monophasic. With non-healing toe wound after trauma with cellulitis will perform an arteriogram as on CTA extensive calcification at the level of the below knee pop/tibioperoneal takeoff. Jarad Abraham (Jarad Thompson DO) Sarahi Dye Mar 03, 2017 13:09 Jarad Thompson DO Mar 03, 2017 16:03
--- NOTE | 2017-03-03 13:23 | RADRPT ---
EXAM DATE/TIME: 03/03/2017 11:15 [facility] COMPARISON: CHEST SINGLE AP, March 02, 2017, 15:22. INDICATIONS : Preop graft. MEDICAL HISTORY : Aneurysm, abdominal. Colon cancer. Hypercholesterol. COPD. HTN. Stroke. GERD. SURGICAL HISTORY : Abdominal aortic aneurysm repair. Colon surgery. Hernia repair. Back surgery. Left renal cyst torsten ruy. Tonsillectomy. ENCOUNTER: Initial ACUITY: 1 day PAIN SCORE: 5/10 LOCATION: Bilateral leg. TECHNIQUE: Venous ultrasound of the left and right leg was performed from the inguinal ligament to the proximal calf. Real-time, color Doppler and spectral tracing, compression and augmentation techniques were us ed. FINDINGS: RIGHT LEG: There is normal compressibility of the deep venous system from the inguinal region to the proximal ca lf. No echogenic clot is seen in the lumen of the common femoral, femoral, popliteal, and posterior tibial veins. There is a normal response of the venous system to proximal and distal augmentation an d respiration. LEFT LEG: There is normal compressibility of the deep venous system from the inguinal region to the proximal ca lf. No echogenic clot is seen in the lumen of the common femoral, femoral, popliteal, and posterior tibial veins. There is a normal response of the venous system to proximal and distal augmentation an d respiration. CONCLUSION: No DVT. Vaibhav Frey MD on March 03, 2017 at 13:21 Board Certified Radiologist. This report was verified electronically.
--- NOTE | 2017-03-03 13:28 | RADRPT ---
EXAM DATE/TIME: 03/03/2017 11:39 [facility] COMPARISON: No previous studies available for comparison. INDICATIONS : Preop graft. MEDICAL HISTORY : Aneurysm, abdominal. Colon cancer. Hypercholesterol. COPD. HTN. Stroke. GERD. SURGICAL HISTORY : Abdominal aortic aneurysm repair. Colon surgery. Hernia repair. Back surgery. Left renal cyst torsten ruy. Tonsillectomy. ENCOUNTER: Initial ACUITY: 1 day PAIN SCORE: 5/10 LOCATION: Bilateral arm. FINDINGS: RIGHT UPPER EXTREMITY: There is spontaneous flow documented in the brachial, basilic, cephalic, axillary, and subclavian vei ns. The vessels are compressible and augmentation response is documented. No filling defects are se en. The flow is phasic with respiration. Direction of flow in the jugular vein is caudal. LEFT UPPER EXTREMITY: There is thrombus in the left cephalic vein throughout the upper arm. There is spontaneous flow docum ented in the brachial, basilic, axillary, and subclavian veins. The vessels are compressible and aug mentation response is documented. No filling defects are seen. The flow is phasic with respiration. Direction of flow in the jugular vein is caudal. CONCLUSION: Thrombus in the left cephalic vein. No other areas of venous thrombus are seen. Vaibhav Frey MD on March 03, 2017 at 13:22 Board Certified Radiologist. This report was verified electronically.
[2017-03-03] MEDS: BENZONATATE 100 MG CAP PO PRN (14:38)
--- NOTE | 2017-03-03 15:04 | RADRPT ---
EXAM DATE/TIME: 03/03/2017 11:24 [facility] COMPARISON: No previous studies available for comparison. INDICATIONS : Preop graft. MEDICAL HISTORY : Colon cancer. Hypercholesterol. COPD. HTN. Stroke. GERD. AAA. SURGICAL HISTORY : AAA repair. Colon surgery. Hernia repair. Back surgery. Left renal cyst removed. Tonsillectomy. ENCOUNTER: Initial ACUITY: 1 day PAIN SCORE: 5/10 LOCATION: Bilateral leg. GREATER SAPHENOUS VEIN THIGH: PROXIMAL: Right 5 mm Left 7 mm MID: Right 4 mm Left 2 mm DISTAL: Right 4 mm Left 2 mm CALF: PROXIMAL: Right 3 mm Left 2 mm MID: Right 2 mm Left 1 mm DISTAL: Right 2 mm Left 1 mm FINDINGS: The venous system of the lower extremities are patent by color Doppler imaging. Measurements of the leg veins (in mm) are listed above. CONCLUSION: Venous mapping of the lower extremities as delineated above. Vaibhav Frey MD on March 03, 2017 at 15:02 Board Certified Radiologist. This report was verified electronically.
--- NOTE | 2017-03-03 16:13 | RADRPT ---
EXAM DATE/TIME: 03/03/2017 11:48 [facility] COMPARISON: US ARM BILATERAL VENOUS DOPPLER, March 03, 2017, 11:39. INDICATIONS : Preop graft. MEDICAL HISTORY : Aneurysm, abdominal. Colon cancer. Hypercholesterol. COPD. HTN. Stroke. GERD. SURGICAL HISTORY : Abdominal aortic aneurysm repair. Colon surgery. Hernia repair. Back surgery. Left renal cyst re moved. Tonsillectomy. ENCOUNTER: Initial ACUITY: 1 day PAIN SCORE: 5/10 LOCATION: Bilateral arm. CEPHALIC: ORIGIN: Right 2 mm Left 2 mm MID-ARM: Right 2 mm Left Non-visualized ELBOW: Right 1 mm Left Thrombosed FOREARM: Right 1 mm Left Non-visualized WRIST: Right 1 mm Left Non-visualized BASILIC: ORIGIN: Right 3 mm Left 2 mm MID-ARM: Right 2 mm Left 2 mm ELBOW: Right 1 mm Left 1 mm ARTERIES: BRACHIAL: Right 4 mm Left 4 mm ULNAR: Right 2 mm Left 2 mm RADIAL: Right 2 mm Left 1 mm VEINS: RADIAL: Right 1 mm Left 1 mm ULNAR: Right 1 mm Left 1 mm FINDINGS: The venous system of the upper extremities are patent by color Doppler imaging. Measurements of the arm veins (in mm) are listed above. CONCLUSION: 1. There is occlusive thrombus in the cephalic vein at the level of the antecubital fossa. The remain jaylan of the venous system is patent. 2. Vein mapping with size measurements listed as above. Charles Pepe MD on March 03, 2017 at 16:10 Board Certified Radiologist. This report was verified electronically.
[2017-03-03] MEDS: LEVOFLOXACIN 750 MG PREMIX INJ 150 ML IV SCH (17:50)
[2017-03-03] MEDS: guaiFENesin E.R. 600 MG TAB PO SCH (19:20)
[2017-03-04] VITALS: BP 106/60; PULSE 80; RESP 17; TEMP 97; O2SAT 95
[2017-03-04] MEDS: BENZONATATE 100 MG CAP PO PRN ×3 (00:30→21:42)
[2017-03-04] MEDS: ACETAMINOPHEN/HYDROcodone 325 MG/10 MG TAB PO PRN ×5 (00:31→21:43)
[2017-03-04 08:00] VITALS: BP 127/71; PULSE 86; RESP 16; TEMP 96.1; O2SAT 95
[2017-03-04 08:16] LABS: AUTOMATED NEUTROPHIL # 4.7 TH/MM3 (1.8-7.7); BASOPHIL % 0.1 % (0.0-2.0); HEMATOCRIT 25.2 % (39.0-51.0); LYMPH % 10.8 % (9.0-44.0); LYMPHOCYTE # 0.6 TH/MM3 (1.0-4.8); MEAN CELL VOLUME 94.7 FL (80.0-100.0); MEAN CORPUSCULAR HEMOGLOBIN 32.8 PG (27.0-34.0); MEAN CORPUSCULAR HGB CONC 34.6 % (32.0-36.0); MONO % 5.2 % (0.0-8.0); NEUT % 83.9 % (16.0-70.0); PLATELET COUNT 92 TH/MM3 (150-450); RED BLOOD COUNT 2.66 MIL/MM3 (4.50-5.90); RED CELL DISTRIBUTION WIDTH 17.9 % (11.6-17.2); WHITE BLOOD COUNT 5.6 TH/MM3 (4.0-11.0)
[2017-03-04 08:20] LABS: HEMO FLAGS AUTO DIFF
[2017-03-04] MEDS: RESP: ALBUTEROL 2.5 MG/IPRATROPIUM 0.5 MG NEB (SCH) INH ×4 (08:25→20:00)
[2017-03-04 08:37] LABS: BICARBONATE 27.9 MEQ/L (21.0-32.0); MAGNESIUM 1.5 MG/DL (1.5-2.5); POTASSIUM 4.5 MEQ/L (3.5-5.1)
[2017-03-04] MEDS: guaiFENesin E.R. 600 MG TAB PO SCH ×2 (09:17→21:42)
[2017-03-04] MEDS: LORATADINE 10 MG TAB PO SCH (09:17)
[2017-03-04] MEDS: BUDESONIDE-FORMOTEROL 160/4.5 MCG INHALER INH SCH (09:17)
[2017-03-04] MEDS: METHOCARBAMOL 500 MG TAB PO SCH ×4 (09:17→21:43)
[2017-03-04] MEDS: DOCUSATE SODIUM 50 MG/SENNA 8.6 MG TAB PO SCH ×2 (09:17→21:00)
[2017-03-04] MEDS: PANTOPRAZOLE SOD 40 MG DELAYED RELEASE TAB PO SCH (09:17)
[2017-03-04] MEDS: POTASSIUM CHLORIDE 20 MEQ CONTROLLED RELEASE TAB PO SCH ×2 (09:17→21:42)
[2017-03-04] MEDS: FUROSEMIDE 20 MG/2 ML VIAL IV PUSH SCH (09:18)
[2017-03-04] MEDS: GABAPENTIN 300 MG CAP PO SCH ×3 (09:18→16:42)
[2017-03-04] MEDS: predniSONE 20 MG TAB PO SCH (09:18)
[2017-03-04 09:46] LABS: PLATELET ESTIMATE SMEAR LOW (NORMAL); PLATELET MORPHOLOGY ENLARGED (NORMAL)
[2017-03-04 09:48] LABS: SCAN/DIFF AUTO DIFF CONFIRMED
[2017-03-04 12:00] VITALS: BP 112/63; PULSE 85; RESP 18; TEMP 96.7; O2SAT 94
[2017-03-04] MEDS ORDERED: VANCOMYCIN INJ 1,750 MG in SODIUM CHLORID 0.9% 500 ML INJ 500 ML IV SCH (12:00)
--- NOTE | 2017-03-04 13:01 | HHI.PR ---
Subjective Remarks Follow-up necrotic great toe and COPD. Pain under control. Improved shortness of breath Objective Vitals Vital Signs Date Time Temp Pulse Resp B/P Pulse Ox O2 Delivery O2 Flow Rate FiO2 03/04/17 12:00 96.7 85 18 112/63 94 03/04/17 08:00 96.1 86 16 127/71 95 03/04/17 05:31 18 03/04/17 00:00 97.0 80 17 106/60 95 03/03/17 20:24 85 03/03/17 20:00 97.2 88 17 105/62 94 03/03/17 19:26 18 03/03/17 19:20 Nasal Cannula 2.00 03/03/17 16:00 97.8 82 18 117/66 94 03/03/17 16:00 95 Nasal Cannula 2.00 I/O 03/03/17 03/03/17 03/03/17 03/04/17 03/04/17 03/04/17 07:00 15:00 23:00 07:00 15:00 23:00 Intake Total 1252 ml 240 ml 240 ml Output Total 150 ml 450 ml 300 ml 550 ml Balance -150 ml 802 ml -60 ml -310 ml Intake Oral 1000 ml 240 ml 240 ml IV Total 252 ml Output Urine Total 150 ml 450 ml 300 ml 550 ml # Bowel Movements 0 Result Diagram: 03/04/17 0653 03/04/17 0653 Imaging Last Impressions Upper Extremity Ultrasound 03/03/17 0000 Signed Impressions: Service Date/Time: Friday, March 03, 2017 11:39 - CONCLUSION: Thrombus in the left cephalic vein. No other areas of venous thrombus are seen. Vaibhav Frey MD Lower Extremity Ultrasound 03/03/17 0000 Signed Impressions: Service Date/Time: Friday, March 03, 2017 11:15 - CONCLUSION: No DVT. Vaibhav Frey MD Foot X-Ray 03/02/17 1131 Signed Impressions: Service Date/Time: Thursday, March 02, 2017 12:24 - CONCLUSION: 1. No acute fracture is identified. There are findings at the first digit distal phalanx likely related to a subacute or chronic fracture. 2. 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 Vaibhav Galindo MD Chest X-Ray 03/02/17 0000 Signed Impressions: Service Date/Time: Thursday, March 02, 2017 15:22 - CONCLUSION: No acute disease. Pascual Pepe MD FACR Aorta w/Runoff CTA 03/02/17 0000 Signed Impressions: Service Date/Time: Thursday, March 02, 2017 14:48 - CONCLUSION: 1. There is artifact which limits the assessment of the distal portion of the graft and a portion of the graft within the common iliac arteries. I believe this is widely patent however patient should be assessed to determine that there are bilateral femoral pulses. 2. Right leg: There is adequate runoff to the right lower chummy. 3. Left leg: There is adequate runoff to the left large remedy. 4. Ascites. 5. Anasarca. Charles Pepe MD Objective Remarks GENERAL: This is a well-nourished, well-developed patient, in no apparent distress on nasal cannula. SKIN: No rashes, ecchymoses or lesions. Cool and dry. CARDIOVASCULAR: Regular rate and rhythm without murmurs, gallops, or rubs. RESPIRATORY: Breath sounds equal bilaterally. No wheezes today GASTROINTESTINAL: Abdomen soft, non-tender, nondistended. No guarding. Ascites MUSCULOSKELETAL: Extremities without clubbing, cyanosis but with bilateral lower extremity pitting edema, he has anasarca. No calf tenderness. Negative Homans sign bilaterally. Right great toe is cool with black discoloration with blistering. Dorsal right foot over the first and second metatarsal is warm, tender with patches of improving erythema as well as right second toe NEUROLOGICAL: Awake and alert. Cranial nerves II through XII intact. Motor and sensory grossly within normal limits. Five out of 5 muscle strength in all muscle groups. Normal speech. A/P Problem List: (1) Toe infection ICD Code: L08.9 Status: Acute Assessment and Plan This is a 72-year-old male resenting with right great toe pain, swelling and black discoloration status post fall. X-ray shows subacute or chronic fracture of the distal phalanx. Patient has a ischemic/necrotic right great toe with foot cellulitis status post endovascular repair of pseudoaneurysm. EKG without A. fib. I'm concerned of possible embolization causing arterial occlusion. Continue Pain management with Lortab and IV morphine. Basilar surgery to perform angiogram tomorrow CTA shows calcification below the knee. He also has right great toe infection and cellulitis with elevated inflammatory markers. Cellulitis is improving continue IV vancomycin and Levaquin patient allergic to penicillin. Follow-up blood cultures negative to date. Follow-up echocardiogram and monitor on telemetry. Podiatry plans to do amputation pending vascular workup Cephalic vein thrombosis. Patient asymptomatic. Physical exam unremarkable. COPD exacerbation with chronic respiratory failure. Chest x-ray without acute cardiopulmonary disease. Improving prednisone for 2 more days and continue Oxygen and nebulizations. Patient already on antibiotics Recent GI bleed with history of colon cancer status post colectomy status post EGD showing esophagitis, and gastritis, duodenitis and Cazares's esophagus. Colonoscopy with diverticulosis. Continue Prilosec and monitor for GI bleed. Mild pancytopenia. No gross bleeding. Stable continue to monitor Diastolic heart failure with anasarca. Continue diuresis with Lasix 20 mg daily with potassium supplementation monitor electrolytes and renal function Chronic kidney disease stage III. Creatinine slightly up on diuresis. Decrease IV Lasix to 20 mg daily. Avoid nephrotoxins. Monitor DVT prophylaxis with early ambulation. Hold mechanical and pharmacological prophylaxis pending vascular surgery evaluation. Physical therapy eval Discharge Planning Not ready for discharge Brando Hinton MD Mar 04, 2017 13:00
[2017-03-04 16:00] VITALS: BP 111/66; PULSE 94; RESP 18; TEMP 96.7; O2SAT 98
[2017-03-04] MEDS: LEVOFLOXACIN 750 MG PREMIX INJ 150 ML IV SCH (16:42)
--- NOTE | 2017-03-04 18:18 | ECHRPT ---
Indication: vegetation/ look foe embolus CONCLUSIONS Normal left ventricular size. Wall thickness is normal. The left ventricular systolic function is normal with an estimated ejection fraction in the range of 55-60%. No vegetation seen on mitral valve. No vegetation seen on aortic valve. aortic valve sclerosis is pr esent. No vegetation seen on tricuspid valve BP: 101 / 62 HR: 90 Rhythm: Sinus MEASUREMENTS (Male / Female) Normal Values Technical Quality:Fair 2D ECHO LV Diastolic Diameter PLAX 4.9 cm 4.2 - 5.9 / 3.9 - 5.3 cm LV Systolic Diameter PLAX 3.8 cm IVS Diastolic Thickness 0.9 cm 0.6 - 1.0 / 0.6 - 0.9 cm LVPW Diastolic Thickness 0.7 cm 0.6 - 1.0 / 0.6 - 0.9 cm LV Relative Wall Thickness 0.3 DOPPLER TR Peak Velocity 152.0 cm/s TR Peak Gradient 9.2 mmHg FINDINGS LEFT VENTRICLE Normal left ventricular size. Wall thickness is normal. The left ventricular systolic function is normal with an estimated ejection fraction in the range of 55-60%. The left ventricular systolic function is normal with an estimated ejection fraction in the range of 60-65%. RIGHT VENTRICLE Normal right ventricular size and systolic function. LEFT ATRIUM The left atrial size is normal. RIGHT ATRIUM The right atrial size is normal. MITRAL VALVE No vegetation seen on mitral valve AORTIC VALVE No vegetation seen on aortic valveaortic valve sclerosis is present. TRICUSPID VALVE No vegetation seen on tricuspid valve PULMONARY VALVE No pulmonary valve regurgitation or stenosis. PERICARDIUM No pericardial effusion. Leandro Peace MD (Electronically Signed) Final Date:04 March 2017 18:16
[2017-03-04 20:00] VITALS: BP 123/68; PULSE 89; RESP 20; TEMP 97.5; O2SAT 97
[2017-03-04 20:07] VITALS: O2SAT 94
[2017-03-05] VITALS (10 sets, daily range): BP systolic 121–157; BP diastolic 66–99; PULSE 82–101; RESP 17–20; TEMP 96.1–97.9; O2SAT 93–97
[2017-03-05 06:31] LABS: BASOPHIL % 0.1 % (0.0-2.0); EOSINOPHIL % 0.1 % (0.0-4.0); HEMATOCRIT 26.9 % (39.0-51.0); HEMO FLAGS DIFF FINAL; LYMPH % 9.7 % (9.0-44.0); LYMPHOCYTE # 0.6 TH/MM3 (1.0-4.8); MEAN CELL VOLUME 97.2 FL (80.0-100.0); MEAN CORPUSCULAR HEMOGLOBIN 32.7 PG (27.0-34.0); MEAN CORPUSCULAR HGB CONC 33.7 % (32.0-36.0); MONO % 4.8 % (0.0-8.0); NEUT % 85.3 % (16.0-70.0); PLATELET COUNT 117 TH/MM3 (150-450); RED BLOOD COUNT 2.76 MIL/MM3 (4.50-5.90); RED CELL DISTRIBUTION WIDTH 17.9 % (11.6-17.2); WHITE BLOOD COUNT 5.8 TH/MM3 (4.0-11.0)
[2017-03-05 06:40] LABS: MAGNESIUM 1.5 MG/DL (1.5-2.5); POTASSIUM 4.6 MEQ/L (3.5-5.1)
[2017-03-05] MEDS: RESP: ALBUTEROL 2.5 MG/IPRATROPIUM 0.5 MG NEB (SCH) INH ×4 (08:00→20:02)
[2017-03-05] MEDS: predniSONE 20 MG TAB PO SCH (08:02)
[2017-03-05] MEDS: POTASSIUM CHLORIDE 20 MEQ CONTROLLED RELEASE TAB PO SCH ×2 (08:02→20:01)
[2017-03-05] MEDS: DOCUSATE SODIUM 50 MG/SENNA 8.6 MG TAB PO SCH ×2 (08:02→20:01)
[2017-03-05] MEDS: guaiFENesin E.R. 600 MG TAB PO SCH ×2 (08:02→20:00)
[2017-03-05] MEDS: METHOCARBAMOL 500 MG TAB PO SCH ×4 (08:02→20:41)
[2017-03-05] MEDS: GABAPENTIN 300 MG CAP PO SCH ×3 (08:02→17:57)
[2017-03-05] MEDS: BUDESONIDE-FORMOTEROL 160/4.5 MCG INHALER INH SCH (08:03)
[2017-03-05] MEDS: FUROSEMIDE 20 MG/2 ML VIAL IV PUSH SCH (08:03)
[2017-03-05] MEDS: LORATADINE 10 MG TAB PO SCH (08:03)
[2017-03-05] MEDS: ACETAMINOPHEN/HYDROcodone 325 MG/10 MG TAB PO PRN ×3 (08:03→20:02)
[2017-03-05] MEDS: PANTOPRAZOLE SOD 40 MG DELAYED RELEASE TAB PO SCH (08:03)
[2017-03-05] MEDS ORDERED: PHARMACY ORDERED LAB ONE (11:45)
[2017-03-05] MEDS ORDERED: MIDAZOLAM HCL 5 MG/ML VIAL (1 ML) ONE (12:59)
[2017-03-05] MEDS ORDERED: HEPARIN SODIUM - IV 10,000 UNITS/10 ML VIAL ONE (12:59)
[2017-03-05] MEDS ORDERED: IOHEXOL 300 MG/ML 100 ML BTL (for Rad CT) OTHER ONE (13:12)
[2017-03-05] MEDS ORDERED: IOHEXOL 300 MG/ML 50 ML BTL (for RAD DIAG) OTHER ONE (13:12)
--- NOTE | 2017-03-05 13:39 | HHI.PR ---
Subjective Remarks Angiogram of right foot pending for today. Amputation may be necessary. This is discussed with the patient. Objective Vital Signs Date Time Temp Pulse Resp B/P Pulse Ox O2 Delivery O2 Flow Rate FiO2 03/05/17 12:00 96.6 86 17 121/66 93 03/05/17 08:18 95 03/05/17 08:00 96.1 88 17 157/81 97 03/05/17 00:00 97.5 88 20 124/68 94 03/04/17 20:07 94 03/04/17 20:00 97.5 89 20 123/68 97 03/04/17 16:00 96.7 94 18 111/66 98 I/O 03/04/17 03/04/17 03/04/17 03/05/17 03/05/17 03/05/17 07:00 15:00 23:00 07:00 15:00 23:00 Intake Total 240 ml 1680 ml 770 ml 240 ml Output Total 550 ml 1075 ml 700 ml 300 ml Balance -310 ml 605 ml 70 ml -60 ml Intake Oral 240 ml 1160 ml 620 ml 240 ml IV Total 520 ml 150 ml Output Urine Total 550 ml 1075 ml 700 ml 300 ml # Bowel Movements 1 0 0 Result Diagram: 03/05/17 0506 03/05/17 0506 Objective Remarks GENERAL: NAD, A&Ox3 HEAD: Normocephalic. NECK: Supple, trachea midline. No lymphadenopathy. EYES: No scleral icterus. No injection or drainage. CARDIOVASCULAR: Regular rate and rhythm without murmurs, gallops, or rubs. RESPIRATORY: Breath sounds equal bilaterally. No accessory muscle use. GASTROINTESTINAL: Abdomen soft, non-tender, nondistended. MUSCULOSKELETAL: No cyanosis, or edema. SKIN: Warm and dry. Distal right foot has some superficial ulcerations. The patient's first toe is black in the medial/distal aspect of his foot has some mild erythema and dusky appearance compared to the rest of the foot. NEURO: No focal neurological deficitis. A/P Problem List: (1) Discoloration of skin of foot ICD Code: L81.9 (2) Gangrene of toe of right foot ICD Code: I96 (3) Toe infection ICD Code: L08.9 Assessment and Plan Assessment and Plan 72-year-old male admitted with a right toe that appears to be ischemic with developing cellulitis proximally. Ischemic right first toe Right distal foot cellulitis Podiatry following Angiography plan today Continue as needed pain treatments Continue vancomycin and Levaquin Follow blood cultures Cephalic vein thrombosis. Follow clinically COPD exacerbation Chronic Respiratory failure Exacerbation improved Oxygen as needed Continue antibiotics Continue nebulizers Recent GI bleed with history of colon cancer Monitor for any signs of GI bleeding or progressive anemia Mild pancytopenia. Follow CBC Diastolic heart failure with anasarca. Continue diuresis with Lasix 20 mg daily with potassium supplementation monitor electrolytes and renal function Chronic kidney disease stage III. Follow renal function Avoid nephrotoxins Lasix has been lowered DVT prophylaxis SCDs Surgery pending Discharge Planning Further treatments of patient's right first toe needed prior to consideration of discharge Charles Murphy MD Mar 05, 2017 13:39
--- NOTE | 2017-03-05 14:14 | PD.VS.PN ---
Subjective Procedure(s): angiogram selective right lower extremity angiogram. Objective Vascular: right PT palpable. Laboratory Laboratory Tests Test 03/05/17 03/05/17 05:06 12:06 White Blood Count 5.8 Red Blood Count 2.76 Hemoglobin 9.0 Hematocrit 26.9 Mean Corpuscular Volume 97.2 Mean Corpuscular Hemoglobin 32.7 Mean Corpuscular Hemoglobin 33.7 Concent Red Cell Distribution Width 17.9 Platelet Count 117 Mean Platelet Volume 8.9 Neutrophils (%) (Auto) 85.3 Lymphocytes (%) (Auto) 9.7 Monocytes (%) (Auto) 4.8 Eosinophils (%) (Auto) 0.1 Basophils (%) (Auto) 0.1 Neutrophils # (Auto) 5.0 Lymphocytes # (Auto) 0.6 Monocytes # (Auto) 0.3 Eosinophils # (Auto) 0.0 Basophils # (Auto) 0.0 CBC Comment DIFF FINAL Differential Comment Sodium Level 133 Potassium Level 4.6 Chloride Level 98 Carbon Dioxide Level 28.0 Anion Gap 7 Blood Urea Nitrogen 15 Creatinine 1.43 Estimat Glomerular Filtration 49 Rate Random Glucose 95 Calcium Level 7.8 Magnesium Level 1.5 Vancomycin Level Trough 26.1 Date/Time Procedure Status Source Growth 03/02/17 12:59 Aerobic Blood Culture - Preliminary Resulted Blood Peripheral NO GROWTH IN 3 DAYS 03/02/17 12:59 Anaerobic Blood Culture - Preliminary Resulted Blood Peripheral NO GROWTH IN 3 DAYS Assessment and Plan Assessment: (1) Discoloration of skin of foot Status: Acute Plan runoff via single vessel PT. AT is diminuitive and fills slowly. No further intervention available. Podiatry can determine timing of right great toe removal. Will follow while in house, otherwise can follow up after discharge in 4 weeks. Jarad Noonan D.O., FACS, DO Mar 05, 2017 14:14
--- NOTE | 2017-03-05 16:29 | MA ---
cc: JARAD COCHRAN DATE: 03/05/2017. POSTOPERATIVE DIAGNOSIS: Right great toe gangrene. POSTOPERATIVE DIAGNOSIS: Right great toe gangrene. OPERATIVE PROCEDURE PERFORMED: Angiogram. Selective pelvic oblique arteriograms and selective right lower extremity arteriogram. SURGEON: Jarad Cochran DO. IV FLUIDS: Approximately 300 cc of crystalloid. ESTIMATED BLOOD LOSS: Minimal. URINE OUTPUT: Not calculated. COMPLICATIONS: None. DISPOSITION: To post-anesthesia care unit. DESCRIPTION OF THE PROCEDURE IN DETAIL: The left groin was prepped and draped in sterile fashion for a duplex ultrasound. I used 2 mL of 1% lidocaine and then using the Seldinger technique with a micropuncture needle and a 4-Palauan micropuncture catheter, I exchanged for a 5-Palauan sheath accessing the left common femoral artery. I then advanced an internal mammary catheter into my abdominal aortic endograft and then used a stiff angled Glidewire to get up and over. I advanced the internal mammary catheter into the right external iliac artery and shot a selective right lower extremity arteriogram. Afterwards, I pulled out over a wire and exchanged for an Omni flush catheter that I placed in the distal abdominal aorta within the endograft and I shot pelvic oblique arteriograms. At the end of the procedure, I shot of the left groin arteriogram and then removed the sheath and applied pressure to the left groin. FINDINGS: My findings were that bilateral limbs of the endograft were patent. The left common and internal were patent. The right external iliac artery was patent. There was really decreased blood flow in the hypogastric artery on the right. The patient's right common femoral and profunda femoral and superficial femoral arteries were widely patent. The right popliteal artery was widely patent. The patient's main runoff is through the right posterior tibial artery. They cross lateral to the ankle and into the lateral plantar artery. The patient does have an anterior tibial artery on the right but it is diminutive all the way down to the level of the ankle. There is no pedal artery and there is no dorsalis pedis artery. The proximal peroneal artery is patent but distally it does not appear to be patent. The left common femoral, profunda, proximal superficial femoral artery and profunda femoral arteries were widely patent. DO ANGEL Akins /1:59 PM /4:12 PM
[2017-03-05] MEDS: LEVOFLOXACIN 750 MG PREMIX INJ 150 ML IV SCH (17:57)
[2017-03-05] MEDS: BENZONATATE 100 MG CAP PO PRN (19:59)
[2017-03-06] VITALS (16 sets, daily range): BP systolic 125–146; BP diastolic 65–101; PULSE 80–110; RESP 18–19; TEMP 95.6–97.9; O2SAT 92–98
[2017-03-06] MEDS: GABAPENTIN 300 MG CAP PO SCH ×3 (07:53→18:00)
[2017-03-06] MEDS: POTASSIUM CHLORIDE 20 MEQ CONTROLLED RELEASE TAB PO SCH ×2 (07:53→20:06)
[2017-03-06] MEDS: predniSONE 20 MG TAB PO SCH (07:53)
[2017-03-06] MEDS: LORATADINE 10 MG TAB PO SCH (07:53)
[2017-03-06] MEDS: METHOCARBAMOL 500 MG TAB PO SCH ×4 (07:54→20:06)
[2017-03-06] MEDS: FUROSEMIDE 20 MG/2 ML VIAL IV PUSH SCH (07:54)
[2017-03-06] MEDS: guaiFENesin E.R. 600 MG TAB PO SCH ×2 (07:54→20:06)
[2017-03-06] MEDS: DOCUSATE SODIUM 50 MG/SENNA 8.6 MG TAB PO SCH ×2 (07:54→20:06)
[2017-03-06] MEDS: PANTOPRAZOLE SOD 40 MG DELAYED RELEASE TAB PO SCH (07:54)
[2017-03-06] MEDS: BUDESONIDE-FORMOTEROL 160/4.5 MCG INHALER INH SCH (07:57)
[2017-03-06 07:58] LABS: AUTOMATED NEUTROPHIL # 4.1 TH/MM3 (1.8-7.7); EOSINOPHIL % 0.1 % (0.0-4.0); HEMO FLAGS DIFF FINAL; LYMPH % 14.8 % (9.0-44.0); LYMPHOCYTE # 0.8 TH/MM3 (1.0-4.8); MEAN CORPUSCULAR HEMOGLOBIN 32.8 PG (27.0-34.0); MEAN CORPUSCULAR HGB CONC 34.1 % (32.0-36.0); MONO % 6.2 % (0.0-8.0); NEUT % 78.9 % (16.0-70.0); PLATELET COUNT 122 TH/MM3 (150-450); RED BLOOD COUNT 2.81 MIL/MM3 (4.50-5.90); RED CELL DISTRIBUTION WIDTH 18.1 % (11.6-17.2); WHITE BLOOD COUNT 5.2 TH/MM3 (4.0-11.0)
[2017-03-06] MEDS: RESP: ALBUTEROL 2.5 MG/IPRATROPIUM 0.5 MG NEB (SCH) INH ×2 (08:04→16:09)
[2017-03-06 08:20] LABS: ALT (GPT) 14 U/L (12-78); AST (GOT) 14 U/L (15-37); BICARBONATE 28.1 MEQ/L (21.0-32.0); BLOOD UREA NITROGEN 16 MG/DL (7-18); GLOMERULAR FILTRATION RATE 43 ML/MIN (>89)
[2017-03-06 08:52] LABS: ANION GAP 5 MEQ/L (5-15); CHLORIDE 101 MEQ/L (98-107); POTASSIUM 4.5 MEQ/L (3.5-5.1); SODIUM (NA) 134 MEQ/L (136-145)
--- NOTE | 2017-03-06 08:53 | HHI.PR ---
Subjective Remarks Findings on angiogram showed perfusion of the toe. Toe discoloration may be secondary to blood rather than ischemia/necrosis. Podiatry evaluation pending for today. Objective Vital Signs Date Time Temp Pulse Resp B/P Pulse Ox O2 Delivery O2 Flow Rate FiO2 03/06/17 08:08 95 03/06/17 06:00 81 03/06/17 05:00 85 03/06/17 04:00 97.9 90 18 132/76 95 03/06/17 04:00 84 03/06/17 03:00 92 03/06/17 02:00 93 03/06/17 01:00 85 03/06/17 00:00 97.9 88 18 127/84 94 03/06/17 00:00 90 03/05/17 23:00 84 03/05/17 22:00 86 03/05/17 21:00 82 03/05/17 20:02 97 03/05/17 20:00 101 03/05/17 19:45 97.9 94 18 149/99 97 03/05/17 19:00 95 13 123/68 96 Room Air 03/05/17 18:00 91 8 129/62 95 Room Air 03/05/17 15:15 81 11 127/68 92 Room Air 03/05/17 15:00 81 11 125/69 93 Room Air 03/05/17 14:45 87 11 116/64 93 Room Air 03/05/17 14:30 85 11 141/76 92 Room Air 03/05/17 14:26 97.6 89 12 147/80 95 Room Air 03/05/17 12:00 96.6 86 17 121/66 93 I/O 03/05/17 03/05/17 03/05/17 03/06/17 03/06/17 03/06/17 07:00 15:00 23:00 07:00 15:00 23:00 Intake Total 240 ml 4 ml 480 ml 480 ml Output Total 300 ml 200 ml 500 ml 600 ml Balance -60 ml -196 ml -20 ml -120 ml Intake Oral 240 ml 480 ml 480 ml IV Total 4 ml Output Urine Total 300 ml 200 ml 500 ml 600 ml # Voids 1 3 1 # Bowel Movements 0 1 Result Diagram: 03/06/1772203/06/17722 Objective Remarks GENERAL: NAD, A&Ox3 HEAD: Normocephalic. NECK: Supple, trachea midline. No lymphadenopathy. EYES: No scleral icterus. No injection or drainage. CARDIOVASCULAR: Regular rate and rhythm without murmurs, gallops, or rubs. RESPIRATORY: Breath sounds equal bilaterally. No accessory muscle use. GASTROINTESTINAL: Abdomen soft, non-tender, nondistended. MUSCULOSKELETAL: No cyanosis, or edema. SKIN: Warm and dry. Distal right foot has some superficial ulcerations. The patient's first toe is black in the medial/distal aspect of his foot has some mild erythema and dusky appearance compared to the rest of the foot. NEURO: No focal neurological deficitis. A/P Problem List: (1) Discoloration of skin of foot ICD Code: L81.9 (2) Gangrene of toe of right foot ICD Code: I96 (3) Toe infection ICD Code: L08.9 Assessment and Plan Assessment and Plan 72-year-old male admitted with a right toe that appears to be ischemic with developing cellulitis proximally. Stable for transfer to [facility]. Continue to monitor. Physical therapy. Ischemic right first toe Right distal foot cellulitis Podiatry following Angiography showed perfusion to affected toe. Continue as needed pain treatments Continue vancomycin and Levaquin Follow blood cultures Cephalic vein thrombosis. Follow clinically COPD exacerbation Chronic Respiratory failure Exacerbation improved Oxygen as needed Continue antibiotics Continue nebulizers Recent GI bleed with history of colon cancer Monitor for any signs of GI bleeding or progressive anemia Mild pancytopenia. Follow CBC Diastolic heart failure with anasarca. Continue diuresis with Lasix 20 mg daily with potassium supplementation monitor electrolytes and renal function Chronic kidney disease stage III. Follow renal function Avoid nephrotoxins Lasix has been lowered DVT prophylaxis SCDs Surgery pending Discharge Planning Further treatments of patient's right first toe needed prior to consideration of discharge Charles Murphy MD Mar 06, 2017 08:53
[2017-03-06 09:06] LABS: ALKALINE PHOSPHATASE 91 U/L (45-117); TOTAL BILIRUBIN ADULT 0.5 MG/DL (0.2-1.0)
--- NOTE | 2017-03-06 10:42 | PD.POD ---
Subjective Podiatric Problems Gangrene of the right hallux Pain scale used: 0-10 numeric scale Pain score: 2 Remarks 72-year-old male presented to [facility] with discoloration of the right hallux. The toes progressed into dry gangrene. Patient underwent endovascular exam yesterday. Received call from the vascular surgeon that he would have enough blood supply to heal an amputation. Was going to scheduled the patient for tomorrow. Patient does not wish to undergo an amputation and would like to follow at the [place]. Past Med/Surg/Social History Past Medical History Respiratory: REPORTS HX OF: COPD Cardiovascular: REPORTS HX OF: Abdominal aortic aneurysm, Heart failure, Peripheral vascular dz Gastrointestinal: REPORTS HX OF: Other GI history Cancer/Hematology: REPORTS HX OF: Colorectal cancer Social History Smoking Status: Current Every Day Smoker Review of Systems Notes No changes in his 14 point review of systems exam since he was last seen Objective Vital Signs Vital Signs Date Time Temp Pulse Resp B/P Pulse Ox O2 Delivery O2 Flow Rate FiO2 03/06/17 10:05 95.6 110 19 131/101 98 03/06/17 09:01 88 03/06/17 08:53 81 03/06/17 08:08 95 03/06/17 07:00 97.6 86 18 125/83 92 03/06/17 07:00 80 03/06/17 06:00 81 03/06/17 05:00 85 03/06/17 04:00 97.9 90 18 132/76 95 03/06/17 04:00 84 03/06/17 03:00 92 03/06/17 02:00 93 03/06/17 01:00 85 03/06/17 00:00 97.9 88 18 127/84 94 03/06/17 00:00 90 03/05/17 23:00 84 03/05/17 22:00 86 03/05/17 21:00 82 03/05/17 20:02 97 03/05/17 20:00 101 03/05/17 19:45 97.9 94 18 149/99 97 03/05/17 19:00 95 13 123/68 96 Room Air 03/05/17 18:00 91 8 129/62 95 Room Air 03/05/17 15:15 81 11 127/68 92 Room Air 03/05/17 15:00 81 11 125/69 93 Room Air 03/05/17 14:45 87 11 116/64 93 Room Air 03/05/17 14:30 85 11 141/76 92 Room Air 03/05/17 14:26 97.6 89 12 147/80 95 Room Air 03/05/17 12:00 96.6 86 17 121/66 93 Coded Allergies: penicillin G (Unverified Allergy, Severe, 03/03/17) Medications and IVs Current Medications Vancomycin HCl 1200 mg/Sodium Chloride 262 ml @ 250 mls/hr ONCE ONCE IV Last administered on 03/02/17 15:46; Start 03/02/17 at 14:15; Stop 03/02/17 at 15:17 ; Status DC Sodium Chloride 1,000 ml @ 999 mls/hr Q1H1M IV Last administered on 03/02/17 14:28; Start 03/02/17 at 14:30; Stop 03/02/17 at 15:30; Status DC Sodium Chloride (NS 1000 ml Inj) 1,000 ml @ 999 mls/hr Q1H1M IV ; Start at 14:30; Stop 03/02/17 at 15:30; Status DC Iohexol (Omnipaque 350 Inj) 85 ml STK-MED ONCE IV Last administered on 15:21; Start 03/02/17 at 15:21; Stop 03/02/17 at 15:22; Status DC Albuterol/ Ipratropium 1 ampule 1 ampule Q15M INH Last administered on 15:34; Start 03/02/17 at 15:30; Stop 03/02/17 at 15:46; Status DC Pharmacy Profile Note 0 ml @ 0 mls/hr UNSCH OTHER ; Start 03/02/17 at 16:00 Levofloxacin/ Dextrose (Levaquin 750 Mg Premix Inj) 150 ml @ 100 mls/hr Q24H IV Last administered on 03/05/17 17:57; Start 03/02/17 at 18:00 Acetaminophen (Tylenol) 650 mg Q4H PRN PO TEMP > 100.4; Start 03/02/17 at 16:00 Ondansetron HCl (Zofran Inj) 4 mg Q6H PRN IVP NAUSEA OR VOMITING; Start at 16:00 Acetaminophen (Tylenol) 650 mg Q6H PRN PO PAIN SCALE 1 TO 2; Start 03/02/17 at 16:00 Acetaminophen/ Hydrocodone Bitart (Cerro 5-325 Mg) 1 tab Q4H PRN PO PAIN SCALE 3 TO 5 Last administered on 03/02/17 19:42; Start 03/02/17 at 16:00 Acetaminophen/ Hydrocodone Bitart (Cerro 10-325 Mg) 1 tab Q4H PRN PO PAIN SCALE 6 TO 10 Last administered on 03/05/17 20:02; Start 03/02/17 at 16:00 Morphine Sulfate (Morphine Inj) 2 mg Q3H PRN IV BREAKTHROUGH PAIN Last administered on 03/03/17 19:21; Start 03/02/17 at 16:00 Naloxone HCl (Narcan Inj) 0.4 mg UNSCH PRN IV SEE LABEL COMMENTS; Start at 16:00 Senna/Docusate Sodium (Lian-Colace) 1 tab BID PO Last administered on 09:17; Start 03/02/17 at 21:00 Magnesium Hydroxide (Milk Of Magnesia Liq) 30 ml Q12H PRN PO MILD - MODERATE CONSTIPATION; Start 03/02/17 at 16:00 Sennosides (Senokot) 17.2 mg Q12H PRN PO MODERATE - SEVERE CONSTIPATION; Start 03/02/17 at 16:00 Lactulose (Lactulose Liq) 30 ml DAILY PRN PO SEVERE CONSITIPATION; Start at 16:00 Albuterol/ Ipratropium (Duoneb Neb) 1 ampule QID NEB INH Last administered on 03/06/17 08:04; Start 03/02/17 at 20:00 Albuterol Sulfate (Albuterol Neb) 2.5 mg Q2HR NEB PRN INH SHORTNESS OF BREATH Last administered on 03/04/17 00:54; Start 03/02/17 at 16:15 Budesonide/ Formoterol Fumarate (Symbicort 160-4.5 Inh) 2 puff DAILY INH Last administered on 03/06/17 07:57; Start 03/03/17 at 09:00 Gabapentin (Neurontin) 300 mg TID PO Last administered on 03/06/17 07:53; Start 03/02/17 at 18:00 Loratadine (Claritin) 10 mg DAILY PO Last administered on 03/06/17 07:53; Start 03/03/17 at 09:00 Methocarbamol (Robaxin) 500 mg QID PO Last administered on 03/05/17 20:41; Start 03/02/17 at 18:00 Pantoprazole Sodium (Protonix) 40 mg DAILY PO Last administered on 03/06/17 07 :54; Start 03/02/17 at 17:00 Furosemide (Lasix Inj) 20 mg DAILY IV PUSH Last administered on 03/03/17 08:46 ; Start 03/02/17 at 17:00; Stop 03/03/17 at 09:30; Status DC Potassium Chloride 20 meq 20 meq DAILY PO Last administered on 03/03/17 08:46 ; Start 03/02/17 at 17:00; Stop 03/03/17 at 09:30; Status DC Vancomycin HCl/ Sodium Chloride (Vancomycin Inj/ NS 500 ml Inj) 515 ml @ 257.5 mls/ hr Q24H IV Last administered on 03/03/17 12:54; Start 03/03/17 at 12:00; Stop 03/03/17 at 16:02; Status DC Miscellaneous Information SPECIFIC LAB TO BE NICK... ONCE ONCE .XX Last administered on 03/05/17 11:45; Start 03/05/17 at 11:45; Stop 03/05/17 at 11:46 ; Status DC Furosemide (Lasix Inj) 20 mg BID IV PUSH Last administered on 03/04/17 09:18; Start 03/03/17 at 21:00; Stop 03/04/17 at 12:27; Status DC Potassium Chloride (KCl) 20 meq BID PO Last administered on 03/06/17 07:53; Start 03/03/17 at 21:00 Prednisone (Deltasone) 40 mg DAILY PO Last administered on 03/06/17 07:53; Start 03/03/17 at 09:30; Stop 03/06/17 at 09:29; Status DC Benzonatate (Tessalon) 200 mg Q8H PRN PO COUGH Last administered on 03/05/17 19:59; Start 03/03/17 at 09:30 Guaifenesin 600 mg 600 mg BID PO Last administered on 03/06/17 07:54; Start at 21:00 Vancomycin HCl/ Sodium Chloride (Vancomycin Inj/ NS 500 ml Inj) 517.5 ml @ 257.5 mls/ hr Q24H IV Last administered on 03/04/17 11:53; Start 03/04/17 at 12:00; Status Hold Furosemide (Lasix Inj) 20 mg DAILY IV PUSH Last administered on 03/06/17 07:54 ; Start 03/05/17 at 09:00 Heparin Sodium (Porcine) (Heparin Inj) 10,000 units STK-MED ONCE .ROUTE ; Start 03/05/17 at 12:59; Stop 03/05/17 at 13:00; Status DC Midazolam HCl (Versed Inj) 5 mg STK-MED ONCE .ROUTE ; Start 03/05/17 at 12:59; Stop 03/05/17 at 13:00; Status DC Fentanyl Citrate (fentaNYL INJ) 100 mcg STK-MED ONCE .ROUTE ; Start 03/05/17 at 12:59; Stop 03/05/17 at 13:00; Status DC Heparin Sodium (Porcine) (*HEPARIN INJ Periprocedural ONLY) 10,000 units STK- MED ONCE OTHER Last administered on 03/05/17 13:10; Start 03/05/17 at 13:10; Stop 03/05/17 at 13:13; Status DC Iohexol (Omnipaque 300 Inj) 50 ml STK-MED ONCE OTHER Last administered on 13:12; Start 03/05/17 at 13:12; Stop 03/05/17 at 13:13; Status DC Iohexol (OMNIPAQUE 300 INJ (Rad CT)) 100 ml STK-MED ONCE OTHER Last administered on 03/05/17 13:12; Start 03/05/17 at 13:12; Stop 03/05/17 at 13:14 ; Status DC Other Results Laboratory Tests Test 03/05/17 03/06/17 05:06 07:23 White Blood Count 5.8 TH/MM3 5.2 TH/MM3 Red Blood Count 2.76 MIL/MM3 2.81 MIL/MM3 Hemoglobin 9.0 GM/DL 9.2 GM/DL Hematocrit 26.9 % 27.0 % Mean Corpuscular Volume 97.2 FL 96.0 FL Mean Corpuscular Hemoglobin 32.7 PG 32.8 PG Mean Corpuscular Hemoglobin 33.7 % 34.1 % Concent Red Cell Distribution Width 17.9 % 18.1 % Platelet Count 117 TH/MM3 122 TH/MM3 Mean Platelet Volume 8.9 FL 8.9 FL Neutrophils (%) (Auto) 85.3 % 78.9 % Lymphocytes (%) (Auto) 9.7 % 14.8 % Monocytes (%) (Auto) 4.8 % 6.2 % Eosinophils (%) (Auto) 0.1 % 0.1 % Basophils (%) (Auto) 0.1 % 0.0 % Neutrophils # (Auto) 5.0 TH/MM3 4.1 TH/MM3 Lymphocytes # (Auto) 0.6 TH/MM3 0.8 TH/MM3 Monocytes # (Auto) 0.3 TH/MM3 0.3 TH/MM3 Eosinophils # (Auto) 0.0 TH/MM3 0.0 TH/MM3 Basophils # (Auto) 0.0 TH/MM3 0.0 TH/MM3 CBC Comment DIFF FINAL DIFF FINAL Differential Comment Laboratory Tests Test 03/05/17 03/06/17 05:06 07:23 Sodium Level 133 MEQ/L 134 MEQ/L Potassium Level 4.6 MEQ/L 4.5 MEQ/L Chloride Level 98 MEQ/L 101 MEQ/L Carbon Dioxide Level 28.0 MEQ/L 28.1 MEQ/L Anion Gap 7 MEQ/L 5 MEQ/L Blood Urea Nitrogen 15 MG/DL 16 MG/DL Creatinine 1.43 MG/DL 1.59 MG/DL Estimat Glomerular Filtration 49 ML/MIN 43 ML/MIN Rate Random Glucose 95 MG/DL 80 MG/DL Calcium Level 7.8 MG/DL 8.1 MG/DL Magnesium Level 1.5 MG/DL Total Bilirubin 0.5 MG/DL Aspartate Amino Transf 14 U/L (AST/SGOT) Alanine Aminotransferase 14 U/L (ALT/SGPT) Alkaline Phosphatase 91 U/L Total Protein 4.9 GM/DL Albumin 1.7 GM/DL Exam-Podiatry Constitutional General appearance: comfortable Nutritional status: overweight Orientation: alert and oriented x3 Dermatological Exam Skin Temp - Right: Cool (right hallux) Skin Texture - Right: Within Normal Limits Skin Elasticity - Right: Within Normal Limits Skin Tugor - Right: Within Normal Limits Hair Growth - Right: Within Normal Limits Pigmentation - Right: Within Normal Limits Skin Temp - Left: Within Normal Limits Skin Texture - Left: Within Normal Limits Skin Elasticity - Left: Within Normal Limits Skin Tugor - Left: Within Normal Limits Hair Growth - Left: Within Normal Limits Pigmentation - Left: Within Normal Limits Ulcers: Location/Measurements Dry gangrene of the right hallux back to te metatarsal phalangeal joint area Vascular/Lymphatic Exam R Dorsails Pedis: Doppler L Dorsails Pedis: Doppler R Posterior Tibial: Doppler L Posterior Tibial: Doppler Neurologic Exam Details Deferred Muscle Strength Dorsiflexion (Right): Normal Plantarflexion (Right): Normal Inversion (Right): Normal Eversion (Right): Normal Digital (Right): Normal Dorsiflexion (Left): Normal Plantarflexion (Left): Normal Inversion (Left): Normal Eversion (Left): Normal Digital (Left): Normal Foot Range of Motion Dorsiflexion (Right): Normal Plantarflexion (Right): Normal Inversion (Right): Normal Eversion (Right): Normal Digital (Right): Normal Dorsiflexion (Left): Normal Plantarflexion (Left): Normal Inversion (Left): Normal Eversion (Left): Normal Digital (Left): Normal Assessment & Plan Diagnosis: (1) Gangrene of toe of right foot Status: Acute A/P PLAN: At plan to take the patient to the OR Thursday for an amputation. Patient refuses. He would like to follow at the [place]. He can be discharged from a podiatry standpoint. Discussed risk of allowing the Gangrene to spread Oral Nieves DPM Mar 06, 2017 10:42 am
[2017-03-06] MEDS ORDERED: VANCOMYCIN 1,500 MG/NS 500 ML IV ONE ×2 (12:00)
[2017-03-06] MEDS: LEVOFLOXACIN 750 MG PREMIX INJ 150 ML IV SCH (18:00)
[2017-03-07] VITALS: BP 153/83; PULSE 82; RESP 18; TEMP 96.1; O2SAT 95
[2017-03-07 07:39] LABS: HEMATOCRIT 30.1 % (39.0-51.0); MEAN CELL VOLUME 96.5 FL (80.0-100.0); MEAN CORPUSCULAR HEMOGLOBIN 33.1 PG (27.0-34.0); MEAN CORPUSCULAR HGB CONC 34.3 % (32.0-36.0); PLATELET COUNT 123 TH/MM3 (150-450); RED BLOOD COUNT 3.12 MIL/MM3 (4.50-5.90); RED CELL DISTRIBUTION WIDTH 18.6 % (11.6-17.2); REVIEW FLAG FINAL; WHITE BLOOD COUNT 4.7 TH/MM3 (4.0-11.0)
[2017-03-07] MEDS: DOCUSATE SODIUM 50 MG/SENNA 8.6 MG TAB PO SCH ×2 (07:53→19:43)
[2017-03-07] MEDS: METHOCARBAMOL 500 MG TAB PO SCH ×4 (07:54→19:43)
[2017-03-07] MEDS: BUDESONIDE-FORMOTEROL 160/4.5 MCG INHALER INH SCH (07:54)
[2017-03-07] MEDS: guaiFENesin E.R. 600 MG TAB PO SCH ×2 (07:54→19:43)
[2017-03-07] MEDS: FUROSEMIDE 20 MG/2 ML VIAL IV PUSH SCH (07:54)
[2017-03-07] MEDS: GABAPENTIN 300 MG CAP PO SCH ×3 (07:54→16:27)
[2017-03-07] MEDS: LORATADINE 10 MG TAB PO SCH (07:54)
[2017-03-07] MEDS: PANTOPRAZOLE SOD 40 MG DELAYED RELEASE TAB PO SCH (07:54)
[2017-03-07] MEDS: POTASSIUM CHLORIDE 20 MEQ CONTROLLED RELEASE TAB PO SCH ×2 (07:54→19:43)
[2017-03-07 08:00] VITALS: BP 159/84; PULSE 83; RESP 17; TEMP 96.2; O2SAT 93
[2017-03-07 08:00] LABS: BICARBONATE 28.8 MEQ/L (21.0-32.0)
--- NOTE | 2017-03-07 09:15 | MB ---
cc: ARUN CORTES MD DATE OF CONSULTATION: 03/07/2017 TIME OF CONSULTATION: 0800 DATE OF : 1945. REASON FOR CONSULTATION Second opinion right foot surgery. HISTORY OF PRESENT ILLNESS The patient is 72-year-old male very pleasant seen at bedside this morning, good spirits. He has a past history of pseudo aneurysm repaired. Chronic obstructive pulmonary disease, gastrointestinal bleed, diastolic heart failure exacerbation. He is status post endovascular revascularization on the right side. The patient had a traumatic injury to right foot, where he fell off the step and hurt his right toe. He presented to emergency department with black discoloration. Dry stable gangrene. Seen at bedside denies any nausea, vomit, fever, diarrhea, chills, palpitations, abdominal pain. REVIEW OF SYSTEMS Review of systems per History of present illness. PAST MEDICAL HISTORY: Per history of present illness. PAST SURGICAL HISTORY 1. Rajan colectomy secondary to colon cancer 2. back surgery 3. Right leg stenting MEDICATIONS: 1. Potassium chloride 2. Symbicort 3. Albuterol 4. Gabapentin 5. Methocarbamol ALLERGIES PENICILLIN FAMILY HISTORY: Noncontributory. SOCIAL HISTORY Continues to smoke a pack per day. Positive occasional alcohol use. PHYSICAL EXAMINATION DP and PT on the right side palpable, PERFORATOR TYPIST 2-5 on the right less then 3 seconds. Dry stable gangrene on the right hallux extended proximally to the MP joint. There is no active drainage. No purulence, no malodor. There is some dorsal stable eschars on the right mid foot. Muscle strength was 5/5 in all quadrants. Protective sensation grossly intact. LABORATORY FINDINGS: White blood cell 03/07/2017 alkaline phosphatase 4.7, red blood cells 3.12, hemoglobin and hematocrit 10.3 and 30.1 respectively. RADIOLOGIC: Right foot x-ray completed 03/02/2017 without any acute fracture noted. There is no gas noted. There is there is no foreign bodies noted. ASSESSMENT/PLAN 1. Right foot dry stable gangrene. 2. Peripheral vascular disease. I had a long discussion with the patient regarding his presentation and the risk involved with deferring surgical involvement, I recommended a first ray amputation, partial as well as a possible second ray amputation, which would determine intraoperatively depending on the soft tissue presentation. The patient is amendable to this procedure and he insisted that I do carry out the procedure as he is comfortable with my direction of care. I did discuss to the patient that he may need more surgical intervention in the future. He understands that they may be some delay in wound care. I did discuss that after the amputation he would likely need a forefoot sole, but he will still be in his regular shoe. He may need some assisted devices like a cane and walker but it is unlikely at this point and time unless he had those previous devices before. I will have the patient in the operating room on 03/08/2017. He should be medically cleared by the team, and then n.p.o. at midnight. Consent was already placed and the operating room was called, informed and placed on the schedule for 0800 on 03/08/2017. Dr. Cortes has confirmed the surgery at 0800 2016. Thank you for the kind consult. Munira Chew DPM SR/urmila /8:23 AM /8:34 AM
--- NOTE | 2017-03-07 10:27 | HHI.PR ---
Subjective Remarks Amputations has been recommended. Patient demanded a second option and has had this via Dr. Chew. He now would prefer Dr. Chew for ampuation and this is planned for tomorrow. No new complaints today. Objective Vital Signs Date Time Temp Pulse Resp B/P Pulse Ox O2 Delivery O2 Flow Rate FiO2 03/07/17 08:00 96.2 83 17 159/84 93 03/07/17 00:00 96.1 82 18 153/83 95 03/06/17 20:00 97.6 91 18 145/83 93 03/06/17 16:10 98 21 03/06/17 16:00 97.2 86 18 130/65 94 03/06/17 12:00 96.3 91 18 146/69 95 I/O 03/06/17 03/06/17 03/06/17 03/07/17 03/07/17 03/07/17 07:00 15:00 23:00 07:00 15:00 23:00 Intake Total 480 ml 240 ml 480 ml Output Total 600 ml 1200 ml 950 ml Balance -120 ml 240 ml -720 ml -950 ml Intake Oral 480 ml 240 ml 480 ml Output Urine Total 600 ml 1200 ml 950 ml # Voids 1 3 # Bowel Movements 1 0 Result Diagram: 03/07/17 0710 03/07/17 0710 Objective Remarks GENERAL: NAD, A&Ox3 HEAD: Normocephalic. NECK: Supple, trachea midline. No lymphadenopathy. EYES: No scleral icterus. No injection or drainage. CARDIOVASCULAR: Regular rate and rhythm without murmurs, gallops, or rubs. RESPIRATORY: Breath sounds equal bilaterally. No accessory muscle use. GASTROINTESTINAL: Abdomen soft, non-tender, nondistended. MUSCULOSKELETAL: No cyanosis, or edema. SKIN: Warm and dry. Distal right foot has some superficial ulcerations. The patient's first toe is black in the medial/distal aspect of his foot has some mild erythema and dusky appearance compared to the rest of the foot. NEURO: No focal neurological deficitis. A/P Problem List: (1) Discoloration of skin of foot ICD Code: L81.9 (2) Gangrene of toe of right foot ICD Code: I96 (3) Toe infection ICD Code: L08.9 Assessment and Plan Assessment and Plan 72-year-old male admitted with a right toe that appears to be ischemic with developing cellulitis proximally. Plan for amputation tomorrow. Follow labs pre op and post op. Ischemic right first toe Right distal foot cellulitis Podiatry following Angiography showed perfusion to affected toe. Continue as needed pain treatments Continue vancomycin and Levaquin Follow blood cultures Cephalic vein thrombosis. Follow clinically COPD exacerbation Chronic Respiratory failure Exacerbation improved Oxygen as needed Continue antibiotics Continue nebulizers Recent GI bleed with history of colon cancer Monitor for any signs of GI bleeding or progressive anemia Mild pancytopenia. Follow CBC Diastolic heart failure with anasarca. Continue diuresis with Lasix 20 mg daily with potassium supplementation monitor electrolytes and renal function Chronic kidney disease stage III. Follow renal function Avoid nephrotoxins Lasix has been lowered DVT prophylaxis SCDs Surgery pending Discharge Planning Further treatments of patient's right first toe needed prior to consideration of discharge Charles Murphy MD Mar 07, 2017 10:27
[2017-03-07 12:00] VITALS: BP 109/57; PULSE 89; RESP 18; TEMP 96.5; O2SAT 92
[2017-03-07 16:00] VITALS: BP 130/74; PULSE 92; RESP 18; TEMP 97.2; O2SAT 95
[2017-03-07 20:00] VITALS: BP 114/69; PULSE 87; RESP 18; TEMP 98.2; O2SAT 96
[2017-03-08] VITALS: BP 107/59; PULSE 81; RESP 18; TEMP 98.8; O2SAT 92
[2017-03-08 04:00] VITALS: BP 120/75; PULSE 83; RESP 18; TEMP 97.2; O2SAT 95
[2017-03-08 04:23] LABS: HEMATOCRIT 26.9 % (39.0-51.0); MEAN CELL VOLUME 96.2 FL (80.0-100.0); MEAN CORPUSCULAR HEMOGLOBIN 32.9 PG (27.0-34.0); MEAN CORPUSCULAR HGB CONC 34.1 % (32.0-36.0); PLATELET COUNT 118 TH/MM3 (150-450); RED CELL DISTRIBUTION WIDTH 17.9 % (11.6-17.2); REVIEW FLAG FINAL; WHITE BLOOD COUNT 4.4 TH/MM3 (4.0-11.0)
[2017-03-08 04:48] LABS: POTASSIUM 4.6 MEQ/L (3.5-5.1)
[2017-03-08] MEDS ORDERED: LACTATED RINGER'S 1000 ML IV PRN (06:00)
[2017-03-08] MEDS: MORPHINE SULFATE 4 MG/ML INJ IV PRN (06:04)
[2017-03-08] MEDS: FUROSEMIDE 20 MG/2 ML VIAL IV PUSH SCH (08:00)
[2017-03-08] MEDS: SODIUM CHLOR 0.9% 1000 ML INJ 1,000 ML IV SCH ×2 (08:00→19:55)
[2017-03-08] MEDS ORDERED: ACETAMINOPHEN 1000 MG/100 ML VIAL IV ONE (08:17)
[2017-03-08] MEDS ORDERED: BUPIVACAINE HCL PF 0.5% 30 ML VIAL ONE (08:19)
[2017-03-08] MEDS: GABAPENTIN 300 MG CAP PO SCH ×3 (09:00→17:27)
[2017-03-08] MEDS: POTASSIUM CHLORIDE 20 MEQ CONTROLLED RELEASE TAB PO SCH ×2 (09:00→19:38)
[2017-03-08] MEDS: guaiFENesin E.R. 600 MG TAB PO SCH ×2 (09:00→19:38)
[2017-03-08] MEDS: LORATADINE 10 MG TAB PO SCH (09:00)
[2017-03-08] MEDS: PANTOPRAZOLE SOD 40 MG DELAYED RELEASE TAB PO SCH (09:00)
[2017-03-08] MEDS: DOCUSATE SODIUM 50 MG/SENNA 8.6 MG TAB PO SCH ×2 (09:00→19:38)
[2017-03-08] MEDS: METHOCARBAMOL 500 MG TAB PO SCH ×4 (09:00→19:38)
[2017-03-08 10:54] VITALS: O2SAT 98
[2017-03-08] MEDS: BUDESONIDE-FORMOTEROL 160/4.5 MCG INHALER INH SCH (11:00)
[2017-03-08 12:00] VITALS: BP 126/68; PULSE 90; RESP 18; TEMP 96.8; O2SAT 93
[2017-03-08] MEDS ORDERED: LACTATED RINGER'S 1000 ML INJ 1,000 ML IV ONE (12:00)
[2017-03-08] MEDS ORDERED: ONDANSETRON HCL 4 MG/2 ML VIAL IV PUSH ONE (12:00)
[2017-03-08] MEDS ORDERED: PHENYLEPH/NS 1000 MCG/10 ML SYR IV ONE (12:00)
[2017-03-08] MEDS ORDERED: PROPOFOL 200 MG/20 ML AMP IV ONE (12:00)
--- NOTE | 2017-03-08 12:43 | RADRPT ---
EXAM DATE/TIME: 03/08/2017 08:44 [facility] COMPARISON: FOOT RIGHT COMPLETE ([id number]), March 02, 2017, 12:24. INDICATIONS : Post operative for first digit amputation. MEDICAL HISTORY : None. SURGICAL HISTORY : None. ENCOUNTER: Initial ACUITY: 1 day PAIN SCORE: Non-responsive. LOCATION: Right foot. FINDINGS: Two view examination of the right foot demonstrates amputation of the great toe and mid to distal sha ft of the first metatarsal. Postsurgical changes are seen with air in the soft tissues. The remainder the foot is intact and unremarkable. CONCLUSION: Amputation of mid to distal first metatarsal and great toe. Oral Meyers MD on March 08, 2017 at 9:18 Board Certified Radiologist. This report was verified electronically.
[2017-03-08] MEDS ORDERED: DO NOT ADM ANY ANTICOAGULANT DRUGS PRN (13:00)
--- NOTE | 2017-03-08 14:43 | HHI.PR ---
Subjective Remarks Patient is now status post amputation of the first toe of the right foot. He is doing well postop. Antibiotics are continued. No complaints of pain. Objective Vital Signs Date Time Temp Pulse Resp B/P (MAP) Pulse Ox O2 Delivery O2 Flow Rate FiO2 03/08/17 12:00 96.8 90 18 126/68 (87) 93 03/08/17 04:00 97.2 83 18 120/75 (90) 95 03/08/17 00:00 98.8 81 18 107/59 (75) 92 03/07/17 20:00 98.2 87 18 114/69 (84) 96 03/07/17 16:00 97.2 92 18 130/74 (92) 95 I/O 03/07/17 03/07/17 03/07/17 03/08/17 03/08/17 03/08/17 07:00 15:00 23:00 07:00 15:00 23:00 Intake Total 1080 ml Output Total 950 ml 1100 ml Balance -950 ml -20 ml Intake Oral 1080 ml Output Urine Total 950 ml 1100 ml # Voids 2 2 # Bowel Movements 1 Result Diagram: 03/08/17 03303/08/17336 Objective Remarks GENERAL: NAD, A&Ox3 HEAD: Normocephalic. NECK: Supple, trachea midline. No lymphadenopathy. EYES: No scleral icterus. No injection or drainage. CARDIOVASCULAR: Regular rate and rhythm without murmurs, gallops, or rubs. RESPIRATORY: Breath sounds equal bilaterally. No accessory muscle use. GASTROINTESTINAL: Abdomen soft, non-tender, nondistended. MUSCULOSKELETAL: No cyanosis, or edema. SKIN: Warm and dry. Distal right foot has some superficial ulcerations. The patient's first toe of the right foot is black in the medial/distal aspect of his foot has some mild erythema and dusky appearance compared to the rest of the foot. NEURO: No focal neurological deficitis. A/P Problem List: (1) Discoloration of skin of foot ICD Code: L81.9 - Disorder of pigmentation, unspecified Status: Acute (2) Gangrene of toe of right foot ICD Code: I96 - Gangrene, not elsewhere classified Status: Acute (3) Toe infection ICD Code: L08.9 - Local infection of the skin and subcutaneous tissue, unspecified Status: Acute Assessment and Plan Assessment and Plan 72-year-old male admitted with a right toe that appears to be ischemic with developing cellulitis proximally. Amputation of first toe right foot completed this morning. No complaints from the patient. Tentative plan for discharge tomorrow. Ischemic right first toe Right distal foot cellulitis Podiatry following Angiography showed perfusion to affected toe. Continue as needed pain treatments Continue vancomycin and Levaquin Follow blood cultures Cephalic vein thrombosis. Follow clinically COPD exacerbation Chronic Respiratory failure Exacerbation improved Oxygen as needed Continue antibiotics Continue nebulizers Recent GI bleed with history of colon cancer Monitor for any signs of GI bleeding or progressive anemia Mild pancytopenia. Follow CBC Diastolic heart failure with anasarca. Continue diuresis with Lasix 20 mg daily with potassium supplementation monitor electrolytes and renal function Chronic kidney disease stage III. Follow renal function Avoid nephrotoxins Lasix has been lowered DVT prophylaxis SCDs Surgery pending Discharge Planning Possible discharge tomorrow. Charles Murphy MD Mar 08, 2017 14:43
[2017-03-08 16:00] VITALS: BP 120/64; PULSE 82; RESP 17; TEMP 96.7; O2SAT 98
[2017-03-08] MEDS ORDERED: NEOMYCIN/POLYMYXIN 1 ML G.U. IRRIGANT IRRIGATION ONE (17:26)
[2017-03-08] MEDS ORDERED: LEVOFLOXACIN 750 MG PREMIX INJ 150 ML IV SCH (18:00)
[2017-03-08] MEDS: ACETAMINOPHEN/HYDROcodone 325 MG/10 MG TAB PO PRN ×2 (19:38→23:19)
[2017-03-08] MEDS: BENZONATATE 100 MG CAP PO PRN (19:42)
[2017-03-08 20:00] VITALS: BP 130/67; PULSE 96; RESP 18; TEMP 98.6; O2SAT 95
[2017-03-08] MEDS: VANCOMYCIN INJ 1,500 MG in SODIUM CHLORID 0.9% 500 ML INJ 500 ML IV ONE ×2 (20:00→22:19)
[2017-03-09] VITALS: BP 118/58; PULSE 85; RESP 16; TEMP 98.6; O2SAT 92
[2017-03-09] MEDS: ACETAMINOPHEN/HYDROcodone 325 MG/10 MG TAB PO PRN ×4 (03:03→15:21)
[2017-03-09 05:56] VITALS: BP 111/61; PULSE 77; RESP 16; TEMP 96.7; O2SAT 94
[2017-03-09 06:00] VITALS: O2SAT 94
[2017-03-09] MEDS: SODIUM CHLOR 0.9% 1000 ML INJ 1,000 ML IV SCH (07:50)
[2017-03-09 08:00] VITALS: BP 155/73; PULSE 86; RESP 18; TEMP 98.4; O2SAT 95
[2017-03-09 08:21] LABS: HEMATOCRIT 27.5 % (39.0-51.0); MEAN CELL VOLUME 97.3 FL (80.0-100.0); MEAN CORPUSCULAR HEMOGLOBIN 32.5 PG (27.0-34.0); MEAN CORPUSCULAR HGB CONC 33.5 % (32.0-36.0); PLATELET COUNT 123 TH/MM3 (150-450); RED BLOOD COUNT 2.83 MIL/MM3 (4.50-5.90); RED CELL DISTRIBUTION WIDTH 18.4 % (11.6-17.2); REVIEW FLAG FINAL; WHITE BLOOD COUNT 4.9 TH/MM3 (4.0-11.0)
--- NOTE | 2017-03-09 08:22 | MP ---
cc: MOLLY CHEW DPM DATE OF SURGERY: 03/08/2017 DATE OF : 1945 SURGEON GIGI Chew PREOPERATIVE DIAGNOSIS 1. Right PVD. 2. Right hallux gangrene. POSTOPERATIVE DIAGNOSIS 1. Right PVD. 2. Right hallux gangrene. PROCEDURE Right first ray partial amputation. ANESTHESIA General by Dr. Rosa. HEMOSTASIS None. ESTIMATED BLOOD LOSS Less than 15 cc. MATERIALS 2-0 Vicryl, 3-0 nylon. INJECTABLES Postoperatively 10 cc 0.5% Marcaine plain. BRIEF HISTORY The patient is a 72-year-old male who had a traumatic injury to the right foot presented to the ED with dry stable gangrene. He was revascularized by Dr. Thompson who will locate further surgical intervention and amputation to the foot. The patient was initially seen with Dr. Nieves but the patient refused his plan of care. I evaluated the patient and recommended a partial right first ray amputation with possible right second ray amputation. The patient was advised as to the recommendations and he freely consented to surgical intervention. No guarantees were given or implied. All questions were answered. I did educate the patient on the possibility of additional surgery and surgical intervention including amputations. PROCEDURE IN DETAIL The patient was brought into the operating room and placed on the operating table in the spine position. After general anesthesia was administered, a timeout was called. Correct patient identifiers were carried out. A tourniquet was applied to the right ankle but never inflated at all throughout the procedure. The right foot was prepped, scrubbed and draped in the usual sterile aseptic manner. Attention was then directed to the right hallux where it was disarticulated at the MP joint. The incision was extended proximally and a partial right first metatarsal was resected, completing the partial first ray amputation. Necrotic nonviable tissue was sharply excised using a #10 blade. Bleeders were Bovie'd and tied as necessary. There was mild to moderate bleeding. Tissues were healthy proximally along the first ray. There was no purulence ascending. The incision was copiously irrigated with normal sterile saline impregnated with two units of . The incision was then closed in layers with 2-0 Vicryl deep and 3-0 nylon along the skin. A very proximal midfoot block was given postoperatively with 10 cc of 0.5% Marcaine plain. Dry sterile dressings were applied using 4x4's, Adaptic, Jaime, Sof-Rol and a light Bg wrap. The patient tolerated the procedure completion. He will be transferred to the PACU for a brief period of post-op monitoring after which he will be transferred to the floor and followed appropriately while in house. The plan with this patient is to ascertain the cultures from intra-op and then discharge home with 2 weeks of oral antibiotics. He will follow-up with Dr. Chew within one week of discharge. Molly Chew DPM SR/ELADIA /7:24 PM /7:57 AM
[2017-03-09 08:32] LABS: BICARBONATE 29.7 MEQ/L (21.0-32.0); POTASSIUM 4.3 MEQ/L (3.5-5.1)
[2017-03-09] MEDS: BUDESONIDE-FORMOTEROL 160/4.5 MCG INHALER INH SCH (09:00)
[2017-03-09] MEDS ORDERED: HYDR-3516 PO (09:21)
[2017-03-09] MEDS: GABAPENTIN 300 MG CAP PO SCH ×2 (09:39→11:04)
[2017-03-09] MEDS: LORATADINE 10 MG TAB PO SCH (09:39)
[2017-03-09] MEDS: METHOCARBAMOL 500 MG TAB PO SCH ×2 (09:39→11:04)
[2017-03-09] MEDS: guaiFENesin E.R. 600 MG TAB PO SCH (09:40)
[2017-03-09] MEDS: FUROSEMIDE 20 MG/2 ML VIAL IV PUSH SCH (09:40)
[2017-03-09] MEDS: POTASSIUM CHLORIDE 20 MEQ CONTROLLED RELEASE TAB PO SCH (09:40)
[2017-03-09] MEDS: DOCUSATE SODIUM 50 MG/SENNA 8.6 MG TAB PO SCH (09:40)
[2017-03-09] MEDS: PANTOPRAZOLE SOD 40 MG DELAYED RELEASE TAB PO SCH (09:40)
--- NOTE | 2017-03-09 11:35 | PD.VS.PN ---
Subjective Subjective/Hospital Course Pt sitting up in bed PT at the Pain controlled Dressing to R LE I/C/D Objective Vitals/I&O Date Time Temp Pulse Resp B/P (MAP) Pulse Ox O2 Delivery O2 Flow Rate FiO2 03/09/17 08:00 98.4 86 18 155/73 (100) 95 03/09/17 06:00 94 Nasal Cannula 2.00 03/09/17 05:56 96.7 77 16 111/61 (78) 94 03/09/17 00:00 98.6 85 16 118/58 (78) 92 03/08/17 20:00 98.6 96 18 130/67 (88) 95 03/08/17 16:00 96.7 82 17 120/64 (82) 98 03/08/17 12:00 96.8 90 18 126/68 (87) 93 03/09/17 03/09/17 03/09/17 06:59 14:59 22:59 Intake Total 120 ml Output Total 250 ml Balance -250 ml 120 ml Physical Exam GENERAL: A&OX3,NAD,GCS15 SKIN: Warm and dry MUSCULOSKELETAL: No cyanosis, or edema. LE warm with motor intact Right LE with neida wrap dressing intact Pt s/p Right great toe amputation (POD 1) Pt denies abdominal/back pain Laboratory Laboratory Tests Test 03/09/17 06:33 White Blood Count 4.9 Red Blood Count 2.83 Hemoglobin 9.2 Hematocrit 27.5 Mean Corpuscular Volume 97.3 Mean Corpuscular Hemoglobin 32.5 Mean Corpuscular Hemoglobin Concent 33.5 Red Cell Distribution Width 18.4 Platelet Count 123 Mean Platelet Volume 8.9 Blood Urea Nitrogen 18 Creatinine 1.56 Random Glucose 71 Calcium Level 7.7 Sodium Level 139 Potassium Level 4.3 Chloride Level 103 Carbon Dioxide Level 29.7 Anion Gap 6 Estimat Glomerular Filtration Rate 44 Date/Time Source Procedure Growth Status 03/02/17 12:59 Blood Peripheral Aerobic Blood Culture - Final NO GROWTH IN 5 DAYS Complete 03/02/17 12:59 Blood Peripheral Anaerobic Blood Culture - Final NO GROWTH IN 5 DAYS Complete 03/08/17 08:50 Wound Toe Fungal Smear Pending Received 03/08/17 08:50 Wound Toe Fungal Culture Pending Received Imaging Last 48 hours Impressions Foot X-Ray 03/08/17 0838 Signed Impressions: Service Date/Time: Wednesday, March 08, 2017 08:44 - CONCLUSION: Amputation of mid to distal first metatarsal and great toe. Oral Meyers MD Assessment and Plan Assessment: (1) Discoloration of skin of foot Status: Acute (2) AAA (abdominal aortic aneurysm) Status: Acute (3) Pseudoaneurysm of aorta Status: Acute (4) Gangrene of toe of right foot Status: Acute Plan Plan Pt OK for D/C from a vascular standpoint Will arrange post op follow up Sarahi HANDY [facility] [phone] Discharge Planning Pt cleared from a vascular standpoint Sarahi Dye Mar 09, 2017 11:35
[2017-03-09 12:00] VITALS: BP 136/69; PULSE 95; RESP 19; TEMP 99; O2SAT 96
[2017-03-09] MEDS ORDERED: BACT800T5 PO (13:56)
[2017-03-09] MEDS ORDERED: LACTTAB8 PO (13:56)
--- NOTE | 2017-03-09 14:00 | HHI.DS ---
Discharge Summary Admission Date Mar 02, 2017 at 14:48 Discharge Date: Mar 09, 2017 Admitting Diagnosis infection great toe (1) Toe infection ICD Code: L08.9 - Local infection of the skin and subcutaneous tissue, unspecified Status: Acute (2) Gangrene of toe of right foot ICD Code: I96 - Gangrene, not elsewhere classified Diagnosis: Principal Status: Acute Procedures Amputation of right first toe Brief History - From Admission This is a 72-year-old male recently admitted for pseudoaneurysm repair, COPD exacerbation, GI bleed and diastolic heart failure exacerbation. He has been doing well until a week ago when he fell down a step and hurt his right great toe. Since then he has constant pain and increasing swelling of the right great toe. In the past few days he noted black discoloration with bloody discharge from the injured digit. No fever, chills, chest pain, shortness of breath, palpitations, nausea, vomiting and abdominal pain. He has nonproductive cough. He is on chronic oxygen. All other systems reviewed negative. ER workup shows subacute or chronic fracture involving the distal phalanx of the right great toe. CTA has been ordered as recommended by vascular surgery. He received fluid bolus and IV vancomycin. Telemetry shows sinus rhythm. EKG is pending. CBC/BMP: 03/09/17 0633 03/09/17 0633 Significant Findings Laboratory Tests Test 03/07/17 07:10 03/08/17 03:37 03/09/17 06:33 Red Blood Count 3.12 MIL/MM3 (4.50-5.90) 2.80 MIL/MM3 (4.50-5.90) 2.83 MIL/MM3 (4.50-5.90) Hemoglobin 10.3 GM/DL (13.0-17.0) 9.2 GM/DL (13.0-17.0) 9.2 GM/DL (13.0-17.0) Hematocrit 30.1 % (39.0-51.0) 26.9 % (39.0-51.0) 27.5 % (39.0-51.0) Red Cell Distribution Width 18.6 % (11.6-17.2) 17.9 % (11.6-17.2) 18.4 % (11.6-17.2) Platelet Count 123 TH/MM3 (150-450) 118 TH/MM3 (150-450) 123 TH/MM3 (150-450) Blood Urea Nitrogen 19 MG/DL (7-18) 20 MG/DL (7-18) Creatinine 1.62 MG/DL (0.60-1.30) 1.78 MG/DL (0.60-1.30) 1.56 MG/DL (0.60-1.30) Calcium Level 8.3 MG/DL (8.5-10.1) 8.0 MG/DL (8.5-10.1) 7.7 MG/DL (8.5-10.1) Estimat Glomerular Filtration Rate 42 ML/MIN (>89) 38 ML/MIN (>89) 44 ML/MIN (>89) Random Glucose 71 MG/DL (74-106) PE at Discharge GENERAL: NAD, A&Ox3 HEAD: Normocephalic. NECK: Supple, trachea midline. No lymphadenopathy. EYES: No scleral icterus. No injection or drainage. CARDIOVASCULAR: Regular rate and rhythm without murmurs, gallops, or rubs. RESPIRATORY: Breath sounds equal bilaterally. No accessory muscle use. GASTROINTESTINAL: Abdomen soft, non-tender, nondistended. MUSCULOSKELETAL: No cyanosis, or edema. Right foot bandage. SKIN: Warm and dry. NEURO: No focal neurological deficitis. Hospital Course Mr. Wise is a 72-year-old male. He was admitted secondary to infection with gangrene of the right first toe. This was covered with antibiotics and he had an amputation of his right distal toe. He is doing well postop and has been cleared by vascular surgery and podiatry for discharge to home. He will follow- up with podiatry in 1 week and follow as an outpatient with vascular surgery. Patient is able to ambulate on his own at this point. Medically stable for discharge home today. Pt Condition on Discharge: Stable Discharge Disposition: Discharge Home Discharge Time: <= 30 minutes Discharge Instructions DIET: Follow Instructions for: Heart Healthy Diet Activities you can perform: Regular-No Restrictions Follow up Referrals: PCP Follow-up - 2 Weeks Podiatry - 1 Week with Ramdath,Munira DPM Vascular Surgery @ Vascular Surgery with Jarad Thompson V. DO New Medications: Lactobacillus Acidophilus (Lactobacillus Acidophilus) 1 Tab Tab 1 TAB PO TIDAC for Nutritional Supplement, #60 TAB 0 Refills Sulfamethoxazole-Trimethoprim (Bactrim DS) 800-160 Mg Tab 1 TAB PO BID for Infection, #28 TAB 0 Refills Hydrocodone-Acetaminophen (Hydrocodone-Acetaminophen) 5-325 mg Tab 1 TAB PO Q6HR PRN for Pain, #30 TAB Continued Medications: Albuterol Neb (Albuterol Neb) 2.5 Mg/3 Ml Neb 2.5 MG INH Q2HR NEB PRN for SHORTNESS OF BREATH, #30 NEBULE Budesonide-Formoterol Inh (Symbicort Inh) 160-4.5 Mcg/Act Aero 2 PUFF INH DAILY for 30 Days, INHALER Gabapentin (Gabapentin) 300 Mg Cap 300 MG PO TID, #90 CAP 0 Refills Loratadine (Allergy Relief) 10 Mg Tab 10 MG PO DAILY, TAB Methocarbamol (Methocarbamol) 500 Mg Tab 500 MG PO QID for Muscle Spasm, #120 TAB 0 Refills Oxygen tank (Oxygen tank) 1 Ea Tank 2 LITER LYNETTE.CANULA CONTINUOUS for HYPOXEMIA PREVENTION, #3 CYLINDER Oxygen Concentrator Portable Gaseous 2 L/min via Nasal Cannula Continuous For 99 months Potassium Chloride Microencaps (Potassium Chloride Microencaps) 20 Meq Tab 20 MEQ PO Q12HR, #60 TAB Charles Murphy MD Mar 09, 2017 14:00
[2017-03-09] MEDS: BENZONATATE 100 MG CAP PO PRN (14:23)
--- NOTE | 2017-03-09 16:05 | HHI.FF ---
Face to Face Verification Diagnosis: (1) Gangrene of toe of right foot Home Health Nursing Order: Signs/symptoms of disease process Wound care and dressing changes Nursing assessment with vital signs I have seen patient Vaibhav Kay Jr Billie on 03/09/17. My clinical findings support the need for the requested home health care services because: Ltd mobility - disease progression Limited ability to care for self High risk of falls I certify that my clinical findings support that this patient is homebound because: Post-op weakness Unsteady gait/balance Unsafe to leave home unassisted Unable to use public transportation Charles Murphy MD Mar 09, 2017 16:05
== END 2017-03-09 17:54 | disposition home or self-care (01) | DRG 240 ==
LOC: NEPE 11:19 → NEDA 14:48 → N07B 17:49 → HCIS 03-05 19:52 → N07B 03-06 09:55
PROVIDERS: ADMIT Hospitalist; ATTEND Hospitalist
PROC: B41C1ZZ Fluoroscopy of Pelvic Arteries using Low Osmolar Contrast (ICD-10-PCS; 2017-03-05)
PROC: B41F1ZZ Fluoroscopy of Right Lower Extremity Arteries using Low Osmolar Contrast (ICD-10-PCS; 2017-03-05 12:30)
PROC: 0Y6M0Z9 Detachment at Right Foot, Partial 1st Ray, Open Approach (ICD-10-PCS; principal; 2017-03-08 07:33)
DX: I70.261 Atherosclerosis of native arteries of extremities with gangrene, right leg (principal); J96.10 Chronic respiratory failure, unspecified whether with hypoxia or hypercapnia; D61.818 Other pancytopenia; I50.32 Chronic diastolic (congestive) heart failure; I13.0 Hypertensive heart and chronic kidney disease with heart failure and stage 1 through stage 4 chronic kidney disease, or unspecified chronic kidney disease; N18.3 Chronic kidney disease, stage 3 (moderate); I82.619 Acute embolism and thrombosis of superficial veins of unspecified upper extremity; J44.1 Chronic obstructive pulmonary disease with (acute) exacerbation; Z99.81 Dependence on supplemental oxygen; L03.031 Cellulitis of right toe; K22.70 Barrett's esophagus without dysplasia; K57.90 Diverticulosis of intestine, part unspecified, without perforation or abscess without bleeding; F17.210 Nicotine dependence, cigarettes, uncomplicated; S92.421A Displaced fracture of distal phalanx of right great toe, initial encounter for closed fracture; E78.00 Pure hypercholesterolemia, unspecified; I71.4 Abdominal aortic aneurysm, without rupture; M19.071 Primary osteoarthritis, right ankle and foot; W10.9XXA Fall (on) (from) unspecified stairs and steps, initial encounter; Z86.73 Personal history of transient ischemic attack (TIA), and cerebral infarction without residual deficits; Z95.820 Peripheral vascular angioplasty status with implants and grafts; Z85.038 Personal history of other malignant neoplasm of large intestine
CPT/HCPCS: 36246; 71010; 73620; 73630; 75625; 75635; 75710; 80048; 80053; 80202; 83605; 83735; 84155; 85025; 85027; 85652; 86140; 86403; 87015; 87040; 87070; 87102; 87116; 87147; 87186; 87205; 87206; 88305; 88307; 88311; 93005; 93308; 93922; 93970; 93998; 94640; 94664; C1769; J0131; J1644; J1940; J1956; J2250; J2270; J2370; J2405; J3010; J3370; J7030; J7040; J7050; J7120; J7512; J7613; L3260; Q9967

== ENCOUNTER 2017-09-18 15:30 | Emergency (ER) | payer OTHER ==
[~2017-09-18] VITALS: Ht 177.8 cm; Wt 79.5 kg
[~2017-09-18 15:30] MED LIST changes: -ALLE10TA PO; +BACT800T5 PO; -FURO40TA PO; +GABA300C5 PO; -GABA400C5 PO; +HYDR-3516 PO; -IPRASOL NEB; +LACTTAB8 PO; +LORA-650 PO; -METO25TA3 PO; -NEUR400C PO; -OXYC1TAB63 PO; -PANT40TA3 PO; -PRED10 PO; -SENN1TAB PO
[2017-09-18 15:43] VITALS: BP 164/79; PULSE 105; RESP 20; TEMP 98.1; O2SAT 98
--- NOTE | 2017-09-18 18:13 | PD ---
HPI Chief Complaint: Injury Time Seen by Provider: 18:05 Travel History International Travel<30 days: No Contact w/Intl Traveler<30days: No Traveled to known affect area: No History of Present Illness HPI 72-year-old male presents emergency department status post fall into a door jam last evening. Patient states he did not lose consciousness or hit his head. He has no neck pain. Patient is complaining of severe right shoulder pain and decreased ability to move it secondary to pain. Patient has mild tingling in the hand, but can make a fist. He denies any other injury. Pain is 8 out of 10 and worse with any movement patient is allergic to penicillin PFSH Past Medical History Arthritis: No Asthma: No Autoimmune Disease: No Blood Disorders: No Anxiety: No Depression: No Heart Rhythm Problems: No Cancer: Yes (COLON CANCER REMOVED) Cardiovascular Problems: Yes (aortic sx) High Cholesterol: Yes Chemotherapy: No Chest Pain: No Congestive Heart Failure: No COPD: Yes Cerebrovascular Accident: Yes (2005) Coronary Artery Disease: No Diabetes: No Diminished Hearing: No Endocrine: No Gastrointestinal Disorders: Yes (GI BLEED) GERD: Yes Genitourinary: Yes (cyst removed from kidney) Headaches: Yes Hepatitis: No Hiatal Hernia: Yes Hypertension: Yes Immune Disorder: No Kidney Stones: No Musculoskeletal: Yes (NECK AND LEFT KNEE) Neurologic: Yes (TIA 2005, NO RESIDUAL) Psychiatric: No Reproductive: No Respiratory: No Migraines: No Radiation Therapy: No Renal Failure: No Seizures: Yes Sickle Cell Disease: No Sleep Apnea: No Thyroid Disease: No Ulcer: Yes Past Surgical History Abdominal Surgery: Yes (hernia repair & mesh, kidney cyst removed. colon ca removal) AICD: No Appendectomy: No Arteriovenous Shunt: No Body Medical Devices: rods and screws in lower back Cardiac Surgery: No Cholecystectomy: No Ear Surgery: No Endocrine Surgery: No Eye Surgery: Yes (LEFT EYE CATARACT REMOVAL) Genitourinary Surgery: Yes (CYST ON KIDNEY REMOVED) Gynecologic Surgery: No Insulin Pump: No Joint Replacement: No Oral Surgery: Yes (TONSILS REMOVED AND TEETH REMOVED) Pacemaker: No Thoracic Surgery: No Other Surgery: Yes Social History Alcohol Use: Yes (occassionally) Tobacco Use: Yes (one half pack per day) Substance Use: No Allergies-Medications (Allergen,Severity, Reaction): Coded Allergies: penicillin G (Unverified Allergy, Severe, 09/18/17) Reported Meds & Prescriptions Reported Meds & Active Scripts Active Bactrim DS (Sulfamethoxazole-Trimethoprim) 800-160 Mg Tab 1 Tab PO BID Lactobacillus Acidophilus 1 Tab Tab 1 Tab PO TIDAC Hydrocodone-Acetaminophen 5-325 mg Tab 1 Tab PO Q6HR PRN Potassium Chloride Microencaps 20 Meq Tab 20 Meq PO Q12HR Symbicort Inh (Budesonide/Formoterol Fumarate) 160-4.5 Mcg/Act Aero 2 Puff INH DAILY 30 Days Albuterol Neb (Albuterol Sulfate) 2.5 Mg/3 Ml Neb 2.5 Mg INH Q2HR NEB PRN Oxygen tank (Oxygen) 1 Ea Tank 2 Liter LYNETTE.CANEdeniQ CONTINUOUS Oxygen Concentrator Portable Gaseous 2 L/min via Nasal Cannula Continuous For 99 months Reported Gabapentin 300 Mg Cap 300 Mg PO TID Allergy Relief (Loratadine) 10 Mg Tab 10 Mg PO DAILY Methocarbamol 500 Mg Tab 500 Mg PO QID Review of Systems Except as stated in HPI: all other systems reviewed are Neg General / Constitutional: No: Fever, Chills Eyes: No: Visual changes HENT: No: Headaches Cardiovascular: No: Chest Pain or Discomfort Respiratory: No: Shortness of Breath Gastrointestinal: No: Abdominal Pain Genitourinary: No: Dysuria Musculoskeletal: Positive: Arthralgias, Limited ROM, Pain (See history of present illness per) Skin: No Rash Neurologic: No: Weakness Psychiatric: No: Depression Endocrine: No: Polydipsia Hematologic/Lymphatic: No: Easy Bruising Physical Exam Narrative GENERAL: Patient appears in mild to moderate distress. SKIN: Warm and dry. Atrophic. Normal color. Normal turgor. Patient has an area of ecchymosis to the anterior right shoulder. HEAD: Atraumatic. Normocephalic. Nontender EYES: Pupils equal and round. No scleral icterus. No injection or drainage. ENT: No nasal bleeding or discharge. Mucous membranes pink and moist. Pharynx is clear. Airways patent NECK: Trachea midline. Supple and nontender CARDIOVASCULAR: Regular rate and rhythm. RESPIRATORY: No accessory muscle use. Diffuse wheezes and rhonchi to auscultation. Patient states this is baseline for him. Breath sounds equal bilaterally. GASTROINTESTINAL: Abdomen soft, non-tender, nondistended. Hepatic and splenic margins not palpable. MUSCULOSKELETAL: Extremities without clubbing, cyanosis, or edema. Patient is obvious swelling to the right anterior shoulder. Patient unable to move the shoulder at all without excruciating pain. Exam is severely limited by patient' s discomfort. Neurovascular exam to the distal right upper extremity is within normal limits. NEUROLOGICAL: Awake and alert. No obvious cranial nerve deficits. Motor grossly within normal limits. Five out of 5 muscle strength in the arms and legs. Normal speech. PSYCHIATRIC: Appropriate mood and affect; insight and judgment normal. Data Data Last Documented VS Vital Signs Date Time Temp Pulse Resp B/P (MAP) Pulse Ox O2 Delivery O2 Flow Rate FiO2 09/18/17 15:43 98.1 105 20 164/79 (107) 98 Orders Orders Iv Access Insert/Monitor (09/18/17 18:08) Ecg Monitoring (09/18/17 18:08) Oximetry (09/18/17 18:08) NPO (09/18/17 18:08) Morphine Inj (Morphine Inj) (09/18/17 18:15) Ondansetron Inj (Zofran Inj) (09/18/17 18:15) Sodium Chloride 0.9% Flush (Ns Flush) (09/18/17 18:15) Ice/Cold Pack (09/18/17 18:08) Shoulder, Limited(2vws) (09/18/17 18:08) Chest, Single Ap (09/18/17 18:55) MDM Medical Decision Making Medical Screen Exam Complete: Yes Emergency Medical Condition: Yes Differential Diagnosis Trip and fall. Right shoulder pain. Possible fracture. Possible dislocation Narrative Course Patient in pain but medically stable at time of exam Ice pack is applied to the injured area X-ray of the right shoulder is ordered. IV access is obtained and the patient was given 2 mg morphine IV as well as 4 mg Zofran IV. Chest x-ray is ordered. 1900 hrs., x-rays are pending. CARE the patient will be turned over to Hemanth Lopez PA-C who will determine final disposition of the patient. Condition: Stable Florian Morgan Sep 18, 2017 18:13
[2017-09-18] MEDS ORDERED: MORPHINE SULFATE 4 MG/ML INJ IV PUSH ONE ×2 (18:15→19:30)
[2017-09-18] MEDS ORDERED: SODIUM CHLORIDE 0.9% FLUSH 10 ML FLUSH IV FLUSH PRN (18:15)
[2017-09-18] MEDS ORDERED: ONDANSETRON HCL 4 MG/2 ML VIAL IVP ONE (18:15)
--- NOTE | 2017-09-18 19:28 | PD ---
Physical Exam Date Seen by Provider: Sep 18, 2017 Time Seen by Provider: 19:25 Data Data Last Documented VS Vital Signs Date Time Temp Pulse Resp B/P (MAP) Pulse Ox O2 Delivery O2 Flow Rate FiO2 09/18/17 15:43 98.1 105 20 164/79 (107) 98 Orders Orders Iv Access Insert/Monitor (09/18/17 18:08) Ecg Monitoring (09/18/17 18:08) Oximetry (09/18/17 18:08) NPO (09/18/17 18:08) Morphine Inj (Morphine Inj) (09/18/17 18:15) Ondansetron Inj (Zofran Inj) (09/18/17 18:15) Sodium Chloride 0.9% Flush (Ns Flush) (09/18/17 18:15) Ice/Cold Pack (09/18/17 18:08) Shoulder, Limited(2vws) (09/18/17 18:08) Chest, Single Ap (09/18/17 18:55) MDM Medical Record Reviewed: Yes Supervised Visit with OCTAVIO: Yes Interpretation(s) Right humerus: Patient has a comminuted humeral head fracture. Minimal displacement. Differential Diagnosis MDM: High Differential diagnoses: Fracture, sprain, strain, dislocation, contusion, neurovascular injury Narrative Course Patient has a humeral head fracture. He is placed in a sling and swath. He is given 4 mg of morphine IV for pain. He is given a prescription for [place]. [facility] Patient verbally states understanding and agrees with treatment plan a follow-up. Diagnosis Primary Impression: Fracture of humeral head, right, closed Qualified Codes: S42.291A - Other displaced fracture of upper end of right humerus, initial encounter for closed fracture Referrals: Osmel España Jr., MD 3 days Patient Instructions: General Instructions Additional Instruction: Rest. Sling and swath. Ice packs for the next 2-3 days. Medications as written for pain. Follow-up with an orthopedist in the next 3-5 days. [facility] in the next 3-5 days. Return to the ER if any problems. Med/Other Pt SpecificInfo: Prescription(s) given Disposition: 01 DISCHARGE HOME Condition: Stable Alfredo Delgadillo Sep 18, 2017 19:28
[2017-09-18] MEDS ORDERED: NORC5TAB PO (19:30)
--- NOTE | 2017-09-18 19:31 | RADRPT ---
EXAM DATE/TIME: 09/18/2017 18:59 CORRECTION Corrected on: September 18, 2017; [facility] COMPARISON: CHEST SINGLE AP, March 02, 2017, 15:22. INDICATIONS : Evaluate for pneumothorax, pneumonia, or communicable diseases. MEDICAL HISTORY : None. SURGICAL HISTORY : None. ENCOUNTER: Initial ACUITY: 1 day PAIN SCORE: 0/10 LOCATION: chest FINDINGS: There is a nodular density overlying the left upper lung field raising the possibility of nodular inf iltrate or true pulmonary nodule. CT of the chest may helpful for further evaluation of this finding if clinically indicated. The heart is normal. The pulmonary vascular pattern is also normal. There is an acute comminuted fracture involving the right humeral head and neck. CONCLUSION: 1. Nodular density overlying the left upper lung field raising the possibility of nodular infiltrate or true pulmonary nodule. CT of the chest may be helpful for further evaluation of this finding if cl inically indicated. 2. Acute comminuted fracture involving the right humeral head and neck. Anthony Ramsey MD on September 18, 2017 at 19:29 Board Certified Radiologist. This report was verified electronically. Anthony Ramsey MD on September 18, 2017 at 19:33 Board Certified Radiologist. This report was verified electronically.
--- NOTE | 2017-09-18 19:33 | RADRPT ---
EXAM DATE/TIME: 09/18/2017 18:52 [facility] COMPARISON: CHEST SINGLE AP, September 18, 2017, 18:59. INDICATIONS : Patient fell and hit right shoulder on door frame. Complains of right shoulder pain. MEDICAL HISTORY : None. SURGICAL HISTORY : None. ENCOUNTER: Initial ACUITY: 1 day PAIN SCORE: 10/10 LOCATION: Right Shoulder FINDINGS: There is an acute comminuted fracture involving the right humeral head and neck. No dislocation is no sergei. Mild degenerative changes are noted involving the right acromioclavicular joint. CONCLUSION: 1. Acute comminuted fracture involving the right humeral head and neck. 2. Mild degenerative changes involving right acromioclavicular joint. Anthony Ramsey MD on September 18, 2017 at 19:31 Board Certified Radiologist. This report was verified electronically.
[2017-09-18 20:56] VITALS: BP 112/85; PULSE 95; RESP 20; O2SAT 97
== END 2017-09-18 21:12 | disposition home or self-care (01) ==
LOC: NEPD 15:30
DX: S42.291A Other displaced fracture of upper end of right humerus, initial encounter for closed fracture (principal); I10 Essential (primary) hypertension; E78.00 Pure hypercholesterolemia, unspecified; J44.9 Chronic obstructive pulmonary disease, unspecified; F17.210 Nicotine dependence, cigarettes, uncomplicated; W19.XXXA Unspecified fall, initial encounter; Z85.038 Personal history of other malignant neoplasm of large intestine; Z86.73 Personal history of transient ischemic attack (TIA), and cerebral infarction without residual deficits; Z88.0 Allergy status to penicillin; Z79.899 Other long term (current) drug therapy
CPT/HCPCS: 29240; 71045; 73030; 96374; 96375; 96376; 99284; J2270; J2405

== ENCOUNTER 2018-08-31 19:07 | Inpatient (IN) ==
[2018-08-31] MEDS ORDERED: Aztreonam Inj 2 GM in Sodium Chloride 0.9% Inj 100 ML IV.SIG STA (20:15)
[2018-08-31] MEDS ORDERED: MethylPREDNISolone Sod Succinate Inj 125 MG/2 ML Vial IV.PUSH ONE (20:15)
[2018-08-31] MEDS ORDERED: Sodium Chlor 0.9% Inj 500 ML IV.SIG ONE ×2 (20:25→21:23)
--- NOTE | 2018-08-31 20:25 | ED ---
HPI General Chief complaint: Shortness of Breath/Dyspnea Stated complaint: trouble breathing, unable to walk Time Seen by Provider: 08/31/18 19:56 Source: patient Limitations: no limitations History of Present Illness HPI narrative: The patient is a 73 year old female who presents to the [facility] emergency department with a history of generalized weakness, night sweats , cough, congestion, chest pain, and shortness of breath that he reports began 1 -1/2 weeks ago. Patient reports that his medical history is significant for having COPD and a history of lung cancer with [facility]. He reports that he has a rescue inhaler and nebulizer machine reports that he only uses this when the shortness of breath becomes severe. He reports that he has not used his inhaler or nebulizer machine today. He denies having any vomiting, however he reports that occasionally does have nausea and gags. He reports that he has had diarrhea for the last week and a half. He reports that it usually occurs 4 times per day and is dark brown. He denies having any blood in his stool that he is aware of. He does however report having a prior history of GI bleed. The patient additionally reports having history of colon cancer with part of his colon resected. He is unsure whether he has had any fevers. He reports that his cough is more frequent than usual and is also more productive of a white sputum. He reports that he continues to smoke 3-4 cigarettes/day. The patient also reports that he drinks alcohol on a daily basis, which consists of 2 vodka and tea beverages daily. On review of systems otherwise, the patient denies having any neck pain, abdominal pain, urinary symptoms, or other neurologic symptoms. Related Data Home Medications Medication Instructions Recorded Confirmed Unable to Obtain Home Meds 08/31/18 08/31/18 Allergies Allergy/AdvReac Type Severity Reaction Status Date / Time penicillin G Allergy Severe Swelling Unverified 08/31/18 19:15 Review of Systems ROS: all other systems reviewed are negative [facility] Medical History Medical History Amputation toe (Acute) COPD (chronic obstructive pulmonary disease) (Acute) Colon cancer (Acute) Diastolic heart failure (Acute) History of GI bleed (Acute) Lung cancer (Acute) Surgical History Surgical History H/O knee surgery (Acute) H/O partial resection of colon (Acute) Family History Family History Other Family history non-contributory Social History Social History Substance History: No History of Abuse and Active Abuse Second Hand Smoke Exposure: No Smoking Status: Current every day smoker Tobacco Type: Cigarettes Cigarettes Per Day: 4 How Often Do You Have a Drink Containing Alcohol: 4 or more times a week Recent Travel in [facility] within the Last 8 Weeks: No Recent Out of Country Travel within the Last 8 Weeks: No Immunization History Tetanus Immunization: >5 Years Exam Const General: cooperative, no acute distress and well developed Nutritional Appearance: well nourished Orientation: alert, awake and oriented x3 HENMT Head: normocephalic and atraumatic Nose: no nasal discharge and no epistaxis Mouth: moist mucous membranes Throat: posterior oropharynx normal and uvula midline Eyes Sclera: normal sclerae Pupils: PERRL Neck Neck: no meningeal signs, trachea midline and no JVD Resp Effort & Inspection: no use of accessory muscles Auscultation: rales, rhonchi (Scattered bilaterally that clear with coughing) and wheezes expiratory wheezes Cardio Rate: regular rate Rhythm: regular rhythm Heart Sounds: no murmurs GI Inspection: non-distended Palpation: soft, no hepatosplenomegaly, no guarding, not rigid and nontender Auscultation: normal bowel sounds Back/Spine/Pelvis Back: no CVA tenderness Skin General: dry skin (warm) Neuro General: alert, awake, oriented x3 and other (Grossly nonfocal) Speech: speech normal Motor: no movement abnormalities noted Extrem General: normal to inspection, no calf tenderness, no clubbing, no cyanosis and no edema Psych Mood: congruent mood Affect: normal affect Judgment: judgment good Course Initial Documented Vital Signs Temperature 97.5 F L 08/31/18 19:15 Pulse Rate 93 H 08/31/18 19:15 Respiratory Rate 26 H 08/31/18 19:15 Blood Pressure 194/121 H 08/31/18 19:15 Pulse Oximetry 95 08/31/18 19:15 Last Documented Vital Signs Temperature 98.1 F 09/01/18 04:00 Pulse Rate 98 H 09/01/18 07:29 Respiratory Rate 20 09/01/18 07:29 Blood Pressure 122/89 09/01/18 04:00 Pulse Oximetry 94 L 09/01/18 07:29 Medical Decision Making MDM Narrative Medical decision making narrative: During the course of the patient's emergency department visit, the patient's history, examination, and differential diagnosis were reviewed with the patient. The patient was placed on a cardiac monitor technician with oximetry and frequent blood pressure monitoring. The patient had IV access obtained and blood work sent for analysis. Diagnostic evaluation was started regarding the patient's night sweats, generalized weakness, cough, congestion, chest pain, and shortness of breath. The patient was initially provided DuoNeb's x2, Solu-Medrol 125 mg IV, Levaquin and Azactam for antibiotic coverage for suspected respiratory source of infection given the patient's penicillin allergy, normal saline IV fluids. The patient's diagnostic studies are remarkable for a white count of 2.8, hemoglobin 13.3, platelets of 50 in a patient with a history of thrombocytopenia previously, differential within normal limits, PT 11.4, PTT 28.1, d-dimer was elevated at 1.46, therefore CTA to rule out PE was ordered. Chemistry was remarkable for chloride of 96, CO2 33.2, GFR 59, calcium 8.0, total bilirubin 4.5, AST 212, ALT 86, alkaline phosphatase 320. 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 Lipase within normal limits. Lactic acid was noted to be elevated at 3.8. As a sepsis workup was initiated, blood cultures x2 were also ordered and are pending. The patient's chest x-ray showed no evidence of acute cardiopulmonary disease. A CTA to rule out PE showed no evidence of pulmonary embolism, severe emphysema without infiltration or mass, 1 cm nodular density in the right upper lobe, follow-up CT of the chest in 3 months is recommended for stability. The patient was provided IV fluids will have his lactic acid rechecked. The patient will be admitted to the hospital for COPD exacerbation associated with a lactic acidosis. The patient's lactic acidosis could be related to his liver disease. The patient's case including history, pertinent physical examination findings, and laboratory studies were discussed with Dr. López. It was agreed that the patient would be admitted to the hospitalist service. The patient's results were discussed with the patient, including the plan of care. I explained that further testing and/ or monitoring is indicated based on the patient's history, examination, and/ or laboratory findings. Therefore, I recommended admission for additional evaluation. The patient expressed understanding and was agreeable with this plan. The patient was admitted to the hospital in stable condition and sent to a bed under the care of the [facility] service. Medical Screen Exam Complete: Yes Emergency Medical Condition: Yes Differential Diagnosis Differential Diagnosis: COPD exacerbation, versus pneumonia, versus sepsis, versus recurrent lung cancer, versus pneumonitis from radiation Medical Records Medical records reviewed: Yes I reviewed the patient's medical records. Lab Data Lab results reviewed: Yes I reviewed the patient's lab results. Result diagrams: 08/31/18 20:26 08/31/18 20:26 Lab Results 08/31/18 08/31/18 08/31/18 Range/Units 20:26 20:26 20:26 WBC 2.8 L (4.0-11.0) th/mm3 RBC 3.68 L (4.50-5.90) mil/mm3 Hgb 13.3 (13.0-17.0) gm/dL Hct 38.6 L (39.0-51.0) % MCV 104.9 H (80.0-100.0) fL MCH 36.1 H (27.0-34.0) pg MCHC 34.4 (32.0-36.0) % RDW 16.9 (11.6-17.2) % Plt Count 50 L (150-450) th/mm3 MPV 8.5 (7.0-11.0) fL Prelim Diff (Auto) Slide review pending Neut % (Auto) 57.9 (16.0-70.0) % Lymph % (Auto) 32.3 (9.0-44.0) % [place] % (Auto) 7.4 (0.0-8.0) % Eos % (Auto) 0.9 (0.0-4.0) % Baso % (Auto) 1.5 (0.0-2.0) % Neut # (Auto) 1.6 L (1.8-7.7) th/mm3 Lymph # (Auto) 0.9 L (1.0-4.8) th/mm3 [place] # (Auto) 0.2 (0.0-0.9) th/mm3 Eos # (Auto) 0.0 (0.0-0.4) th/mm3 Baso # (Auto) 0.0 (0.0-0.2) th/mm3 WBC Differential . Diff Scan Auto diff confirmed Differential Comment . Platelet Estimate Low L (Normal) Platelet Morphology Normal (Normal) Spherocytes Occ H (None) PT 11.4 (9.8-11.6) sec INR 1.1 Ratio APTT 28.1 (23.4-31.7) sec D-Dimer Quant (PE/DVT) 1.46 H (0.00-0.50) mg/L FEU Sodium 138 (136-145) meq/L Potassium 3.7 (3.5-5.1) meq/L Chloride 96 L (98-107) meq/L Carbon Dioxide 33.2 H (21.0-32.0) meq/L Anion Gap 9 (5-15) meq/L BUN 9 (7-18) mg/dL Creatinine 1.22 (0.60-1.30) mg/dL Estimated GFR 59 L (>89) mL/min Random Glucose 83 (74-106) mg/dL Lactic Acid (0.4-2.0) mmol/L Calcium 8.0 L (8.5-10.1) mg/dL Magnesium 1.6 (1.5-2.5) mg/dL Total Bilirubin 4.5 H (0.2-1.0) mg/dL AST 212 H (15-37) U/L ALT 86 H (12-78) U/L Alkaline Phosphatase 320 H (45-117) U/L Total Creatine Kinase 96 (39-308) U/L Troponin I Less than 0.02 L (0.02-0.05) ng/mL B-Natriuretic Peptide (0-100) pg/mL Total Protein 6.8 (6.4-8.2) g/dL Albumin 2.7 L (3.4-5.0) g/dL Lipase 106 (73-393) U/L Serum Alcohol 308 H (0-5) mg/dL 08/31/18 08/31/18 08/31/18 Range/Units 20:26 20:26 23:03 WBC (4.0-11.0) th/mm3 RBC (4.50-5.90) mil/mm3 Hgb (13.0-17.0) gm/dL Hct (39.0-51.0) % MCV (80.0-100.0) fL MCH (27.0-34.0) pg MCHC (32.0-36.0) % RDW (11.6-17.2) % Plt Count (150-450) th/mm3 MPV (7.0-11.0) fL Prelim Diff (Auto) Neut % (Auto) (16.0-70.0) % Lymph % (Auto) (9.0-44.0) % [place] % (Auto) (0.0-8.0) % Eos % (Auto) (0.0-4.0) % Baso % (Auto) (0.0-2.0) % Neut # (Auto) (1.8-7.7) th/mm3 Lymph # (Auto) (1.0-4.8) th/mm3 [place] # (Auto) (0.0-0.9) th/mm3 Eos # (Auto) (0.0-0.4) th/mm3 Baso # (Auto) (0.0-0.2) th/mm3 WBC Differential Diff Scan Differential Comment Platelet Estimate (Normal) Platelet Morphology (Normal) Spherocytes (None) PT (9.8-11.6) sec INR Ratio APTT (23.4-31.7) sec D-Dimer Quant (PE/DVT) (0.00-0.50) mg/L FEU Sodium (136-145) meq/L Potassium (3.5-5.1) meq/L Chloride (98-107) meq/L Carbon Dioxide (21.0-32.0) meq/L Anion Gap (5-15) meq/L BUN (7-18) mg/dL Creatinine (0.60-1.30) mg/dL Estimated GFR (>89) mL/min Random Glucose (74-106) mg/dL Lactic Acid 2.8 H 3.8 H (0.4-2.0) mmol/L Calcium (8.5-10.1) mg/dL Magnesium (1.5-2.5) mg/dL Total Bilirubin (0.2-1.0) mg/dL AST (15-37) U/L ALT (12-78) U/L Alkaline Phosphatase (45-117) U/L Total Creatine Kinase (39-308) U/L Troponin I (0.02-0.05) ng/mL B-Natriuretic Peptide 61 (0-100) pg/mL Total Protein (6.4-8.2) g/dL Albumin (3.4-5.0) g/dL Lipase (73-393) U/L Serum Alcohol (0-5) mg/dL 09/01/18 09/01/18 Range/Units 01:37 05:15 WBC (4.0-11.0) th/mm3 RBC (4.50-5.90) mil/mm3 Hgb (13.0-17.0) gm/dL Hct (39.0-51.0) % MCV (80.0-100.0) fL MCH (27.0-34.0) pg MCHC (32.0-36.0) % RDW (11.6-17.2) % Plt Count (150-450) th/mm3 MPV (7.0-11.0) fL Prelim Diff (Auto) Neut % (Auto) (16.0-70.0) % Lymph % (Auto) (9.0-44.0) % [place] % (Auto) (0.0-8.0) % Eos % (Auto) (0.0-4.0) % Baso % (Auto) (0.0-2.0) % Neut # (Auto) (1.8-7.7) th/mm3 Lymph # (Auto) (1.0-4.8) th/mm3 [place] # (Auto) (0.0-0.9) th/mm3 Eos # (Auto) (0.0-0.4) th/mm3 Baso # (Auto) (0.0-0.2) th/mm3 WBC Differential Diff Scan Differential Comment Platelet Estimate (Normal) Platelet Morphology (Normal) Spherocytes (None) PT (9.8-11.6) sec INR Ratio APTT (23.4-31.7) sec D-Dimer Quant (PE/DVT) (0.00-0.50) mg/L FEU Sodium (136-145) meq/L Potassium (3.5-5.1) meq/L Chloride (98-107) meq/L Carbon Dioxide (21.0-32.0) meq/L Anion Gap (5-15) meq/L BUN (7-18) mg/dL Creatinine (0.60-1.30) mg/dL Estimated GFR (>89) mL/min Random Glucose (74-106) mg/dL Lactic Acid 3.9 H 4.4 H* (0.4-2.0) mmol/L Calcium (8.5-10.1) mg/dL Magnesium (1.5-2.5) mg/dL Total Bilirubin (0.2-1.0) mg/dL AST (15-37) U/L ALT (12-78) U/L Alkaline Phosphatase (45-117) U/L Total Creatine Kinase (39-308) U/L Troponin I (0.02-0.05) ng/mL B-Natriuretic Peptide (0-100) pg/mL Total Protein (6.4-8.2) g/dL Albumin (3.4-5.0) g/dL Lipase (73-393) U/L Serum Alcohol (0-5) mg/dL Imaging Data Radiologist's impression: Chest X-Ray 08/31/18 20:14 CONCLUSION: No acute cardiopulmonary disease Chest CTA 08/31/18 21:24 CONCLUSION: 1. No evidence for pulmonary embolism. 2. Severe emphysema without infiltrate or mass. 3. 1 cm nodular density in the right upper lobe. Follow-up CT chest in 3 months recommended for stability. Discharge Plan Discharge Disposition Patient Disposition: ED Admit(ED Internal Use Only) Discharge Order Discharge Orders: ED Use Only Admit Order (Routine); Ordered 08/31/18 Ordered By: Meg Peace Discharge Details Diagnosis: COPD exacerbation, Elevated liver enzymes, Alcohol abuse, Acidosis, lactic Physicians Team ED Provider: Meg Peace Primary Care Provider: [facility] Attending Provider: Armando Rodrigez Discharge Interventions Interventions: Vital Signs Last Done: 08/31/18 19:39 ED Discharge Assessment Last Done: 09/01/18 03:32 Status ED Status: Left Department Discharge Information Discharge Date/Time: 09/01/18 03:33
--- NOTE | 2018-08-31 20:36 | XR ---
EXAM DATE: 08/31/2018 8:33 PM EST AGE/SEX: 73 years / Male INDICATIONS: Short of breath. CLINICAL DATA: This is the patient's initial encounter. Patient reports that signs and symptoms have been present for 1 month and indicates a pain score of 10/10. MEDICAL/SURGICAL HISTORY: Carcinoma, lung. Chronic obstructive pulmonary disease. None. COMPARISON: [facility] [place], CHEST SINGLE AP, 09/18/2017. . FINDINGS: A single AP view of the chest demonstrates the lungs to be symmetrically aerated without evidence of mass, infiltrate or effusion. The cardiomediastinal contours are unremarkable. Old fracture right hu meral head CONCLUSION: No acute cardiopulmonary disease Electronically signed by: Oral Meyers MD Board Certified Radiologist 08/31/2018 8:35 PM EST
[2018-08-31 20:44] LABS: Baso % (Auto) 1.5 % (0.0-2.0); Eos % (Auto) 0.9 % (0.0-4.0); Hematocrit 38.6 % (39.0-51.0); Hemoglobin 13.3 gm/dL (13.0-17.0); Lymph # (Auto) 0.9 th/mm3 (1.0-4.8); Lymph % (Auto) 32.3 % (9.0-44.0); Mean Corpuscular HGB Conc 34.4 % (32.0-36.0); Mean Corpuscular Hemoglobin 36.1 pg (27.0-34.0); Mean Corpuscular Volume 104.9 fL (80.0-100.0); Mean Platelet Volume 8.5 fL (7.0-11.0); Mono # (Auto) 0.2 th/mm3 (0.0-0.9); Mono % (Auto) 7.4 % (0.0-8.0); Neut # (Auto) 1.6 th/mm3 (1.8-7.7); Neut % (Auto) 57.9 % (16.0-70.0); Platelet Count 50 th/mm3 (150-450); Red Blood Count 3.68 mil/mm3 (4.50-5.90); Red Cell Distribution Width 16.9 % (11.6-17.2); White Blood Count 2.8 th/mm3 (4.0-11.0)
[2018-08-31 21:07] LABS: Alanine Aminotransferase 86 U/L (12-78)
[2018-08-31 21:13] LABS: Activated Partial Thrombo Time 28.1 sec (23.4-31.7); Albumin 2.7 g/dL (3.4-5.0); Alkaline Phosphatase 320 U/L (45-117); Anion Gap 9 meq/L (5-15); Aspartate Aminotransferase 212 U/L (15-37); Blood Urea Nitrogen 9 mg/dL (7-18); Carbon Dioxide 33.2 meq/L (21.0-32.0); Chloride 96 meq/L (98-107); Glomerular Filtration Rate 59 mL/min (>89); Glucose,Random 83 mg/dL (74-106); INR 1.1 Ratio; Lipase 106 U/L (73-393); Magnesium 1.6 mg/dL (1.5-2.5); Potassium 3.7 meq/L (3.5-5.1); Prothrombin Time 11.4 sec (9.8-11.6); Sodium 138 meq/L (136-145); Total Protein 6.8 g/dL (6.4-8.2)
[2018-08-31 21:14] LABS: Alcohol 308 mg/dL (0-5); Creatine Kinase 96 U/L (39-308)
[2018-08-31 21:15] LABS: D-Dimer 1.46 mg/L FEU (0.00-0.50)
[2018-08-31 21:49] LABS: Platelet Morphology Normal (Normal)
[2018-08-31 21:50] LABS: Spherocytes Occ
--- NOTE | 2018-08-31 22:52 | CT ---
EXAM DATE: 08/31/2018 10:42 PM EST AGE/SEX: 73 years / Male INDICATIONS: Shortness of breath. CLINICAL DATA: This is the patient's initial encounter. Patient reports that signs and symptoms have been present for 1 day and indicates a pain score of 3/10. MEDICAL/SURGICAL HISTORY: Carcinoma, colon. Carcinoma, lung. Chronic obstructive pulmonary diseas e. . Partial colon resection. RADIATION DOSE: 12.17 CTDI (mGy) COMPARISON: . TECHNIQUE: Volumetric scanning was performed using a multi-row detector CT scanner during bolus infu curtis of 99 ml Omnipaque 350 (iohexol) nonionic water-soluble contrast as a single exam dose. The arielle a was post processed with a variety of visualization algorithms including full volume maximum intensi ty projection and sliding thin slab reformation. Using automated exposure control and adjustment of t he mA and/or kV according to patient size, radiation dose was kept as low as reasonably achievable to obtain optimal diagnostic quality images. DICOM format image data is available electronically for r eview and comparison. FINDINGS: Pulmonary Arteries: No filling defects are seen in the pulmonary arteries out to the subsegmental ve ssels. The left and right pulmonary arteries are normal in diameter. Lung: No infiltrates seen. Severe centrilobular emphysema. 1 cm nodule right upper lobe. Effusion: None. Mediastinum: No evidence of mediastinal or hilar adenopathy. Coronary artery calcifications. Other: The axilla is unremarkable. CONCLUSION: 1. No evidence for pulmonary embolism. 2. Severe emphysema without infiltrate or mass. 3. 1 cm nodular density in the right upper lobe. Follow-up CT chest in 3 months recommended for stab ility. Electronically signed by: Oral Meyers MD Board Certified Radiologist 08/31/2018 10:50 PM EST
[2018-08-31] MEDS ORDERED: Acetaminophen 325 MG Tablet PO PRN (23:32)
--- NOTE | 2018-08-31 23:34 | P.HPIM ---
History of Present Illness Service: [facility] Primary Care Physician: [facility] Chief Complaint: Shortness of breath History of Present Illness: 73-year-old male with a history of COPD, lung cancer status post radiation 1 month ago, diastolic heart failure and colon cancer presented to the ED with complaints of shortness of breath, cough, congestion for the last 1 week. He states he just feels lousy. States he sleeps up with pillows for relief and was having night sweats, chills, no documented temperature. Denies any body aches. Review of Systems Review of Systems: all other systems reviewed are negative [facility] Medical History Medical History Amputation toe (Acute) COPD (chronic obstructive pulmonary disease) (Acute) Colon cancer (Acute) Diastolic heart failure (Acute) History of GI bleed (Acute) Lung cancer (Acute) Surgical History Surgical History H/O knee surgery (Acute) H/O partial resection of colon (Acute) Family History Family History Other Family history non-contributory Social History Social History Substance History: Active Abuse Second Hand Smoke Exposure: No Smoking Status: Current every day smoker Tobacco Type: Cigarettes Cigarettes Per Day: 4 How Often Do You Have a Drink Containing Alcohol: 4 or more times a week Recent Travel in [facility] within the Last 8 Weeks: No Recent Out of Country Travel within the Last 8 Weeks: No Immunization History Tetanus Immunization: >5 Years Medications and Allergies Allergies Allergy/AdvReac Type Severity Reaction Status Date / Time penicillin G Allergy Severe Swelling Unverified 08/31/18 19:15 Home Medications Medication Instructions Recorded Confirmed Type Unable to Obtain Home Meds 08/31/18 08/31/18 History Active Medications: Active Medications Sodium Chloride (Ns Flush) 2 ml IV.FLUSH UNSCH PRN PRN Reason: FLUSH AFTER USING IV ACCESS Physical Exam Vital signs: Vital Signs 08/31/18 19:15 08/31/18 19:39 08/31/18 20:28 Temperature 97.5 F L Pulse Rate 93 H 98 H 72 Respiratory Rate 26 H 17 22 Blood Pressure 194/121 H 168/82 H Pulse Oximetry 95 95 96 08/31/18 23:09 Temperature Pulse Rate 81 Respiratory Rate 14 Blood Pressure 158/78 H Pulse Oximetry 93 L Intake & Output 08/31/18 08/31/18 09/01/18 06:59 18:59 06:59 Intake Total 1250 / 1250 Balance 1250 / 1250 Intake: IV 1250 / 1250 Azactam Inj 2 GM In NS Inj 100 100 / 100 ML @ 200 mls/hr IV.SIG STAT STA Rx#:[id number] Levaquin 750 mg Premix Inj 150 150 / 150 ML @ 100 mls/hr IV.SIG STAT STA Rx#:[id number] NS Inj 500 ML @ Wide Open IV. 1000 / 1000 SIG BOLUS ONE Rx#:[id number] Narrative: GENERAL: ill appearing patient, no distress SKIN: Warm and dry. NECK: Supple, trachea midline. No JVD or lymphadenopathy. CARDIOVASCULAR: Regular rate and rhythm without murmurs, gallops, or rubs. RESPIRATORY: Breath sounds equal bilaterally. No accessory muscle use. GASTROINTESTINAL: Abdomen soft, non-tender, nondistended. MUSCULOSKELETAL: No cyanosis, or edema. Results Labs CBC & Chem 7: 08/31/18 20:26 08/31/18 20:26 Imaging Impressions Chest X-Ray 08/31/18 20:14 CONCLUSION: No acute cardiopulmonary disease Chest CTA 08/31/18 21:24 CONCLUSION: 1. No evidence for pulmonary embolism. 2. Severe emphysema without infiltrate or mass. 3. 1 cm nodular density in the right upper lobe. Follow-up CT chest in 3 months recommended for stability. Caprini VTE Risk Assessment Caprini VTE Risk Assessment: Moderate/High Risk (score >= 2) Caprini Risk Assessment Model: Point Value = 1 Point Value = 2 Point Value = 3 Point Value = 5 Age 41-60 Minor surgery BMI > 25 kg/m2 Swollen legs Varicose veins or History of unexplained or recurrent spontaneous Oral contraceptives or hormone replacement Sepsis (< 1 month) Serious lung disease, including pneumonia (< 1 month) Abnormal pulmonary function Acute myocardial infarction Congestive heart failure (< 1 month) History of inflammatory bowel disease Medical patient at bed rest Age 61-74 Arthroscopic surgery Major open surgery (> 45 min) Laparoscopic surgery (> 45 min) Malignancy Confined to bed (> 72 hours) Immobilizing plaster cast Central venous access Age >= 75 History of VTE Family history of VTE Factor V Leiden Prothrombin [id number] Lupus anticoagulant Anticardiolipin antibodies Elevated serum homocysteine Heparin-induced thrombocytopenia Other congenital or acquired thrombophilia Stroke (< 1 month) Elective arthroplasty Hip, pelvis, or leg fracture Acute spinal cord injury (< 1 month) Prophylaxis Regimen: Total Risk Factor Score Risk Level Prophylaxis Regimen 0-1 Low Early ambulation 2 Moderate Order ONE of the following: *Sequential Compression Device (SCD) *Heparin 5000 units SQ BID 3-4 Higher Order ONE of the following medications: *Heparin 5000 units SQ TID *Enoxaparin/Lovenox 40 mg SQ daily (WT < 150 kg, CrCl > 30 mL/min) *Enoxaparin/Lovenox 30 mg SQ daily (WT < 150 kg, CrCl > 10-29 mL/min) *Enoxaparin/Lovenox 30 mg SQ BID (WT < 150 kg, CrCl > 30 mL/min) AND/OR *Sequential Compression Device (SCD) 5 or more Highest Order ONE of the following medications: *Heparin 5000 units SQ TID (Preferred with Epidurals) *Enoxaparin/Lovenox 40 mg SQ daily (WT < 150 kg, CrCl > 30 mL/min) *Enoxaparin/Lovenox 30 mg SQ daily (WT < 150 kg, CrCl > 10-29 mL/min) *Enoxaparin/Lovenox 30 mg SQ BID (WT < 150 kg, CrCl > 30 mL/min) AND *Sequential Compression Device (SCD) Assessment and Plan Plan 73-year-old male with a history of COPD, lung cancer status post radiation 1 month ago, diastolic heart failure and colon cancer presented to the ED with complaints of shortness of breath, cough, congestion and chest pain for the last 1 week. COPD exacerbation Chest x-ray reviewed and shows no acute disease, CTA reviewed and shows no PE but with severe emphysema -DuoNeb scheduled and as needed -Solu-Medrol IV Sirs, WBC 2.8, heart rate 98, lactic acid 2.8 UA negative -Continue Levaquin IV and Azactam de-escalate in a.m. if needed -Blood cultures pending -Thiamine IV -Repeat lactic acid in am -IVF, monitor for overload -Sputum culture Lung cancer, status post radiation 1 month ago -Continue to monitor, will consult oncology if needed Alcohol abuse, alcohol on admission 308 -[facility] protocol -Thiamine daily DVT prophylaxis: SCDs GI prophylaxis: Pepcid The exam, history, and the medical decision-making described in the above note were completed with the assistance of the mid-level provider. I reviewed and agree with the findings presented. I attest that I had a [id number] encounter with the patient on the same day, and personally performed and documented my assessment and findings in the medical record.
[2018-09-01] MEDS ORDERED: LORazepam 1 MG Tablet PO PRN (00:30)
[2018-09-01] MEDS ORDERED: Haloperidol Inj 5 MG/ML Ampul IV.PUSH PRN (00:30)
[2018-09-01] MEDS: Sod Chloride 0.9% Inj 1,000 ML IV.CONT SCH ×3 (01:42→21:23)
[2018-09-01] MEDS: MethylPREDNISolone Sod Succinate Inj 40 MG/ML Vial IV.PUSH SCH ×4 (02:05→21:24)
[2018-09-01] MEDS: Thiamine Inj 100 MG in Sodium Chlor 0.9% Inj 100 ML IV.SIG SCH ×2 (02:05→11:11)
[2018-09-01] MEDS ORDERED: Sod Chloride 0.9% Inj 1,000 ML IV.SIG SCH (06:20)
[2018-09-01] MEDS: guaiFENesin 600 MG ER Tablet PO SCH ×2 (09:29→21:24)
[2018-09-01] MEDS: Famotidine 20 MG Tablet PO SCH ×2 (09:29→21:23)
--- NOTE | 2018-09-01 09:39 | P.PNIM ---
Subjective Interval history: Follow-up visit shortness of breath, cough, congestion. Patient is sitting up in bed. He states ever since he completed radiation treatments 6 weeks ago his health has been going downhill. He reports slight improvement in his shortness of breath since time of admission. Cough with scan sputum production. No fevers or chills. Patient denies abdominal pain, nausea or vomiting. Addendum: Blood cultures with gram positive cocci, Added vancomycin IV and DC levaquin, Lactic Acid 6.0 additional 1L NS bolus given, recheck in 3 hours. Infectious Disease consult placed for bacteremia, 2d echo ordered. Physical Exam Vital signs: Vital Signs 08/31/18 19:15 08/31/18 19:39 08/31/18 20:28 Temperature 97.5 F L Pulse Rate 93 H 98 H 72 Respiratory Rate 26 H 17 22 Blood Pressure 194/121 H 168/82 H Pulse Oximetry 95 95 96 08/31/18 23:09 09/01/18 02:05 09/01/18 03:42 Temperature Pulse Rate 81 86 78 Respiratory Rate 14 14 18 Blood Pressure 158/78 H 166/90 H Pulse Oximetry 93 L 98 09/01/18 04:00 09/01/18 07:29 09/01/18 08:53 Temperature 98.1 F 98.3 F Pulse Rate 124 H 98 H 102 H Respiratory Rate 20 20 16 Blood Pressure 122/89 153/79 H Pulse Oximetry 94 L 94 L 97 Intake & Output 08/31/18 09/01/18 09/01/18 18:59 06:59 18:59 Intake Total 2451 / 2451 Balance 2451 / 2451 Weight 70.6 kg Intake: IV 2451 / 2451 Azactam Inj 1,000 MG In NS Inj 100 / 100 100 ML @ 200 mls/hr IV.SIG Q8H [facility] Rx#:[id number] Azactam Inj 2 GM In NS Inj 100 100 / 100 ML @ 200 mls/hr IV.SIG STAT STA Rx#:[id number] Levaquin 750 mg Premix Inj 150 150 / 150 ML @ 100 mls/hr IV.SIG STAT STA Rx#:[id number] NS Inj 1,000 ML @ Wide Open IV. 1000 / 1000 SIG .Q0M ONE Rx#:[id number] NS Inj 500 ML @ Wide Open IV. 1000 / 1000 SIG BOLUS ONE Rx#:[id number] Thiamine Inj 100 MG In NS Inj 101 / 101 100 ML @ 100 mls/hr IV.SIG DAILY [facility] Rx#:[id number] Other: Date of Last Bowel Movement 08/31/18 Weight On Admission 70.6 kg Narrative: GENERAL: ill appearing patient, no distress SKIN: Warm and dry. NECK: Supple, trachea midline. No JVD or lymphadenopathy. CARDIOVASCULAR: Regular rate and rhythm without murmurs, gallops, or rubs. RESPIRATORY: Breath sounds equal bilaterally. No accessory muscle use. GASTROINTESTINAL: Abdomen soft, non-tender, nondistended. MUSCULOSKELETAL: No cyanosis, or edema. Results Labs CBC & Chem 7: 09/01/18 19:31 09/01/18 19:31 Imaging Imaging: Impressions Chest X-Ray 08/31/18 20:14 CONCLUSION: No acute cardiopulmonary disease Chest CTA 08/31/18 21:24 CONCLUSION: 1. No evidence for pulmonary embolism. 2. Severe emphysema without infiltrate or mass. 3. 1 cm nodular density in the right upper lobe. Follow-up CT chest in 3 months recommended for stability. Assessment and Plan Plan 73-year-old male with a history of COPD, lung cancer status post radiation 1 month ago, diastolic heart failure and colon cancer presented to the ED with complaints of shortness of breath, cough, congestion and chest pain for the last 1 week. COPD exacerbation Chest x-ray reviewed and shows no acute disease, CTA reviewed and shows no PE but with severe emphysema -DuoNeb scheduled and as needed -Solu-Medrol IV Transaminitis with elevated alk phos and total bili -AST > ALT, hx of alcohol use disorder -pt denies abdominal pain, N/V -US liver, check hepatitis panel SIRS - WBC 2.8, heart rate 98, lactic acid 2.8 on arrival UA and CXR negative -lactic acid increased to 4.4, reflex lactic acid level pending -Continue Levaquin IV and Azactam de-escalate in a.m. if needed -Blood cultures pending -Thiamine IV -IVF, monitor for overload -Sputum culture Hypokalemia/Hypomagnesemia -replete and recheck Lung cancer, status post radiation 1 month ago -Continue to monitor, will consult oncology if needed Alcohol abuse, alcohol on admission 308 -[place] protocol -Thiamine daily MDM: self Code: Full GI ppx: Pepcid DVT prophylaxis: SCDs Discussed with: patient, RN, supervising MD Dispo: home once patients shortness of breath, tachycardia, lactic acidosis improves. Progress Note: Quality VTE Deep Vein Thrombosis/Pulmonary Embolism Present on Admission: No
[2018-09-01 11:41] LABS: Alanine Aminotransferase 75 U/L (12-78); Albumin 2.4 g/dL (3.4-5.0); Alkaline Phosphatase 282 U/L (45-117); Anion Gap 14 meq/L (5-15); Aspartate Aminotransferase 150 U/L (15-37); Blood Urea Nitrogen 8 mg/dL (7-18); Calcium 7.7 mg/dL (8.5-10.1); Carbon Dioxide 24.5 meq/L (21.0-32.0); Chloride 102 meq/L (98-107); Glomerular Filtration Rate 61 mL/min (>89); Glucose,Random 183 mg/dL (74-106); Sodium 140 meq/L (136-145); Total Protein 6.1 g/dL (6.4-8.2)
[2018-09-01 11:55] LABS: Potassium 2.9 meq/L (3.5-5.1)
[2018-09-01 13:59] LABS: Hepatitits B Surface Antigen Nonreactive (Nonreactive)
[2018-09-01 14:31] LABS: Hepatitis A IgM Antibody Nonreactive (Nonreactive)
[2018-09-01] MEDS ORDERED: Magnesium Sulfate Inj 4 GM in Dextrose 5% in Water Inj 100 ML IV.SIG ONE ×2 (17:00)
[2018-09-01 20:24] LABS: Hematocrit 33.2 % (39.0-51.0); Hemoglobin 11.4 gm/dL (13.0-17.0); Lymph # (Auto) 0.2 th/mm3 (1.0-4.8); Lymph % (Auto) 6.3 % (9.0-44.0); Mean Corpuscular HGB Conc 34.4 % (32.0-36.0); Mean Corpuscular Hemoglobin 35.9 pg (27.0-34.0); Mean Corpuscular Volume 104.2 fL (80.0-100.0); Mean Platelet Volume 9.8 fL (7.0-11.0); Mono # (Auto) 0.1 th/mm3 (0.0-0.9); Mono % (Auto) 4.5 % (0.0-8.0); Neut # (Auto) 2.1 th/mm3 (1.8-7.7); Neut % (Auto) 89.2 % (16.0-70.0); Platelet Count 39 th/mm3 (150-450); Red Blood Count 3.19 mil/mm3 (4.50-5.90); Red Cell Distribution Width 17.1 % (11.6-17.2); White Blood Count 2.4 th/mm3 (4.0-11.0)
[2018-09-01 21:13] LABS: Platelet Morphology Normal (Normal)
[2018-09-01] MEDS ORDERED: Vancomycin Consult Pharmacy OTHER PRN (21:44)
[2018-09-01] MEDS ORDERED: Sod Chloride 0.9% Inj 1,000 ML IV.SIG ONE ×2 (21:47)
[2018-09-02] MEDS ORDERED: Vancomycin Inj 1,250 MG in Sodium Chlor 0.9% Inj 250 ML IV.SIG ONE ×2
[2018-09-02] MEDS: MethylPREDNISolone Sod Succinate Inj 40 MG/ML Vial IV.PUSH SCH ×4 (03:26→20:17)
[2018-09-02] MEDS: Sod Chloride 0.9% Inj 1,000 ML IV.CONT SCH ×2 (06:27→11:53)
[2018-09-02 07:44] LABS: Hematocrit 34.2 % (39.0-51.0); Hemoglobin 11.5 gm/dL (13.0-17.0); Lymph # (Auto) 0.1 th/mm3 (1.0-4.8); Lymph % (Auto) 4.1 % (9.0-44.0); Mean Corpuscular HGB Conc 33.5 % (32.0-36.0); Mean Corpuscular Hemoglobin 35.7 pg (27.0-34.0); Mean Corpuscular Volume 106.3 fL (80.0-100.0); Mean Platelet Volume 8.9 fL (7.0-11.0); Mono # (Auto) 0.1 th/mm3 (0.0-0.9); Mono % (Auto) 4.3 % (0.0-8.0); Neut # (Auto) 2.8 th/mm3 (1.8-7.7); Neut % (Auto) 91.6 % (16.0-70.0); Platelet Count 32 th/mm3 (150-450); Red Blood Count 3.21 mil/mm3 (4.50-5.90); Red Cell Distribution Width 17.3 % (11.6-17.2); White Blood Count 3.1 th/mm3 (4.0-11.0)
[2018-09-02 08:07] LABS: Alanine Aminotransferase 62 U/L (12-78); Albumin 2.2 g/dL (3.4-5.0); Anion Gap 8 meq/L (5-15); Aspartate Aminotransferase 107 U/L (15-37); Blood Urea Nitrogen 10 mg/dL (7-18); Calcium 7.9 mg/dL (8.5-10.1); Chloride 107 meq/L (98-107); Glomerular Filtration Rate 63 mL/min (>89); Glucose,Random 156 mg/dL (74-106); Magnesium 2.2 mg/dL (1.5-2.5); Potassium 3.7 meq/L (3.5-5.1); Sodium 143 meq/L (136-145)
[2018-09-02 08:10] LABS: Alkaline Phosphatase 264 U/L (45-117); Total Protein 5.8 g/dL (6.4-8.2)
[2018-09-02 08:37] LABS: Platelet Morphology Normal (Normal)
[2018-09-02] MEDS: Famotidine 20 MG Tablet PO SCH ×2 (09:04→20:18)
[2018-09-02] MEDS: Thiamine Inj 100 MG in Sodium Chlor 0.9% Inj 100 ML IV.SIG SCH (09:05)
[2018-09-02] MEDS: guaiFENesin 600 MG ER Tablet PO SCH ×2 (09:05→20:18)
--- NOTE | 2018-09-02 11:43 | P.PNIM ---
Subjective Interval history: Follow-up visit shortness of breath, COPD exacerbation, hx of lung CA Patient reports no significant improvement in his shortness of breath. Lungs sound coarse with diffuse expiratory wheezing. Denies chest pain, palpitations, lower extremity edema or pain. No fevers or chills. RN reports positive blood cultures and patient has been tachycardic. Physical Exam Vital signs: Vital Signs 09/01/18 11:58 09/01/18 15:25 09/01/18 15:48 Temperature 98.6 F 98.7 F Pulse Rate 92 H 119 H 111 H Respiratory Rate 16 18 16 Blood Pressure 196/95 H 195/93 H Pulse Oximetry 96 97 94 L 09/01/18 19:57 09/01/18 20:07 09/01/18 20:50 Temperature 97.9 F Pulse Rate 70 95 H 92 H Respiratory Rate 16 18 Blood Pressure 129/73 Pulse Oximetry 93 L 09/01/18 23:07 09/02/18 00:00 09/02/18 00:33 Temperature 97.9 F Pulse Rate 94 H 106 H 101 H Respiratory Rate 18 16 Blood Pressure 159/91 H Pulse Oximetry 92 L 98 09/02/18 03:16 09/02/18 03:23 09/02/18 07:30 Temperature 98.1 F Pulse Rate 90 98 H Respiratory Rate 22 16 Blood Pressure 151/85 H Pulse Oximetry 97 96 95 09/02/18 07:31 09/02/18 08:00 09/02/18 09:55 Temperature 98.8 F 97.9 F Pulse Rate 108 H 104 H 113 H Respiratory Rate 20 16 17 Blood Pressure 163/84 H 157/79 H Pulse Oximetry 96 96 09/02/18 11:37 Temperature Pulse Rate 109 H Respiratory Rate 20 Blood Pressure Pulse Oximetry Intake & Output 09/01/18 09/02/18 09/02/18 18:59 06:59 18:59 Intake Total 1201 / 1201 1570.5 / 1570.5 101 / 101 Balance 1201 / 1201 1570.5 / 1570.5 101 / 101 Intake: IV 1201 / 1201 1570.5 / 1570.5 101 / 101 Azactam Inj 1,000 MG In NS Inj 100 / 100 200 / 200 100 ML @ 200 mls/hr IV.SIG Q8H [facility] Rx#:[id number] Magnesium Sulfate Inj 4 GM In 108 / 108 D5W Inj 100 ML @ 25 mls/hr IV. SIG ONCE ONE Rx#:[id number] NS Inj 1,000 ML @ Wide Open IV. 1000 / 1000 1000 / 1000 SIG BOLUS ONE Rx#:[id number] Thiamine Inj 100 MG In NS Inj 101 / 101 101 / 101 100 ML @ 100 mls/hr IV.SIG DAILY [facility] Rx#:[id number] Vancomycin Inj 1,250 MG In NS 262.5 / 262.5 Inj 250 ML @ 250 mls/hr IV.SIG ONCE ONE Rx#:[id number] Other: Date of Last Bowel Movement 09/01/18 09/01/18 Narrative: GENERAL: ill appearing patient, no distress SKIN: Warm and dry. NECK: Supple, trachea midline. No JVD or lymphadenopathy. CARDIOVASCULAR: Regular rate and rhythm without murmurs, gallops, or rubs. RESPIRATORY: Breath sounds coarse and equal bilaterally. Diffuse expiratory wheezing. No accessory muscle use. GASTROINTESTINAL: Abdomen soft, non-tender, nondistended. MUSCULOSKELETAL: No cyanosis, or edema. Results Labs CBC & Chem 7: 09/02/18 06:40 09/02/18 06:40 Labs: Microbiology 08/31/18 20:26 Blood - Peripheral Aerobic Blood Culture - Preliminary No growth in 2 days 08/31/18 20:26 Blood - Peripheral Anaerobic Blood Culture - Preliminary gram positive cocci 08/31/18 20:20 Blood - Peripheral Aerobic Blood Culture - Preliminary gram positive cocci 08/31/18 20:20 Blood - Peripheral Anaerobic Blood Culture - Preliminary No growth in 2 days Assessment and Plan Plan 73-year-old male with a history of COPD, lung cancer status post radiation 1 month ago, diastolic heart failure and colon cancer presented to the ED with complaints of shortness of breath, cough, congestion and chest pain for the last 1 week. COPD exacerbation -repeat Chest x-ray reviewed and shows no acute disease, CTA reviewed and shows no PE but with severe emphysema -DuoNeb scheduled and as needed -Solu-Medrol IV Gram positive bacteremia vs contamination -blood cultures 2/2 gram positive cocci in pairs and clusters -no port, no central line, UA w/ no evidence of UTI, cxr clear -ID consulted -continue IV abx -lactic acid 6.0 yesterday but down to 1.3 today Transaminitis with elevated alk phos and total bili -improving -AST > ALT, hx of alcohol use disorder -pt denies abdominal pain, N/V -US liver, check hepatitis panel Pancytopenia -worsening thrombocytopenia from 50 down to 30's, no e/o bleeding -H/H stable SIRS - WBC 2.8, heart rate 98, lactic acid 2.8 on arrival UA and CXR negative -Continue Levaquin IV and Azactam de-escalate -Blood cultures reviewed -Thiamine IV -Sputum culture Hypokalemia/Hypomagnesemia -repleted and resolved Lung cancer, status post radiation 1 month ago -Continue to monitor, will consult oncology if needed Alcohol abuse, alcohol on admission 308 -[facility] protocol -Thiamine daily MDM: self Code: Full GI ppx: Pepcid DVT prophylaxis: SCDs, pt with thrombocytopenia and PLT count in the 30's, no anticoagulation Discussed with: patient, RN, supervising MD Dispo: home once patients shortness of breath, tachycardia, lactic acidosis improves. Progress Note: Quality VTE Deep Vein Thrombosis/Pulmonary Embolism Present on Admission: No
--- NOTE | 2018-09-02 12:24 | MB ---
cc: Alban Sewell MD DATE: 09/02/2018 REQUESTING PHYSICIAN: Armando Rodrigez MD REASON: Gram-positive bacteremia. HISTORY OF PRESENT ILLNESS: This is a 73-year-old white male who presented to the emergency department on 08/31/2018 with shortness of breath. The patient has a history of COPD. He has a history of lung cancer and has been treated with radiation therapy, which was last given approximately 1 month ago. The patient knows that he has been feeling ill for 2 weeks and has had no energy and he is noted to have dark stools. He states that he had occasional chills and sweats. He does not recall any fever. His temperature is normal. The workup included blood cultures, which came back showing gram-positive cocci in 1 bottle of each of 2 sets. The patient's white blood cell count on admission was 2.8 and platelet count was 50. He has not had any chemotherapy for the lung cancer. He consumes alcohol daily. He denies IV drug use. He has a cough, which he says is chronic. He continues to smoke cigarettes. CT scan of the chest showed no evidence of pulmonary embolism. Severe emphysema without infiltrate or mass and a 1 cm nodular density in the right upper lobe was noted. The patient knows that he has lost approximately 40 pounds in the past 9 months. He notes that he has had diarrhea over the past 24 hours. He denies abdominal pain, nausea or vomiting. He reports that his breathing is better than it was when he came to the emergency department. PAST MEDICAL HISTORY: COPD, diastolic heart failure, history of GI bleed, history of colon cancer, history of partial colon resection, history of toe amputation, lung cancer treated with radiation therapy, history of knee surgery. ALLERGIES: PENICILLIN. MEDICATIONS: 1. Aztreonam. 2. Vancomycin. 3. Pepcid. 4. Mucinex. 5. Ativan. 6. Methylprednisolone. 7. Thiamine. SOCIAL HISTORY: The patient drinks 2 shots of vodka daily. He smokes about 4 cigarettes a day. Denies illicit drugs. FAMILY HISTORY: Noncontributory. REVIEW OF SYSTEMS: All systems have been reviewed. Pertinents mentioned in history of present illness. PHYSICAL EXAMINATION: GENERAL: This is a frail-appearing male who is in no acute distress. He is awake and alert and oriented. He appears somewhat lethargic. VITAL SIGNS: Temperature 97.9, BP 157/79, respirations 17, heart rate 113. HEENT: Head atraumatic. Extraocular movements grossly intact. Pupils reactive to light. No icterus. Oropharynx, very poor dentition with most of the upper teeth are in erosion and lower teeth also in poor state. No oral lesions. NECK: Supple without adenopathy. LUNGS: Decreased breath sounds throughout. HEART: Regular S1 and S2. No murmur heard. ABDOMEN: Bowel sounds present, soft, no tenderness. No masses palpable. RECTAL: Not performed. EXTREMITIES: No clubbing, cyanosis or edema. SKIN: No diffuse rash. PSYCHIATRIC: The patient is calm and cooperative. LABORATORY FINDINGS: WBC 3.1, 91% neutrophils, hemoglobin 11.5, platelets 32. Lactic acid on 09/01/2018 was 6.0. Lactic acid level repeated was 1.3. Total bilirubin 3.2, estimated GFR was 63, creatinine 1.15. IMPRESSION: 1. Gram-positive bacteremia with bacteria in one anaerobic bottle and 1 aerobic bottle. Significance is unclear and the patient has no fever. However, he reports having chills and on admission, lactic acid level was elevated at 6.0, and he also has some degree of renal insufficiency. He has also leukopenia and thrombocytopenia, which could be related to alcoholism. There is no clear source for the bacteremia. 2. Chronic obstructive pulmonary disease. 3. PENICILLIN ALLERGY. It is unclear whether the bacteria in the bloodstream is true, infection related versus contamination. RECOMMENDATIONS: 1. Repeat the blood cultures. 2. Continue the vancomycin. 3. Continue with aztreonam for now because of his pulmonary symptoms. 4. Monitor for signs of infection. 5. Follow the 2D echocardiogram, which has been ordered. Thank you for this consultation. I will monitor the patient's progress with you and make further recommendations upon followup. Alban Sewell MD FFDiaz/sv , 11:33 AM , 11:48 AM
--- NOTE | 2018-09-02 12:32 | XR ---
EXAM DATE: 09/02/2018 12:28 PM EST AGE/SEX: 73 years / Male INDICATIONS: Breathing difficulty. CLINICAL DATA: This is the patient's subsequent encounter. Patient reports that signs and symptoms h ave been present for 4 - 6 days and indicates a pain score of 0/10. MEDICAL/SURGICAL HISTORY: Chronic obstructive pulmonary disease. Hypertension. Carcinoma, kian g. None. [place] [facility] [place]. . FINDINGS: A single AP view of the chest demonstrates the lungs to be symmetrically aerated without evidence of mass, infiltrate or effusion. No evidence of pneumothorax. Incidental note of azygous lobe. The cardi omediastinal contours are unremarkable. Stable deformity of the proximal right humerus. CONCLUSION: The lungs are clear. Electronically signed by: Gray Rendon MD Board Certified Radiologist 09/02/2018 12:31 PM EST
--- NOTE | 2018-09-02 14:44 | P.CONID ---
History of Present Illness Service: Infectious Disease Consult date: 09/02/18 Requesting Physician: Monster Salazar Reason for Consult: Evaluation and management of bacteremia Primary Care Provider: [facility] Chief Complaint: Shortness of breath History of Present Illness: Mr. Wise is a 73-year-old male with past medical history significant for COPD who was not on home oxygen, lung cancer status post radiation 1 month ago. Patient reports that his lung cancer was diagnosed approximately 1 year back and he was told that he has adenocarcinoma and patient is status post radiation 1 month back. He follows with the [place] oncology department. Patient's past medical history is also significant for diastolic heart failure as well as colon cancer status post resection with no chemo or radiation after resection. Patient reports that he is in remission for colon cancer. With this background patient presents to the emergency department with complaints of shortness of breath, cough congestion for the last 1 week. He states he just feels very lousy and has been using pillows to prop himself up for relief. He also reports night sweats chills but denies any documented temperature. He denies any myalgia. Pertinent positives and negatives: Never had a port or PICC for chemotherapy. No skin trauma. H/o vascular issue right great toe amputated in past. h/o falls off and on Denies any neuropathy. Infectious disease consulted for evaluation and management of bacteremia. Review of Systems All other systems reviewed negative except as stated in HPI PMFSH - History History Provided By: Patient - Medical History Medical History: Medical History (Last Reviewed 09/01/18 @ 00:23 by ROZINA Crandall) Amputation toe COPD (chronic obstructive pulmonary disease) Colon cancer Diastolic heart failure History of GI bleed Lung cancer - Surgical History Surgical History: Surgical History (Last Reviewed 09/01/18 @ 00:23 by ROZINA Crandall) H/O knee surgery H/O partial resection of colon - Family History Family History: Family History (Last Reviewed 09/01/18 @ 03:01 by ROZINA Crandall) Other Family history non-contributory - Tobacco History Second Hand Smoke Exposure: No Tobacco Use In Past 30 Days: Yes Smoking Status: Current every day smoker Tobacco Type: Cigarettes Cigarettes Per Day: 4 - Alcohol History How Often Do You Have a Drink Containing Alcohol: 4 or more times a week - Substance Use History Substance History: No History of Abuse, Active Abuse - Travel History Recent Travel in the [place] Within the Last 8 Weeks: No Recent Travel Out of the Country Within the Last 8 Weeks: No - Immunization History Tetanus Immunization: >5 Years Medications and Allergies Active Medications: Active Medications Acetaminophen (Tylenol) 650 mg PO Q4H PRN PRN Reason: Temp > 100.4 Albuterol (Duoneb Neb (Joanne)) 1 ampul NEB Q4HR NEB JOANNE Last Admin: 09/02/18 11:36 Dose: 1 ampul Albuterol (Duoneb Neb (Prn)) 1 ampul NEB Q2HR NEB PRN PRN Reason: sob Clonidine HCl (Catapres) 0.1 mg PO Q6H PRN PRN Reason: BLOOD PRESSURE MANAGEMENT Last Admin: 09/01/18 18:28 Dose: 0.1 mg Famotidine (Pepcid) 10 mg PO BID [facility] Last Admin: 09/02/18 09:04 Dose: 10 mg Flumazenil (Romazicon Inj) 0.2 mg IV.PUSH Q1M PRN PRN Reason: OVERSEDATION Guaifenesin (Mucinex Er) 600 mg PO BID [facility] Last Admin: 09/02/18 09:05 Dose: 600 mg Haloperidol Lactate (Haldol Inj) 1 mg IV.PUSH Q15M PRN PRN Reason: for severe agitation Aztreonam 1,000 mg/ Sodium (Chloride) 100 mls @ 200 mls/hr IV.SIG Q8H [facility] Last Infusion: 09/02/18 13:09 Dose: Infused Thiamine HCl 100 mg/ Sodium (Chloride) 101 mls @ 100 mls/hr IV.SIG DAILY [facility] Last Infusion: 09/02/18 10:38 Dose: Infused Lorazepam (Ativan) 1 mg PO Q4H PRN PRN Reason: for CIWA 8-10 Last Admin: 09/01/18 11:15 Dose: 1 mg Lorazepam (Ativan Inj) 2 mg IV.PUSH Q2H PRN PRN Reason: for CIWA 11-14 Lorazepam (Ativan Inj) 2 mg IV.PUSH Q1H PRN PRN Reason: for CIWA 15-20 Lorazepam (Ativan Inj) 2 mg IV.PUSH Q15M PRN PRN Reason: for CIWA > 20 Lorazepam (Ativan Inj) 1 mg IV.PUSH Q4H PRN PRN Reason: for CIWA 8-10 Lorazepam (Ativan) 2 mg PO Q2H PRN PRN Reason: for CIWA 11-14 Methylprednisolone Sodium Succinate (Solumedrol Inj) 40 mg IV.PUSH Q6H [facility] Last Admin: 09/02/18 13:15 Dose: 40 mg Ondansetron HCl (Zofran Inj) 4 mg IV.PUSH Q6H PRN PRN Reason: NAUSEA OR VOMITING Pharmacy Profile Note (Vancomycin Consult Pharmacy) 1 each OTHER UNSCH PRN PRN Reason: Pharmacy to dose Sodium Chloride (Ns Flush) 2 ml IV.FLUSH BID [facility] Last Admin: 09/02/18 09:05 Dose: Not Given Sodium Chloride (Ns Flush) 2 ml IV.FLUSH PRN PRN PRN Reason: FLUSH AFTER USING IV ACCESS Allergies Allergy/AdvReac Type Severity Reaction Status Date / Time penicillin G Allergy Severe Swelling Verified 09/01/18 13:30 Home Medications Medication Instructions Recorded Confirmed Type Unable to Obtain Home Meds 08/31/18 08/31/18 History Exam Vital signs: Vital Signs 09/01/18 15:25 09/01/18 15:48 09/01/18 19:57 Temperature 98.7 F 97.9 F Pulse Rate 119 H 111 H 70 Respiratory Rate 18 16 16 Blood Pressure 195/93 H 129/73 Pulse Oximetry 97 94 L 93 L 09/01/18 20:07 09/01/18 20:50 09/01/18 23:07 Temperature Pulse Rate 95 H 92 H 94 H Respiratory Rate 18 18 Blood Pressure Pulse Oximetry 92 L 09/02/18 00:00 09/02/18 00:33 09/02/18 03:16 Temperature 97.9 F Pulse Rate 106 H 101 H 90 Respiratory Rate 16 22 Blood Pressure 159/91 H Pulse Oximetry 98 97 09/02/18 03:23 09/02/18 07:30 09/02/18 07:31 Temperature 98.1 F Pulse Rate 98 H 108 H Respiratory Rate 16 20 Blood Pressure 151/85 H Pulse Oximetry 96 95 09/02/18 08:00 09/02/18 09:55 09/02/18 11:37 Temperature 98.8 F 97.9 F Pulse Rate 104 H 113 H 109 H Respiratory Rate 16 17 20 Blood Pressure 163/84 H 157/79 H Pulse Oximetry 96 96 09/02/18 12:00 Temperature Pulse Rate 104 H Respiratory Rate 16 Blood Pressure 163/79 H Pulse Oximetry 96 Intake & Output 09/01/18 09/02/18 09/02/18 18:59 06:59 18:59 Intake Total 1201 / 1201 1570.5 / 1570.5 1301 / 1301 Balance 1201 / 1201 1570.5 / 1570.5 1301 / 1301 Intake: IV 1201 / 1201 1570.5 / 1570.5 1301 / 1301 NS Inj 1,000 ML @ 150 mls/hr IV 1100 / 1100 .CONT .Q6H40M [facility] Rx#:[id number] Azactam Inj 1,000 MG In NS Inj 100 / 100 200 / 200 100 / 100 100 ML @ 200 mls/hr IV.SIG Q8H [facility] Rx#:[id number] Magnesium Sulfate Inj 4 GM In 108 / 108 D5W Inj 100 ML @ 25 mls/hr IV. SIG ONCE ONE Rx#:[id number] NS Inj 1,000 ML @ Wide Open IV. 1000 / 1000 1000 / 1000 SIG BOLUS ONE Rx#:[id number] Thiamine Inj 100 MG In NS Inj 101 / 101 101 / 101 100 ML @ 100 mls/hr IV.SIG DAILY [facility] Rx#:[id number] Vancomycin Inj 1,250 MG In NS 262.5 / 262.5 Inj 250 ML @ 250 mls/hr IV.SIG ONCE ONE Rx#:[id number] Other: Date of Last Bowel Movement 09/01/18 09/01/18 09/01/18 Narrative: GENERAL: Well-nourished well-developed, not in acute distress SKIN: Cool and dry, no generalized rash HEAD: Atraumatic. Normocephalic. No temporal or scalp tenderness. EYES: Pupils equal round and reactive. Scleral icterus. No injection or drainage. No petechia ENT: Nothing abnormal detected NECK: Trachea midline. Supple, nontender, no meningeal signs. CARDIOVASCULAR: HS audible. RESPIRATORY: Clear to auscultation bilaterally. GASTROINTESTINAL: Abdomen soft nontender. MUSCULOSKELETAL: Right great toe status post amputation no evidence of infection. NEUROLOGICAL: Alert oriented 3. Nonfocal. Psych cooperative IV line sites ok. Results - Labs CBC & Chem 7: 09/02/18 06:40 09/02/18 06:40 Labs: Laboratory Results - last 24 hr 09/01/18 09/01/18 09/01/18 19:31 19:31 22:34 WBC 2.4 L RBC 3.19 L Hgb 11.4 L Hct 33.2 L MCV 104.2 H MCH 35.9 H MCHC 34.4 RDW 17.1 Plt Count 39 L MPV 9.8 Prelim Diff (Auto) Slide review pending Neut % (Auto) 89.2 H Lymph % (Auto) 6.3 L [place] % (Auto) 4.5 Eos % (Auto) 0.0 Baso % (Auto) 0.0 Neut # (Auto) 2.1 Lymph # (Auto) 0.2 L [place] # (Auto) 0.1 Eos # (Auto) 0.0 Baso # (Auto) 0.0 WBC Differential . Diff Scan Auto diff confirmed Differential Comment . Platelet Estimate Low L Platelet Morphology Normal Sodium Potassium 3.7 D Chloride Carbon Dioxide Anion Gap BUN Creatinine Estimated GFR Random Glucose Lactic Acid 1.3 Calcium Magnesium Total Bilirubin AST ALT Alkaline Phosphatase Total Protein Albumin 09/02/18 09/02/18 06:40 06:40 WBC 3.1 L RBC 3.21 L Hgb 11.5 L Hct 34.2 L MCV 106.3 H MCH 35.7 H MCHC 33.5 RDW 17.3 H Plt Count 32 L MPV 8.9 Prelim Diff (Auto) Slide review pending Neut % (Auto) 91.6 H Lymph % (Auto) 4.1 L [place] % (Auto) 4.3 Eos % (Auto) 0.0 Baso % (Auto) 0.0 Neut # (Auto) 2.8 Lymph # (Auto) 0.1 L [place] # (Auto) 0.1 Eos # (Auto) 0.0 Baso # (Auto) 0.0 WBC Differential . Diff Scan Auto diff confirmed Differential Comment . Platelet Estimate Low L Platelet Morphology Normal Sodium 143 Potassium 3.7 Chloride 107 Carbon Dioxide 28.0 Anion Gap 8 BUN 10 Creatinine 1.15 Estimated GFR 63 L Random Glucose 156 H Lactic Acid Calcium 7.9 L Magnesium 2.2 D Total Bilirubin 3.2 H AST 107 H ALT 62 Alkaline Phosphatase 264 H Total Protein 5.8 L Albumin 2.2 L - Imaging Impressions Chest X-Ray 09/02/18 00:00 CONCLUSION: The lungs are clear. Assessment and Plan - Plan Possible tracheobronchitis vs early pneumonia. Coag neg staph bacteremia ? pseudobacteremia. Leucopenia Thrombocytopenia Recs Continue Azactam IV Continue Levaquin Continue Vanco IV Repeat blood cultures saw patient earlier prior to me. I received a consult and saw patient in consultation and wrote a note after discussing plan with patient not knowing patient seen and note written on his behalf as he dictated a note. note dictation and showed up later after my note was completed. I informed of this finding and will sign off. He will continue seeing the patient.
--- NOTE | 2018-09-02 16:32 | ECHRPT ---
Indication: SEPSIS POSS ENDOCARDITIS CONCLUSIONS Normal left ventricular size. Wall thickness is normal. The left ventricular systolic function is normal with an estimated ejection fraction in the range of 55-60%. Left ventricular diastolic function present. The estimated pulmonary arterial pressure is 30 mmHg. BP: / HR: Rhythm: Sinus MEASUREMENTS (Male / Female) Normal Values Technical Quality:Poor 2D ECHO LV Diastolic Diameter PLAX 5.0 cm 4.2 - 5.9 / 3.9 - 5.3 cm LV Systolic Diameter PLAX 3.9 cm IVS Diastolic Thickness 1.0 cm 0.6 - 1.0 / 0.6 - 0.9 cm LVPW Diastolic Thickness 1.0 cm 0.6 - 1.0 / 0.6 - 0.9 cm LV Relative Wall Thickness 0.4 RV Internal Dim ED PLAX 3.4 cm LVOT Diameter 2.0 cm LA Systolic Diameter LX 3.1 cm 3.0 - 4.0 / 2.7 - 3.8 cm DOPPLER AV Peak Velocity 160.0 cm/s AV Peak Gradient 10.2 mmHg LVOT Peak Velocity 130.0 cm/s LVOT Peak Gradient 6.8 mmHg AV Area Cont Eq pk 2.6 cm Mitral E Point Velocity 88.2 cm/s Mitral A Point Velocity 140.0 cm/s Mitral E to A Ratio 0.6 LV E' Lateral Velocity 19.2 cm/s Mitral E to LV E' Lateral Ratio 4.6 LV E' Septal Velocity 10.0 cm/s Mitral E to LV E' Septal Ratio 8.8 TR Peak Velocity 221.0 cm/s TR Peak Gradient 19.5 mmHg Right Atrial Pressure 10.0 mmHg Pulmonary Artery Systolic Pressu 29.5 mmHg Right Ventricular Systolic Press 29.5 mmHg PV Peak Velocity 145.0 cm/s PV Peak Gradient 8.4 mmHg FINDINGS LEFT VENTRICLE Normal left ventricular size. Wall thickness is normal. The left ventricular systolic function is normal with an estimated ejection fraction in the range of 55-60%. Left ventricular diastolic function present. RIGHT VENTRICLE Normal right ventricular size and systolic function. LEFT ATRIUM The left atrial size is normal. RIGHT ATRIUM The right atrial size is normal. ATRIAL SEPTUM Normal atrial septal thickness without atrial level shunting by limited color doppler interrogation. AORTA The aortic root and proximal ascending aorta are normal in size on limited imaging. MITRAL VALVE Structurally normal mitral valve. No mitral valve stenosis or regurgitation. AORTIC VALVE Trileaflet aortic valve. No aortic valve stenosis or regurgitation. TRICUSPID VALVE The estimated pulmonary arterial pressure is 30 mmHg. PULMONARY VALVE No pulmonary valve regurgitation or stenosis. VESSELS The inferior vena cava is normal in size. PERICARDIUM No pericardial effusion. Regis Iraheta MD, FACC (Electronically Signed) Final Date:02 September 2018 16:31
[2018-09-03] MEDS: Vancomycin Inj 1,250 MG in Sodium Chlor 0.9% Inj 250 ML IV.SIG SCH (01:24)
[2018-09-03] MEDS: MethylPREDNISolone Sod Succinate Inj 40 MG/ML Vial IV.PUSH SCH ×4 (01:24→21:12)
[2018-09-03 07:37] LABS: Baso % (Auto) 0.1 % (0.0-2.0); Hematocrit 34.7 % (39.0-51.0); Hemoglobin 11.6 gm/dL (13.0-17.0); Lymph # (Auto) 0.2 th/mm3 (1.0-4.8); Lymph % (Auto) 4.4 % (9.0-44.0); Mean Corpuscular HGB Conc 33.5 % (32.0-36.0); Mean Corpuscular Hemoglobin 35.3 pg (27.0-34.0); Mean Corpuscular Volume 105.4 fL (80.0-100.0); Mean Platelet Volume 10.2 fL (7.0-11.0); Mono # (Auto) 0.1 th/mm3 (0.0-0.9); Mono % (Auto) 2.7 % (0.0-8.0); Neut % (Auto) 92.8 % (16.0-70.0); Platelet Count 44 th/mm3 (150-450); Red Cell Distribution Width 17.3 % (11.6-17.2); White Blood Count 4.3 th/mm3 (4.0-11.0)
[2018-09-03 08:03] LABS: Alanine Aminotransferase 66 U/L (12-78); Albumin 2.3 g/dL (3.4-5.0); Anion Gap 9 meq/L (5-15); Aspartate Aminotransferase 120 U/L (15-37); Blood Urea Nitrogen 18 mg/dL (7-18); Calcium 8.1 mg/dL (8.5-10.1); Carbon Dioxide 25.1 meq/L (21.0-32.0); Chloride 105 meq/L (98-107); Glomerular Filtration Rate 59 mL/min (>89); Glucose,Random 111 mg/dL (74-106); Potassium 3.8 meq/L (3.5-5.1); Sodium 139 meq/L (136-145)
[2018-09-03 08:05] LABS: Alkaline Phosphatase 248 U/L (45-117); Total Protein 5.7 g/dL (6.4-8.2)
[2018-09-03] MEDS: Famotidine 20 MG Tablet PO SCH ×2 (08:12→21:11)
[2018-09-03] MEDS: guaiFENesin 600 MG ER Tablet PO SCH ×2 (08:12→21:12)
[2018-09-03] MEDS: Thiamine Inj 100 MG in Sodium Chlor 0.9% Inj 100 ML IV.SIG SCH (08:34)
--- NOTE | 2018-09-03 15:38 | P.PNID ---
Subjective Remarks: Patient says he feels okay. However he is still coughing quite a bit. No sputum production. Afebrile. No chills. Notes that he has redness of breath but improved over last day. Sputum culture pending. 73-year-old white male who presented to the emergency department on 08/31/2018 with shortness of breath. The patient has a history of COPD. He has a history of lung cancer and has been treated with radiation therapy, which was last given approximately 1 month ago. The patient notes that he has been feeling ill for 2 weeks and has had no energy and he is noted to have dark stools. He states that he had occasional chills and sweats. He does not recall any fever. His temperature is normal. The workup included blood cultures, which came back showing gram-positive cocci in 1 bottle of each of 2 sets. The patient's white blood cell count on admission was 2.8 and platelet count was 50. He has not had any chemotherapy for the lung cancer. He consumes alcohol daily. He denies IV drug use. He has a cough, which he says is chronic. He continues to smoke cigarettes. Past Medical History: PAST MEDICAL HISTORY: COPD, diastolic heart failure, history of GI bleed, history of colon cancer, history of partial colon resection, history of toe amputation, lung cancer treated with radiation therapy, history of knee surgery. Allergies/Adverse Reactions: Allergies penicillin G Allergy (Severe, Verified 09/01/18 13:30) Swelling Objective Vital Signs 09/02/18 15:34 09/02/18 16:00 09/02/18 19:20 Temperature 98.8 F Pulse Rate 105 H 108 H 71 Respiratory Rate 18 16 18 Blood Pressure 161/81 H Pulse Oximetry 97 97 09/02/18 20:00 09/02/18 20:44 09/02/18 23:45 Temperature 98.1 F Pulse Rate 108 H 100 H 93 H Respiratory Rate 16 Blood Pressure 146/94 H Pulse Oximetry 97 09/03/18 00:00 09/03/18 03:26 09/03/18 03:38 Temperature 98.2 F 98.2 F Pulse Rate 102 H 88 92 H Respiratory Rate 16 16 Blood Pressure 179/96 H 168/78 H Pulse Oximetry 93 L 92 L 09/03/18 07:30 09/03/18 07:53 09/03/18 08:00 Temperature 98.5 F Pulse Rate 92 H 99 H 99 H Respiratory Rate 18 18 Blood Pressure 174/89 H Pulse Oximetry 95 09/03/18 10:54 09/03/18 11:44 Temperature 98.5 F Pulse Rate 99 H 89 Respiratory Rate 20 18 Blood Pressure 131/63 Pulse Oximetry 96 Intake & Output 09/02/18 09/03/18 09/03/18 18:59 06:59 18:59 Intake Total 1201 / 1201 462.5 / 462.5 201 / 201 Balance 1201 / 1201 462.5 / 462.5 201 / 201 Intake: IV 1201 / 1201 462.5 / 462.5 201 / 201 NS Inj 1,000 ML @ 150 mls/hr IV 1100 / 1100 .CONT .Q6H40M [facility] Rx#:[id number] Azactam Inj 1,000 MG In NS Inj 0 / 0 200 / 200 100 / 100 100 ML @ 200 mls/hr IV.SIG Q8H [facility] Rx#:[id number] Thiamine Inj 100 MG In NS Inj 101 / 101 101 / 101 100 ML @ 100 mls/hr IV.SIG DAILY [facility] Rx#:[id number] Vancomycin Inj 1,250 MG In NS 262.5 / 262.5 Inj 250 ML @ 262.5 mls/hr IV. SIG Q24H [facility] Rx#:[id number] Other: Date of Last Bowel Movement 09/01/18 09/01/18 09/01/18 08/31/18 20:20 Blood - Peripheral Aerobic Blood Culture - Final Staphylococcus saprophyticus 08/31/18 20:20 Blood - Peripheral Anaerobic Blood Culture - Preliminary No growth in 3 days 09/03/18 05:34 Sputum - Expectorated Sputum Gram Stain - Final 09/03/18 05:34 Sputum - Expectorated Sputum Sputum Culture - Pending 09/02/18 17:30 Blood - Peripheral Aerobic Blood Culture - Preliminary No growth in 1 day 09/02/18 17:30 Blood - Peripheral Anaerobic Blood Culture - Preliminary No growth in 1 day 09/02/18 17:16 Blood - Peripheral Aerobic Blood Culture - Preliminary No growth in 1 day 09/02/18 17:16 Blood - Peripheral Anaerobic Blood Culture - Preliminary No growth in 1 day 08/31/18 20:26 Blood - Peripheral Aerobic Blood Culture - Preliminary No growth in 3 days 08/31/18 20:26 Blood - Peripheral Anaerobic Blood Culture - Preliminary gram positive cocci Lab - Hematology Results 09/01/18 09/02/18 09/03/18 19:31 06:40 05:37 WBC 2.4 L 3.1 L 4.3 RBC 3.19 L 3.21 L 3.30 L Hgb 11.4 L 11.5 L 11.6 L Hct 33.2 L 34.2 L 34.7 L MCV 104.2 H 106.3 H 105.4 H MCH 35.9 H 35.7 H 35.3 H MCHC 34.4 33.5 33.5 RDW 17.1 17.3 H 17.3 H Plt Count 39 L 32 L 44 L D MPV 9.8 8.9 10.2 Prelim Diff (Auto) Slide review pending Slide review pending Slide review pending Neut % (Auto) 89.2 H 91.6 H 92.8 H Lymph % (Auto) 6.3 L 4.1 L 4.4 L Gentry % (Auto) 4.5 4.3 2.7 Eos % (Auto) 0.0 0.0 0.0 Baso % (Auto) 0.0 0.0 0.1 Neut # (Auto) 2.1 2.8 4.0 Lymph # (Auto) 0.2 L 0.1 L 0.2 L Gentry # (Auto) 0.1 0.1 0.1 Eos # (Auto) 0.0 0.0 0.0 Baso # (Auto) 0.0 0.0 0.0 WBC Differential . . . Diff Scan Auto diff confirmed Auto diff confirmed Auto diff confirmed Differential Comment . . . Platelet Estimate Low L Low L Platelet Morphology Normal Normal Lab - Chemistry Results 09/01/18 09/01/18 09/02/18 19:31 22:34 06:40 Sodium 143 Potassium 3.7 D 3.7 Chloride 107 Carbon Dioxide 28.0 Anion Gap 8 BUN 10 Creatinine 1.15 Estimated GFR 63 L Random Glucose 156 H Lactic Acid 1.3 Calcium 7.9 L Magnesium 2.2 D Total Bilirubin 3.2 H AST 107 H ALT 62 Alkaline Phosphatase 264 H Total Protein 5.8 L Albumin 2.2 L 09/03/18 05:37 Sodium 139 Potassium 3.8 Chloride 105 Carbon Dioxide 25.1 Anion Gap 9 BUN 18 Creatinine 1.21 Estimated GFR 59 L Random Glucose 111 H Lactic Acid Calcium 8.1 L Magnesium Total Bilirubin 3.1 H AST 120 H ALT 66 Alkaline Phosphatase 248 H Total Protein 5.7 L Albumin 2.3 L Imaging: ITS Impressions Chest CTA 08/31/18 21:24 CONCLUSION: 1. No evidence for pulmonary embolism. 2. Severe emphysema without infiltrate or mass. 3. 1 cm nodular density in the right upper lobe. Follow-up CT chest in 3 months recommended for stability. Chest X-Ray 09/02/18 00:00 CONCLUSION: The lungs are clear. Physical Exam: PHYSICAL EXAMINATION: GENERAL: Patient in no acute distress. Awake and alert. HEENT: Extraocular movements grossly intact. Pupils reactive to light. No icterus. Oropharynx, very poor dentition with most of the upper teeth are in erosion and lower teeth also in poor state. No oral lesions. NECK: Supple without adenopathy. LUNGS: Decreased breath sounds throughout. Wheezing bilateral right greater than left base. HEART: Regular S1 and S2. No murmur heard. ABDOMEN: Bowel sounds present, soft, no tenderness. No masses palpable. EXTREMITIES: No clubbing, cyanosis or edema. SKIN: No diffuse rash. PSYCHIATRIC: Calm and cooperative. Assessment and Plan - Plan IMPRESSION: 1. Gram-positive bacteremia with bacteria in one anaerobic bottle and 1 aerobic bottle. Staph saprophyticus identified in 1 bottle. significance is unclear and the patient has no fever. However, he reports having chills and on admission, lactic acid level was elevated at 6.0 and he also has some degree of renal insufficiency. He has also leukopenia and thrombocytopenia, which could be related to alcoholism. There is no clear source for the bacteremia. 2D echo without evidence of vegetation. 2. Chronic obstructive pulmonary disease. 3. PENICILLIN ALLERGY. It is unclear whether the bacteria in the bloodstream is true, infection related versus contamination. RECOMMENDATIONS: 1. Continue to follow the repeat blood culture. Monitor the identity of the staph bacteria the bottle yet to be identified. 2. Continue the vancomycin. 3. Continue with aztreonam for now because of his pulmonary symptoms. 4. Follow sputum culture. 5. Monitor clinical status. I will be off this weekend. Other ID MD covering in my absence if needed.
--- NOTE | 2018-09-03 16:23 | ECG ---
Date Performed: 09/03/2018 Time Performed: 05:31:10 PTAGE: 73 years EKG: SINUS TACHYCARDIA MINIMAL ST DEPRESSION ABNORMAL RHYTHM ECG Compared to PREVIOUS TRACING , the lateral ST segment depression is new. Clinical correlation to excl ude myocardial ischemia will be appropriate. PREVIOUS TRACIN03/02/2017 17.31 DOCTOR: Laisha Hernandez Interpretating Date/Time 09/03/2018 16:23:31
--- NOTE | 2018-09-03 16:26 | ECG ---
Date Performed: 09/03/2018 Time Performed: 07:58:47 PTAGE: 73 years EKG: Sinus rhythm WITH OCCASIONAL VENTRICULAR PREMATURE COMPLEXES WITH OCCASIONAL SUPRAVENTRICULAR PREMATURE COMPLEXES NONSPECIFIC T-WAVE ABNORMALITY BORDERLINE ECG Compared to PREVIOUS TRACING , there has been improvement in the ST segment depression noted in leads V4-V6. Serial EKGs are consistent with reversible subendocardial ischemia and clinical correlation w ill be important. PREVIOUS TRACIN09/03/2018 05.31 DOCTOR: Laisha Hernandez Interpretating Date/Time 09/03/2018 16:24:32
--- NOTE | 2018-09-03 17:52 | P.PNIM ---
Subjective Interval history: Follow-up visit shortness of breath, COPD exacerbation, hx of lung CA Patient resting in bed. He states shortness of breath unchanged and moderate to severe dyspnea with mild exertion. No chest pain, palpitations or lower extremity edema or pain. Persistent cough with scant sputum. No fevers or chills. Physical Exam Vital signs: Vital Signs 09/02/18 19:20 09/02/18 20:00 09/02/18 20:44 Temperature 98.1 F Pulse Rate 71 108 H 100 H Respiratory Rate 18 16 Blood Pressure 146/94 H Pulse Oximetry 97 97 09/02/18 23:45 09/03/18 00:00 09/03/18 03:26 Temperature 98.2 F Pulse Rate 93 H 102 H 88 Respiratory Rate 16 Blood Pressure 179/96 H Pulse Oximetry 93 L 09/03/18 03:38 09/03/18 07:30 09/03/18 07:53 Temperature 98.2 F 98.5 F Pulse Rate 92 H 92 H 99 H Respiratory Rate 16 18 18 Blood Pressure 168/78 H 174/89 H Pulse Oximetry 92 L 95 09/03/18 08:00 09/03/18 10:54 09/03/18 11:44 Temperature 98.5 F Pulse Rate 99 H 99 H 89 Respiratory Rate 20 18 Blood Pressure 131/63 Pulse Oximetry 96 09/03/18 16:51 Temperature 98.0 F Pulse Rate 71 Respiratory Rate 20 Blood Pressure 178/107 H Pulse Oximetry 95 Intake & Output 09/02/18 09/03/18 09/03/18 18:59 06:59 18:59 Intake Total 1201 / 1201 462.5 / 462.5 201 / 201 Balance 1201 / 1201 462.5 / 462.5 201 / 201 Weight 77 kg Intake: IV 1201 / 1201 462.5 / 462.5 201 / 201 NS Inj 1,000 ML @ 150 mls/hr IV 1100 / 1100 .CONT .Q6H40M [facility] Rx#:[id number] Azactam Inj 1,000 MG In NS Inj 0 / 0 200 / 200 100 / 100 100 ML @ 200 mls/hr IV.SIG Q8H [facility] Rx#:[id number] Thiamine Inj 100 MG In NS Inj 101 / 101 101 / 101 100 ML @ 100 mls/hr IV.SIG DAILY DAWN Rx#:[id number] Vancomycin Inj 1,250 MG In NS 262.5 / 262.5 Inj 250 ML @ 262.5 mls/hr IV. SIG Q24H [facility] Rx#:[id number] Other: Date of Last Bowel Movement 09/01/18 09/01/18 09/01/18 Narrative: GENERAL: ill appearing patient, no distress SKIN: Warm and dry. NECK: Supple, trachea midline. No JVD or lymphadenopathy. CARDIOVASCULAR: Regular rate and rhythm without murmurs, gallops, or rubs. RESPIRATORY: Breath sounds coarse and equal bilaterally. No accessory muscle use. GASTROINTESTINAL: Abdomen soft, non-tender, nondistended. MUSCULOSKELETAL: No cyanosis, or edema. Results Labs CBC & Chem 7: 09/03/18 05:37 09/03/18 05:37 Labs: Microbiology 08/31/18 20:20 Blood - Peripheral Aerobic Blood Culture - Final Staphylococcus saprophyticus 08/31/18 20:20 Blood - Peripheral Anaerobic Blood Culture - Preliminary No growth in 3 days 09/03/18 05:34 Sputum - Expectorated Sputum Gram Stain - Final 09/02/18 17:30 Blood - Peripheral Aerobic Blood Culture - Preliminary No growth in 1 day 09/02/18 17:30 Blood - Peripheral Anaerobic Blood Culture - Preliminary No growth in 1 day 09/02/18 17:16 Blood - Peripheral Aerobic Blood Culture - Preliminary No growth in 1 day 09/02/18 17:16 Blood - Peripheral Anaerobic Blood Culture - Preliminary No growth in 1 day 08/31/18 20:26 Blood - Peripheral Aerobic Blood Culture - Preliminary No growth in 3 days 08/31/18 20:26 Blood - Peripheral Anaerobic Blood Culture - Preliminary gram positive cocci Assessment and Plan Plan 73-year-old male with a history of COPD, lung cancer status post radiation 1 month ago, diastolic heart failure and colon cancer presented to the ED with complaints of shortness of breath, cough, congestion and chest pain for the last 1 week. COPD exacerbation -repeat Chest x-ray reviewed and shows no acute disease, CTA reviewed and shows no PE but with severe emphysema -DuoNeb scheduled and as needed -Solu-Medrol IV Gram positive bacteremia vs contamination -blood cultures 2/2 gram positive cocci in pairs and clusters, repeat blood cultures with no growth after 1 day -no port, no central line, UA w/ no evidence of UTI, cxr clear -ID consulted and following -continue IV abx -lactic acid 6.0 yesterday but improved to 1.3 Transaminitis with elevated alk phos and total bili -improving -AST > ALT, hx of alcohol use disorder -pt denies abdominal pain, N/V -hepatitis panel negative Pancytopenia -slightly improved today -H/H stable SIRS - WBC 2.8, heart rate 98, lactic acid 2.8 on arrival UA and CXR negative -Continue Levaquin IV and Azactam de-escalate -Blood cultures reviewed -Thiamine IV -Sputum culture Hypokalemia/Hypomagnesemia -repleted and resolved Lung cancer, status post radiation 1 month ago -Continue to monitor, will consult oncology if needed Alcohol abuse, alcohol on admission 308 -[facility] protocol -Thiamine daily MDM: self Code: Full GI ppx: Pepcid DVT prophylaxis: SCDs, pt with thrombocytopenia and PLT count in the 30's, no anticoagulation Discussed with: patient, RN, supervising MD Dispo: home once patients shortness of breath, tachycardia, lactic acidosis improves. Progress Note: Quality VTE Deep Vein Thrombosis/Pulmonary Embolism Present on Admission: No
[2018-09-04] MEDS: Vancomycin Inj 1,250 MG in Sodium Chlor 0.9% Inj 250 ML IV.SIG SCH ×2 (00:17→23:53)
[2018-09-04] MEDS: MethylPREDNISolone Sod Succinate Inj 40 MG/ML Vial IV.PUSH SCH ×4 (02:50→22:38)
[2018-09-04] MEDS: guaiFENesin 600 MG ER Tablet PO SCH ×2 (08:54→20:36)
[2018-09-04] MEDS: Famotidine 20 MG Tablet PO SCH ×2 (08:54→20:36)
[2018-09-04] MEDS: Thiamine Inj 100 MG in Sodium Chlor 0.9% Inj 100 ML IV.SIG SCH (09:06)
[2018-09-04] MEDS: amLODIPine 10 MG Tablet PO SCH (11:19)
--- NOTE | 2018-09-04 12:22 | P.PNIM ---
Subjective Interval history: Reports dry cough. No complete complaints of fevers or chills. Still some mild shortness of breath but no chest pain. Physical Exam Vital signs: Vital Signs 09/03/18 16:00 09/03/18 16:51 09/03/18 19:53 Temperature 98.0 F Pulse Rate 109 H 71 62 Respiratory Rate 20 16 Blood Pressure 178/107 H Pulse Oximetry 95 09/03/18 20:00 09/03/18 20:50 09/03/18 23:55 Temperature 98.4 F 97.9 F Pulse Rate 99 H 97 H 107 H Respiratory Rate 18 18 Blood Pressure 176/94 H 194/106 H Pulse Oximetry 91 L 93 L 09/04/18 00:00 09/04/18 03:00 09/04/18 03:55 Temperature 97.9 F Pulse Rate 95 H 77 82 Respiratory Rate 18 16 Blood Pressure 166/85 H Pulse Oximetry 95 09/04/18 04:00 09/04/18 08:00 09/04/18 08:50 Temperature 97.5 F L Pulse Rate 89 72 87 Respiratory Rate 16 Blood Pressure 144/100 H Pulse Oximetry 97 09/04/18 11:15 09/04/18 11:16 Temperature Pulse Rate 94 H Respiratory Rate 16 Blood Pressure Pulse Oximetry 96 Intake & Output 09/03/18 09/04/18 09/04/18 18:59 06:59 18:59 Intake Total 201 / 201 702.5 / 702.5 101 / 101 Output Total 875 / 875 Balance 201 / 201 -172.5 / -172.5 101 / 101 Weight 77 kg 78.3 kg Intake: IV 201 / 201 462.5 / 462.5 101 / 101 Azactam Inj 1,000 MG In NS Inj 100 / 100 200 / 200 100 ML @ 200 mls/hr IV.SIG Q8H [facility] Rx#:[id number] Thiamine Inj 100 MG In NS Inj 101 / 101 101 / 101 100 ML @ 100 mls/hr IV.SIG DAILY [facility] Rx#:[id number] Vancomycin Inj 1,250 MG In NS 262.5 / 262.5 Inj 250 ML @ 262.5 mls/hr IV. SIG Q24H [facility] Rx#:[id number] Oral 240 / 240 Output: Urine 875 / 875 Other: Date of Last Bowel Movement 09/01/18 09/01/18 # Bowel Movements 0 Narrative: GENERAL: Well-nourished well-developed male in no acute distress NECK: Supple, trachea midline. No JVD or lymphadenopathy. CARDIOVASCULAR: Regular rate and rhythm without murmurs, gallops, or rubs. RESPIRATORY: Breath sounds coarse and equal bilaterally with few rhonchi expiratory wheeze. No accessory muscle use. GASTROINTESTINAL: Abdomen soft, non-tender, nondistended. Normal active bowel sounds MUSCULOSKELETAL: No cyanosis, or edema. Results Labs CBC & Chem 7: 09/03/18 05:37 09/03/18 05:37 Labs: Microbiology 08/31/18 20:26 Blood - Peripheral Aerobic Blood Culture - Preliminary No growth in 4 days 08/31/18 20:26 Blood - Peripheral Anaerobic Blood Culture - Final anaerobic gram pos cocci 09/02/18 17:30 Blood - Peripheral Aerobic Blood Culture - Preliminary No growth in 2 days 09/02/18 17:30 Blood - Peripheral Anaerobic Blood Culture - Preliminary No growth in 2 days 09/02/18 17:16 Blood - Peripheral Aerobic Blood Culture - Preliminary No growth in 2 days 09/02/18 17:16 Blood - Peripheral Anaerobic Blood Culture - Preliminary No growth in 2 days 08/31/18 20:20 Blood - Peripheral Aerobic Blood Culture - Final Staphylococcus saprophyticus 08/31/18 20:20 Blood - Peripheral Anaerobic Blood Culture - Preliminary No growth in 4 days 09/03/18 05:34 Sputum - Expectorated Sputum Gram Stain - Final Assessment and Plan (1) Severe sepsis: Code(s): A41.9 - Sepsis, unspecified organism; R65.20 - Severe sepsis without septic shock Status: Acute (2) COPD with hypoxia: Code(s): J44.9 - Chronic obstructive pulmonary disease, unspecified; R09.02 - Hypoxemia Status: Acute Plan 73-year-old male with a history of COPD, lung cancer status post radiation 1 month ago, diastolic heart failure and colon cancer presented to the ED with complaints of shortness of breath, cough, congestion and chest pain for the last 1 week. Severe sepsis present on admission with WBCs 2.8, tachycardia and lactic acid 2.8 with unclear source, bronchitis versus bacteremia - improved Continue IV Levaquin and Azactam per infectious disease and follow with final blood cultures Check influenza, follow-up with sputum cultures and sensitivity Acute COPD exacerbation with hypoxemia -repeat Chest x-ray reviewed and shows no acute disease, CTA reviewed and shows no PE but with severe emphysema -DuoNeb scheduled and as needed -Continue with Solu-Medrol IV Wean oxygen as tolerated Gram positive bacteremia vs contamination -blood cultures 2/2 gram positive cocci and Staphylococcus saprophyticus, repeat blood cultures with no growth after 2 day -no port, no central line, UA w/ no evidence of UTI, cxr clear -ID consulted and following -continue IV abx -lactic acid trended up to 6.0 but improved to 1.3 Transaminitis with elevated alk phos and total bili -improving -AST > ALT, hx of alcohol use disorder -pt denies abdominal pain, N/V -hepatitis panel negative Pancytopenia -likely due to presenting sepsis and chronic alcohol use Improved Hypokalemia/Hypomagnesemia -repleted and resolved Lung cancer, status post radiation 1 month ago -Continue to monitor, follow-up with oncology Alcohol abuse, alcohol on admission 308 -[facility] protocol -Thiamine daily, change IV to p.o. Progress Note: Quality VTE Deep Vein Thrombosis/Pulmonary Embolism Present on Admission: No
[2018-09-04] MEDS ORDERED: Pharmacy Ordered Lab Info OTHER ONE (23:45)
[2018-09-05] MEDS: MethylPREDNISolone Sod Succinate Inj 40 MG/ML Vial IV.PUSH SCH ×3 (06:04→22:48)
[2018-09-05] MEDS: Famotidine 20 MG Tablet PO SCH ×2 (09:03→22:47)
[2018-09-05] MEDS: amLODIPine 10 MG Tablet PO SCH (09:03)
[2018-09-05] MEDS: guaiFENesin 600 MG ER Tablet PO SCH ×2 (09:04→22:49)
--- NOTE | 2018-09-05 13:01 | P.PNIM ---
Subjective Interval history: Patient reports his breathing is better. No fevers or chills. Would like to go home soon. No complaint of chest pain. Physical Exam Vital signs: Vital Signs 09/04/18 16:00 09/04/18 19:47 09/04/18 20:00 Temperature 97.2 F L 97.4 F L Pulse Rate 98 H 85 90 Respiratory Rate 14 16 17 Blood Pressure 149/86 H 151/87 H Pulse Oximetry 98 94 L 94 L 09/05/18 00:00 09/05/18 04:00 09/05/18 07:40 Temperature 97.5 F L 97.3 F L 97.8 F Pulse Rate 89 91 H 89 Respiratory Rate 17 18 18 Blood Pressure 111/59 L 179/84 H 195/104 H Pulse Oximetry 93 L 95 100 09/05/18 08:37 09/05/18 12:00 Temperature 97.6 F Pulse Rate 88 90 Respiratory Rate 18 18 Blood Pressure 146/77 H Pulse Oximetry 96 100 Intake & Output 09/04/18 09/05/18 09/05/18 18:59 06:59 18:59 Intake Total 821 / 821 702.5 / 702.5 Output Total 700 / 700 Balance 821 / 821 2.5 / 2.5 Weight 80.2 kg Intake: IV 201 / 201 462.5 / 462.5 Azactam Inj 1,000 MG In NS Inj 100 / 100 200 / 200 100 ML @ 200 mls/hr IV.SIG Q8H DAWN Rx#:[id number] Thiamine Inj 100 MG In NS Inj 101 / 101 100 ML @ 100 mls/hr IV.SIG DAILY DAWN Rx#:[id number] Vancomycin Inj 1,250 MG In NS 262.5 / 262.5 Inj 250 ML @ 262.5 mls/hr IV. SIG Q24H DAWN Rx#:[id number] Oral 620 / 620 240 / 240 Output: Urine 700 / 700 Other: # Voids 3 Date of Last Bowel Movement 09/01/18 Narrative: GENERAL: Well-nourished well-developed male in no acute distress NECK: Supple, trachea midline. No JVD or lymphadenopathy. CARDIOVASCULAR: Regular rate and rhythm without murmurs, gallops, or rubs. RESPIRATORY: Breath sounds coarse and equal bilaterally with few rhonchi and expiratory wheeze. No accessory muscle use. GASTROINTESTINAL: Abdomen soft, non-tender, nondistended. MUSCULOSKELETAL: No cyanosis, or edema. Results Labs CBC & Chem 7: 09/03/18 05:37 09/03/18 05:37 Labs: Microbiology 09/03/18 05:34 Sputum - Expectorated Sputum Gram Stain - Final 09/03/18 05:34 Sputum - Expectorated Sputum Sputum Culture - Final Heavy growth normal respiratory ashlie 09/02/18 17:30 Blood - Peripheral Aerobic Blood Culture - Preliminary No growth in 3 days 09/02/18 17:30 Blood - Peripheral Anaerobic Blood Culture - Preliminary No growth in 3 days 09/02/18 17:16 Blood - Peripheral Aerobic Blood Culture - Preliminary No growth in 3 days 09/02/18 17:16 Blood - Peripheral Anaerobic Blood Culture - Preliminary No growth in 3 days 08/31/18 20:26 Blood - Peripheral Aerobic Blood Culture - Final No growth in 5 days 08/31/18 20:26 Blood - Peripheral Anaerobic Blood Culture - Final anaerobic gram pos cocci 08/31/18 20:20 Blood - Peripheral Aerobic Blood Culture - Final Staphylococcus saprophyticus 08/31/18 20:20 Blood - Peripheral Anaerobic Blood Culture - Final No growth in 5 days 09/04/18 13:30 Nasal Wash Influenza Types A,B Antigen - Final Negative for FLU A and B antigen Infection due to influenza A or B cannot be ruled out since the antigen present in the sample may be below the detection limit of the test. Assessment and Plan (1) Severe sepsis: Code(s): A41.9 - Sepsis, unspecified organism; R65.20 - Severe sepsis without septic shock Status: Acute (2) COPD with hypoxia: Code(s): J44.9 - Chronic obstructive pulmonary disease, unspecified; R09.02 - Hypoxemia Status: Acute Plan 73-year-old male with a history of COPD, lung cancer status post radiation 1 month ago, diastolic heart failure and colon cancer presented to the ED with complaints of shortness of breath, cough, congestion and chest pain for the last 1 week. Severe sepsis present on admission with WBCs 2.8, tachycardia and lactic acid 2.8 with unclear source, bronchitis versus bacteremia - improved Continue IV vancomycin and Azactam per infectious disease and follow with final blood cultures Check influenza, follow-up with sputum cultures and sensitivity Acute COPD exacerbation with hypoxemia -repeat Chest x-ray reviewed and shows no acute disease, CTA reviewed and shows no PE but with severe emphysema -DuoNeb scheduled and as needed -Continue with Solu-Medrol IV and transition to p.o. prednisone Wean oxygen as tolerated Walk test today Gram positive bacteremia vs contamination -blood cultures 2/2 gram positive cocci and Staphylococcus saprophyticus, repeat blood cultures with no growth after 2 day -no port, no central line, UA w/ no evidence of UTI, cxr clear -ID consulted and following -continue IV abx -lactic acid trended up to 6.0 but improved to 1.3 Transaminitis with elevated alk phos and total bili -improving -AST > ALT, hx of alcohol use disorder -pt denies abdominal pain, N/V -hepatitis panel negative Pancytopenia -likely due to presenting sepsis and chronic alcohol use Improved Hypertensionblood pressure continues to be uncontrolled on amlodipine, will add lisinopril, continue clonidine as needed Hypokalemia/Hypomagnesemia -repleted and resolved Lung cancer, status post radiation 1 month ago -Continue to monitor, follow-up with oncology Alcohol abuse, alcohol on admission 308 -CIWA protocol -Continue with thiamine Progress Note: Quality VTE Deep Vein Thrombosis/Pulmonary Embolism Present on Admission: No
[2018-09-05] MEDS: Lisinopril 10 MG Tablet PO SCH (14:04)
[2018-09-06] MEDS ORDERED: Vancomycin Inj 1,750 MG in Sodium Chlor 0.9% Inj 500 ML IV.SIG SCH ×2
[2018-09-06] MEDS: MethylPREDNISolone Sod Succinate Inj 40 MG/ML Vial IV.PUSH SCH (05:42)
[2018-09-06 08:06] VITALS: PULSE 90; RESP 20
[2018-09-06] MEDS ORDERED: predniSONE 20 MG Tablet PO SCH (09:00)
[2018-09-06] MEDS: Famotidine 20 MG Tablet PO SCH (09:03)
[2018-09-06] MEDS: Lisinopril 10 MG Tablet PO SCH (09:03)
[2018-09-06] MEDS: amLODIPine 10 MG Tablet PO SCH (09:03)
[2018-09-06] MEDS: guaiFENesin 600 MG ER Tablet PO SCH (09:03)
[2018-09-06 10:24] VITALS: BP 170/112; TEMP 97; O2SAT 97
[2018-09-06] MEDS ORDERED: Azithromycin 250 MG Tablet PO SCH (10:30)
--- NOTE | 2018-09-06 10:30 | P.DS ---
DS: Providers Date of admission: 09/02/18 10:41 Primary care physician: [facility] Consults: 09/01/18 21:45 Consult to Infectious Diseases Routine Consulting Provider: Alban Sewell Reason for Consultation: sepsis, bacteremia Notified:: Service Spoke with:: MITALI Date Notified:: 09/01/18 Time Notified:: 22:12 Ordering Provider: SRAVANTHI 09/02/18 11:46 Consult to Infectious Diseases Routine Consulting Provider: Ayde Mendoza Reason for Consultation: positive blood cultures, gram (+) cocci Notified:: Service Spoke with:: Laisha Date Notified:: 09/02/18 Time Notified:: 12:12 Ordering Provider: PETRONA Brief History from admission: 73-year-old male with a history of COPD, lung cancer status post radiation 1 month ago, diastolic heart failure and colon cancer presented to the ED with complaints of shortness of breath, cough, congestion for the last 1 week. He states he just feels lousy. States he sleeps up with pillows for relief and was having night sweats, chills, no documented temperature. Denies any body aches. DS: Diagnosis Discharge Diagnosis (1) Severe sepsis: Status: Resolved (2) COPD with hypoxia: Status: Acute (3) Alcohol abuse: Status: Chronic (4) Acquired pancytopenia: Status: Acute DS: Summary 73-year-old with a history of COPD, lung cancer status post radiation 1 month ago, diastolic heart failure and: Cancer presented to the emergency room with complaints of shortness of breath, cough, congestion for the last week and presented with severe sepsis with likely bronchitis and improved on IV vancomycin and Azactam. Infectious disease was consulted due to gram-positive bacteremia which later showed gram-positive cocci and Staphylococcus saprophyticus in which infectious disease later felt it was a contaminant. Patient responded to the antibiotics IV Azactam and vancomycin; upon discharge transition to p.o. Zithromax to cover for bronchitis. His COPD acute exacerbation hypoxemia improved on scheduled DuoNeb, Solu-Medrol which was transitioned to p.o. A CTA obtained showed no PE but with severe emphysema. Patient does have a home nebulizer machine and was able to be weaned off oxygen during hospitalization. Patient had transaminitis likely due to history of alcohol abuse. His pancytopenia likely due to presenting sepsis and chronic alcohol abuse. He was placed on CIWA protocol during the hospitalization for his history of alcohol abuse and counseling was provided. Blood pressure medication was adjusted during the hospitalization and prescription for Norvasc and lisinopril given upon discharge. Hypokalemia hypomagnesium was repleted and resolved. At this time patient has gained maximum benefit from hospitalization and we will transition the patient home [facility] Time Spent with Patient Total time spent providing and/or coordinating discharge services: Less than 30 minutes Quality: VTE Deep Vein Thrombosis/Pulmonary Embolism Present on Admission: No Exam Narrative Exam Narrative: GENERAL: This is a well-nourished, well-developed patient, in no apparent distress. CARDIOVASCULAR: Regular rate and rhythm RESPIRATORY: Few expiratory coarse sounds with few expiratory wheeze bilaterally GASTROINTESTINAL: Abdomen soft, non-tender, nondistended. Normal active bowel sounds MUSCULOSKELETAL: Extremities without clubbing, cyanosis, or edema. NEURO: Alert & Oriented x4 to person, place, time, situation. Moves all ext x4 Results Labs on day of discharge: Labs from last 24 hours 09/04/18 23:45 Creatinine 1.23 Estimated GFR 58 L Preliminary micro results at discharge 09/02/18 17:30 Aerobic Blood Culture - Preliminary Blood - Peripheral No growth in 3 days Anaerobic Blood Culture - Preliminary No growth in 3 days 09/02/18 17:16 Aerobic Blood Culture - Preliminary Blood - Peripheral No growth in 3 days Anaerobic Blood Culture - Preliminary No growth in 3 days Impressions ITS Impressions Chest CTA 08/31/18 21:24 CONCLUSION: 1. No evidence for pulmonary embolism. 2. Severe emphysema without infiltrate or mass. 3. 1 cm nodular density in the right upper lobe. Follow-up CT chest in 3 months recommended for stability. Chest X-Ray 09/02/18 00:00 CONCLUSION: The lungs are clear. Discharge Plan Discharge Disposition Patient Disposition: 01 Discharge Home Discharge Condition Condition: Good Discharge Order Discharge Orders: Discharge Order (Routine); Ordered 09/06/18 Ordered By: Tyrell Howe Discharge Details Anticipated Discharge Date: 09/06/18 Physicians Team Primary [facility] Provider: [facility] Attending Provider: Tyrell Howe Other Providers: Alban Sewell ; Ayde Mendoza Rxs /Orders / Referrals /Forms Prescriptions: New lisinopril 10 mg Tablet 10 mg PO DAILY Qty: 30 RF: 0 albuterol sulfate 90 mcg/actuation HFA aerosol inhaler 2 inh INHALATION Q4-6H PRN (Reason: shortness of breath or wheezing) Qty: 8 RF: 0 prednisone 20 mg tablet 20 mg PO BID Qty: 11 RF: 0 amlodipine [Norvasc] 10 mg Tablet 10 mg PO DAILY Qty: 30 RF: 0 azithromycin [Zithromax] 500 mg tablet 500 mg PO DAILY 3 Days Qty: 3 RF: 0 No Action Unable to Obtain Home Meds RF: 0 Referrals: [facility] [Primary Care Provider] - See Instructions ( Please call the physician's office to book the appointment to be seen within 1 week.) Post Discharge Care Plan Care Plan Goals: Discharge Care Plan Goals for COPD You have been diagnosed with chronic obstructive pulmonary disease (COPD). This is a name given to a group of diseases that limit the flow of air in and out of your lungs. This makes it harder to breathe. With COPD, you are also more likely to get lung infections. COPD includes chronic bronchitis and emphysema. COPD is most often caused by heavy, long-term cigarette smoking. Directions to Meet your Goals: 1. Quit smoking: * If you smoke, quit. It is the best thing you can do for your COPD and your overall health. * Join a stop-smoking program. There are even telephone, text message, and Internet programs to help you quit. * Ask your doctor about medicines or other methods to help you quit. * Ask family members to quit smoking as well. * Don't allow people to smoke in your home, in your car, or when they are around you. 2. Protect yourself from infection: * Wash your hands often. Do your best to keep your hands away from your face. Most germs are spread from your hands to your mouth. * Get a flu shot every year. Also ask your provider about pneumonia vaccines. * Avoid crowds. It's especially important to do this in the winter when more people have colds and flu. * To stay healthy, get enough sleep, exercise regularly, and eat a balanced diet. You should: -Get about 8 hours of sleep every night. -Try to exercise for at least 30 minutes on most days. -Have healthy foods including fruits and vegetables, 100% whole grains, lean meats and fish, and low-fat dairy products. -Try to stay away from foods high in fats and sugar. 3. Take your medicines: * Take your medicines exactly as directed. Don't skip doses. 4. Manage you stress: Stress can make COPD worse. Use this stress management technique: * Find a quiet place and sit or lie in a comfortable position. * Close your eyes and perform breathing exercises for several minutes. 5. Pulmonary rehabilitation: * Pulmonary rehab can help you feel better. These programs include exercise, breathing techniques, information about COPD, counseling, and help for smokers. * Ask your doctor or your local hospital about programs in your area. 6. When to call your doctor: Call doctor immediately if you have any of the following: Shortness of breath, wheezing, or coughing Increased mucus Yellow, green, bloody, or smelly mucus Fever or chills Tightness in your chest that does not go away with rest or medicine An irregular heartbeat or a feeling that your heart is beating very fast Swollen ankles 7. Follow-up: Do Not miss your follow-up appointment. Keep up with all your appointments and yearly check ups Status ED Status: Left Department
[2018-09-08] MEDS ORDERED: Pharmacy Ordered Lab Info OTHER ONE (23:45)
== END 2018-09-06 11:10 | disposition home or self-care (01) | DRG 872 ==
LOC: NEDA 19:07 → NEPC 19:07 → NEPFCDU 09-01 03:08 → N04 09-03 15:52
PROVIDERS: ADMIT Family Medicine; ATTEND Family Medicine
DX: N28.9 Disorder of kidney and ureter, unspecified; Z85.038 Personal history of other malignant neoplasm of large intestine; I50.32 Chronic diastolic (congestive) heart failure; E87.2 Acidosis; J44.1 Chronic obstructive pulmonary disease with (acute) exacerbation; R00.0 Tachycardia, unspecified; R65.20 Severe sepsis without septic shock; Y90.8 Blood alcohol level of 240 mg/100 ml or more; R09.02 Hypoxemia; E83.42 Hypomagnesemia; A41.9 Sepsis, unspecified organism; E87.6 Hypokalemia; I11.0 Hypertensive heart disease with heart failure; Z88.0 Allergy status to penicillin; D61.818 Other pancytopenia; Z92.3 Personal history of irradiation; F17.210 Nicotine dependence, cigarettes, uncomplicated; Z89.429 Acquired absence of other toe(s), unspecified side; Z91.81 History of falling; J40 Bronchitis, not specified as acute or chronic; F10.10 Alcohol abuse, uncomplicated; Z85.118 Personal history of other malignant neoplasm of bronchus and lung; D69.59 Other secondary thrombocytopenia
CPT/HCPCS: 71010; 71045; 71275; 80053; 80074; 80202; 80307; 82550; 82565; 83520; 83605; 83690; 83735; 83880; 84132; 84484; 85025; 85379; 85610; 85730; 86403; 87040; 87070; 87077; 87186; 87205; 87275; 87276; 87804; 90765; 90766; 90768; 90775; 93005; 93306; 94618; 94620; 94640; 94664; 94665; 96361; 96365; 96366; 96367; 96368; 96375; 99285; G0378; J1956; J2920; J2930; J3370; J3411; J3475; J7030; J7040; J7050; J7506; J7512; Q9967